=== PATIENT | female | born 1955 | race Caucasian/White ===

== ENCOUNTER 2022-11-16 14:26 | Outpatient (OUT) | payer MEDICARE, OTHER, SELFPAY ==
--- NOTE | 2022-11-16 16:12 | PM.CN ---
Consult Note: HPI Data of Consult Patient: known to practice within the last 3 years Consult date: 11/16/22 Requesting Physician: Parish Garcias MD Primary Care Provider: DOLORES LUND Consult Narrative Reason for consult: left hip pain Narrative: 67yof who presents for assessment. worsening pain in left hip and back. imaging reviewed, significant for moderate to severe stenosis at l4-5 and l5-s1. also epidural scarring seen around l5 nerve root postoperatively. engages in provider directed home exercise course >6 weeks, with limited benefit. uses ibuprofen, has tried gabapentin and lyrica, with little relief. denies adverse medication side effects. cc:: CC: Parish Garcias MD Review of Systems ROS Status of ROS 10 or more systems reviewed and unremarkable except as noted in history and below Meds Home Medications and Allergies Home Medications Medication Instructions Recorded Confirmed Type ibuprofen 200 mg tablet (Advil) 200 mg PO QDAY PRN pain 11/16/22 11/16/22 History Allergies Allergy/AdvReac Type Severity Reaction Status Date / Time No Known Drug Allergies Allergy Verified 11/16/22 14:59 Exam Narrative Exam Narrative: Psych-alert and oriented x 3. Attentive and appropriate, constitutionally normal, displays normal mood and affect per situation.? There are no obvious deficits in memory, reasoning, or intellect.? Skin-no obvious rashes, bruising, erythema noted to the patient's area of pain. Extremities- extremities are warm with minimal edema and palpable pulses. Tender to palpation over left greater trochanter. Lumbar-no significant tenderness to palpation noted in the lumbar spine and paraspinal musculature.? Pain is elicited with extension, and lateral rotation of the lumbar spine. Range of motion is slightly diminished with these motions due to pain. Facet loading maneuvers are positive bilaterally and do appear to be concordant with the patient's normal complaints of pain.? Coordination remains intact.? Gait remains non-antalgic. Assessment and Plan Assessment and Plan (1) Trochanteric bursitis of left hip: (2) Lumbar stenosis with neurogenic claudication: (3) Lumbar spondylosis: (4) Lumbar postlaminectomy syndrome: Plan 67yof who presents for assessment. failed conservative measures, as noted. in terms of her hip pain, suspect she has trochanteric bursitis of left hip, given tenderness. will proceed with left troch bursa injection today. she is in agreement. in terms of other symptoms, prudent to attempt diagnostic bilateral l4-5, l5-s1 medial branch blocks under fluoroscopic guidance with intention of proceeding to radiofrequency ablation. she will call to schedule. 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 expressed understanding. medications reviewed, no changes. follow up in 3 months or sooner.
== END 2022-11-16 14:27 | disposition home or self-care (01) ==
LOC: PM 14:27
PROVIDERS: PCP Family Medicine; Visit Provider Anesthesiology
DX: M47.816 Spondylosis without myelopathy or radiculopathy, lumbar region (principal); M70.62 Trochanteric bursitis, left hip; M48.062 Spinal stenosis, lumbar region with neurogenic claudication; M96.1 Postlaminectomy syndrome, not elsewhere classified
CPT/HCPCS: 20610

== ENCOUNTER 2022-12-07 06:34 | Day surgery (SDC) | payer MEDICARE, OTHER, SELFPAY ==
[2022-12-07 07:10] VITALS: BP 159/87; PULSE 73; RESP 16; TEMP 36.7; O2SAT 97
[2022-12-07 07:33] VITALS: BP 196/91; PULSE 87; RESP 16; O2SAT 97
[2022-12-07] MEDS: BUPIVACAINE HCL 0.5% PF 50 MG/10 ML VIAL 8 ML INJ (07:36)
[2022-12-07] MEDS: TRIAMCINOLONE ACETONIDE 40 MG/ML VIAL INJ (07:37)
[2022-12-07] MEDS: LIDOCAINE HCL 2% PF 100 MG/5 ML VIAL INJ (07:37)
[2022-12-07 07:40] VITALS: BP 190/93; PULSE 86; RESP 18; O2SAT 98
--- NOTE | 2022-12-07 07:43 | W.PM.PROCNOT ---
Date of procedure: 12/07/22 Pre-op diagnosis: Lumbosacral spondylosis Post-op diagnosis: same as pre-op Procedure: Procedure: Bilateral L4-5, L5-S1 medial branch block Medications: Bupivacaine 0.25% 4cc The patient was seen and examined in the preoperative holding area.? An informed consent was obtained and placed on the chart.? The patient was brought to the medical procedure unit and placed in the prone position.? A timeout was completed verifying correct patient, procedure site, positioning, plan, and special equipment.? Using aseptic technique, the needle was placed at left L4. Under direct fluoroscopic visualization a Quincke-tipped spinal needle was advanced to the junction of the superior articulating process with the transverse process at the designated medial branch segment.? Preceded by negative aspiration, the above-mentioned injectate was placed in 1 mL aliquots.? The procedure was repeated at left L5, S1.? The needle was removed and insertion site was covered. The same procedure, at the same levels, was completed on the right side. The patient was taken to the postprocedural recovery area and monitored for an appropriate length of time before found suitable for discharge in the company of a responsible adult. Anesthesia: Local Surgeon: Parish Garcias Pathology: none sent Condition: stable Disposition: no change
== END 2022-12-07 07:41 | disposition home or self-care (01) ==
PROVIDERS: PCP Family Medicine; Visit Provider Anesthesiology
DX: M47.817 Spondylosis without myelopathy or radiculopathy, lumbosacral region (principal)
CPT/HCPCS: 64493; 64494

== ENCOUNTER 2022-12-24 14:04 | Outpatient (OUT) | payer MEDICARE, OTHER, SELFPAY ==
--- NOTE | 2022-12-24 14:35 | P.CN_ITS ---
Consult Note: HPI Data of Consult Patient: known to practice within the last 3 years Requesting Physician: Martha Arvizu NP Primary Care Provider: DOLORES LUND Consult Narrative Reason for consult: f/u Narrative: Rica Roberson a pleasant 67 year old female presents for evaluation and management of chronic low back pain. Today rating pain 10/10. Patient repots 90- 95% pain relief and functional improvement immediately after and hours following MBB #1 at bilateral L4-5 L5-S1. Patient has severe anxiety and noticed increase in BP during the procedure after taking her own xanax. Patient would like to discuss MBB #2 working towards thermal ablation. cc:: CC: Martha Arvizu NP Review of Systems ROS Status of ROS 10 or more systems reviewed and unremarkable except as noted in h istory and below Musculoskeletal Reports: back pain Meds Home Medications and Allergies Home Medications Medication Instructions Recorded Confirmed Type ibuprofen 200 mg tablet (Advil) 200 mg PO QDAY PRN pain 11/16/22 12/07/22 History diazepam 2 mg tablet (Valium) 1 mg PO DAILY PRN anxiety 12/07/22 12/07/22 History Allergies Allergy/AdvReac Type Severity Reaction Status Date / Time No Known Drug Allergies Allergy Verified 11/16/22 14:59 Exam Narrative Exam Narrative: Psych-alert and oriented x 3. Attentive and appropriate, constitutionally normal, displays normal mood and affect per situation.? There are no obvious deficits in memory, reasoning, or intellect.? Skin-no obvious rashes, bruising, erythema noted to the patient's area of pain. Extremities- extremities are warm with minimal edema and palpable pulses. Tender to palpation over left greater trochanter. Lumbar-no significant tenderness to palpation noted in the lumbar spine and para spinal musculature.? Pain is elicited with extension, and lateral rotation of the lumbar spine. Range of motion is slightly diminished with these motions due to pain. Facet loading maneuvers are positive bilaterally and do appear to be concordant with the patient's normal complaints of pain.? Coordination remains intact.? Gait remains non-antalgic. Constitutional Documenting provider has reviewed patient's vital signs: yes Common normals: no apparent distress, oriented x3, healthy appearing, alert and well nourished General appearance: cooperative HENMT Common normals: normocephalic, hearing grossly normal bilaterally and moist oral mucous membranes Head and scalp: normocephalic Eye Common normals: PERRL Pupil: PERRL Neck & C-Spine Common normals: full ROM General: normal visual inspection Chest Common normals: inspection of chest normal Respiratory Common normals: normal respiratory effort, no retractions and no use of accessory muscles Neuro Common normals: oriented x3, CN's II-XII intact bilaterally, moves all extremities, no focal motor deficits, no sensory deficits noted and deep tendon reflexes 2+ bilaterally Sensorium/orientation: alert Motor exam: strength 5/5 throughout and no movement abnormalities noted Psych Common normals: mental status grossly normal, thought process normal, cooperative, affect normal, speech normal and activity/motor behavior normal Speech: normal speech Thought process: normal thought process Results Additional Findings Additional findings: I have checked an [facility] report on this patient today and there are no aberrancies noted in the prescribing history.?? A drug screen was completed and reviewed within the last year, and if there has not been a drug screen completed we ordered one today to monitor higher risk, state monitored pain medication use. As part of providing excellent, safe, comprehensive care, the following was com pleted at our patient's visit: 1. A medication reconciliation and review to ensure accurate knowledge of current/active medications, including asking our patients to inform us about any [id number] medications or herbal remedies/nutritional supplements/alternative remedies. 2. A review to specifically ensure our patients have had annual screening for: elevated body mass index (BMI), tobacco use, screening for depression, and screening for unhealthy alcohol use. When screening is concerning, patients are provided with education and the specific recommendation to discuss the concerning health issue and treatment options with their primary care provider. Assessment and Plan Assessment and Plan (1) Lumbar spondylosis: (2) Lumbar postlaminectomy syndrome: (3) Anxiety: Plan proceed with bialteral L4-5 L5-S1 MBB #2 with 10mg PO valium due to anxiety under fluoroscopy working towards thermal RFA continue OTC prn medications for mild to moderate pain f/u 1 week after procedure
== END 2022-12-24 14:05 | disposition home or self-care (01) ==
LOC: PM 14:05
PROVIDERS: PCP Family Medicine; Visit Provider Nurse Practitioner
DX: M47.816 Spondylosis without myelopathy or radiculopathy, lumbar region (principal); M96.1 Postlaminectomy syndrome, not elsewhere classified; F41.9 Anxiety disorder, unspecified
CPT/HCPCS: G0463

== ENCOUNTER 2023-01-18 06:50 | Day surgery (SDC) | payer MEDICARE, OTHER, SELFPAY ==
[2023-01-18 07:28] VITALS: BP 161/88; PULSE 85; RESP 16; TEMP 36.1; O2SAT 93
[2023-01-18 08:30] VITALS: BP 140/73; PULSE 86; RESP 18; O2SAT 98
[2023-01-18 08:32] VITALS: BP 164/77; PULSE 93; RESP 18; O2SAT 97
--- NOTE | 2023-01-18 08:33 | W.PM.PROCNOT ---
Date of procedure: 01/18/23 Pre-op diagnosis: Lumbar spondylosis Post-op diagnosis: same as pre-op Procedure: Procedure: Bilateral L4-5, L5-S1 medial branch block Medications: Bupivacaine 0.25% 6cc The patient was seen and examined in the preoperative holding area.? An informed consent was obtained and placed on the chart.? The patient was brought to the medical procedure unit and placed in the prone position.? A timeout was completed verifying correct patient, procedure site, positioning, plan, and special equipment.? Using aseptic technique, the needle was placed at left L4. Under direct fluoroscopic visualization a Quincke-tipped spinal needle was advanced to the junction of the superior articulating process with the transverse process at the designated medial branch segment.? Preceded by negative aspiration, the above-mentioned injectate was placed in 1 mL aliquots.? The procedure was repeated at left L5, S1.? The needle was removed and insertion site was covered. The same procedure, at the same levels, was completed on the right side. The patient was taken to the postprocedural recovery area and monitored for an appropriate length of time before found suitable for discharge in the company of a responsible adult. Anesthesia: Local Surgeon: Parish Garcias Pathology: none sent Condition: stable Disposition: no change
[2023-01-18] MEDS: LIDOCAINE HCL 2% PF 100 MG/5 ML VIAL 2 ML INJ (08:35)
[2023-01-18] MEDS: BUPIVACAINE HCL 0.25% PF 25 MG/10 ML VIAL 8 ML INJ (08:35)
== END 2023-01-18 08:42 | disposition home or self-care (01) ==
PROVIDERS: PCP Family Medicine; Visit Provider Anesthesiology
DX: M47.816 Spondylosis without myelopathy or radiculopathy, lumbar region (principal)
CPT/HCPCS: 64493; 64494

== ENCOUNTER 2023-01-28 14:46 | Outpatient (OUT) | payer MEDICARE, OTHER, SELFPAY ==
--- NOTE | 2023-01-28 15:42 | P.CN_ITS ---
Consult Note: HPI Data of Consult Patient: known to practice within the last 3 years Requesting Physician: Martha Arvizu NP Primary Care Provider: DOLORES LUND Consult Narrative Reason for consult: f/u Narrative: Rica Roberson a pleasant 67 year old female presents for evaluation and management of chronic pain of left foot. Pain today 8/10 in left foot. Patient reports no lumbar pain, had no significant relief from bilateral L4-5 L5-S1 MBB #2. cc:: CC: Martha Arvizu NP Review of Systems ROS Status of ROS 10 or more systems reviewed and unremark able except as noted in history and below Musculoskeletal Reports: extremity pain PFSH PFSH Medical History (Updated 01/28/23 @ 15:57 by Martha Arvizu NP) Former smoker ?Z87.891 - Personal history of nicotine dependence (ICD-10) High cholesterol ?E78.00 - Pure hypercholesterolemia, unspecified (ICD-10) Surgical History H/O lumbosacral spine surgery ?Z98.890 - Other specified postprocedural states (ICD-10) H/O lumbar discectomy ?Z98.890 - Other specified postprocedural states (ICD-10) H/O: hysterectomy ?Z90.710 - Acquired absence of both cervix and uterus (ICD-10) Meds Home Medications and Allergies Home Medications Medication Instructions Recorded Confirmed Type ibuprofen 200 mg tablet (Advil) 200 mg PO QDAY PRN pain 11/16/22 01/18/23 History diazepam 2 mg tablet (Valium) 1 mg PO DAILY PRN anxiety 12/07/22 01/18/23 History Allergies Allergy/AdvReac Type Severity Reaction Status Date / Time No Known Drug Allergies Allergy Verified 01/18/23 07:22 Exam Narrative Exam Narrative: Psych-alert and oriented x 3. Attentive and appropriate, constitutionally normal, displays normal mood and affect per situation.? There are no obvious deficits in memory, reasoning, or intellect.? Skin-no obvious rashes, bruising, erythema noted to the patient's area of pain. Extremities- extremities are warm with minimal edema and palpable pulses. Tender to palpation over left greater trochanter. Lumbar-no significant tenderness to palpation noted in the lumbar spine and paraspinal musculature.? Pain is elicited with extension, and lateral rotation of the lumbar spine. Range of motion is slightly diminished with these motions due to pain. Facet loading maneuvers are positive bilaterally and do appear to be concordant with the patient's normal complaints of pain.? Coordination remains intact.? Gait remains non-antalgic. Constitutional Documenting provider has reviewed patient's vital signs: yes Common normals: no apparent distress, oriented x3, healthy appearing, alert and well nourished General appearance: cooperative HENMT Common normals: normocephalic, hearing grossly normal bilaterally and moist oral mucous membranes Head and scalp: normocephalic Eye Common normals: PERRL Pupil: PERRL Neck & C-Spine Common normals: full ROM General: normal visual inspection Chest Common normals: inspection of chest normal Respiratory Common normals: normal respiratory effort, no retractions and no use of accessory muscles Neuro Common normals: oriented x3, CN's II-XII intact bilaterally, moves all extremities, no focal motor deficits, no sensory deficits noted and deep tendon reflexes 2+ bilaterally Sensorium/orientation: alert Motor exam: strength 5/5 throughout and no movement abnormalities noted Psych Common normals: mental status grossly normal, thought process normal, cooperative, affect normal, speech normal and activity/motor behavior normal Speech: normal speech Thought process: normal thought process Results Additional Findings Additional findings: I have checked an [facility] report on this patient today and there are no aberrancies noted in the prescribing history.?? A drug screen was completed and reviewed within the last year, and if there has not been a drug screen completed we ordered one today to monitor higher risk, state monitored pain medication use. As part of providing excellent, safe, comprehensive care, the following was completed at our patient's visit: 1. A medication reconciliation and review to ensure accurate knowledge of current/active medications, including asking our patients to inform us about any [id number] medications or herbal remedies/nutritional supplements/alternative remedies. 2. A review to specifically ensure our patients have had annual screening for: elevated body mass index (BMI), tobacco use, screening for depression, and screening for unhealthy alcohol use. When screening is concerning, patients are provided with education and the specific recommendation to discuss the concerning health issue and treatment options with their primary care provider. Assessment and Plan Assessment and Plan (1) Lumbar spondylosis: (2) Weakness: (3) Chronic pain in left foot: Plan PT per pt request for left foot pain, left leg weakness continue current medications will review case with Dr Garcias and f/u based on care plan
== END 2023-01-28 14:47 | disposition home or self-care (01) ==
LOC: PM 14:46
PROVIDERS: PCP Family Medicine; Visit Provider Nurse Practitioner
DX: M47.816 Spondylosis without myelopathy or radiculopathy, lumbar region (principal); R53.1 Weakness; M79.672 Pain in left foot
CPT/HCPCS: G0463

== ENCOUNTER 2023-06-30 12:33 | Outpatient (OUT) | payer OTHER, SELFPAY ==
--- OUTSIDE RECORDS SUMMARY | 2023-06-30 12:55 | XMS_ITS | CCD ---
Author Organization [facility] Care Team Providers Care Cafe Helper Name Role Phone Dolores Calixto Primary Care Provider DR ELOY DAVIDSON Admitting Unavailable GARCIA, ADELFO Consulting Unavailable [facility] Primary Care Unavailable MARGO, DR ELOY Lang Attending Unavailable CURTIS, DR RAMÓN Smith Consulting Unavailable MARGO, DR ELOY Lang Admitting Unavailable MARGO, DR ELOY Lang Attending Unavailable [facility] Primary Care Unavailable GARCIA, ADELFO Consulting Unavailable MARGO, DR ELOY Lang Admitting Unavailable MARGO, DR ELOY Lang Attending Unavailable GARCIA, ADELFO Consulting Unavailable [facility] Primary Care Unavailable MARGO, DR ELOY Lang Attending Unavailable MARGO, DR ELOY Lang Consulting Unavailable MARGO, DR ELOY Lang Admitting Unavailable [facility] Care Unavailable GARCIA, ADELFO Consulting Unavailable VERHOFF, RIAN Consulting Unavailable MARGO, DR ELOY Lang Attending Unavailable MARGO, DR ELOY Lang Consulting Unavailable MARGO, DR ELOY Lang Admitting Unavailable [facility] Primary Care Unavailable TERESA LISA Consulting Unavailable MARGO, DR ELOY Lang Admitting Unavailable GARCIA, ADELFO Consulting Unavailable [facility] Primary Care Unavailable MARGO, DR ELOY Lang Attending Unavailable MARGO, DR ELOY Lang Attending Unavailable MARGO, DR ELOY Lang Consulting Unavailable MARGO, DR ELOY Lang Admitting Unavailable [facility] Primary Care Unavailable GARCIA, ADELFO Consulting Unavailable MARGO, DR ELOY Lang Attending Unavailable MARGO, DR ELOY Lang Admitting Unavailable GARCIA, ADELFO Consulting Unavailable [facility] Primary Care Unavailable MARGO, DR ELOY Lang Admitting Unavailable [facility] Primary Care Unavailable MARGO, DR ELOY Lang Attending Unavailable Dolores Calixto MD Primary Care Provider Katerine DO, Parish Hanley Attending Unavailable Katerine DO, Parish Hanley Attending Unavailable Gitrellitis , Parish Hanley Attending Unavailable VERHOFF, DOLORES L Primary Care Unavailable REBECCA, ELOISA Referring Unavailable VERHOFF, DOLORES L Attending Unavailable REBECCA, ELOISA Referring Unavailable VERHOFF, DOLORES L Attending Unavailable VERHOFF, DOLORES L Primary Care Unavailable REBECCA, ELOISA Referring Unavailable VERHOFF, DOLORES L Primary Care Unavailable VERHOFF, DOLORES L Attending Unavailable ELBERT NAVA Attending Unavailable VERHOFF, DOLORES L Primary Care Unavailable VERHOFF, DOLORES L Primary Care Unavailable REBECCA, ELOISA Referring Unavailable VERHOFF, DOLORES L Attending Unavailable VERHOFF, DOLORES L Primary Care Unavailable REBECCA, ELOISA Referring Unavailable VERHOFF, DOLORES L Attending Unavailable Medications Current Medications Medication Drug Class(es) Dates Sig (Normalized) Sig (Original) acetaminophen 500 mg oral tablet (2 sources) take 1 tablet by mouth every six hours as needed for pain acetaminophen (TYLENOL) 500 MG tablet Take 500 mg by mouth every 6 hours as needed for Pain 0 Active gabapentin 300 mg oral capsule (11 sources) Anti-epileptic Agent Start: 02-09-2018 take 1 capsule by mouth three times daily gabapentin (NEURONTIN) 300 MG capsule Take one capsule by mouth TID. 0 02/09/2018 Active naproxen sodium 220 mg oral tablet (1 source) Nonsteroidal Anti-inflammatory Drug take 1 tablet by mouth twice daily at mealtime naproxen sodium (ALEVE) 220 MG tablet Take 220 mg by mouth 2 times daily (with meals) 0 Active pregabalin 50 mg oral capsule (1 source) Start: 07-23-2021 take 1 tablet by mouth twice daily pregabalin (LYRICA) 50 MG capsule TAKE 1 TABLET BY MOUTH TWICE DAILY 0 07/23/2021 Active Completed/Discontinued Medications Medication Drug Class(es) Dates Sig (Normalized) Sig (Original) gentamicin 3 mg/ml ophthalmic solution (1 source) Start: 06-21-2022 End: 06-21-2022 gentamicin (GARAMYCIN) 0.3 % ophthalmic solution 2 drop tetracaine hydrochloride 5 mg/ml ophthalmic solution (1 source) [facility] Start: 06-21-2022 End: 06-21-2022 tetracaine (TETRAVISC) 0.5 % ophthalmic solution 2 drop water 986 mg/ml ophthalmic irrigation solution (1 source) Start: 06-21-2022 End: 06-21-2022 eye stream ophthalmic solution 1 drop Start: 06-21-2022 End: 06-21-2022 eye stream ophthalmic soluti on 1 drop Problems Active Problems Problem Classification Problem Date Documented Date Episodic/Chronic Other connective tissue disease (1 source) Pain in left foot; Translations: [PAIN IN LEFT FOOT] Onset: 11-26-2021 Episodic Other screening for suspected conditions (not mental disorders or infectious disease) (3 sources) Patient encounter status; Translations: [Encounter for screening mammogram for malignant neoplasm of breast] Onset: 03-15-2023 Episodic Spondylosis; intervertebral disc disorders; other back problems (1 source) Other spondylosis with radiculopathy, lumbar region; Translations: [OT SPONDYLS RADICULOPATHY LUMB RGN] Onset: 06-30-2021 Chronic Spondylosis; intervertebral disc disorders; other back problems (10 sources) Intervertebral disc disorders with radiculopathy, lumbar region; Translations: [Radiculopathy, lumbar region] Onset: 06-30-2021 Episodic Unclassified (3 sources) LOW BACK PAIN, UNSPECIFIED; Translations: [LOW BACK PAIN, UNSPECIFIED] Onset: 06-30-2021 Past or Other Problems Problem Classification Problem Date Documented Date Episodic/Chronic Inflammation; infection of eye (except that caused by tuberculosis or sexually transmitteddisease) (2 sources) Acute infectious conjunctivitis; Translations: [Unspecified acute conjunctivitis, bilateral] Onset: 06-21-2022 Episodic Other connective tissue disease (4 sources) Other muscle spasm; Translations: [OTHER MUSCLE SPASM] Onset: 08-19-2021 Episodic Other non-traumatic joint disorders (4 sources) Pain in right hip; Translations: [PAIN IN RIGHT HIP] Onset: 06-18-2021 Episodic Residual codes; unclassified (1 source) Other specified postprocedural states; Translations: [[facility] SPECIFIED POSTPROCEDURAL STATES] Onset: 01-27-2021 Episodic Sprains and strains (1 source) Sprain of unspecified ligament of left ankle, initial encounter; Translations: [SPRAIN UNS LIGAMENT LT ANKLE INIT] Onset: 08-22-2021 Episodic Unclassified (1 source) LOW BACK PAIN, UNSPECIFIED; Translations: [LOW BACK PAIN, UNSPECIFIED] Onset: 06-26-2021 Results Test Name Value Interpretation Reference Range Facility [facility] DIGITAL SCREEN [facility] [place] 03-16-2023 [facility]ST[facility] DIGITAL SCREEN BILATERAL HISTORY: Screening. TECHNIQUE: Bilateral digital screening mammogram with CAD. Digital breast tomosynthesis imaging. FINDINGS: Two views of each breast show scattered areas of fibroglandular density. BREAST DENSITY CODE: S Scattered No change from prior studies, most recent of 09/09/2020. Suspicious calcifications: None. Suspicious mass: None. (If skin markers were applied, circles represent skin lesions and linear markers represent scars.) IMPRESSION: OVERALL ASSESSMENT: BIRADS: 1 Negative, no evidence of malignancy. A letter of notification will be mailed to the patient. Interpreted by: Idris Zhao Jr., MD Signed by: Idris Zhao Jr., MD 03/16/23 Final result Normal [facility] CBC with Diffon 03-15-2023 Abs. Basophil 0.02 k/uL Normal 0.00-0.20 [facility] Comment on above: Performed By: #### C P, CDP #### [facility] [address] [place], [place] [id number] [employer] Installer: Memo Kyle MD Abs.Imm.Granulocyte 0.01 k/uL Normal 0.00-0.30 [facility] Comment on above: Performed By: #### C P, CDP #### [facility] [address] [place] [address] [employer] Installer: Memo Kyle MD Abs.Neutrophil (Seg) 4.00 k/uL Normal 2.5-7.0 [facility] Comment on above: Performed By: #### C P, CDP #### [facility] [address] [place] [address] [employer] Installer: Memo Kyle MD Basophils/100 WBC (Bld) 0 % Normal 0-2 [facility] Comment on above: Performed By: #### C P, CDP #### [facility] [address] [place], [place] [id number] [employer] Installer: Memo Kyle MD Eosinophils (Bld) [#/Vol] 0.13 10*3/uL Normal 0.00-0.40 [facility] Comment on above: Performed By: #### C P, CDP #### [facility] [address] [place], [place] [id number] [employer] Installer: Memo Kyle MD Eosinophils/100 WBC (Bld) 2 % Normal 0-5 [facility] Comment on above: Performed By: #### C P, CDP #### [facility] [address] [place], [place] [id number] [employer] Installer: Memo Kyle MD Erythrocyte distribution width (RBC) [Ratio] 12.5 % Normal 12.1-15.2 [facility] Comment on above: Performed By: #### C P, CDP #### [facility] [address] [place], [place] [id number] [employer] Installer: Memo Kyle MD Hematocrit (Bld) [Volume fraction] 40.6 % Normal 36.0-46.0 [facility] Comment on above: Performed By: #### C P, CDP #### [facility] [address] [place], [place] [id number] [employer] Installer: Memo Kyle MD Hemoglobin (Bld) [Mass/Vol] 13.8 g/dL Normal 12.0-16.0 [facility] Comment on above: Performed By: #### C P, CDP #### [facility] [address] [place], [place] [id number] [employer] Installer: Memo Kyle MD Immature granulocytes/100 WBC (Bld) 0 % Normal 0-5 [facility] Comment on above: Performed By: #### C P, CDP #### [facility] [address] [place], [place] [id number] [employer] Installer: Memo Kyle MD Lymphocytes (Bld) [#/Vol] 1.40 10*3/uL Normal 1.00-4.80 [facility] Comment on above: Performed By: #### C P, CDP #### [facility] [address] [place] [id number] [employer] Installer: Memo Kyle MD Lymphocytes/100 WBC (Bld) 23 % Normal 15-40 [facility] Comment on above: Performed By: #### C P, CDP #### [facility] [address] [place] [address] [employer] Installer: Memo Kyle MD MCH (RBC) [Entitic mass] 31.3 pg Normal 26.0-34.0 [facility] Comment on above: Performed By: #### C P, CDP #### [facility] [address] [place] [address] [employer] Installer: Memo Kyle MD MCHC (RBC) [Mass/Vol] 34.0 g/dL Normal 31.0-37.0 [facility] Comment on above: Performed By: #### C P, CDP #### [facility] [address] [place] [address] [employer] Installer: Memo Kyle MD MCV (RBC) [Entitic vol] 92.1 fL Normal 80.0-100.0 [facility] Comment on above: Performed By: #### C P, CDP #### [facility] [address] [place] [address] [employer] Installer: Memo Kyle MD Monocytes (Bld) [#/Vol] 0.42 10*3/uL Normal 0.00-1.00 [facility] Comment on above: Performed By: #### C P, CDP #### [facility] [address] [place] [id number] [employer] Installer: Memo Kyle MD Monocytes/100 WBC (Bld) 7 % Normal 4-8 [facility] Comment on above: Performed By: #### C P, CDP #### [facility] [address] [place], [place] [phone] (181) [employer] Installer: Memo Kyle MD Neutrophil (Seg) 68 % Normal 47-75 [facility] Comment on above: Performed By: #### C P, CDP #### [facility] [address] [place] [address] (770) [employer] Installer: Memo Kyle MD Platelet mean volume (Bld) [Entitic vol] 10.0 fL Normal 6.0-12.0 [facility] Comment on above: Performed By: #### C P, CDP #### [facility] [address] [place] [address] (983) [employer] Installer: Memo Kyle MD Platelets (Bld) [#/Vol] 297 10*3/uL Normal 140-450 [facility] Comment on above: Performed By: #### C P, CDP #### [facility] [address] [place] [address] (772) [employer] Installer: Memo Kyle MD RBC (Bld) [#/Vol] 4.41 10*6/uL Normal 4.00-5.20 [facility] Comment on above: Performed By: #### C P, CDP #### [facility] [address] [place] [address] (494) [employer] Installer: Memo Kyle MD WBC (Bld) [#/Vol] 6.0 10*3/uL Normal 3.5-11.0 [facility] Comment on above: Performed By: #### C P, CDP #### [facility] [address] [place] [address] (307) [employer] Installer: Memo Kyle MD Comp Metabolic Profon 2023 Albumin [Mass/Vol] 4.4 g/dL Normal 3.5-5.2 [facility] Comment on above: Performed By: #### C P, CDP #### [facility] [address] [place] [address] [employer] Installer: Memo Kyle MD Alkaline Phos 88 U/L Normal 35-104 [facility] Comment on above: Performed By: #### C P, CDP #### [facility] [address] [place] [address] [employer] Installer: Memo Kyle MD ALT [Catalytic activity/Vol] 14 U/L Normal 5-33 [facility] Comment on above: Performed By: #### C P, CDP #### [facility] [address] [place], [place] [phone] [employer] Installer: Memo Kyle MD Anion gap [Moles/Vol] 13 mmol/L Normal 9-17 [facility] Comment on above: Performed By: #### C P, CDP #### [facility] [address] [place] [address] [employer] Installer: Memo Kyle MD AST [Catalytic activity/Vol] 16 U/L Normal <32 [facility] Comment on above: Performed By: #### C P, CDP #### [facility] [address] [place] [address] [employer] Installer: Memo Kyle MD Bilirubin [Mass/Vol] 0.4 mg/dL Normal 0.3-1.2 [facility] Comment on above: Performed By: #### C P, CDP #### [facility] [address] [place] [address] [employer] Installer: Memo Kyle MD BUN/CRE Ratio 20 Normal 9-20 [facility] Comment on above: Performed By: #### C P, CDP #### [facility] [address] [place] [address] [employer] Installer: Memo Kyle MD Calcium [Mass/Vol] 9.6 mg/dL Normal 8.6-10.4 [facility] Comment on above: Performed By: #### C P, CDP #### [facility] [address] [place], [place] [phone] [employer] Installer: Memo Kyle MD Chloride [Moles/Vol] 105 mmol/L Normal 98-107 [facility] Comment on above: Performed By: #### C P, CDP #### [facility] [address] [place], [place] [phone] [employer] Installer: Memo Kyle MD CO2 [Moles/Vol] 24 mmol/L Normal 20-31 [facility] Comment on above: Performed By: #### C P, CDP #### [facility] [address] [place], [place] [phone] [employer] Installer: Memo Kyle MD Creatinine [Mass/Vol] 0.6 mg/dL Normal 0.5-0.9 [facility] Comment on above: Performed By: #### C P, CDP #### [facility] [address] [place] [address] [employer] Installer: Memo Kyle MD GFR/1.73 sq M.predicted among non-blacks MDRD (S/P/Bld) [Vol rate/Area] mL/min/{1.73_m2} Normal >60 [facility] Comment on above: Result Comment: These results are not intended for use in patients <18 years of age. eGFR results are calculated without a race factor using the 2020 CKD-EPI equation. Careful clinical correlation is recommended, particularly when comparing to results calculated using previous equations. The CKD-EPI equation is less accurate in patients with extremes of muscle mass, extra-renal metabolism of creatine, excessive creatine ingestion, or following therapy that affects renal tubular secretion. Performed By: #### C P, CDP #### [facility] [address] [place] [address] [employer] Installer: Memo Kyle MD Glucose [Mass/Vol] 98 mg/dL Normal 70-99 [facility] Comment on above: Performed By: #### C P, CDP #### [facility] [address] [place] [address] [employer] Installer: Memo Kyle MD Potassium [Moles/Vol] 4.1 mmol/L Normal 3.7-5.3 [facility] Comment on above: Performed By: #### C P, CDP #### [facility] [address] [place] [address] [employer] Installer: Memo Kyle MD Protein [Mass/Vol] 7.6 g/dL Normal 6.4-8.3 [facility] Comment on above: Performed By: #### C P, CDP #### [facility] [address] [place] [address] [employer] Installer: Memo Kyle MD Sodium [Moles/Vol] 142 mmol/L Normal 135-144 [facility] Comment on above: Performed By: #### C P, CDP #### [facility] [address] [place] [address] [employer] Installer: Memo Kyle MD Urea nitrogen [Mass/Vol] 12 mg/dL Normal 8-23 [facility] Comment on above: Performed By: #### C P, CDP #### [facility] [address] [place] [address] [employer] Installer: Memo Kyle MD XR CHEST (2 VW)on 03-15-2023 XR CHEST (2 VW) EXAM: XR CHEST (2 VW ) HISTORY: Preop testing Z01.818 COMPARISON: None. TECHNIQUE: PA and lateral views FINDINGS: Heart size is satisfactory. No mediastinal widening is seen. Central vasculature appears symmetrical. Lung grande are expanded without acute infiltrate, consolidation, or edema. No effusion is seen. Osseous structures appear intact. IMPRESSION: No acute cardiopulmonary abnormality. Interpreted by: Antwan Pruett DO Signed by: Antwan Pruett DO 03/15/23 Final result Normal [facility] XR pre/post mri xrayon 04-23 XR pre/post mri xray [facility] [place] [address] [place] [address] MRI Report Signed Patient: Izzy Silverio MR#: [id number] : 1955 Acct:[id number] Age/Sex: 66 / F ADM Date: 04/22/21 Loc: MR Room: Type: [facility] Attending Dr: Eloy Davidson MD Ordering Provider: Eloy Davidson M.D. Date of Service: 04/22/21 MR/MR lumbar spine wo/w con: LUMBAR RADICULITIS ([id number]) XR/XR pre/post mri xray: SEE ORDER Copies to: Eloy Davidson M.D. MR lumbar spine wo/w con, XR pre/post mri xray 04/22/2021 4:38 PM SIGNS AND SYMPTOMS: Pain and burning sensation in left foot PROTOCOL: Multiplanar multisequence MR images of the lumbar spine were obtained with and without IV contrast CONTRAST: 14 mL of intravenous ProHance COMPARISON: None. FINDINGS: Radiographs of the lumbar spine: There is a slight dextro convex curvature of the thoracic lumbar junction. There is mild straightening of the normal lumbar lordosis. There is moderate severe disc height loss with vacuum disc phenomena at L4-L5 and L5-S1. Facet degenerative changes are present throughout. The vertebral body heights are preserved. Mild symmetric sacroiliac joint degenerative changes are noted. MRI lumbar spine: There is preservation of vertebral body heights. Disc height loss and alignment is as noted above. There is mixed Modic type I endplate edema and Modic type II fatty endplate degenerative change at L4-L5 and L5-S1. The conus terminates at the mid L1 vertebral body level. No epidural or paraspinous fluid collection is appreciated. At T12-L1: There is a normal disc, central canal, and neural foramen. At L1-L2: There is a normal disc, central canal, and neural foramen. At L2-L3: There is a broad-based disc bulge with facet and ligament flavum degenerative change contributing to mild to moderate spinal canal narrowing with mild bilateral neural foraminal narrowing. At L3-L4: There is a broad-based disc bulge with facet and ligament flavum degenerative change contributing to mild spinal canal narrowing and mild bilateral neural foraminal narrowing. At L4-L5: There is a circumferential disc bulge with evidence of previous right hemilaminotomy. Facet hypertrophy is present. There is a focal right subarticular disc protrusion causing mass effect on the traversing right L5 nerve roots. There is enhancement within the right anterior lateral epidural space surrounding the traversing right L5 nerve roots suggesting the presence of postoperative granulation tissue. At L5-S1: There is a circumferential disc bulge with endplate osteophyte formation and residual left central and subarticular disc extrusion showing mild cranial and caudal migration. There is evidence of previous left hemilaminotomy. There is enhancing granulation tissue surrounding the traversing left S1 nerve roots. There is moderate narrowing of the spinal canal, most significant at the left of midline. There is moderate to severe neural foraminal stenosis bilaterally. This causes mild mass effect on the exiting L5 nerve roots bilaterally. MR/MR lumbar spine wo/w con IMPRESSION: At L4-L5: There is a circumferential disc bulge with evidence of previous right hemilaminotomy. Facet hypertrophy is present. There is a focal right subarticular disc protrusion causing mass effect on the traversing right L5 nerve roots. There is enhancement within the right anterior lateral epidural space surrounding the traversing right L5 nerve roots suggesting the presence of postoperative granulation tissue. At L5-S1: There is a circumferential disc bulge with endplate osteophyte formation and residual left central and subarticular disc extrusion showing mild cranial and caudal migration. There is evidence of previous left hemilaminotomy. There is enhancing granulation tissue surrounding the traversing left S1 nerve roots. There is moderate narrowing of the spinal canal, most significant at the left of midline. There is moderate to severe neural foraminal stenosis bilaterally. This causes mild mass effect on the exiting L5 nerve roots bilaterally. There is straightening of the normal lumbar lordosis which may be positional or secondary to muscle spasm. Significantly lesser degrees of spinal canal or neural foraminal narrowing are noted above the L4-L5 level. See above. Impression dictated by: Altaf Alarcon M.D.04/23/2021 10:13 AM Dictation Location: [place] [address] Transcribed By: [facility] 04/23/21 1013 Dictated By: Altaf Alarcon II, MD 04/23/21 1002 Signed By: 04/23/21 1013 [facility] CREon 04-22-2021 Creatinine [Mass/Vol] 0.8 mg/dL Normal 0.6-1.3 [facility] Comment on above: Result Comment: ER/E SD physician is notified/shown all ISTAT results. Critical values may be confirmed by laboratory testing if deemed necessary by ER attending doctor. Performed By: #### I SCRE #### [facility] [address] Point of Care testing , ISTAT GFR ( > 60 Normal [facility] Comment on above: Result Comment: GFR estimated reference range: According to KDOQI guidelines, <60 ml/min/1.73m2 is sufficient to diagnose a patient with chronic kidney disease. PERFORMED BY: [place] [address] PATHOLOGIST [employer] SPECIALIST CHANDNI HOWARD M.D. Performed By: #### I SCRE #### [facility] [address] Point of Care testing , ISTAT GFR (Non- Am > 60 Normal [facility] Comment on above: Performed By: #### I SCRE #### [facility] [address] [place] [address] Point of Care testing , Lipid Panelon 02-11-2021 Cholesterol [Mass/Vol] 215 mg/dL High <200 [facility] Comment on above: Cholesterol Guidelines: <200 Desirable 200-240 Borderline >240 Undesirable Cholesterol in HDL [Mass/Vol] 48 mg/dL >40 [facility] Comment on above: HDL Guidelines: <40 Undesirable 40-59 Borderline >59 Desirable Cholesterol in LDL [Mass/Vol] 135 mg/dL High 0 - 130 mg/dL [facility] Comment on above: LDL Guidelines: <100 Desirable 100-129 Near to/above Desirable 130-159 Borderline >159 Undesirable Direct (measured) LDL and calculated LDL are not interchangeable tests. Cholesterol in VLDL [Mass/Vol] NOT REPORTED High 1 - 30 mg/dL [facility] Cholesterol.total/Cho lesterol in HDL [Mass ratio] 4.5 {ratio} <5 [facility] Interpretation and review of laboratory results Abnormal [facility] Triglyceride [Mass/Vol] 161 mg/dL High <150 [facility] Comment on above: Triglyceride Guidelines: <150 Desirable 150-199 Borderline 200-499 High >499 Very high Based on AHA Guidelines for fasting triglyceride, November 2011. [facility] Patient Fasting?on 1 Patient Fasting? yes Delilah rodriguez [employer] [facility]IAN[facility] DIGITAL SCREEN BILA TERALOrdered By: Eddei Novoa on 09-10-2020 BI-RADS 1 - Negative , no evidence of malignancy. Normal interval followup in 12 months. OVERALL ASSESSMENT- NEGATIVE A letter of notification will be sent to the patient regarding the results. [employer] Phone: HISTORY: Screening. Negative left breast biopsy. TECHNIQUE: Bilateral digital screening mammogram with CAD. 2-D and 3-D tomography. FINDINGS: Two views of each breast show scattered areas of fibroglandular density. No change from 03/16/2016. Suspicious calcifications: None. Suspicious mass: None. (If skin markers were applied, circles represent skin lesions and linear markers represent scars.) [employer] Phone: [employer] Phone: PROGRESSon 02-08-2020 PROGRESS HNO ID: [id number] Author: Isa (Rt) Kwan Jimenez Service: ? Author Type: Machine Adjuster Leader Type: Progress Notes Filed: 02/08/2020 2:43 PM Note Text: Radiology Service Progress Note PATIENT NAME: Izzy Silverio DATE OF SERVICE: February 08, 2020 TIME: 2:43 PM PATIENT IDENTITY VERIFICATION COMPLETED USING TWO (2) IDENTIFIERS: Name and Date of confirmed by patient verbally. FALL SCREENING: Has the patient had 2 falls in the last year or 1 fall with injury or currently using an Ambulatory Assistive Device (Walker, Cane, Wheelchair, Crutches, etc.)? No PATIENT GENDER DATA: Female. status: : No status: NO. PATIENT RELEVANT IMPLANT DATA REVIEWED: Not Applicable RADIOLOGY DEPARTMENT: General X-ray: Exam(s) Completed: Pelvis X-Ray: Pelvis with Hip Left PERIPHERAL IV DATA: Not applicable SIGNED BY: RT Lio February 08, 2020 2:43 PM [facility] XR HIP 3V PELV+ AP/LAT LTon 02-08-2020 XR HIP 3V PELV+ AP/LAT LT * * *Final Report* * * DATE OF EXAM: Feb 08 2020 2:44PM VHX 5351 - XR HIP 3V PELV+ AP/LAT LT / PROCEDURE REASON: Pain in left hip * * * * Physician Interpretation * * * * EXAMINATION / TECHNIQUE: XR HIP 3V PELV+ AP/LAT LT HISTORY: LEFT HIP PAIN, NO INJURY Pain in left hip COMPARISON: None. RESULT: No acute fracture or osseous malalignment is identified. There is mild right hip osteoarthritis. Left hip joint space is preserved. The sacroiliac joints and symphysis pubis are intact. There is L4-L5 and L5-S1 degenerative disc disease. IMPRESSION: No acute osseous abnormality or significant left hip osteoarthritis. Dyed Raw Stock Blower Feeder: PSCB Transcribe Date/Time: Feb 08 2020 5:11P Dictated by : LEROY OLIVA MD This examination was interpreted and the report reviewed and electronically signed by: LEROY OLIVA MD on Feb 08 2020 5:12PM EST [id number] Normal [facility] IntraOperative Documentson 1 03-17-2019 IntraOperative Documents [id number]#1.00C D:127 [facility] Coding Summary.on 01-11-2020 Coding Summary. CODING DATE: 020 FINAL [facility] STATUS: Home (Routine DC) PAYOR: Medicare APC DESCRIPTION 5491 Level 1 Intraocular Procedures ADMIT DX: REASON FOR VISIT DX: H25.12 Age-related nuclear cataract, left eye FINAL DX: PRINCIPAL: H25.12 Age-related nuclear cataract, left eye SECONDARY: H25.032 Anterior subcapsular polar age-related cataract, left eye Z96.1 Presence of intraocular lens PYMT PROC APC STAT DESCRIPTION DOCTOR NAME DATE 27007 5491 J1 Extracapsular cataract Graham DO, Windy Gil 01/08/2020 removal with insertion of intraocular lens prosthesis (1 stage procedure), manual or mechanical technique (eg, irrigation and aspiration or phacoemulsification); without endoscopic cyclophotocoagulation LT Left side (used to identify procedures performed on the left side of the body) NOTE: The code number assigned matches the documented diagnosis and / or procedure in the patient's chart. However, the narrative phrase printed from the coding software may appear abbreviated, or result in slightly different terminology. Coded By: Liliam Cesar Date Saved: 01/11/2020 04:27 pm [facility] Operative Reporton 0 Operative Report Date of Surgery: 01/08/2020 SURGEON: Windy Stevenson M.D. PREOPERATIVE DIAGNOSIS: Cataract, left eye POSTOPERATIVE DIAGNOSIS: Cataract, left eye OPERATION: Phacoemulsification cataract extraction with intraocular lens implantation with a 20.0 diopter lens, left eye ANESTHESIA: Topical 2% lidocaine gel PROCEDURE: The patient was brought to the Operating Room and a 2% topical lidocaine gel was placed into the superior and inferior fornices of the eye. A HeyCrowdan manometer was set on the eye at 20 mmHg for fifteen minutes. The eye was then prepped and draped in the usual sterile ophthalmic fashion. Meticulous care was taken to ensure that the Betadine Prep was flushed into the superior and inferior fornices of the eye as well as meticulously cleansed the lid margin and lash bases, then flushed with saline. A speculum was placed into the superior and inferior fornices. A Super Sharp blade was used to create a 1 mm corneal incision at the limbus near the 2 o'clock position. 1% non-preserved lidocaine was injected into the anterior chamber through this incision, approximately 0.75 mL. A 2.65 mm keratome was then used to create a shelved corneal incision. Viscoelastic material replaced the aqueous. A capsular forceps was then used to create a 360 degree continuous tear anterior capsulotomy. Hydrodissection was carried out with balanced salt solution. The phacoemulsification unit on sculpt mode was then placed into the eye and the lens was fractured into four separate fragments. The phacoemulsification unit was then advanced to the sector removal mode and the four nuclear fragments were removed at the iris plane under minimal phaco power in order to achieve complete nuclear removal. The irrigating/ aspirating unit was then placed into the posterior chamber and the remaining cortical material was stripped free from the posterior capsule. The capsular bag was inflated with viscoelastic material. A foldable intraocular lens was then placed with the haptics into the capsular bag. The lens was rotated in order to bring the haptics to the 3 o'clock and 9 o'clock position. The viscoelastic agent was removed with the irrigating/aspirating unit. Miochol was injected into the anterior chamber and symmetrical miosis was noted. The intraocular pressure was brought up to normal with balanced salt solution. The corneal incision was then hydrated using a 30 gauge cannula of balanced salt solution at the limbal incision at 11 o'clock and at the 2 o'clock position. The incision was checked and found to be watertight. A minimal amount of aqueous was then drained from the incision and an intraocular injection of antibiotic, moxifloxacin diluted in the pharmacy to the appropriate strength was irrigated into the posterior chamber, just anterior to the intraocular lens. Betadine solution was then used to bathe the surface of the globe, cornea, conjunctiva, and fornices, and rinsed with saline. Iopidine eye drops and TobraDex ointment were placed into the inferior fornix. A patch and shield were taped over the eye. The patient returned to the Recovery Room in good condition. Windy Stevenson M.D. s Dictated: 01/08/2020 #[id number] Typed: 01/09/2020 #[id number] cc: Windy Stevenson M.D. [facility] Comment on above: Result Comment: Elec tronically Signed By: Windy Stevenson MD\.br\Date and Time Signed: 01/11/20 12:09 EST Main OR Intraoperative Recor don 01-10-2020 Main OR Intraoperative Record IntraOp Document Type FT Summary Primary Physician: Windy Stevenson MD Finalized Date/Time: 01/10/20 13:01:48 Pt. Name: IZZY SILVERIO/Sex: 1955 Female Med Rec #: [id number] Physician: Windy Stevenson MD Financial #: [id number] Pt. Type: A Room/Bed: AS Admit/Disch: 01/08/20 13:13:15 - 01/08/20 16:20:00 Institution: Case Times FT Entry 1 Patient Times In Room 01/08/20 15:18:00 Out Room 01/08/20 15:43:00 Procedure Times Start 01/08/20 15:26:00 Stop 01/08/20 15:39:00 Anesthesia Times Last Modified By: Tanisha Jones RN 01/08/20 15:43:03 General Comments: 01/10/2020 - Chart logged and finalized for charges. Edgardo Welch, MSN, RN Case Attendance FT Entry 1 Entry 2 Entry 3 Case Attendee Graham DO, Windy Jones RN, Tanisha Carrizales CST, Radha Hoover Role Performed Surgeon - Primary Rap Artist - Primary Scrub - Primary Time In 01/08/20 15:18:00 01/08/20 15:18:00 01/08/20 15:18:00 Time Out 01/08/20 15:43:00 01/08/20 15:43:00 01/08/20 15:43:00 Procedure CATARACT EXTRACTION W/ CATARACT EXTRACTION W/ CATARACT EXTRACTION W/ INTRAOCULAR LENS(Left) INTRAOCULAR LENS(Left) INTRAOCULAR LENS(Left) Comments Last Modified By: Tanisha Jones RN, RN, Karen M Farris RN, Karen M 01/08/20 15:43:04 01/08/20 15:43:04 01/08/20 15:43:04 Perioperative Protocols FT Pre-Care Text: Implements protective measures prior to operative or invasive procedure, confirms identity before the operative or invasive procedure, verifies operative procedure, surgical site, and laterality Entry 1 Procedure(s) CATARACT EXTRACTION W/ Patient Identity Birthday, ID Band INTRAOCULAR LENS(Left) Verified (select at Check, Patient least 2): Participation Consents / H and P HandP, Surgery/Procedure Operative Site Present Verified Consent Marking Verified Surgical Site Yes Laterality Verified Yes Verified Procedure Verified Yes Correct Patient Yes Position Verified Availability Equipment, Implant, Prep Dry n/a Verified (If Medication Applicable) Time Out Windy Stevenson MD, Time Out Complete 01/08/20 15:20:00 Participants Robert BENITES, All Samuel CST, Radha Hoover Outcomes Met? Yes Last Modified By: Tanisha Jones RN 01/08/20 15:20:55 Post-Care Text: The patient is free from signs and symptoms of injury caused by extraneous objects Allergy Information FT Pre-Care Text: Verifies allergies Entry 1 Allergies Reviewed? Yes Allergies Reviewed Self/Patient With Outcomes Met? Yes Last Modified By: Tanisha Jones RN 01/08/20 15:28:46 Post-Care Text: The patient received appropriate medication(s) safely administered during the perioperative period Surgical Procedures FT Entry 1 Procedure Description Procedure CATARACT EXTRACTION W/ Modifiers Left INTRAOCULAR LENS IMPLANTATION Surgeon Description LEFT EYE CATARACT EXTRACTION W/ IOL Primary Procedure Yes Primary Surgeon Windy Stevenson MD Start 01/08/20 15:26:00 Stop 01/08/20 15:39:00 Anesthesia Type Local Surgical Service Ophthalmology Wound Class 1 - Clean Last Modified By: Tanisha Jones RN 01/08/20 15:43:08 General Case Data FT Pre-Care Text: Classifies surgical wound, implements aseptic technique, initiates traffic control Entry 1 Case Information OR OR 3 FT Case Level Level 2 Wound Class 1 - Clean Specialty Ophthalmology Preop Diagnosis LEFT EYE CATARACT Postop Same As Preop Yes Postop Diagnosis LEFT EYE CATARACT Outcomes Met? Yes Last Modified By: Tanisha Jones RN 01/08/20 15:30:33 Post-Care Text: The patient is free from signs and symptoms of infection Skin Assessment (Pre Procedure) FT Pre-Care Text: Implements protective measures to prevent skin/ tissue injury due to thermal or mechanical sources Evaluates for signs and symptoms of physical injury to skin and tissue Entry 1 Skin Integrity Unable to Visualize Skin Abnormality No Outcomes Met? Yes Last Modified By: Tanisha Jones RN 01/08/20 15:29:32 Post-Care Text: The patient is free from signs and symptoms of injury caused by extraneous objects General Comments: VISIBLE SKIN INTACT. KAMARI BAGLEY Patient Positioning FT Pre-Care Text: Identifies physical alterations that require additional precautions for procedure-specific positioning, verifies presence of prosthetics or corrective devices, positions the patient, evaluates the patient for signs and symptoms of injury as a result of positioning Entry 1 Procedure CATARACT EXTRACTION W/ Additional folded towel under head INTRAOCULAR LENS(Left) Information Body Position Supine Feet Uncrossed? Yes Left Arm Position Resting at Side Right Arm Position Resting at Side Left Leg Position Extended Right Leg Position Extended Positioning Device Safety Strap, Pillow Press Points Checked Yes Large Under Knees, Other/See Comments By Tanisha Jones RN, Outcomes Met? Yes Windy Stevenson MD Last Modified By: Tanisha Jones RN 01/08/20 15:29:59 Post-Care Text: The patient is free from signs and symptoms of injury related to positioning General Comments: B/L SIDERAILS AND BRAKES LOCKED ON CART DURING PROCEDURE. YUDI,KAMARI Patient Care Devices FT Pre-Care Text: Implements protective measures to prevent skin/ tissue injury due to thermal or mechanical sources Entry 1 Entry 2 Entry 3 Equipment Type MICROSCOPE EYE[F] MONITOR CHARGE SURGERY PHACO UNIT[F] [F] Equipment Number Equipment Setting Outcomes Met? Yes Yes Yes Last Modified By: Tanisha Jones RN, RN, Karen M Farris RN, Karen M 01/08/20 14:00:55 01/08/20 14:00:55 01/08/20 14:00:55 Post-Care Text: The patient is free from signs and symptoms of injury caused by extraneous objects Transport To OR FT Pre-Care Text: Transports according to individual needs. Evaluates for signs and symptoms of skin and tissue injury as a result of transfer or transport Entry 1 Via Cart By Tanisha Jones RN Safety Precautions Safety Strap, Side Outcomes Met? Yes Rails Up Last Modified By: Tanisha Jones RN 01/08/20 15:30:03 Post-Care Text: The patient is free from signs and symptoms of injury related to transfer/transport Counts Verification FT Pre-Care Text: Performs required counts Entry 1 Procedure(s) CATARACT EXTRACTION W/ Type Initial INTRAOCULAR LENS(Left) Items Instruments Status Correct By Radha Carrizales CST Outcomes Met? Yes Last Modified By: Tanisha Jones RN 01/08/20 15:30:14 Post-Care Text: The patient is free from signs and symptoms of injury caused by extraneous objects Skin Prep FT Pre-Care Text: Performs skin preparations Entry 1 Procedure CATARACT EXTRACTION W/ Prep Area operative site-LEFT EYE INTRAOCULAR LENS(Left) Prep Agents Betadine Solution, Saline Rinse Hair Removal Methods Not Indicated By Windy Stevenson MD Outcomes Met? Yes Last Modified By: Tanisha Jones RN 01/08/20 15:30:24 Post-Care Text: The patient is free from signs and symptoms of infection Departure From OR FT Pre-Care Text: Transports according to individual needs. Evaluates for signs and symptoms of skin and tissue injury as a result of transfer or transport. Entry 1 Via Cart Safety Precautions Safety Strap, Side Rails Up PostOp Destination Pre Surgery/[facility] Transported By Tanisha Jones RN Patient Status Stable Skin. Condition Other/See Comments Description SAME PRE OP Airway Maintenance Oxygen in Use? No Outcomes Met? Yes Last Modified By: Tanisha Jones RN 01/08/20 15:31:42 Post-Care Text: The patient is free from signs and symptoms of injury related to transfer/transport General Comments: REPORT CALLED TO [facility] . PATIENT LEFT THE OR ALERT AND ORIENTED. TRANSPORTED BACK TO [facility] BY POCT. KAMARI BAGLEY Dressing/Packing FT Pre-Care Text: Administers care to wound sites Entry 1 Type Dressing Site and Details LEFT EYE: EYE PATCH AND SHIELD Outcomes Met? Yes Last Modified By: Tanisha Jones RN 01/08/20 15:30:47 Post-Care Text: The patient is free from signs and symptoms of infection Medication Administration FT Pre-Care Text: Verifies allergies, administers prescribed medications and solutions, administers prescribed antibiotic therapy and immunizing agents as ordered, evaluates response to medications Administers prescribed medications and solutions Entry 1 Expiration Date Yes Outcomes Met? Yes Verified Last Modified By: Tanisha Jones RN 01/08/20 13:59:15 Post-Care Text: The patient received appropriate medication(s) safely administered during the perioperative period For Joseph-William please see scanned medication reconcilliation form for medications used at the field during the procedure. Implant Log FT Pre-Care Text: Records devices implanted during the operative or invasive procedure Entry 1 Procedure CATARACT EXTRACTION W/ Implant/Explant Implant INTRAOCULAR LENS(Left) Implant Identification FT Description DAVI IOL [id number] [employer] Lot Number [id number] SIZE 20.0 [[id number] 20.0][F] C Consultant FT-[employer]OM[employer] Catalog ?# [id number] 20.0[F] Expiration Date 11/22/23 Unique Device [id number] Identifier (TUNDE) Human Readable {[id number] Machine Readable [id number] Barcode Barcode Usage Data FT Implant Site Eye L Quantity 1 Implanted By Windy Stevenson MD Biological Implants MR Classification Unknown Outcomes Met? Yes Last Modified By: Tanisha Jones RN 01/08/20 15:31:06 Post-Care Text: The patient is free from signs and symptoms of injury caused by extraneous objects Case Comments Finalized By: Yuri BENITES, Talat KOEHLER Document Signatures Signed By: Tanisha Jones RN 01/08/20 15:43 Yuri BENITES, LEEOR, Talat 01/10/20 13:01 [facility] Discharge Instructionson Discharge Instructions [id number]#1.00 CD:127 [facility] IntraOperative Documentson 1 03-10-2019 IntraOperative Documents [id number] CD:127 [facility] IntraOperative Documents [id number]#1.00 CD:127 [facility] Preoperative Documentson Preoperative Documents [id number]#1.00 CD:127 [facility] Consent for Treatmenton 12-23 Consent for Treatment [id number] D:127 [facility] History and Physicalon 01-07 History and Physical HOSPITAL REGULATION S: ALL Positive Important Negative Findings Shall Be Recorded DATE ADMITTED: 01/08/2020 The patient is a 64 year old female with a long history of slowly decreasing visual acuity in both eyes. She underwent cataract surgery in her right eye about a year ago and has done well since that time, however, the poor vision in her left eye is now giving her difficulty driving and reading. Both the patient and I are under the hope and expectation that cataract surgery with lens implantation will make these tasks easier for her in the future. She was again advised of the risks, benefits, complications and alternatives to cataract surgery with lens implantation and she again gave informed consent for the procedure. PAST MEDICAL HISTORY: Noncontributory. CURRENT MEDICATIONS: Gabapentin. ALLERGIES: No known medical allergies. PHYSICAL EXAMINATION: Healthy, alert female, in no distress. Blood pressure of 136/86, pulse of 82, respirations 12. CHEST: Clear. CARDIOVASCULAR: Regular rhythm and rate. BELLY: Soft and non-tender. EXTREMITIES: Clear. EYES: Visual acuity of 20/30 in the right eye, 20/80 in the left eye. Slit lamp examination remarkable for a well centered posterior chamber intraocular lens in the right eye and a 3+ nuclear sclerotic and anterior subcapsular cataract in the left eye. Dilated funduscopic examination reveals a normal optic nerve, retina and vasculature. IMPRESSION: Visually significant cataract, left eye. PLAN: Cataract extraction with lens implantation, left eye. Windy Stevenson M.D. lkr Dictated: 01/08/2020 #[id number] Typed 01/08/2020 #[id number] cc: Windy Stevenson M.D. [facility] Comment on above: Result Comment: Elec tronically Signed By: Windy Stevenson MD\.br\Date and Time Signed: 01/08/20 12:31 EST Inpatient Patient Summaryon 01-08-2020 Inpatient Patient Summary [place] [id number] [facility] Clinical Discharge Instructions PERSON INFORMATION Name: IZZY SILVERIO [facility]#:[id number] PHYSICIANS Admitting Physician: Windy Stevenson MD Attending Physician: Windy Stevenson MD PCP: DOLORES CALIXTO MD Discharge Diagnosis: Cataract Comment: PATIENT EDUCATION INFORMATION Instructions: Medication Leaflets: Follow up: With: Address: When: Windy Stevenson [address] [place] [address] Business (1) Comments: Call physician if symptoms worsen Keep scheduled appointment With: Address: When: Windy Stevensno [address] [place] [address] [address], [place] [address] Business (1) In 1 day 01/09/2020 MEDICATION LIST Medications to Continue with No Changes Other Medications biotin (Hair, Skin & Nails) 5 Milligram By Mouth every day. cannabidiol 1 Oral gummy. cholecalciferol (Vitamin D3) 1,000 International unit By Mouth every day. Non-Formulary Medication (tumeric) 1 cap By Mouth every day., prophylaxis Comment: [facility] Main OR PACU II [facility] Main OR PACU II Record PACU Phase II Document Type FT Summary Primary Physician: Windy Stevenson MD Finalized Date/Time: 01/08/20 16:29:45 Pt. Name: IZZY SILVERIO/Sex: 1955 Female Med Rec #: [id number] Physician: Windy Stevenson MD Financial #: [id number] Pt. Type: A Room/Bed: [facility] Admit/Disch: 01/08/20 13:13:15 - Institution: Case Times PACU II FT Pre-Care Text: Identifies barriers to communication and implements measures to provide psychological support and determines knowledge level Develops individualized plan of care, and ensures continuity of care Maintains patient's dignity and privacy, and maintains patient confidentiality Identifies and reports philosophical, cultural, and spiritual beliefs and values Identifies individual values and wishes concerning care administers prescribed antibiotic therapy and immunizing agents as ordered, Evaluates postoperative tissue perfusion Implements thermoregulation measures, and monitors body temperature Evaluates postoperative respiratory status Evaluates postoperative cardiac status Evaluates postoperative neurological status Assesses pain control, collaborated in initiating patient-controlled analgesia and implements alternative methods of pain control Verifies allergies, administers prescribed medications and solutions, evaluates response to medications Entry 1 In PACU II 01/08/20 15:45:00 Discharge from PACU 01/08/20 14:20:00 II Outcomes Met? Yes Last Modified By: Julissa Pacheco RN 01/08/20 16:29:44 Post-Care Text: The patient demonstrates knowledge of the expected response to the operative or invasive procedure The patient's care is consistent with the individualized perioperative plan of care The patient's right to privacy is maintained The patient's value system, lifestyle, ethnicity, and culture are considered, respected, and incorporated into the perioperative plan of care The patient participates in decisions affecting his or her perioperative plan of care. The patient is free from signs and symptoms of infection The patient has wound/tissue perfusion consistent with or improved from baseline levels established preoperatively The patient is at or returning to normothermia at the conclusion of the immediate postoperative period The patient's respiratory function is consistent with or improved from baseline levels established preoperatively The patient's cardiovascular status is consistent with or improved from baseline levels established preoperatively The patient's neurological status is consistent with or improved from baseline levels established preoperatively The patient demonstrates and/or reports adequate pain control throughout the perioperative period The patient received appropriate medication(s), safely administered during the perioperative period Finalized By: Julissa Pacheco RN Document Signatures Signed By: Julissa Pacheco RN 01/08/20 16:29 [facility] Outpatient Surgery Discharge Instructionon 01-08-2020 Outpatient Surgery Discharge Instruction [address] [address] Patient Discharge Instructions PERSON INFORMATION Name: IZZY SILVERIO Date of : 1955 Current Date: 01/08/2020 14:15:52 PHYSICIANS Admitting Physician: Windy Stevenson MD Discharge Diagnosis: Cataract IZZY SILVERIO has been given the following list of follow-up instructions, prescriptions, and patient education materials: PATIENT FOLLOW-UP INFORMATION Diet: Regular Discharge Activity: Expect mild pain Discharge Restrictions: No driving for 24 hrs Call Your Doctor For: Severe pain at the operative site Wound Care Instructions: Do not remove dressing Additional Instructions: sgfh IF UNABLE TO CONTACT YOUR PHYSICIAN AND YOU FEEL IT IS AN EMERGENCY, GO TO THE NEAREST EMERGENCY ROOM OR CALL 911 I, IZZY SILVERIO, have received the attached patient education materials/instructions and have verbalized understanding: May we do a follow up call? Yes No I was present when discharge instructions were given Patient Signature Date Clinican/Nurse Signature _ Date Follow up: With: Address: When: Windy [place] [facility] [address], [place] [address] Business (1) Comments: Call physician if symptoms worsen Keep scheduled appointment With: Address: When: Windy [place] [facility] [address], [place] [address] Business (1) In 1 day 01/09/2020 Pharmacy Information: Thank you for choosing [facility] HERE ARE THE MEDICATION CHANGES THAT OCCURRED DURING YOUR HOSPITAL STAY Medications to Continue with No Changes Other Medications biotin (Hair, Skin & Nails) 5 Milligram By Mouth every day. cannabidiol 1 Oral gummy. cholecalciferol (Vitamin D3) 1,000 International unit By Mouth every day. Non-Formulary Medication (tumeric) 1 cap By Mouth every day., prophylaxis PATIENT EDUCATION INFORMATION Instructions: [facility] Patient Education - Texton 1 03-09-2019 Patient Education - Text [facility] Consent for Procedure/Surger yon 01-05-2020 Consent for Procedure/Surgery [id number] CD:127 [facility] HISTORY PHYSICALon 0 HISTORY PHYSICAL HNO ID: [id number] Author: Jossie Hemphill Service: ? Author Type: Physician Mixing Technician Type: HANDP Filed: 10/05/2019 1:40 PM Note Text: LOCAL PROCEDURE HISTORY AND PHYSICAL EXAM SERVICE DATE: 10/05/2019 SERVICE TIME: 1:40 PM Provisional Diagnosis/Treatment Plan: Lumbar stenosis/INJECTION(S) STEROID TRANSFORAMINAL EPIDURAL W/ IMAGING GUIDANCE LUMBAR - Left Subjective HPI: This is a 64 year old female who presents with pain in left foot MEDICATIONS: Prior to Admission medications as of 10/05/19 1331 Medication Sig Last Dose Taking pregabalin (LYRICA) 50 mg capsule Take 1 capsule by mouth twice daily for 90 days. Patient not taking: Reported on 03/09/2019 pregabalin (LYRICA) 50 mg capsule Take 1 capsule by mouth twice daily for 30 days. gabapentin (NEURONTIN) 300 mg capsule 600 mg TID, please increase dose by 300 mg every 5 days (star by increasing evening dose) Patient taking differently: 300 mg once daily. 600 mg TID, please increase dose by 300 mg every 5 days (star by increasing evening dose) Patient taking 2 capsules either in morning or at night ALLERGIES No Known Allergies Objective PHYSICAL EXAM: The remainder of the physical exam is noncontributory. LUNGS: Lungs clear to auscultation, Good diaphragmatic excursion CARDIAC: Normal S1 and S2; no rubs, murmurs, or gallops, regular rate and rhythm BP 143/88 Temp 36.7 ?C (98 ?F) (Temporal) Resp 18 Ht 157.5 cm (5' 2 ) Wt 61.2 kg (135 lb) SpO2 97% BMI 24.69 kg/m? PAIN ASSESSMENT: PAIN EVALUATION 10/05/2019 1332 Pain Level: 8 Pain Location: Foot-Left Description: Aching;Tingling Intervention: Relaxation;Distractions Assessment/Plan Active Problems: Lumbar stenosis POA: Unknown Assessment AND Plan: Lumbar stenosis Resolved Problems: * No resolved hospital problems. * SIGNATURE: Jossie Hemphill PA-C PATIENT NAME: Izzy Silverio DATE: October 05, 2019 TIME: 1:40 PM PAGER: [phone] [facility] OPERATIVE NOon 10-05-2019 OPERATIVE NO HNO ID: [id number] Author: Martir Merlos Service: ? Author Type: Physician Type: Operative Report Filed: 10/05/2019 2:13 PM Note Text: Pt was recommended per Dr. Zhang to proceed with a diagnostic / theraputic injection for possible surgical planning. Pt will f/u with Dr. Zhang post injection for additional guidance and plans. Continues to have lt leg pain. Wants to proceed with an injection today to address the presenting symptoms. Consent obtained. Lt side was marked in the pre-op area. Pt is aware of risks, benefits, alternatives, expected outcome, equipment and personnel. The patient was offered a procedure / surgery at a [facility] facility. It is not possible to know either the risk of delaying the surgery or procedure or chance of getting an infection with perfect accuracy, but a joint decision was made between the patient and the surgeon/proceduralist to proceed at this time with the scheduled surgery/procedure as indicated on the consent form. [facility] approved time out was performed identifying the site, side and level of procedure prior to start of procedure. [facility] SURGERY [place] - ELECTIVE PROCEDURE Lumbar Transforaminal Epidural Steroid Injection and/or Selective Nerve Root Block under Fluoroscopy Indication: Lumbar Spinal Stenosis with neurogenic claudication, Lt thoracolumbar radiculitis The risks and benefits of the procedure were discussed with the patient. The verbal and written informed consent of the patient was obtained. The patient was taken to the fluoroscopy suite. The patient was placed in the prone position on the fluoroscopic table, and the lumbar area was prepped and draped in a sterile fashion. DuraPrep was used per skin prep guidelines. We waited 3 minutes by timer for the DuraPrep to dry before proceed with the procedure. Using fluoroscopic guidance the L5 vertebral body was definitively identified using the most caudal normal disc space labeled as L5-S1. The iliac crest was also visualized as a secondary landmark identifying the L4-5 level. First image is with a needle marker on the lt side. The Lt L5-S1 neural foramen was identified using fluoroscopic guidance after which the overlying skin was anesthetized using sterile technique with 1% preservative free Xylocaine. A sterile 5 inch 22G spinal needle was introduced after which the needle tip was carefully directed toward the inferior (6 o'clock) position of the pedicle which formed the roof of the identified foramen. No blood or CSF was aspirated. Omnipaque 300mgI/mL, approximately 1 cc was injected to rule out intravascular placement of the needle. Medial flow was noted on AP/ oblique view along with contrast under the pedicle on the lateral view. X-rays were obtained for documentation purpose. After this,12mg betamethasone + 2 cc's of 2% Xylocaine preservative free was injected into the intervertebral foramen. The needle was then removed. Vital signs remained normal. There were no complications. Pulse oximeter was used throughout the procedure and the patient's pulse and oxygen saturation remained within normal limits. The patient tolerated the procedure well. The patient was instructed to apply ice over the injection site for twenty minutes every two hours for the next twenty-four to forty-eight hours. The patient was also instructed to contact me if there is any exacerbation of the symptoms. Post procedure instruction sheet was given. The patient was recommended to follow up with me in one to two weeks. Incision/Procedure Start Time: 2:04 PM Incision Close/Procedure End Time: 2:07 PM Date of Service: 10/05/2019 I was present for the entire duration of the procedure and I performed the entire procedure. Martir Merlos DO, MBA [facility] PT EDon 10-05-2019 PT ED HNO ID: [id number] Author: Olga PerdueRn) KAMARI Kirk Service: Pathology Author Type: Registered Nurse Type: Patient Education Filed: 10/05/2019 2:15 PM Note Text: POST OP LEARNING RESPONSE INSTRUCTION PROVIDED TO: Patient METHOD OF INSTRUCTION: Individual instruction Written instruction - handouts Verbal instruction PATIENT / FAMILY RESPONSE: Verbalizes understanding of: INFECTION MANAGEMENT-Signs and symptoms of an infection and importance of contacting the physician MEDICAL REGIMEN-Importance of following prescribed medical regimen MEDICATION DOSE MISSED-Correct action to take if medication dose is missed MEDICATION PRESCRIBED-Accurate knowledge of prescribed medication prior to discharge MEDICATION ROUTE-Correct route for administration of the prescribed medication MEDICATION SIDE EFFECTS-Side effects associated with the medication that warrant a call to the physician PAIN MANAGEMENT-Effective strategies to manage pain in addition to pain medication PHYSICAL RESTRICTIONS-Physical restrictions and recommendations after discharge from the hospital POST-PROCEDURE INSTRUCTIONS-Correct actions to take to reduce post procedure complications FOLLOW-UP PLAN: Follow up phone call. SUPPLEMENTAL MATERIAL: None REFERRAL (RECOMMENDATION): None [facility] PT ED HNO ID: [id number] Author: Daly PerdueRn) KAMARI Gardiner Service: ? Author Type: Registered Nurse Type: Patient Education Filed: 10/05/2019 1:36 PM Note Text: PRE OP LEARNING ASSESSMENT PROCEDURE/SURGERY: PAIN MANAGEMENT: READINESS TO LEARN COGNITIVE ABILITY: Alert and oriented MOTIVATION TO LEARN: Interested FAMILY SUPPORT: Unable to assess - Family not present PATIENT LEARNS BEST BY: Multiple Methods FACTORS AFFECTING LEARNING: None PHYSICAL LIMITATIONS AFFECTING LEARNING: None Electronically Signed By: Daly Gardiner RN In Department: PROCEDURES [facility] HOSPon 09-22-2019 HOSP Patient:Bhupinder Silverio MRN: Height:5' 2 (1.575 m) Weight:135 lb (61.236 kg) Outpatient Medications as of 10/05/19: pregabalin (LYRICA) 50 mg capsule pregabalin (LYRICA) 50 mg capsule gabapentin (NEURONTIN) 300 mg capsule Admission/Clinic Administered Medications as of 10/05/19: Patient has no admission medications. Problem List: Lumbar stenosis [M48.061] Allergies: No Known Allergies Date Verified:10/05/19 Lab Values No results within the last 30 days for the following basenames: K,HCT Progress Notes ([facility] REJ): Olga Salazar Balaji Pss 09/27/2019 12:57 PM Signed Called patient to schedule the covid-19 test 2-3 days before her 10-05-[address] Merlos and she states she will have it done locally. I gave her the information that is needs to be PCR level of testing (polymearse chain reaction), and CLIA standard (Clinical Laboratory Improvement Amendments) and to be faxed to us [facility]. If unable to have done in the time frame she needs she will call back to schedule with us. Progress Notes ([facility] REJ): Michelle Bhat PA-C 09/27/2019 11:59 AM Signed One year out from surgery I don't see a problem with her seeing her chiropractor. Per her last office visit injections were discussed in detail. They should be completed before considering any surgical intervention. I can also write an order for physical therapy if she would prefer that. Normal [facility] MRI Spine Lumbar w/o Contras ton 09-10-2019 MRI Spine Lumbar w/o Contrast Exam Date/Time: 09/07/2019 09:18 EDT Reason for Exam: M48.061 Spinal stenosis, lumbar region without neurogenic claudication Report IMPRESSION: RIGHT L4-L5 DISC PROTRUSION SLIGHTLY MORE STRIKING THAN ON THE PREVIOUS STUDY. STABLE LEFT L5-S1 SUBARTICULAR DISC PROTRUSION. EXAM: MRI Lumbar Spine MRI Spine Lumbar w/o Contrast COMPARISONS: 06/25/2009 CLINICAL HISTORY: Lower back pain M48.061 Spinal stenosis, lumbar region without neurogenic claudication TECHNIQUE: Multisequence multiplanar imaging of the lumbar spine was performed without gadolinium contrast. MR contrast: MultiHance Volume of contrast: None cc. FINDINGS: Vertebrae: Vertebral bodies show normal age-related bone marrow signal changes. No acute fracture. Conus: The conus medullaris ends at L1 level and is unremarkable. T12-1: Normal central canal and neural foramina. L1-L2: Normal central canal and neural foramina. L2-L3: Broad-based disc bulging with minimal ventral ridging on the thecal sac. Mild facet hypertrophy without central canal narrowing. No significant foraminal stenosis. L3-L4: Normal central canal and neural foramina. L4-L5: Disc space narrowing with broad-based disc bulging and focal right subarticular disc protrusion slightly more striking than on the previous study. There also is a high signal intensity zone involving the protruding disc fragment consistent with an annular tear. Encroachment near the traversing right L5 nerve root. No significant foraminal narrowing. L5-S1: Left subarticular soft tissue density consistent with extruding disc with compression on the traversing left S1 nerve root. No significant foraminal narrowing. No central canal stenosis. This appearance has not significantly changed. Report Retroperitoneum: No abnormality of the visualized aorta or retroperitoneum. FINAL REPORT Dictated: 09/09/2019 6:01 pm Silver Anders MD Signed (Electronic Signature): 09/10/2019 4:14 pm Signed by: Silver Anders MD Transcribed by: kendy Technologist: LEYDI Technical Comments None [facility] Coding Summary.on 09-09-2019 Coding Summary. CODING DATE: 020 FINAL [facility] STATUS: Home (Routine DC) PAYOR: Medicare APC DESCRIPTION 5523 Level 3 Imaging without Contrast ADMIT DX: REASON FOR VISIT DX: M48.061 Spinal stenosis, lumbar region without neurogenic claudication FINAL DX: PRINCIPAL: M48.061 Spinal stenosis, lumbar region without neurogenic claudication SECONDARY: PYMT PROC APC STAT DESCRIPTION DOCTOR NAME DATE NOTE: The code number assigned matches the documented diagnosis and / or procedure in the patient's chart. However, the narrative phrase printed from the coding software may appear abbreviated, or result in slightly different terminology. Coded By: Estephania Liriano CphT Date Saved: 09/09/2019 01:29 pm [facility] Consent for Treatmenton 08-22 Consent for Treatment [id number]#1.00C D:127 [facility] RAD - MRI Screening Formon 0 09-07-2019 RAD - MRI Screening Form [id number]#1.00 CD:127 [facility] Physician Orderon 08-31-2019 Physician Order [id number]#1.00C D:127 [facility] CNPNon 08-29-2019 CNPN Telephone (NEADFV) IZZY SILVERIO ([id number]) 1955 F Date Time Provider Department 08/29/19 HELENA ZHANG NEADFV During your visit today, we recorded the following information about you: Kathleen Rojas 08/29/2019 2:34 PM Signed Patient called today stating she has been communicating to the nurse via [employer], but the wrong order is being faxed to [facility]. She was told in an 05/29/19 [employer] message by Jerzy, that an EMG would be ordered to look for nerve damage in her foot. There is no EMG order in her chart, please order the EMG and fax that order to [facility] at [phone]. Also, there is a Lumbar MRI order in her chart, he wants to know if Dr. Zhang still wants her to have that MRI. Please call patient at [phone]. May Bateman, RN, RN 08/30/2019 8:34 AM Signed Spoke to Izzy and instructed her that MRI was ordered No EMG at this time Allergies As of Date: 08/29/2019 (No Known Allergies) Date Reviewed: 03/09/2019 Reviewed by: Julianne Kelly Ma - Fully Assessed Reason for Visit: Patient Question [7907] Problem List As Of Date: 08/29/2019 (None) Encounter Status:Closed by MAY BATEMAN on 08/30/19 [facility] PROGRESSon 03-09-2019 PROGRESS HNO ID: [id number] Author: Kwan Sharp (Tech) Service: Radiology Author Type: Machine Adjuster Leader Type: Progress Notes Filed: 03/09/2019 2:06 PM Note Text: Radiology Service Progress Note PATIENT NAME: Izzy Silverio DATE OF SERVICE: March 09, 2019 TIME: 2:05 PM PATIENT IDENTITY VERIFICATION COMPLETED USING TWO (2) IDENTIFIERS: Name and Date of confirmed by patient verbally and Name and Date of confirmed by identification band. PATIENT GENDER DATA: Female. status: : No status: NO. PATIENT RELEVANT IMPLANT DATA REVIEWED: Not Applicable RADIOLOGY DEPARTMENT: General X-ray: Exam(s) Completed: Spine X-Ray(s): Lumbar AP / LAT / L5-S1 / FLEX-EXT Lower Extremity X-Ray(s): Foot, Left and Wt. Bearing: PERIPHERAL IV DATA: Not applicable SIGNED BY: PAYTON ALBRECHT RT RJan2019 2:05 PM [facility] XR FOOT 3V AP/LAT/OBL LTon 0 03-09-2019 XR FOOT 3V AP/LAT/OBL LT * * *Final Report* * * DATE OF EXAM: Mar 09 2019 2:12PM VHX [id number] - XR FOOT 3V AP/LAT/OBL LT / PROCEDURE REASON: multiple diagnoses * * * * Physician Interpretation * * * * EXAMINATION: XR FOOT 3V AP/LAT/OBL LT HISTORY: PAIN IN LEFT FOOT AND NUMBNESS AFTER HAVING BACK SURGERY Pain in left foot S/P lumbar laminectomy . TECHNIQUE: XR FOOT 3V AP/LAT/OBL LT Laterality: LEFT Number of different views (projections): 3 M: XB_1 COMPARISON: None RESULT: No fracture or dislocation. Joint spaces appear maintained. Soft tissues are without swelling. No other significant abnormality. IMPRESSION: No acute findings in the left foot. Dyed Raw Stock Blower Feeder: PSCB Transcribe Date/Time: Mar 09 2019 3:04P Dictated by : MULU MTZ MD This examination was interpreted and the report reviewed and electronically signed by: MULU MTZ MD on Mar 09 2019 3:05PM EST [id number] [facility] XR LUMBAR 4V AP/LAT/ FLEX/EX Ton 03-09-2019 XR LUMBAR 4V AP/LAT/ FLEX/EXT * * *Final Report* * * DATE OF EXAM: Mar 09 2019 2:12PM [id number] - XR LUMBAR 4V AP/LAT/ FLEX/EXT / PROCEDURE REASON: multiple diagnoses * * * * Physician Interpretation * * * * EXAMINATION: XR LUMBAR 4V AP/LAT/ FLEX/EXT HISTORY: STATUS POST LUMBAR LAMINECTOMY, SURGERY IN AUGUST OF 2018 Pain in left foot S/P lumbar laminectomy . TECHNIQUE: XR LUMBAR 4V AP/LAT/ FLEX/EXT Laterality: NOT APPLICABLE Number of different views (projections): 4 M: XB_1 COMPARISON: 08/23/2018 RESULT: Counting reference: Lumbosacral junction. For the purposes of this report, L5-S1 is considered the last lumbar type disc space and L4-L5 is considered the level of the iliac crest. Alignment: Straightening of the lumbar lordosis, unchanged. No significant change in alignment on flexion or extension view Vertebral body heights: Maintained with endplate osteophytes. Disc heights: Severe disc space narrowing at L4-L5 and L5-S1, similar to prior. Facet joints: Lower lumbar spine facet hypertrophy. Pedicles: Pedicles are intact. Other: Mild degenerative changes of the SI joints. No other significant abnormality. IMPRESSION: Lumbar spondylosis as described, not significant changed in the interval. Dyed Raw Stock Blower Feeder: PSCB Transcribe Date/Time: Mar 09 2019 3:05P Dictated by : MULU MTZ MD This examination was interpreted and the report reviewed and electronically signed by: MULU MTZ MD on Mar 09 2019 3:07PM EST [id number] [facility] Leticia 01-25-2019 CNPN Telephone (NEADFV) IZZY SILVERIO ([id number]) 1955 F Date Time Provider Department 01/25/19 JERZY BURNHAM) NEALVAREZFV During your visit today, we recorded the following information about you: Michelle Saldaña 01/25/2019 10:39 AM Signed Sign [facility] Flagged for signature and given to nurse. Grant Quinonez Ma 01/27/2019 8:57 AM Signed This was signed, faxed back. Received fax confirmation. Allergies As of Date: 01/25/2019 (No Known Allergies) Date Reviewed: 12/16/2018 Reviewed by: Julianne Kelly Ma - Fully Assessed Reason for Visit: Recertification [Other] Prescriptions as of 01/25/2019 Sig: PREGABALIN 50 MG CAPSULE Take 1 capsule by mouth twice* PREGABALIN 50 MG CAPSULE Take 1 capsule by mouth twice* GABAPENTIN 300 MG CAPSULE 600 mg TID, please increase d* Patient taking differently: 300 mg once daily. 600 mg TID* Problem List As Of Date: 01/25/2019 (None) Encounter Status:Closed by MICHELLE MATUTE on 01/25/19 [facility] 12-16-[address] [facility] Telephone (NEADFV) IZZY SILVERIO ([id number]) 1955 F Date Time Provider Department 12/16/18 JERZY BURNHAM) NEADFV During your visit today, we recorded the following information about you: Grant Quinonez Ma 12/16/2018 3:50 PM Signed Received plan of care from [facility]. This was flagged and placed on Provider's nurse's desk. Grant Quinonez Ma 12/20/2018 9:51 AM Signed This was signed, faxed back. Received fax confirmation. Allergies As of Date: 12/16/2018 (No Known Allergies) Date Reviewed: 12/16/2018 Reviewed by: Julianne Kelly Ma - Fully Assessed Reason for Visit: Plan of Care [Other] Prescriptions as of 12/16/2018 Sig: PREGABALIN 50 MG CAPSULE Take 1 capsule by mouth twice* PREGABALIN 50 MG CAPSULE Take 1 capsule by mouth twice* GABAPENTIN 300 MG CAPSULE 600 mg TID, please increase d* Patient taking differently: 300 mg once daily. 600 mg TID* Problem List As Of Date: 12/16/2018 (None) Encounter Status:Closed by GRANT QUINONEZ MA on 12/16/18 [facility] Vital Signs Date Time Vital Sign Value Performing Clinician Faci lity 06-21-2022 08:24-0400 Diastolic blood pressure 95 mm[Hg] Elbert Nava MD Work Phone: [facility] 06-21-2022 08:24-0400 Systolic blood pressure 149 mm[Hg] Elbert Nava MD Work Phone: [facility] 06-21-2022 06:48-0400 Body height 157.5 cm Elbert Nava MD Work Phone: [facility] 06-21-2022 06:48-0400 Body mass index (BMI) [Ratio] 24.87 kg/m2 Elbert Nava MD Work Phone: [facility] 06-21-2022 06:48-0400 Body temperature 98.2 [degF] Elbert Nava MD Work Phone: [facility] 06-21-2022 06:48-0400 Body weight 61.69 kg Elbert Nava MD Work Phone: [facility] 06-21-2022 06:48-0400 Heart rate 70 /min Elbert Nava MD Work Phone: [facility] 06-21-2022 06:48-0400 Respiratory rate 20 /min Elbert Nava MD Work Phone: [facility] 06-21-2022 06:48-0400 SaO2% (BldA) [Mass fraction] 97 % Elbert Nava MD Work Phone: [facility] Encounters Encounter Date Encounter Type Care Provider Facility Start: 03-15-2023 End: 03-15-2023 Encounter for other preprocedural examination DOLORES CALIXTO [facility] Start: 03-15-2023 End: 03-18-2023 ambulatory [facility] Start: 03-15-2023 End: 03-18-2023 ambulatory [facility] Start: 01-18-2023 End: 01-19-2023 [facility] Start: 12-07-2022 End: 12-08-2022 ambulatory Parish Garcias MD Facility:[facility] Start: 11-16-2022 End: 11-17-2022 ambulatory Parish Garcias MD Facility:[facility] Start: 06-21-2022 End: 06-21-2022 Emergency department patient visit ELBERT NAVA [facility] Start: 06-21-2022 End: 06-21-2022 Emergency department patient visit Elbert Nava MD Work Phone: [facility] ED Comment on above: Acute bacterial conj unctivitis of both eyes (Primary Dx) Start: 12-25-[address] ELOY Pace ty:[facility] Start: 11-20-2021 End: 11-21-[address] ELOY DAVIDSON Facility:[facility] Start: 10-02-[address] ELOY Pace ty:[facility] Start: 09-16-2021 End: 09-16-[address] ELOY DAVIDSON Facility:[facility] Start: 09-01-2021 End: 09-01-2021 Subsequent hospital visit by physician Dolores Calixto MD Work Phone: [facility] Start: 08-19-2021 End: 08-20-[address] ELOY DAVIDSON Facility:[facility] Start: 06-26-2021 End: 06-27-[address] ELOY DAVIDSON Facility:[facility] Start: 06-18-2021 End: 06-19-[address] RAMÓN ACEVEDO Facility:[facility] Start: 02-11-2021 End: 02-11-2021 Subsequent hospital visit by physician Dolores Calixto MD Work Phone: [facility] Comment on above: Screening cholestero l level Start: 01-21-2021 End: 01-22-[address] ELOY DAVIDSON Facility:[facility] Start: 01-08-[address] ELOY DAVIDSON Facili ty:[facility] Start: 09-09-2020 End: 09-11-2020 Subsequent hospital visit by physician [facility] Mammography Room [facility] Mammography Comment on above: Breast cancer screen ing by mammogram Start: 02-16-2019 End: 02-16-2019 Subsequent hospital visit by physician Hayley Orta PT [facility] Comment on above: Canceled (Error) Start: 02-09-2019 End: 02-09-2019 Subsequent hospital visit by physician Hayley Orta PT [facility] Start: 02-07-2019 End: 02-07-2019 Subsequent hospital visit by physician Hayley Orta PT [facility] Start: 01-26-2019 End: 01-26-2019 Subsequent hospital visit by physician Hayley Orta [facility] Comment on above: Arrived Start: 01-24-2019 End: 01-24-2019 Subsequent hospital visit by physician Margot Mercado [facility] Comment on above: Arrived Start: 12-23-2018 End: 12-23-2018 Subsequent hospital visit by physician Le Stark [facility] Start: 12-21-2018 End: 12-21-2018 Subsequent hospital visit by physician Le Stark [facility] Comment on above: Arrived Start: 12-19-2018 End: 12-19-2018 Subsequent hospital visit by physician Le Stark [facility] Comment on above: Arrived Start: 12-16-2018 End: 12-16-2018 Subsequent hospital visit by physician Margot Mercado [facility] Comment on above: Arrived Start: 12-08-2018 End: 12-08-2018 Subsequent hospital visit by physician Julia Quijano Work Phone: [facility] Start: 12-02-2018 End: 12-02-2018 Subsequent hospital visit by physician Hayley Orta [facility] Procedures Date Procedure Procedure Detail Performing Clinician Start: 09-01-2021 Ecg routine ecg w/le ast 12 lds w/i&r Eloy Davidson MD Work Phone: Start: 02-11-2021 Lipid panel Dolores cervantes MD Work Phone: Start: 02-11-2021 PATIENT FASTING? Dolores Calixto MD Work Phone: Start: 09-09-2020 Screening mammograph y bi 2-view breast inc cad Eddie Jorgegustavo [employer] ENGINE REPAIRER - [employer] SAL[employer] Work Phone: Plan of Treatment Date Care Activity Detail Author Start: 02-11-2026 Lipid panel [employer] Start: 04-03-2023 Screening for malign ant neoplasm of colon [facility] [employer] Start: 04-01-2023 Lipid panel Lipid screen [employer] Work Phone: Start: 04-01-2023 Lipid screen Lipid screen [employer] th- [place], [place] Start: 03-25-2023 Annual Wellness Visi t (AWV) Annual [facility] (AWV) [email or web address] Start: 03-24-2023 Depression Screen [facility] Start: 09-09-2022 Screening for malign ant neoplasm of breast Breast cancer screen [employer] Start: 07-29-2022 Depression Screen Depression Screen [facility] [employer] Start: 02-11-2022 Screening for malign ant neoplasm of colon [facility] Start: 01-29-2022 Annual Wellness Visi t (AWV) Annual Wellness Visit (AWV) [employer] Start: 10-23-2021 Influenza vaccination Flu vaccine (# 1) [facility] [employer] Start: 03-25-2021 COVID-19 Vaccine (4 - Booster) COVID-19 Vaccine (4 - Booster) [facility] [employer] Start: 02-25-2021 End: 02-25-2021 Patient encounter procedure 02/25/2021 [facility]ointment [facility] [employer] [facility] Dex[facility] Scan Start: 11-28-2020 Pneumococcal 65+ yea rs Vaccine (2 - PPSV23 if available, else PCV20) Pneumococcal 65+ years Vaccine (2 - PPSV23 if available, else PCV20) [facility] [employer] Start: 11-28-2020 Pneumococcal 65+ yea rs Vaccine (2 - PPSV23 or PCV20) Pneumococcal 65+ years Vaccine (2 - PPSV23 or PCV20) [facility] [employer] Start: 11-28-2020 Pneumococcal 65+ yea rs Vaccine (2 of 2 - PPSV23) Pneumococcal 65+ years Vaccine (2 of 2 - PPSV23) [facility] [employer] Start: 10-23-2020 Influenza vaccination Flu vaccine (# 1) [facility] [employer] Start: 09-03-2020 Screening for malign ant neoplasm of colon Colon [facility] Screen [facility] Phone: Start: 04-29-2020 COVID-19 Vaccine (2 - Moderna 3-dose series) COVID-19 Vaccine (2 - Moderna 3-dose series) [facility] [employer] Start: 08-31-2019 Annual Wellness Visi t (AWV) Annual Wellness Visit (AWV) [facility]: Start: 02-16-2019 End: 02-16-2019 Patient encounter procedure 02/16/2019 Appointment Physical Therapy Hayley Orta PT [facility] Start: 02-02-2019 End: 02-02-2019 Appointment 02/02/2019 Appointment Physical Therapy Hayley Orta PT [facility] Start: 01-31-2019 End: 01-31-2019 Appointment 01/31/2019 Appointment Physical Therapy Le Stark [facility] Start: 01-26-2019 End: 01-26-2019 Appointment 01/26/2019 Appointment Physical Therapy Hayley Orta PT [facility] Start: 12-26-2018 End: 12-26-2018 Appointment 12/26/2018 Appointment Physical Le Stephenson [facility] Start: 12-23-2018 End: 12-23-2018 Appointment 12/23/2018 Appointment Physical Le Stephenson [facility] Start: 12-21-2018 End: 12-21-2018 Appointment 12/21/2018 Appointment Physical Therapy Le Stark [facility] Start: 12-19-2018 End: 12-19-2018 Appointment 12/19/2018 Appointment Physical Therapy Le Stark [facility] Start: 12-16-2018 End: 12-16-2018 Appointment 12/16/2018 Appointment Physical Therapy Margot Mercado, PT [facility] Start: 12-08-2018 End: 12-08-2018 Appointment 12/08/2018 Appointment Physical Therapy Julia Quijano, PT [address] [place] [address] [phone] [facility] Start: 10-23-2018 Influenza vaccination Flu vaccine (# 1) [place], [place] Start: 08-23-2018 Annual Wellness Visi t (AWV) Annual Wellness Visit (AWV) [place] Start: 2018 DEXA (modify frequen cy per FRAX score) DEXA (modify frequency per FRAX score) [place] Start: 2018 Pneumococcal 65+ yea rs Vaccine (1 of 1 - PPSV23) Pneumococcal 65+ years Vaccine (1 of 1 - PPSV23) [place] Start: 2018 Pneumococcal 65+ yea rs Vaccine (1 of 2 - PCV13) Pneumococcal 65+ years Vaccine (1 of 2 - PCV13) [place] Start: 03-16-2018 Breast cancer screen Breast cancer s creen [place] Start: 03-16-2017 Colon Cancer Screen FIT/FOBT Colon Cancer Screen FIT/FOBT [place] Start: 2008 Screening for osteoporosis DEXA (modify frequency per FRAX score) [facility] Start: 2003 Screening for malign ant neoplasm of lung Low dose CT lung screening [facility] Start: 2003 Shingles Vaccine (1 of 2) Shingles Vaccine (1 of 2) [facility] Start: 1998 Screening for malign ant neoplasm of colon [facility] Start: 1993 Diabetes screen Diabetes screen [facility] [employer] Work Phone: Start: 1988 Diabetes screen Diabetes screen [facility] Start: 1974 Cervical cancer screen Cervical canc er screen [place], [place] Start: 1972 DTaP/Tdap/Td vaccine (1 - Tdap) DTaP/Tdap/Td vaccine (1 - Tdap) [facility] Start: 1971 Hepatitis C screening Hepatitis C [facility] Start: 1968 HIV screen HIV screen [place], [place] Start: 1964 DTaP/Tdap/Td vaccine (1 - Tdap) DTaP/Tdap/Td vaccine (1 - Tdap) [place] Start: 1953 Hepatitis C screen Hepatitis C scree n [place] Start: 1953 Hepatitis C screening Hepatitis C [facility] EKG 12 Lead EKG 12 Lead ECG Routine 09/01/2021 8:08 AM EDT [facility] Work Phone: Immunizations Immunization Date Immunization Notes Care Provider [facility] 12-15-2021 Influenza, FLUAD, (a ge 65 y+), Adjuvanted, 0.5mL Elbert Nava MD Work Phone: [facility] Work Phone: 02-10-2021 Influenza, FLUAD, (a ge 65 y+), Adjuvanted, 0.5mL Elbert Nava MD Work Phone: [facility] Work Phone: 01-28-2021 COVID-19, MODERNA Booster BLUE border, (age 18y+), IM, 50mcg/0.25mL Dolores Calixto MD Work Phone: [facility] Work Phone: 04-24-2020 COVID-19, MODERNA BL UE border, Primary or Immunocompromised, (age 12y+), IM, 100 mcg/0.5mL Dolores Calixto MD Work Phone: [facility] 04-01-2020 COVID-19, Moderna, P F, 100mcg/0.5mL [facility] 11-29-2019 Influenza, FLUAD, (a ge 65 y+), Adjuvanted, 0.5mL Elbert Nava MD Work Phone: [facility] Work Phone: 11-29-2019 influenza, high dose seasonal, preservative-free [facility] Work Phone: 11-29-2019 pneumococcal conjuga te vaccine, 13 valent [facility] Work Phone: 12-13-2018 Seasonal trivalent influenza vaccine, adjuvanted, preservative free [place], [place] 12-10-2017 influenza virus vaccine, unspecified formulation Elbert Nava MD Work Phone: [facility] Work Phone: 12-10-2017 influenza, injectabl e, quadrivalent, preservative free [facility] Payers Date Payer Category Payer Unknown [id number] 2022 Medicare 2022 Private Health Insurance 2014 Medicare MEDICARE MEDICAR E PART A AND B xxxxxxxxxxx 2014-Present [phone] [address] [address] [place] [address] xxxxxxxxxxx [id number] 2014 Private Health Insurance [employer] Chuck NEGRON SENIOR MEDICARE SUPP xxxxxxxxxx 2014-Present [phone] [address] [place] [address] xxxxxxxxxx [id number] 1959 Medicare [id number] 1959 Private Health Insurance [facility] [id number] 1953 Unknown [id number] [id number] .593 1953 Unknown [id number] [id number] .593 1953 Unknown [id number] 2.16.840.1.287061.3.579.2 .593 1953 Unknown [id number] 2.16.840.1.567300.3.579.2 .593 1953 Unknown [id number] 2.16.840.1.576102.3.579.2 .593 1953 Unknown [id number] 2.16.840.1.946023.3.579.2 .593 1953 Unknown [id number] 2.16.840.1.438312.3.579.2 .593 1953 Unknown [id number] 2.16.840.1.016364.3.579.2 .593 1953 Unknown [id number] 2.16.840.1.332675.3.579.2 .593 1953 Unknown [id number] 2.16.840.1.550392.3.579.2 .196 1953 Unknown [id number] 2.16.840.1.968631.3.579.2 .196 1953 Unknown [id number] 2.16.840.1.892290.3.579.2 .196 1953 Unknown [id number] 2.16.840.1.352808.3.579.2 .174 1953 Unknown [id number] 2.16.840.1.769664.3.579.2 .174 1953 Unknown [id number] 2.16.840.1.224442.3.579.2 .174 1953 Unknown [id number] 2.16.840.1.155431.3.579.2 .174 1953 Unknown [id number] 2.16.840.1.513028.3.579.2 .174 1953 Unknown [id number] .174 Social History Date Type Detail Facility Start: 03-28-2018 End: 02-27-2022 Tobacco smoking status NHIS Former smoker [place] End: 02-22-2006 History of tobacco use Current [place] End: 02-22-2006 History of tobacco use Cigarette [place] Start: 03-28-2018 End: 02-27-2022 Cigarettes smoked current (pack per day) - Reported [place] Start: 03-28-2018 End: 07-29-2021 Alcohol intake Current drinker of alcohol (finding) [place] Start: 10-14-2015 Alcohol Comment moderate [place], [place] Start: 1955 Sex Assigned At Not on file [place] Start: 03-28-2018 Alcohol intake Yes [place], [place] Start: 04-17-2020 End: 02-27-2022 Tobacco use and exposure Never used [facility] Start: 08-31-2019 End: 02-27-2022 History SDOH [facility] Phone: Start: 08-31-2019 End: 02-27-2022 History SDOH Food Worry 1 [employer] Phone: Start: 08-31-2019 End: 03-24-2022 History SDOH Transport Med 2 [employer] Phone: Start: 06-21-2022 Alcohol intake Ex-drinker (finding) [facility]: Start: 06-21-2022 History SDOH Alcohol Std Drinks 0 [employer] Phone: Start: 03-24-2022 History SDOH Physica l Activity DPW 4 [employer] Phone: Medical Equipment Procedure Code Equipment Code Equipment Origin al Text Equipment Identifier Dates fluorescein ophthalmic strip 1 mg [id number] Start: 06-21-2022 End: 06-21-2022 Clinical Notes 02-07-2019 to 06-21-2022 Discharge InstructionsAttachDoloresKay Wang Laly - 02/16/2019 2:00 PM [facility] - 02/09/2019 1:00 PM [place] [facility] - 02/07/2019 9:45 AM EST Note Date & Type Note Facility 06-21-2022 Hospital Discharg e instructions Elbert Nava MD - 06/21/2022 7:46 AM EDT Use eye drops- 2 drops to both eyes 4 times a day for 4 days. Follow up with your desktop specialist if symptoms persist or worsen. Follow up with Dr. Calixto to have your blood pressure rechecked. The following attachments cannot be sent through Care Everywhere.Conjunctivitis (American)Hypertension (American)documented in this encounter [employer] Phone: 11-20-2021 Note CONSULTATION CONSULTATION DATE: 11/22/2021 HISTORY OF PRESENT ILLNESS: This is a pleasant, 66-year-old female who presents to the clinic status post left transforaminal epidural steroid injection of L4-L5 that was completed on 09/16/2021. The patient has known nerve root pathology at that level. She states she received zero relief. Prior to that, she received a right quadriceps nerve block, which gave her 100% relief for one month. Her main pathology is left foot pain, as a result of radiculitis and right hip and right lower extremity pain. She states her left foot pain is 10/10 and the right radicular pain is 7-8/10. The patient was prescribed Lyrica in the past, 50 mg b.i.d. At her last appointment, she was given education on the proper use and mechanism of action of that medication. The patient states she occasionally will take one Lyrica a day. She has increased pain today and, with activity such as prolonged standing, walking, lying, crossing legs, stairs and squatting, her pain is greatly increased. She will occasionally use heat which decreases her pain symptomatology. It was suggested to the patient in the past that she try an inversion table, and the patient's friend has an inversion table and she was not satisfied with its use. The patient did go completely upside down, as he described it to me, and she stated it greatly aggravated her pain and increased her vertigo for three hours following. The patient has had two prior lower back surgeries. Most recent was June of 2020 which she describes as trimming and cleaning up of scar tissue. A fusion was performed in 2019 at the [facility]. The patient presents very discouraged today and is seeking relief. Patient's REVIEW OF SYSTEMS / PAST MEDICAL HISTORY / ALLERGIES and IMAGES have been reviewed and they are noted on the chart. PHYSICAL EXAM: VITAL SIGNS: Blood pressure 146/79, heart rate is 72. Temperature is 97.3. She is 5'2 and weighs 64.4 kg. GENERAL IMPRESSION: She is cooperative, flat affect, no acute distress but uncomfortable sitting in the chair. FOCUSED EXAM - BACK: Range of motion is functional in lateral rotation, decreased range of motion in extension and flexion. Paravertebral muscles are non-spasmodic with no trigger points identified. Reproduction of spinal axial pain is noted upon compression of the lumbar facets of L5-S1. Upon compression, hypoesthesia is present along the right L5 nerve dermatome. MUSCULOSKELETAL: Valente weakness is noted right anterior tibialis and extensor digitorum longus. Left extensors are intact. Motor is 3-4 bilaterally. Patient walks with a steady gait, does not use an assistive device. NEUROLOGICALLY: Blunted bilateral patellar and Achilles reflexes. Hypoesthesia as described. DIAGNOSIS: Lumbar degenerative disc disease, lumbar radiculopathy and left foot pain. PLAN: Education was given to the patient again regarding the use of her Lyrica and the purpose of it. She was encouraged to continue with her current prescription of 50 mg b.i.d. and, at the next refill, it will be increased to 75 mg b.i.d. I encouraged her to participate in yoga and to do daily stretches. Patient has modalities to educate herself and to do self exercise. She will return to the clinic in four weeks to re-evaluate the efficacy of consistently taking Lyrica and to re-assess her lower extremity motor strength. Patient agrees with this plan of care and all questions answered today. [facility] 08-19-2021 Note CONSULTATION PROCEDURE DATE: 08/19/2021 PREOPERATIVE DIAGNOSIS: Spasming trigger point along the quadratus right thigh quadriceps. POSTOPERATIVE DIAGNOSIS: Spasming trigger point along the quadratus right thigh quadriceps. PROCEDURE: Right quadriceps trigger point injection. Subsequent to obtaining informed consent, the patient was placed in the supine position. Alcohol prep was used to sterilize the site. A 25 gauge needle was advanced until it comes to rest along the quadriceps where the trigger points were palpable. Negative aspiration. Marcaine 0.125% along with Kenalog 20 mg are placed to the site. Negative heme. The patient tolerates the procedure well, without any overt complications, will be followed up in the office. [facility] Signed and Approved by: DR ELOY DAVIDSON . 09/02/2021 07:55:00 [facility] 08-19-2021 Note CONSULTATION CONSULTATION DATE: 08/19/2021 CHIEF COMPLAINT: 1. Left leg motor weakness, left foot pain. 2. Right hip pain. HISTORY OF PRESENT ILLNESS: This is a 66-year-old female who has a complicated history. The patient had two lumbar surgeries subsequent to which the patient had significant pain in her left foot, residual pain. The patient had a decompressive surgery at [facility] and then a second diskectomy at the level of L5-S1 in [place]. The patient states, subsequent to that, she has not been able to stand on her toes on the left leg. In addition to this, the patient recently had a fall and landed on her left foot. The patient complains of right hip pain also, subsequent to the fall. The patient takes Tylenol Arthritis on a periodic basis, Lyrica 50 mg b.i.d. Standing, climbing stairs, activities aggravate the patient's pain. Sitting mitigates the pain. The patient's PAST MEDICAL HISTORY / SURGICAL HISTORY / REVIEW OF SYSTEMS are noted on the chart, along with the MEDICATION LIST / ALLERGIES and the MRI, which was reviewed in office today with the patient. PHYSICAL EXAMINATION: GENERAL: Upon physical examination, this is a pleasant, cooperative female, who does not appear to be in any acute distress. VITAL SIGNS: Stable at 140/80 with a heart rate of 73. At a height of 5'2 , the patient weighs 140 pounds. FOCUSED EVALUATION: The patient has effusion along her left ankle. No overt tissue infiltration is noted. No myofascial tautness is present. Flocculence is maintained along the ankle. With regards to her right hip, along the quads, insertional point, the patient has significant jump response. Palpatory evaluation shows this. With regards to her foot, the patient is unable to stand on her foot currently. The MRI still shows tortuous journey of the L5 nerve root and also a discophyte at the level of L5-S1. Hypoesthesia is present along the L5 and S1 in a patchy manner along S2. IMPRESSION: Current working diagnosis on the patient is sprain of the left ankle, left L5-S1 radiculitis, neuritis, right quadriceps spasm trigger point. PLAN: We will perform a right quadriceps trigger point injection in office today. This is along the insertional aspect. We will also schedule the patient for a left transforaminal epidural steroid injection along the L5-S1 nerve root with [place]. The patient is to send a copy of the MRI disc to the surgeon in [place] where she has the confidence of the surgeon. The patient understands and would like to proceed. CC: Dr. Calixto [facility] Signed and Approved by: DR ELOY DAVIDSON . 09/02/2021 07:55:00 [facility] 06-26-2021 Note CONSULTATION CONSULTATION DATE: 06/26/2021 This is a pleasant and active 66-year-old female who returns to the clinic for x-ray review of her hip and pelvis. She was last seen approximately 1 week ago and at that time she had high level of pain in her lower back and right hip with radicular pain to the right lower extremity. X-ray does reveal some disk narrowing at L4 and L5. She does have some foraminal stenosis as well to those areas. She has increased her Lyrica to 50 mg b.i.d. which has been beneficial. She reports her pain 2 out of 10 today. Her right lower radicular pain is still present but decreased. She is consistently taking wgep-iqo-tzconny anti-inflammatories once to twice a day as needed. 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 Sitting and heat decreases her pain. 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 REVIEW OF SYSTEMS, PAST MEDICAL HISTORY, ALLERGIES AND IMAGES: Have been reviewed and noted in the chart. PHYSICAL EXAM: VITAL SIGNS: Blood pressure 145/91, heart rate is 72, temperature is 97.3. Height is 5'2, weighs 64 kg FOCUSED EXAM: . GENERAL APPEARANCE: No acute distress, pleasant and appropriate. BACK: Range of motion is within functional rotation to lateral rotation and flexion/extension. Paravertebral muscles are non-spasmodic. Reproduction of spinoaxial pain noted to direct compression along the right side of L3, L4 and L4, L5 with fullness palpated. This is concordant with ill facet arthropathy and lumbar spondylosis. Rome's point is tender bilaterally with Tiera's and compression test positive. 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 MUSCULOSKELETAL: Motor is intact, 5 out of 5 bilaterally; no vasomotor weakness. The patient walks with a slow and steady gait. She does not use assistive device. NEUROLOGICAL: Patchy hypesthesia noted along the L4-L5 dermatome, increased with activity. Plus 1 right patellar reflex; plus 2 to the left. DIAGNOSIS: Lumbar degenerative disk, lumbar spondylosis, spinoaxial lower back pain and lumbar radiculitis. PLAN: At this time the patient does not wish for any procedural interventions. She is to continue with her Lyrica 50 mg b.i.d. in addition to her vitamin regimen. We did encourage her to use either Aleve or Advil to address inflammation. I did recommend the use of an inversion table 2-3 times a week as the patient currently does not have one at home. I encouraged stretching. The patient is willing to look up her own beneficial stretches. The patient will be seen in two months' time unless otherwise indicated. The patient agreed to plan of care. All questions were answered. [facility] Signed and Approved by: ADELFO GARCIA . 07/02/2021 14:04:00 [facility] 04-27-2022 Note PROCEDURE: XR HIP RT 2 3V W PELVIS HISTORY: Pain in right hip joint COMPARISON: None. FINDINGS: BONES:No fracture, acute abnormality, or significant arthropathy. SOFT TISSUES:No visible soft tissue swelling. EFFUSION:None visible. OTHER: L4-5, L5-S1 disc space narrowing. IMPRESSION: 1. No acute bone abnormality. 2. Minimal degenerative changes of the hip joints. 3. Moderate-marked degenerative disc disease of the lower lumbar spine which may contribute to patient's symptoms. Electronically authenticated by: RAMÓN ACEVEDO Date: 2021-06-18 08:53 [facility] 06-18-2021 Note CONSULTATION CONSULTATION DATE: 06/18/2021 HISTORY OF PRESENT ILLNESS: This is a 66-year-old female who returns to the clinic for a six month follow up for her lumbar radiculitis and right hip pain. She was last seen on 01/21/2021 which, at that time, we got an updated MRI which confirms lower lumbar disc bulging and lumbar spondylosis. The patient has had transforaminal epidurals and interlaminar epidurals in the past with minimal relief. She recently returned from visiting grandchildren and increased activity has increased per pain. She is reporting 9/10 pain today and having numbness and tingling to her left foot. She is complaining of right hip pain today and it is worse with weight bearing activities. For pain, she takes Tylenol Arthritis and Lyrica 50 mg daily. She was prescribed for it to be b.i.d., but was taking it once only. Activities that aggravate her pain are pushing, pulling, standing, walking, lifting, stairs and ADLs. Sitting and heat application decrease her pain. Patient's REVIEW OF SYSTEMS / PAST MEDICAL HISTORY / ALLERGIES and IMAGES have been reviewed and they are noted on the chart. PHYSICAL EXAM: VITALS: Blood pressure 127/80, heart rate is 70. Temperature is 97.3. She is 5'2 , weighs 64 kg. GENERAL APPEARANCE: Pleasant, appropriate, in no acute distress but obviously uncomfortable, sitting in the chair. FOCUSED EXAM - BACK: Paravertebral muscles are taut bilaterally. No reproduction of spinal axial pain to direct compression along the posterior elements of the facets. Rome's point is non-tender bilaterally versus non-tender as well. Thigh thrust test is positive to the right. MUSCULOSKELETAL: Motor is intact, 4/5 bilaterally. Patient able to adduct and abduct right hip with minimal to no pain. patient ambulates with a steady gait. NEUROLOGICAL: Radicular sensory is intact to left lower extremity. Right dermatome of L5-S1 with patchy hypoesthesia. IMPRESSION: Right hip pain, lumbar degenerative disc, lumbar radiculitis. PLAN: Patient was re-educated to take her Lyrica 50 mg b.i.d. as was prescribed. We will obtain a right hip x-ray and a pelvis x-ray. She will return next week to the clinic for review and to discuss a new plan of care. Patient agrees with that and would like to proceed. [facility] Signed and Approved by: ADELFO GARCIA . 06/19/2021 09:41:00 [facility] 01-21-2021 Note PAIN MANAGEMENT DATE: 01-21-21 CHIEF COMPLAINT: Left foot discomfort/pain. HISTORY OF PRESENT ILLNESS: This is a 65-year-old female who has had transforaminal epidural steroid injection at the level of L5 and S1 on the left- hand side. The patient states she doesn't have any pain relief; however, when focused questions are asked, the patient has substantial pain relief in her foot. The patient states at the end of the day when she has been standing on her feet, her feet get 8 over 10 pain. This appears to be more generalized and arthritic as opposed to radicular. In 2018 the patient used to have severe dysfunction on her left lower extremity to the point where she was on a wheelchair and at times would have to crawl to be able to get about her house. This was in [place]. The patient had undergone three epidurals, failed those, went and had her first surgery in 2018. Subsequent to that, secondary to increased pain, the patient had re-surgical intervention in 2019. The patient states standing, walking, housework, activities, ADLs aggravate the pain. The pain is worse in the p.m. compared to the day. The patient is able to function; however, fatigue is noted. The patient takes Tylenol arthritis. It helps her hips and foot. The patient was also started on Lyrica 50 mg b.i.d. Helped it for about a week or so and then back to baseline. PAST MEDICAL HISTORY/SURGICAL HISTORY/REVIEW OF SYSTEMS NOTED ON THE CHART ALONG WITH THE MEDICATION LIST, ALLERGIES. NO RECENT MRI IS NOTED ON THE PATIENT'S CHART. PHYSICAL EXAMINATION: This is a pleasant, cooperative female who does not appear to be in any acute distress. VITAL SIGNS: Stable at 150/88 with a heart rate of 73, height of 5'2 , the patient weighs 64 kg. FOCUSED EVALUATION: The patient is able to stand up out of the chair without any overt difficulty. Range of motion is fluid. EXTREMITIES: No overt atrophy is noted. Hypoesthesia is present along the L5-S1 distribution on the left-hand side. L4 is intact. Loss of plantar fat pad is noted. The patient has osteoarthritis of the hands and similar along the large toe on the left-hand side. PSYCHIATRIC: Affect is appropriate. The patient is extremely frustrated. IMPRESSION: Status post lumbar surgery dating . L5-S1 radiculitis. No overt motor radiculopathy. The patient has hypoesthesia along those distributions. PLAN: We will get and MRI with and without contrast to define the anatomy. We had performed the transforaminal epidural steroid injection where dye obstruction was noted proximal at the level of S1 and distally along L5. The patient understands. Questions were answered. The patient will be following up post MRI. CC: Aruna Calixto PA-C. [facility] Signed and Approved by: DR ELOY DAVIDSON . 01/28/2021 08:59:00 [facility] 02-16-2019 History of Presen t illness Narrative [facility] Date: 02/16/2019 Patient Name: Izzy Silverio : 1955 Pt Cancelled Appt due to had out of town company, and cannot make it to this appointment. Kay Fitzgerald Date: 02/16/2019 documented in this encounter [employer] Phone: 02-09-2019 History of Presen t illness Narrative [facility] Date: 02/09/2019 Patient Name: Izzy Silverio : 1955 Pt Cancelled Appt due to in [place] with a flat tire. Le Leon Date: 02/09/2019 documented in this encounter [employer] Phone: 02-07-2019 History of Presen t illness Narrative [facility] Date: 02/07/2019 Patient Name: Izzy Silverio : 1955 Pt Cancelled Appt due to does not want to do dry needling. Le Leon Date: 02/07/2019 documented in this encounter [employer] Phone: Evaluation note Diagnosis Breast cancer screening by mammogram documented in this encounter [employer] Phone: evaluation note* Diagnosis Screening cholesterol level Screening for lipoid disorders documented in this encounter [employer] Phone: evaluation note* Diagnosis Acute bacterial conjunctivitis of both eyes- Primary documented in this encounter LISA MCCOLLUM [employer] Phone: History of Present Illness * Margot Mercado, PT - 01/24/2019 8:45 AM EST [facility] Daily Note Date: 01/24/2019 Patient Name: Izzy Silverio : 1955 (63 y.o.) Referring Practitioner: TERA Negro Referral Date : 11/22/18 Diagnosis: S/P lumbar disectomy Treatment Diagnosis: Back pain, left leg pain Onset Date: 11/22/18(Referral) PT Insurance Information: [facility] Total # of Visits Approved: 14 Per Physician Order Total # of Visits to Date: 4 Canceled Appointment: 2 Plan of Care/Certification Expiration Date: 12/30/18 Pre-Treatment Pain: 8/10 Assessment Assessment: Patient returned from being in [place] x one month visiting family. She c/o still having pain in left foot 4-8/10, interfers with walking. and normal activities. Strength right LE WFL;Left ankle eversion 3+/5, DF 4/5, left hip abd 4-/5. Oswestry score 10/50. Plan add manual therapy with dry needling and continue exercise to strengthen core and left LE. Chart Reviewed: Yes Plan Plan: Alter current plan Comment: Add dry needling Exercises/Modalities/Manual: See DocFlow Sheet Education: Goals (Total # of Visits to Date: 4) Short Term Goals - Time Frame for Short term goals: 6 Short term goal 1: Patient to be independnt with HEP for core strengthening and left leg strengthening-met Short term goal 2: Patient to demonstrate understanding of proper posture and body mechanics with lifting following back education-met Custodial Goals - Time Frame for USP goals : 14 USP goal 1: Gait WFL with even stride length terminal superintendent goal 2: Improve functional mobility with score < 8/50 on Oswestry Disability USP goal 3: Decrease left foot pain 4/10 at worst x 3 days terminal superintendent goal 4: Increase strength left ankle eversion 4/5 for improved stability Post Treatment Pain: 8/10 Time In: 8:45 Time Out : 9:30 Timed Code Treatment Minutes: 45 Minutes Total Treatment Time: 45 Minutes Margot Mercado, PT Date: 01/24/2019 documented in this encounter* Kay Fitzgerald - 12/08/2018 9:07 AM EDT [facility] Date: 12/08/2018 Patient Name: Izzy Silverio : 1955 Pt Cancelled Appt due to left no reason for cancellation, rescheduled for next Wednesday12/16/18. Kay Fitzgerald Date: 12/08/2018 documented in this encounter* Le Stark - 12/21/2018 9:38 AM EDT [facility] Daily Note Date: 12/21/2018 Patient Name: Izzy Silverio : 1955 (63 y.o.) Referring Practitioner: TERA Negro Referral Date : 11/22/18 Diagnosis: S/P lumbar disectomy Treatment Diagnosis: Back pain, left leg pain Onset Date: 11/22/18(Referral) PT Insurance Information: [facility] Total # of Visits Approved: 6 Per Physician Order Total # of Visits to Date: 3 No Show: 0 Canceled Appointment: 2 Plan of Care/Certification Expiration Date: 12/30/18 Pre-Treatment Pain: 04/03 Assessment Assessment: Pt reports very good compliance with HEP which she already performed this morning. Progressed ex today with forward and lateral step ups, shuttle and increased speed on treadmill. Progressed plank to full plank with good julio. Good demonstration of body mechanics with crate. Chart Reviewed: Yes Plan Plan: Continue with current plan Exercises/Modalities/Manual: See DocFlow Sheet Goals (Total # of Visits to Date: 3) Short Term Goals - Time Frame for Short term goals: 6 Short term goal 1: Patient to be independnt with HEP for core strengthening and left leg strengthening-met Short term goal 2: Patient to demonstrate understanding of proper posture and body mechanics with lifting following back education-met Short term goal 3: Gait WFL with even stride length Short term goal 4: Improve functional mobility with score < 10/50 on Oswestry Disability Custodial Goals - Time Frame for terminal superintendent goals : NA- patient request only 2 wks of PT due to leaving for prolonged stay in [place] Post Treatment Pain: 04/03 Time In: 0900 Time Out : 0935 Timed Code Treatment Minutes: 35 Minutes Total Treatment Time: 35 Minutes Le Stark FOUNTAIN MANAGER Date: 12/21/2018 documented in this encounter* Hayley Orta PT - 01/26/2019 10:15 AM EST [facility] Daily Note Date: 01/26/2019 Patient Name: Izzy Silverio : 1955 (63 y.o.) Referring Practitioner: TERA Negro Referral Date : 11/22/18 Diagnosis: S/P lumbar disectomy Treatment Diagnosis: Back pain, left leg pain Onset Date: 11/22/18(Referral) PT Insurance Information: [facility] Total # of Visits Approved: 14 Per Physician Order Total # of Visits to Date: 5 No Show: 0 Canceled Appointment: 2 Plan of Care/Certification Expiration Date: 12/30/18 Pre-Treatment Pain: 0/10 Assessment Assessment: Pt reports her numbness in her Left foot is constant. Pt reports no real back pain to speak of today. Pt QST=0/16. Pt with good julio to needling this date and reports noted improvement following session. Pt educated to apply heat when getting home for 15-20min. Consent reviewed and signed prior to session. Chart Reviewed: Yes Plan Plan: Alter current plan Comment: Add dry needling Exercises/Modalities/Manual: See DocFlow Sheet Education: See assessment Goals (Total # of Visits to Date: 5) Short Term Goals - Time Frame for Short term goals: 6 Short term goal 1: Patient to be independnt with HEP for core strengthening and left leg strengthening-met Short term goal 2: Patient to demonstrate understanding of proper posture and body mechanics with lifting following back education-met Custodial Goals - Time Frame for terminal superintendent goals : 14 terminal superintendent goal 1: Gait WFL with even stride length terminal superintendent goal 2: Improve functional mobility with score < 8/50 on Oswestry Disability USP goal 3: Decrease left foot pain 4/10 at worst x 3 days terminal superintendent goal 4: Increase strength left ankle eversion 4/5 for improved stability Post Treatment Pain: 0/10 Time In:1020 Time Out : 1100 Timed Code Treatment Minutes: 40 Minutes Total Treatment Time: 40 Minutes Hayley Orta, PT Date: 01/26/2019 documented in this encounter* Margot Mercado, PT - 12/16/2018 9:36 AM EDT [facility] Evaluation Date: 12/16/2018 Patient: Izzy Silverio : 1955 Referring Practitioner: TERA Negro Referral Date : 11/22/18 Diagnosis: S/P lumbar disectomy Treatment Diagnosis: Back pain, left leg pain Onset Date: 11/22/18(Referral) PT Insurance Information: [facility] Total # of Visits Approved: 6 Per Physician Order Total # of Visits to Date: 1 Canceled Appointment: 2 Subjective Additional Pertinent Hx: Chronic pain in left leg from lumbar radiculopathy for about 16 months. Had back surgery in August 2018, lumbar disectomy L5. Currently main c/o numbness and pain in left foot and weakness left leg limiting walking. Hx- back surgery when 17 years old, 3 epidurals, hysterectomy. Meds-none now. Laying down decreases pain, sleeping okay. Has limp when walking. Wants to walk normal. Pain Screening Patient Currently in Pain: Yes Pain Assessment Pain Assessment: 0-10 Pain Level: 4 Pain Location: Leg, Foot Pain Orientation: Left Social/Functional History Occupation: Retired Objective Spine Lumbar: limited 25% all planes Special Tests: SLR negative Strength RLE Strength RLE: WFL Strength LLE Strength LLE: Exception L Hip Flexion: 4-/5 L Hip Extension: 3+/5 L Hip ABduction: 4-/5 L Hip ADduction: 5/5 L Knee Flexion: 5/5 L Knee Extension: 5/5 L Ankle Dorsiflexion: 4/5 L Ankle Plantar Flexion: 4/5 L Ankle Inversion: 4+/5 L Ankle Eversion: 3+/5 PROM LLE (degrees) LLE PROM: WFL PROM RLE (degrees) RLE PROM: WFL Ambulation 1 Quality of Gait: antalgic, intermittent limp, decreased stride length and speed Assessment Body structures, Functions, Activity limitations: Decreased functional mobility , Decreased ROM, Decreased strength, Increased pain Assessment: S/P lumbar disectomy with left foot pain/numbness and weakness left leg causing limp when walking. Educated on and issued HEP handout and O t-band. Patient request only 2 wks of PT due toleaving for prolonged stay in [place]; focus on back education and HEP. Prognosis: Good Decision Making: Medium Complexity History: as above Exam: Oswestry disability 13/50 Clinical Presentation: Evolving The Following Comorbities will impact the patient s progression and Plan of Care: Previous Orthopedic Injury/Surgery Education: On POC and HEP Goals Short term goals Time Frame for Short term goals: 6 Short term goal 1: Patient to be independnt with HEP for core strengthening and left leg strengthening Short term goal 2: Patient to demonstrate understanding of proper posture and body mechanics with lifting following back education Short term goal 3: Gait WFL with even stride length Short term goal 4: Improve functional mobility with score < 10/50 on Oswestry Disability terminal superintendent goals Time Frame for USP goals : NA- patient request only 2 wks of PT due to leaving for prolonged stay in [place] Patient's Goal: Walk normal, without limp Timed Code Treatment Minutes: 20 Minutes Total Treatment Time: 50 Time In: 7:35 Time Out: 8:25 Margot Mercado, PT Date: 12/16/2018 documented in this encounter* Le Leon - 12/02/2018 8:21 AM EDT [facility] Date: 12/02/2018 Patient Name: Izzy Silverio : 1955 Pt Cancelled Appt due to Illness Le Leon Date: 12/02/2018 documented in this encounter* Le Stark - 12/19/2018 9:44 AM EDT [facility] Daily Note Date: 12/19/2018 Patient Name: Izzy Silverio : 1955 (63 y.o.) Referring Practitioner: TERA Negro Referral Date : 11/22/18 Diagnosis: S/P lumbar disectomy Treatment Diagnosis: Back pain, left leg pain Onset Date: 11/22/18(Referral) PT Insurance Information: [facility] Total # of Visits Approved: 6 Per Physician Order Total # of Visits to Date: 2 No Show: 0 Canceled Appointment: 2 Plan of Care/Certification Expiration Date: 12/30/18 Pre-Treatment Pain: 0/10 Assessment Assessment: Initiated ex as outlined with good julio. She notes less pain since ex last visit. She started Lyrica Wednesday. Will progress as julio. Ed on body mechanics with crate with good performance. Chart Reviewed: Yes Plan Plan: Plan of care initiated Exercises/Modalities/Manual: See DocFlow Sheet Education: body mechanics Goals (Total # of Visits to Date: 2) Short Term Goals - Time Frame for Short term goals: 6 Short term goal 1: Patient to be independnt with HEP for core strengthening and left leg strengthening Short term goal 2: Patient to demonstrate understanding of proper posture and body mechanics with lifting following back education Short term goal 3: Gait WFL with even stride length Short term goal 4: Improve functional mobility with score < 10/50 on Oswestry Disability Heel Seat Fitter Goals - Time Frame for terminal superintendent goals : NA- patient request only 2 wks of PT due to leaving for prolonged stay in [place] Post Treatment Pain: 0/10 Time In: 0900 Time Out : 0940 Timed and total 40 min Le Stark FOUNTAIN MANAGER Date: 12/19/2018 documented in this encounter Advance Directives No Advanced Directives Records FoundDocuments on File Type Date Recorded Patient Director Decision Support Expl anation Advance Directives and Living Will Power of [employer] Cashier Documents on File Type Date Recorded Patient Director Decision Support Expl anation ACP-Advance Directive ACP-Power of [employer] Cashier Documents on File Type Date Recorded Patient Director Decision Support Expl anation ACP-Advance Directive ACP-Power of [employer] Healthcare Agents on File Name Relationship Healthcare Agent Relationshi p Communication Sriram Silverio Spouse Primary Decision Maker Healthcare Agents on File Name Relationship Healthcare Agent Relationshi p Communication Sriram Silverio Spouse Primary Decision Maker Summary Purpose Family History No Family History Records FoundNo Family History Records FoundNo Family History Records FoundNo Family History Records FoundNo Family History Records FoundNo Family History Records FoundNo Family History Records Found Additional Source Comments Reason for Visit (unrecogniz ed section and content) Status Reason Specialty Diagnoses / Procedures Referred By Contact Referred To Contact Pending Review Physical Therapy Diagnoses Other specified postprocedural states [place] [id number] [address] [facility] [place] [address] Hayley Orta, PT Status Reason Specialty Diagnoses / Procedures Re ferred By Contact Referred To Contact Open Physical Therapy Diagnoses Other specified postprocedural states Procedures [place] [id number] [address] [facility] [place] [address] Hayley Orta, PT Status Reason Specialty Diagnoses / Procedures Referred By Contact Referred To Contact Pending Review Specialty Services Required Physical Therapy Diagnoses Acute left-sided low back pain with left-sided sciatica Radiculopathy of lumbar region Paresthesia of left foot Procedures physical therapy Dolores Calixto MD [address] [place] [address] [facility] [address] [place] [address] Status Reason Specialty Diagnoses / Procedures Referre d By Contact Referred To Contact Closed Radiology Diagnoses Breast cancer screening by mammogram Procedures RAMIRO CHRISTIANO DIGITAL SCREEN BILATERAL RAMIRO DIGITAL SCREEN W CAD BILATERAL Eddie Novoa, GAS ENGINE REPAIRER - [employer] SALESPERSON [address] [place] [address] Reason Comments Facial Swelling Left eye started Wed day to feel like something was in eye. Woke up this morning swollen and still feels like something in eye. INFORMATION SOURCE (unrecogn ized section and content) DATE CREATED AUTHOR 09/15/2019 [facility] DATE CREATED AUTHOR AUTHOR'S ORGANIZ ATION 01/16/2020 [facility] DATE CREATED AUTHOR AUTHOR'S ORGANIZ ATION 02/09/2020 [facility] DATE CREATED AUTHOR AUTHOR'S ORGANIZ ATION 05/12/2021 [facility] DATE CREATED AUTHOR AUTHOR'S ORGANIZ ATION 01/02/2022 [facility] DATE CREATED AUTHOR AUTHOR'S ORGANIZ ATION 01/22/2023 [facility] DATE CREATED AUTHOR AUTHOR'S ORGANIZ ATION 03/19/2023 [facility] Teams (unrecognized sec tion and content) Cafe Helper Relationship Specialty Start Date End Date Dolores Calixto MD [address] [place] [address] PCP - General Family Medicine 03/02/16 Cafe Helper Relationship Specialty Start Date End Date Dolores Calixto MD [address] [place] [address] PCP - General Family Medicine 03/02/16 Cafe Helper Relationship Specialty Start Date End Date Dolores Calixto MD [address] [place] [address] PCP - General Family Medicine 03/02/16 Scheduled Active and Recently Administ ered Medications (unrecognized section and content) Medication Order 06/19/2022 06/20/2022 06/21/2022 eye stream ophthalmic solution 1 drop (COMPLETED) 1 drop, Left Eye, ONCE, On 06/21/22 at 0730, For 1 dose 0720 (Given - Provid er: Sari Aguilar RN) fluorescein ophthalmic strip 1 mg (COMPLETED) 1 mg (1 strip), Left Eye, ONCE, 1 dose, On 06/21/22 at 0730, 1 mg = 1 strip 0721 (Given - Provid er: Sari Aguilar RN) gentamicin (GARAMYCIN) 0.3 % ophthalmic solution 2 drop (COMPLETED) 2 drop, Both Eyes, ONCE, 1 dose, On 06/21/22 at 0800 0811 (Given - Provid er: Regina Pearl RN) tetracaine (TETRAVISC) 0.5 % ophthalmic solution 2 drop (COMPLETED) 2 drop, Left Eye, ONCE, 1 dose, On 06/21/22 at 0730 0720 (Given - Provid er: Sari Aguilar RN) FOR RECORDS PERTAINING TO PATIENTS WHO ARE OR HAVE BEEN ENROLLED IN A CHEMICAL DEPENDENCY/SUBSTANCEABUSE PROGRAM, SOME INFORMATION MAY BE OMITTED. This clinical summary was aggregated from multiple sources. Caution should be exercised in using it in the provision of clinical care. This summary normalizes information from multiple sources, and as a consequence, information in this document may materially change the coding, format and clinical context of patient data. In addition, data may be omitted in some cases. CLINICAL DECISIONS SHOULD BE BASED ON THE PRIMARY CLINICAL RECORDS. [facility] Auth0 [facility]. provides no warranty or guarantee of the accuracy or completeness of information in this document.
--- NOTE | 2023-06-30 13:21 | P.CN_ITS ---
Consult Note: HPI Data of Consult Patient: known to practice within the last 3 years Requesting Physician: Martha Arvizu NP Primary Care Provider: DOLORES LUND Consult Narrative Reason for consult: f/u Narrative: Rica Roberson a pleasant 67 year old female presents for evaluation and management of chronic pain of left foot post lumbar surgery. Failed to benefit from greater than 6 weeks PT and HEP, failed conservative medications. Failed to benefit from lumbar ESIs and lumbar facet blocks. Pain 8/10 increasing to 10/10 with standing and activity. Patient would like to discuss retrialing gabapentin and interventional options. cc:: CC: Martha Arvizu NP Review of Systems ROS Status of ROS 10 or more systems reviewed and unremark able except as noted in history and below Musculoskeletal Reports: extremity pain, extremity swelling and joint pain PFSH PFS Medical History (Updated 01/28/23 @ 15:57 by Martha Arvizu NP) Former smoker ?Z87.891 - Personal history of nicotine dependence (ICD-10) High cholesterol ?E78.00 - Pure hypercholesterolemia, unspecified (ICD-10) Surgical History H/O lumbosacral spine surgery ?Z98.890 - Other specified postprocedural states (ICD-10) H/O lumbar discectomy ?Z98.890 - Other specified postprocedural states (ICD-10) H/O: hysterectomy ?Z90.710 - Acquired absence of both cervix and uterus (ICD-10) Meds Home Medications and Allergies Home Medications ?Medication ?Instructions ?Recorded ?Confirmed ?Type ibuprofen 200 mg tablet (Advil) 200 mg PO QDAY PRN pain 11/16/22 01/18/23 History diazepam 2 mg tablet (Valium) 1 mg PO DAILY PRN anxiety 12/07/22 01/18/23 History Allergies Allergy/AdvReac Type Severity Reaction Status Date / Time No Known Drug Allergies Allergy Verified 01/18/23 07:22 Exam Constitutional Documenting provider has reviewed patient's vital signs: yes Common normals: no apparent distress, oriented x3, healthy appearing, alert and well nourished General appearance: cooperative HENMT Common normals: normocephalic, hearing grossly normal bilaterally and moist oral mucous membranes Head and scalp: normocephalic Eye Common normals: PERRL Pupil: PERRL Neck & C-Spine Common normals: full ROM General: normal visual inspection Chest Common normals: inspection of chest normal Respiratory Common normals: normal respiratory effort, no retractions and no use of accessory muscles Back & Pelvis Lumbar spine/lower back: normal to inspection, lumbar ROM normal and straight leg raise positive left Other: swelling discoloration altered sensation of left foot/LLE decreased sensation strength 4/5 Neuro Common normals: oriented x3, CN's II-XII intact bilaterally, moves all extremities, no focal motor deficits, no sensory deficits noted and deep tendon reflexes 2+ bilaterally Sensorium/orientation: alert Motor exam: no movement abnormalities noted and strength abnormal Psych Common normals: mental status grossly normal, thought process normal, cooperative, affect normal, speech normal and activity/motor behavior normal Speech: normal speech Thought process: normal thought process Results Additional Findings Additional findings: If on a controlled substance or opioids, I have checked an [place]AR[place] report on this patient and there are no aberrancies noted in the prescribing history.??If on a controlled substance or opioid a drug screen was completed and reviewed within the last year, and if there has not been a drug screen completed we ordered one today to monitor higher risk, state monitored pain medication use. As part of providing excellent, safe, comprehensive care, the following was completed at our patient's visit: 1. A medication reconciliation and review to ensure accurate knowledge of current/active medications, including asking our patients to inform us about any [id number] medications or herbal remedies/nutritional supplements /alternative remedies. 2. A review to specifically ensure our patients have had annual screening for screening for depression, screening for tobacco use, and screening for unhealthy alcohol use. For concerning screenings had a discussion with the patient, provided patient education, and recommended follow-up with primary care provider when appropriate. If patient noted with a risk of falling, they received education on strength, gait, and balance training to prevent future risk of falling. Assessment and Plan Assessment and Plan (1) Lumbar postlaminectomy syndrome: (2) Lumbar stenosis with neurogenic claudication: (3) Lumbar spondylosis: (4) Weakness: (5) Chronic pain in left foot: Plan left lumbar sympathetic block consider SCS trial, patient not interested at this time restart gabapentin 100mg capsules 200-300mg daily as tolerated, call for refill and to titrate f/u 1 week after injection
== END 2023-06-30 12:34 | disposition home or self-care (01) ==
LOC: PM 12:34
PROVIDERS: PCP Family Medicine; Visit Provider Nurse Practitioner
DX: M25.561 Pain in right knee (principal); M11.261 Other chondrocalcinosis, right knee; M96.1 Postlaminectomy syndrome, not elsewhere classified; M48.062 Spinal stenosis, lumbar region with neurogenic claudication; M47.816 Spondylosis without myelopathy or radiculopathy, lumbar region; R53.1 Weakness; M79.672 Pain in left foot
CPT/HCPCS: 73564; G0463

== ENCOUNTER 2023-06-30 13:35 | Outpatient (OUT) | payer OTHER, SELFPAY ==
--- NOTE | 2023-06-30 13:47 | XR_ITS ---
The [address] [address] Patient Name: IZZY SILVERIO MRN: [id number] date: 1955 Sex: F Assigned Patient Location: RAD Current Patient Location: [facility] Accession/Order Number: [id number] Exam Date: 06/30/2023 13:40 Report Date: 06/30/2023 14:24 At the request of: SHEILA OLIVER Procedure: XR knee RT 4V PROCEDURE: XR knee RT 4V COMPARISON: None. HISTORY: Right Knee Pain FINDINGS: BONES:No acute fracture or dislocation. Medial compartment chondrocalcinosis SOFT TISSUES:Negative. No visible soft tissue swelling. EFFUSION:None visible. OTHER: Negative. XR/XR knee RT 4V IMPRESSION: Medial compartment chondrocalcinosis Electronically authenticated by: HINA PORTILLO Date: 06/30/2023 14:24
== END 2023-06-30 13:36 | disposition home or self-care (01) ==
LOC: RAD 13:36
PROVIDERS: PCP Family Medicine; Visit Provider Nurse Practitioner
DX: M25.561 Pain in right knee (principal); M11.261 Other chondrocalcinosis, right knee
CPT/HCPCS: 73564

== ENCOUNTER 2023-07-26 14:30 | Outpatient (OUT) | payer OTHER, SELFPAY ==
--- NOTE | 2023-07-26 15:22 | P.CN_ITS ---
Consult Note: HPI Data of Consult Patient: known to practice within the last 3 years Consult date: 07/26/23 Requesting Physician: Parish Garcias MD Primary Care Provider: DOLORES LUND Consult Narrative Reason for consult: Right knee pain, bilateral foot pain Narrative: 68yof who presents for assessment. persistence of right knee pain, pain in bilateral lower extremities. lumbar imaging reviewed, which is significant for disc bulging and stenosis at l4-5 and l5-s1. has history of lumbar surgery. continues in provider directed home exercise program. gabapentin helps lower extremity pain to some degree. denies adverse med side effects. cc:: CC: Parish Garcias MD Review of Systems ROS Status of ROS 10 or more systems reviewed and unremark able except as noted in history and below [facility] Medical History (Updated 07/26/23 @ 15:24 by Parish Garcias MD) Former smoker ?Z87.891 - Personal history of nicotine dependence (ICD-10) High cholesterol ?E78.00 - Pure hypercholesterolemia, unspecified (ICD-10) Surgical History H/O lumbosacral spine surgery ?Z98.890 - Other specified postprocedural states (ICD-10) H/O lumbar discectomy ?Z98.890 - Other specified postprocedural states (ICD-10) H/O: hysterectomy ?Z90.710 - Acquired absence of both cervix and uterus (ICD-10) Meds Home Medications and Allergies Home Medications ?Medication ?Instructions ?Recorded ?Confirmed ?Type ibuprofen 200 mg tablet (Advil) 200 mg PO QDAY PRN pain 11/16/22 01/18/23 Histo ry diazepam 2 mg tablet (Valium) 1 mg PO DAILY PRN anxiety 12/07/22 01/18/23 History Allergies Allergy/AdvReac Type Severity Reaction Status Date / Time No Known Drug Allergies Allergy Verified 01/18/23 07:22 Exam Narrative Exam Narrative: Psych-alert and oriented x 3.? Attentive and appropriate, constitutionally normal, displays normal mood and affect per situation.? There are no obvious deficits in memory, reasoning, or intellect. Extremities-lower extremities are warm with minimal edema and palpable pulses. Knee-examination of the right knee reveals tenderness to palpation over the superior, inferior, lateral, and medial aspect of the knee.? Some swelling is noted without erythema. Pain is elicited with flexion and extension of the knee both actively and passively.? Some grinding is noted with these motions.? There is no notable ligamental laxity or instability.? Coordination remains intact.? Gait remains antalgic. Assessment and Plan Assessment and Plan (1) Lumbar postlaminectomy syndrome: (2) Lumbar stenosis with neurogenic claudication: (3) Osteoarthritis of right knee: Qualifiers: Osteoarthritis type: primary Qualified Code(s): M17.11 - Unilateral primary osteoarthritis, right knee Plan 68yof who presents for assessment. in terms of right knee pain, will proceed with right knee injection. in terms of bilateral lower extremity pain, discussed that may need to update lumbar mri in the near future, as hers is over two years old, and symptoms are not improving. suspect lumbar pathology, given her previous imaging. meds reviewed, will continue gabapentin. follow up in 4-6 weeks. Procedure: Right knee injection Medications: Bupivacaine 0.25% 4cc, kenalog 40mg I explained the details of the procedure to the patient including the risks, benefits and alternatives. We had an informed discussion and the patient verb alized understanding and signed the consent form. All questions were answered appropriately.? A time out was performed.? After obtaining a comfortable seated position, the right knee was prepped with alcohol x3. A syringe containing the above medication was attached to a 25 guage, 1.5 inch needle under strict aseptic technique. The lateral tibial plateau was palpated.? The needle was then advanc ed through the subcutaneous tissue in a medial and superior direction towards the joint space.? The contents of the syringe were gently injected without any resistance. The needle was removed and pressure was applied to the injection site to decrease the incidence of ecchymosis and hematoma formation.? A sterile bandage was applied.
== END 2023-07-26 14:31 | disposition home or self-care (01) ==
LOC: PM 14:30
PROVIDERS: PCP Family Medicine; Visit Provider Anesthesiology
DX: M96.1 Postlaminectomy syndrome, not elsewhere classified (principal); M48.062 Spinal stenosis, lumbar region with neurogenic claudication; M17.11 Unilateral primary osteoarthritis, right knee
CPT/HCPCS: 20610

== ENCOUNTER 2023-09-02 13:41 | Outpatient (OUT) | payer OTHER, SELFPAY ==
--- NOTE | 2023-09-02 13:54 | P.CN_ITS ---
Consult Note: HPI Data of Consult Patient: known to practice within the last 3 years Consult date: 07/26/23 Requesting Physician: Martha Arvizu NP Primary Care Provider: DOLORES LUND Consult Narrative Reason for consult: Right knee pain, bilateral foot pain Narrative: 68yof who presents for assessment. persistence of right knee pain, pain in bilateral lower extremities. lumbar imaging reviewed, which is significant for disc bulging and stenosis at l4-5 and l5-s1. has history of lumbar surgery. continues in provider directed home exercise program. gabapentin helps lower extremity pain to some degree. denies adverse med side effects. recent right knee injection providing 100% improvement in pain. cc:: CC: Martha Arvizu NP Review of Systems ROS Status of ROS 10 or more systems reviewed and unremark able except as noted in history and below Musculoskeletal Reports: back pain PFSH PFSH Medical History (Updated 07/26/23 @ 15:24 by Parish Garcias MD) Former smoker ?Z87.891 - Personal history of nicotine dependence (ICD-10) High cholesterol ?E78.00 - Pure hypercholesterolemia, unspecified (ICD-10) Surgical History H/O lumbosacral spine surgery ?Z98.890 - Other specified postprocedural states (ICD-10) H/O lumbar discectomy ?Z98.890 - Other specified postprocedural states (ICD-10) H/O: hysterectomy ?Z90.710 - Acquired absence of both cervix and uterus (ICD-10) Meds Home Medications and Allergies Home Medications ?Medication ?Instructions ?Recorded ?Confirmed ?Type ibuprofen 200 mg tablet (Advil) 200 mg PO QDAY PRN pain 11/16/22 01/18/23 History diazepam 2 mg tablet (Valium) 1 mg PO DAILY PRN anxiety 12/07/22 01/18/23 History Allergies Allergy/AdvReac Type Severity Reaction Status Date / Time No Known Drug Allergies Allergy Verified 01/18/23 07:22 Exam Constitutional Documenting provider has reviewed patient's vital signs: yes Common normals: no apparent distress, oriented x3, healthy appearing, alert and well nourished General appearance: cooperative HENMT Common normals: normocephalic, hearing grossly normal bilaterally and moist oral mucous membranes Head and scalp: normocephalic Eye Common normals: PERRL Pupil: PERRL Neck & C-Spine Common normals: full ROM General: normal visual inspection Chest Common normals: inspection of chest normal Respiratory Common normals: normal respiratory effort, no retractions and no use of accessory muscles Back & Pelvis Lumbar spine/lower back: normal to inspection, lumbar ROM normal and straight leg raise positive left Other: swelling discoloration altered sensation of left foot/LLE decreased sensation strength 4/5 Extremity Right lower extremity: knee joint Other: right knee no edema, mild crepitus, no pain with medial and lateral stress testing Neuro Common normals: oriented x3, CN's II-XII intact bilaterally, moves all extremities, no focal motor deficits, no sensory deficits noted, deep tendon reflexes 2+ bilaterally and gait normal Sensorium/orientation: alert Motor exam: strength 5/5 throughout and no movement abnormalities noted Psych Common normals: mental status grossly normal, thought process normal, cooperative, affect normal, speech normal and activity/motor behavior normal Speech: normal speech Thought process: normal thought process Results Additional Findings Additional findings: If on a controlled substance or opioids, I have checked an [place]AR[place] report on this patient and there are no aberrancies noted in the prescribing history.??If on a controlled substance or opioid a drug screen was completed and reviewed within the last year, and if there has not been a drug screen completed we ordered one today to monitor higher risk, state monitored pain medication use. As part of providing excellent, safe, comprehensive care, the following was completed at our patient's visit: 1. A medication reconciliation and review to ensure accurate knowledge of current/active medications, including asking our patients to inform us about any [id number] medications or herbal remedies/nutritional supplements/alternative remedies. 2. A review to specifically ensure our patients have had annual screening for screening for depression, screening for tobacco use, and screening for unhealthy alcohol use. For concerning screenings had a discussion with the patient, provided patient education, and recommended follow-up with primary care provider when appropriate. If patient noted with a risk of falling, they received education on strength, gait, and balance training to prevent future risk of fal ling. Assessment and Plan Assessment and Plan (1) Lumbar postlaminectomy syndrome: (2) Lumbar stenosis with neurogenic claudication: (3) Osteoarthritis of right knee: Qualifiers: Osteoarthritis type: primary Qualified Code(s): M17.11 - Unilateral primary osteoarthritis, right knee Plan continue current medications continue HEP as tolerated f/u 6 months, sooner if needed
== END 2023-09-02 13:42 | disposition home or self-care (01) ==
LOC: PM 13:42
PROVIDERS: PCP Family Medicine; Visit Provider Nurse Practitioner
DX: M17.11 Unilateral primary osteoarthritis, right knee (principal); M48.062 Spinal stenosis, lumbar region with neurogenic claudication; M96.1 Postlaminectomy syndrome, not elsewhere classified
CPT/HCPCS: G0463

== ENCOUNTER 2023-10-04 13:09 | Outpatient (OUT) | payer OTHER, SELFPAY ==
--- OUTSIDE RECORDS SUMMARY | 2023-10-04 13:21 | XMS_ITS | CCD ---
Author Organization [facility] Care Team Providers Care Edge Blacker Name Role Phone Dolores Calixto Primary Care Provider DR ELOY DAVIDSON Admitting Unavailable GARCIA, ADELFO Consulting Unavailable VER, [facility] Primary Care Unavailable MARGO, DR ELOY Lang Attending Unavailable CURTIS, DR RAMÓN Smith Consulting Unavailable MARGO, DR ELOY Lang Admitting Unavailable MARGO, DR ELOY Lang Attending Unavailable VER, RIAN Primary Care Unavailable GARCIA, ADELFO Consulting Unavailable MARGO, DR ELOY Lang Admitting Unavailable MARGO, DR ELOY Lang Attending Unavailable GARCIA, ADELFO Consulting Unavailable VERHOFF, RIAN Primary Care Unavailable MARGO, DR ELOY Lang Attending Unavailable MARGO, DR ELOY Lang Consulting Unavailable MARGO, DR ELOY Lang Admitting Unavailable VERHOFF, RIAN Primary Care Unavailable GARCIA, ADELFO Consulting Unavailable VERHOFF, RIAN Consulting Unavailable MARGO, DR ELOY Lang Attending Unavailable MARGO, DR ELOY Lagn Consulting Unavailable MARGO, DR ELOY Lang Admitting Unavailable VERHOFF, RIAN Primary Care Unavailable TERESALISA CHÁVEZ Consulting Unavailable MARGO, DR ELOY Lang Admitting Unavailable GARCIA, ADELFO Consulting Unavailable VERHOFF, RIAN Primary Care Unavailable MARGO, DR ELOY Lang Attending Unavailable MARGO, DR ELOY Lang Attending Unavailable MARGO, DR ELOY Lang Consulting Unavailable MARGO, DR ELOY Lang Admitting Unavailable VERHOFF, RIAN Primary Care Unavailable GARCIA, ADELFO Consulting Unavailable MARGO, DR ELOY Lang Attending Unavailable MARGO, DR ELOY Lang Admitting Unavailable GARCIA, ADELFO Consulting Unavailable VER, RIAN Primary Care Unavailable MARGO, DR ELOY Lang Admitting Unavailable VERHO, RIAN Primary Care Unavailable MARGO, DR ELOY Lang Attending Unavailable Dolores Calixto MD Primary Care Provider DOLORES CALIXTO Primary Care Unavailable ELOISA FERNANDEZ Referring Unavailable DOLORES CALIXTO Attending Unavailable REBECCA, ELOISA Referring Unavailable VERHOFF, DOLORES L Attending Unavailable VERHOFRANCISCO, DOLORES L Primary Care Unavailable REBECCA, ELOISA Referring Unavailable VERHOFRANCISCO, DOLORES L Primary Care Unavailable VERHOFF, DOLORES L Attending Unavailable ELBERT NAVA Attending Unavailable VERHOFF, DOLORES L Primary Care Unavailable VERHOFF, DOLORES L Primary Care Unavailable REBECCA, ELOISA Referring Unavailable VERHOFRANCISCO, DOLORES L Attending Unavailable VERHOFRANCISCO, DOLORES L Primary Care Unavailable REBECCA, ELOISA Referring Unavailable VERHOFRANCISCO, DOLORES L Attending Unavailable Giedraitis , Parish Hanley Attending Unavailable Giedraitis , Andvicenta Hanley Attending Unavailable Giedraitis , Parish Hanley Attending Unavailable Giedraitis , Andvicenta Hanley Attending Unavailable Medications Current Medications Medication Drug [...] (1 source) Other specified postprocedural states; Translations: [[facility] SPECIFIED POSTPROCEDURAL STATES] Onset: 01-27-2021 Episodic Sprains and strains (1 source) Sprain of unspecified ligament of left ankle, initial encounter; Translations: [SPRAIN UNS LIGAMENT LT ANKLE INIT] Onset: 08-22-2021 Episodic Unclassified (1 source) LOW BACK PAIN, UNSPECIFIED; Translations: [LOW BACK PAIN, UNSPECIFIED] Onset: 06-26-2021 Results Test Name Value Interpretation Reference Range Facility [facility] DIGITAL SCREEN [place] [place] 03-16-2023 [facility] DIGITAL SCREEN BILATERAL HISTORY: Screening. [...] Zhao Jr., MD 03/16/23 Final result Normal [place] CBC with Diffon 03-15-2023 Abs. Basophil 0.02 k/uL Normal 0.00-0.20 [facility] Comment on above: Performed By: #### C P, CDP #### [facility] [address] [place] [address] Gasket Supervisor: Memo Kyle MD Abs.Imm.Granulocyte 0.01 k/uL Normal 0.00-0.30 [place] Comment on above: Performed By: #### C P, CDP #### [facility] [address] [place] [id number] Gasket Supervisor: Memo Kyle MD Abs.Neutrophil (Seg) 4.00 k/uL Normal 2.5-7.0 [facility] Comment on above: Performed By: #### C P, CDP #### [facility] [address] [place] [address] Gasket Supervisor: Memo Kyle MD Basophils/100 WBC (Bld) 0 % Normal 0-2 [place] Comment on above: Performed By: #### C P, CDP #### [facility] [address] [place], [place] [id number] Gasket Supervisor: Memo Kyle MD Eosinophils (Bld) [#/Vol] 0.13 10*3/uL Normal 0.00-0.40 [place] Comment on above: Performed By: #### C P, CDP #### [facility] [address] [place], [place] [id number] Gasket Supervisor: Memo Kyle MD Eosinophils/100 WBC (Bld) 2 % Normal 0-5 [place] Comment on above: Performed By: #### C P, CDP #### [facility] [address] [place], [place] [id number] Gasket Supervisor: Memo Kyle MD Erythrocyte distribution width (RBC) [Ratio] 12.5 % Normal 12.1-15.2 [place] Comment on above: Performed By: #### C P, CDP #### [facility] [address] [place], [place] 0360490 Gasket Supervisor: Memo Kyle MD Hematocrit (Bld) [Volume fraction] 40.6 % Normal 36.0-46.0 [place] Comment on above: Performed By: #### C P, CDP #### [facility] [address] [place], [place] [id number] Gasket Supervisor: Memo Kyle MD Hemoglobin (Bld) [Mass/Vol] 13.8 g/dL Normal 12.0-16.0 [place] Comment on above: Performed By: #### C P, CDP #### [facility] [address] [place], [place] [id number] Gasket Supervisor: Memo Kyle MD Immature granulocytes/100 WBC (Bld) 0 % Normal 0-5 [place] Comment on above: Performed By: #### C P, CDP #### [facility] [address] [place], [place] [id number] Gasket Supervisor: Memo Kyle MD Lymphocytes (Bld) [#/Vol] 1.40 10*3/uL Normal 1.00-4.80 [place] Comment on above: Performed By: #### C P, CDP #### [facility] [address] [place], [place] [id number] Gasket Supervisor: Memo Kyle MD Lymphocytes/100 WBC (Bld) 23 % Normal 15-40 [place] Comment on above: Performed By: #### C P, CDP #### [facility] [address] [place], [place] [id number] Gasket Supervisor: Memo Kyle MD MCH (RBC) [Entitic mass] 31.3 pg Normal 26.0-34.0 [place] Comment on above: Performed By: #### C P, CDP #### [facility] [address] [place] [id number] Gasket Supervisor: Memo Kyle MD MCHC (RBC) [Mass/Vol] 34.0 g/dL Normal 31.0-37.0 [facility] Comment on above: Performed By: #### C P, CDP #### [facility] [address] [place] [address] Gasket Supervisor: Memo Kyle MD MCV (RBC) [Entitic vol] 92.1 fL Normal 80.0-100.0 [place] Comment on above: Performed By: #### C P, CDP #### [facility] [address] [place] [address] Gasket Supervisor: Memo Kyle MD Monocytes (Bld) [#/Vol] 0.42 10*3/uL Normal 0.00-1.00 [place] Comment on above: Performed By: #### C P, CDP #### [facility] [address] [place] [address] Gasket Supervisor: Memo Kyle MD Monocytes/100 WBC (Bld) 7 % Normal 4-8 [place] Comment on above: Performed By: #### C P, CDP #### [facility] [address] [place] [address] Gasket Supervisor: Memo Kyle MD Neutrophil (Seg) 68 % Normal 47-75 [facility] Comment on above: Performed By: #### C P, CDP #### [facility] [address] [place], [place] [phone] (330) Gasket Supervisor: Memo Kyle MD Platelet mean volume (Bld) [Entitic vol] 10.0 fL Normal 6.0-12.0 [facility] Comment on above: Performed By: #### C P, CDP #### [facility] [address] [place], [place] [id number] (120) Gasket Supervisor: Memo Kyle MD Platelets (Bld) [#/Vol] 297 10*3/uL Normal 140-450 [place] Comment on above: Performed By: #### C P, CDP #### [facility] [address] [place] [address] (231) Gasket Supervisor: Memo Kyle MD RBC (Bld) [#/Vol] 4.41 10*6/uL Normal 4.00-5.20 [place] Comment on above: Performed By: #### C P, CDP #### [facility] [address] [place] [address] (420) Gasket Supervisor: Memo Kyle MD WBC (Bld) [#/Vol] 6.0 10*3/uL Normal 3.5-11.0 [place] Comment on above: Performed By: #### C P, CDP #### [facility] [address] [place] [address] Gasket Supervisor: Memo Kyle MD Comp Metabolic Profon 2023 Albumin [Mass/Vol] 4.4 g/dL Normal 3.5-5.2 [place] Comment on above: Performed By: #### C P, CDP #### [facility] [address] [place], [place] [id number] Gasket Supervisor: Memo Kyle MD Alkaline Phos 88 U/L Normal 35-104 [facility] Comment on above: Performed By: #### C P, CDP #### [facility] [address] [place], [place] 812[address] Gasket Supervisor: Memo Kyle MD ALT [Catalytic activity/Vol] 14 U/L Normal 5-33 [place] Comment on above: Performed By: #### C P, CDP #### [facility] [address] [place], [place] [id number] Gasket Supervisor: Memo Kyle MD Anion gap [Moles/Vol] 13 mmol/L Normal 9-17 [facility] Comment on above: Performed By: #### C P, CDP #### [facility] [address] [place], [place] [id number] Gasket Supervisor: Memo Kyle MD AST [Catalytic activity/Vol] 16 U/L Normal <32 [place] Comment on above: Performed By: #### C P, CDP #### [facility] [address] [place], [place] [id number] Gasket Supervisor: Memo Kyle MD Bilirubin [Mass/Vol] 0.4 mg/dL Normal 0.3-1.2 [facility] Comment on above: Performed By: #### C P, CDP #### [facility] [address] [place], [place] [id number] Gasket Supervisor: Memo Kyle MD BUN/CRE Ratio 20 Normal 9-20 [facility] Comment on above: Performed By: #### C P, CDP #### [facility] [address] [place], [place] [id number] Gasket Supervisor: Memo Kyle MD Calcium [Mass/Vol] 9.6 mg/dL Normal 8.6-10.4 [place] Comment on above: Performed By: #### C P, CDP #### [facility] [address] [place] [address] Gasket Supervisor: Memo Kyel MD Chloride [Moles/Vol] 105 mmol/L Normal 98-107 [facility] Comment on above: Performed By: #### C P, CDP #### [facility] [address] [place] [address] Gasket Supervisor: Memo Kyle MD CO2 [Moles/Vol] 24 mmol/L Normal 20-31 [facility] Comment on above: Performed By: #### C P, CDP #### [facility] [address] [place] [address] Gasket Supervisor: Memo Kyle MD Creatinine [Mass/Vol] 0.6 mg/dL Normal 0.5-0.9 [facility] Comment on above: Performed By: #### C P, CDP #### [facility] [address] [place] [address] Gasket Supervisor: Memo Kyle MD GFR/1.73 sq M.predicted among non-blacks MDRD (S/P/Bld) [Vol rate/Area] mL/min/{1.73_m2} Normal >60 [place] Comment on above: Result Comment: These results [...] Performed By: #### C P, CDP #### [facility] [address] [place] [address] Gasket Supervisor: Memo Kyle MD Glucose [Mass/Vol] 98 mg/dL Normal 70-99 [place] Comment on above: Performed By: #### C P, CDP #### [facility] [address] [place], [place] [id number] Gasket Supervisor: Memo Kyle MD Potassium [Moles/Vol] 4.1 mmol/L Normal 3.7-5.3 [facility] Comment on above: Performed By: #### C P, CDP #### [facility] [address] [place], [place] 027[address] Gasket Supervisor: Memo Kyle MD Protein [Mass/Vol] 7.6 g/dL Normal 6.4-8.3 [place] Comment on above: Performed By: #### C P, CDP #### [facility] [address] [place], [place] [phone] Gasket Supervisor: Memo Kyle MD Sodium [Moles/Vol] 142 mmol/L Normal 135-144 [place] Comment on above: Performed By: #### C P, CDP #### [facility] [address] [place], [place] 8[address] Gasket Supervisor: Memo Kyle MD Urea nitrogen [Mass/Vol] 12 mg/dL Normal 8-23 [place] Comment on above: Performed By: #### C P, CDP #### [facility] [address] [place], [place] [address] Gasket Supervisor: Memo Kyle MD XR CHEST (2 VW)on [...] Antwan Pruett DO 03/15/23 Final result Normal [place] XR pre/post mri xrayon 04-23 XR pre/post mri xray [facility] Main [place] [address] [place] [address] MRI Report Signed Patient: Izzy Silverio MR#: [id number] : 1955 Acct:[id number] Age/Sex: 66 / F ADM Date: 04/22/21 Loc: MR Room: Type: [facility] Attending Dr: Eloy Davidson MD Ordering Provider: Eloy Davidson M.D. Date of Service: 04/22/21 MR/MR lumbar spine wo/w con: LUMBAR RADICULITIS ([id number]) XR/XR pre/post mri xray: SEE ORDER Copies [...] Altaf Alarcon M.D.04/23/2021 10:13 AM Dictation Location: [place] [address] Transcribed By: EMELY 04/23/21 1013 Dictated By: Altaf Alarcon II, MD 04/23/21 1002 Signed By: 04/23/21 1013 Normal [facility] ISTAT XRay CREon 04-22-2021 Creatinine [Mass/Vol] 0.8 mg/dL Normal 0.6-1.3 [facility] Comment on above: Result Comment: ER/E SD physician is notified/shown all ISTAT results. Critical values may be confirmed by laboratory testing if deemed necessary by ER attending doctor. Performed By: #### I SCRE #### [facility] [address] [place] [address] Point of Care testing , ISTAT GFR ( > 60 Normal [facility] Comment on above: Result Comment: GFR estimated reference range: According to KDOQI guidelines, <60 ml/min/1.73m2 is sufficient to diagnose a patient with chronic kidney disease. PERFORMED BY: [place] [address] PATHOLOGIST INVESTMENT ACCOUNTING CLERK CHANDNI HOWARD M.D. Performed By: #### I SCRE #### [facility] [address] [place] [address] Point of Care testing , ISTAT GFR (Non- Am > 60 [facility] Comment on above: Performed By: #### I SCRE #### [facility] [address] [place] [address] Point of Care testing , Lipid Panelon 02-11-2021 Cholesterol [Mass/Vol] 215 mg/dL High <200 [employer] Comment on above: Cholesterol Guidelines: <200 Desirable 200-240 Borderline >240 Undesirable Cholesterol in HDL [Mass/Vol] 48 mg/dL >40 [employer] Comment on above: HDL Guidelines: <40 Undesirable 40-59 Borderline >59 Desirable Cholesterol in LDL [Mass/Vol] 135 mg/dL High 0 - 130 mg/dL [employer] Comment on above: LDL Guidelines: <100 Desirable 100-129 Near to/above Desirable 130-159 Borderline >159 Undesirable Direct (measured) LDL and calculated LDL are not interchangeable tests. Cholesterol in VLDL [Mass/Vol] NOT REPORTED High 1 - 30 mg/dL [employer] Cholesterol.total/Cho lesterol in HDL [Mass ratio] 4.5 {ratio} <5 [employer] Interpretation and review of laboratory results Abnormal [employer] Triglyceride [Mass/Vol] 161 mg/dL High <150 [employer] Comment on above: Triglyceride Guidelines: <150 Desirable 150-199 Borderline 200-499 High >499 Very high Based on AHA Guidelines for fasting triglyceride, November 2011. [employer] Patient Fasting?on 1 Patient Fasting? yes Delilah rodriguez [employer] RAMIRO CHRISTIANO DIGITAL SCREEN BILA TERALOrdered By: Eddie Novoa on 09-10-2020 BI-RADS 1 - Negative , no evidence of malignancy. Normal interval followup in 12 months. OVERALL ASSESSMENT- NEGATIVE A letter of notification will be sent to the patient regarding the results. prollie Phone: HISTORY: Screening. Negative left breast biopsy. TECHNIQUE: Bilateral digital screening mammogram with CAD. 2-D and 3-D tomography. FINDINGS: Two views of each breast show scattered areas of fibroglandular density. No change from 03/16/2016. Suspicious calcifications: None. Suspicious mass: None. (If skin markers were applied, circles represent skin lesions and linear markers represent scars.) [employer] Work Phone: prollie Phone: PROGRESSon 02-08-2020 PROGRESS HNO ID: [id number] Author: Kwan Vaca (Rt) Service: ? Author Type: Prosthetic Technician Type: Progress Notes Filed: 02/08/2020 2:43 PM [...] RT Lio February 08, 2020 2:43 PM [facility] XR HIP 3V PELV+ AP/LAT LTon [...] osseous abnormality or significant left hip osteoarthritis. Jet Inspector: DENISA Transcribe Date/Time: Feb 08 2020 5:11P Dictated by : LEROY OLIVA MD This examination was interpreted and the report reviewed and electronically signed by: LEROY OLIVA MD on Feb 08 2020 5:12PM EST [id number] [facility] IntraOperative Documentson 1 03-17-2019 IntraOperative Documents [id number]#1.00C D:127 [facility] Coding Summary.on 01-11-2020 Coding Summary. CODING DATE: 020 FINAL [facility] DSC STATUS: Home (Routine DC) PAYOR: Medicare APC DESCRIPTION 5491 Level 1 Intraocular Procedures ADMIT DX: REASON FOR VISIT DX: H25.12 Age-related nuclear cataract, left eye FINAL DX: PRINCIPAL: H25.12 Age-related nuclear cataract, left eye SECONDARY: H25.032 Anterior subcapsular polar age-related cataract, left eye Z96.1 Presence of intraocular lens PYMT PROC APC STAT DESCRIPTION DOCTOR NAME DATE 10442 5491 J1 Extracapsular cataract Graham DO, Windy [...] Cesar Date Saved: 01/11/2020 04:27 pm Normal [facility] Operative Reporton 0 Operative Report Date of [...] and inferior fornices of the eye. A [employer] SLan manometer was set on the eye at [...] Room in good condition. Windy Stevenson M.D. [facility] Dictated: 01/08/2020 #[id number] Typed: 01/09/2020 #[id number] cc: Windy Stevenson M.D. [facility] Comment on above: Result Comment: Elec tronically Signed By: Windy Stevenson MD\.br\Date and Time Signed: 01/11/20 12:09 EST Main OR Intraoperative Recor don 01-10-2020 Main OR Intraoperative Record IntraOp Document Type FT Summary Primary Physician: Windy Stevenson MD Finalized Date/Time: 01/10/20 13:01:48 Pt. Name: IZZY SILVERIO/Sex: 1955 Female Med Rec #: [id number] Physician: Windy Stevenson MD Financial #: [id number] Pt. Type: A Room/Bed: Admit/Disch: 01/08/20 13:13:15 - 01/08/20 16:20:00 Institution: [...] Radha Hoover Role Performed Surgeon - Primary After School Driver - Primary Scrub - Primary Time In 01/08/20 15:18:00 01/08/20 15:18:00 01/08/20 15:18:00 Time Out 01/08/20 15:43:00 01/08/20 15:43:00 01/08/20 15:43:00 Procedure CATARACT EXTRACTION W/ CATARACT EXTRACTION W/ CATARACT EXTRACTION W/ INTRAOCULAR LENS(Left) INTRAOCULAR LENS(Left) INTRAOCULAR LENS(Left) Comments Last Modified By: Tanisha Jones RN, RN, Tanisha Torrez RN 01/08/20 15:43:04 01/08/20 15:43:04 01/08/20 15:43:04 Perioperative [...] AND BRAKES LOCKED ON CART DURING PROCEDURE. YUDI,RN Patient Care Devices FT Pre-Care Text: Implements [...] LENS(Left) Items Instruments Status Correct By Radha Carrizalse CST Outcomes Met? Yes Last Modified By: [...] LENS(Left) Implant Identification FT Description DAVI IOL [id number] SOFPORT Lot Number [id number] SIZE 20.0 [[id number] 20.0][F] Sales Engagement Manager FT-[employer]CH [employer]OM[employer] Catalog ?# [id number] 20.0[F] Expiration Date 11/22/23 Unique Device [id number] Identifier (TUNDE) Human Readable {01}[id number] Machine Readable [id number] Barcode Barcode Usage Data FT Implant Site Eye L Quantity 1 Implanted By Windy Stevenson MD Biological Implants MR Classification Unknown Outcomes Met? Yes Last Modified By: Tanisha Jones RN 01/08/20 15:31:06 Post-Care Text: The patient is free from signs and symptoms of injury caused by extraneous objects Case Comments Finalized By: RODO Welch RN, Andrea Document Signatures Signed By: Tanisha Jones RN 01/08/20 15:43 RODO Welch RN, Andrea 01/10/20 13:01 Normal [facility] Discharge Instructionson Discharge Instructions [id number] CD:127 Normal [facility] IntraOperative Documentson 1 03-10-2019 IntraOperative Documents [id number]#1.00 CD:127 Normal [facility] IntraOperative Documents [id number]#1.00 CD:127 [facility] Preoperative Documentson Preoperative Documents [id number]#1.00 CD:127 [facility] Consent for Treatmenton 12-23 Consent for Treatment [id number] D:127 Normal [facility] History and Physicalon 01-07 History and Physical [...] eye. Windy Stevenson M.D. lkr Dictated: 01/08/2020 #[id number] Typed 01/08/2020 #[id number] cc: Windy Stevenson M.D. [facility] Comment on above: Result Comment: Elec tronically Signed By: Windy Stevenson MD\.br\Date and Time Signed: 01/08/20 12:31 EST Inpatient Patient Summaryon 01-08-2020 Inpatient Patient Summary [place] [id number] [facility] Clinical Discharge Instructions PERSON INFORMATION Name: IZZY SILVERIO [facility]#:[id number] PHYSICIANS Admitting Physician: Windy Stevenson MD Attending Physician: Windy Stevenson MD PCP: DOLORES CALIXTO MD Discharge Diagnosis: Cataract Comment: PATIENT EDUCATION INFORMATION Instructions: Medication Leaflets: Follow up: With: Address: When: Windy Stevenson [address] [place] [address] [address], [place] [address] Business (1) Comments: Call physician if symptoms worsen Keep scheduled appointment With: Address: When: Windy Stevenson [address] [place] [address] [address], [place] [address] Business (1) In 1 day 01/09/2020 MEDICATION LIST Medications to Continue with No Changes Other Medications biotin (Hair, Skin & Nails) 5 Milligram By Mouth every day. cannabidiol 1 Oral gummy. cholecalciferol (Vitamin D3) 1,000 International unit By Mouth every day. Non-Formulary Medication (tumeric) 1 cap By Mouth every day., prophylaxis Comment: [facility] Main OR PACU II [facility] Main OR PACU II Record PACU Phase II Document Type FT Summary Primary Physician: Windy Stevenson MD Finalized Date/Time: 01/08/20 16:29:45 Pt. Name: IZZY SILVERIO./Sex: 1955 Female Med Rec #: [id number] Physician: Windy Stevenson MD Financial #: [id number] Pt. Type: A Room/Bed: [place] [address] Admit/Disch: 01/08/20 13:13:15 - Institution: Case Times [...] By: Julissa Pacheco RN 01/08/20 16:29 Normal [facility] Outpatient Surgery Discharge Instructionon 01-08-2020 Outpatient Surgery Discharge Instruction [address] [address] Patient Discharge Instructions PERSON INFORMATION [...] THE NEAREST EMERGENCY ROOM OR CALL 911 IJEAN CLAUDE BARBARA, have received the attached patient education materials/instructions and have verbalized understanding: May we do a follow up call? Yes No I was present when discharge instructions were given Patient Signature Date Clinican/Nurse Signature _ Date Follow up: With: Address: When: Windy Stevenson [address] [place] [address] [address], [place] [address] [facility] (1) Comments: Call physician if symptoms worsen Keep scheduled appointment With: Address: When: Windy [address], [place] [id number] Business (1) In 1 01/09/2020 Pharmacy Information: Thank you for choosing [facility] HERE ARE THE MEDICATION CHANGES THAT OCCURRED DURING YOUR HOSPITAL STAY Medications to Continue with No Changes Other Medications biotin (Hair, Skin & Nails) 5 Milligram By Mouth every day. cannabidiol 1 Oral gummy. cholecalciferol (Vitamin D3) 1,000 International unit By Mouth every day. Non-Formulary Medication (tumeric) 1 cap By Mouth every day., prophylaxis PATIENT EDUCATION INFORMATION Instructions: [facility] Patient Education - Texton 1 03-09-2019 Patient Education - Text [facility] Consent for Procedure/Surger yon 01-05-2020 Consent for Procedure/Surgery [id number]#[id number] CD:127 [facility] HISTORY PHYSICALon 0 HISTORY PHYSICAL HNO ID: [id number] Author: Jossie Hemphill Service: ? Author Type: Physician Detention Worker Type: HANDP Filed: 10/05/2019 1:40 PM Note [...] October 05, 2019 TIME: 1:40 PM PAGER: [phone] [facility] OPERATIVE NOon 10-05-2019 OPERATIVE NO HNO ID: [id number] Author: Martir Merlos Service: ? Author Type: [...] [facility] a [facility] [facility]. It is not possible to know either the risk of delaying the surgery or procedure or chance of getting an infection with perfect accuracy, but a joint decision was made between the patient and the surgeon/proceduralist to proceed at this time with the scheduled surgery/procedure as indicated on the consent form. [facility] approved time out was performed identifying the site, side and level of procedure prior to start of procedure. [facility] - ELECTIVE PROCEDURE Lumbar Transforaminal Epidural Steroid [...] performed the entire procedure. Martir Merlos DO, KATERINA [facility] EDon 10-05-2019 PT ED HNO ID: [id number] Author: Olga PerdueRn) KAMARI Kirk Service: Pathology [...] call. SUPPLEMENTAL MATERIAL: None REFERRAL (RECOMMENDATION): None [facility] HNO ID: [id number] Author: Daly PerdueRn) KAMARI Gardiner Service: ? [...] By: Daly Gardiner RN In Department: PROCEDURES [facility] HOSPon 09-22-2019 HOSP Patient:Bhupinder Silverio MRN: [...] following basenames: K,HCT Progress Notes (SPINE MED [facility] REJ): Olga Carpio Pss 09/27/2019 12:57 PM Signed Called patient [...] schedule with us. Progress Notes (SPINE SURG [facility] REJ): Michelle Bhat PA-C 09/27/2019 11:59 AM Signed One year out from surgery I don't see a problem with her seeing her chiropractor. Per her last office visit injections were discussed in detail. They should be completed before considering any surgical intervention. I can also write an order for physical therapy if she would prefer that. Normal [facility] MRI Spine Lumbar w/o Contras ton [...] kendy Technologist: LEYDI Technical Comments None Normal [facility] Coding Summary.on 09-09-2019 Coding Summary. CODING DATE: 020 FINAL [facility] STATUS: Home (Routine DC) PAYOR: Medicare [...] CphT Date Saved: 09/09/2019 01:29 pm Normal [facility] Consent for Treatmenton 08-22 Consent for Treatment [id number] D:127 Normal [facility] RAD - MRI Screening Formon 0 09-07-2019 RAD - MRI Screening Form [id number]#[id number] CD:127 Normal [facility] Physician Orderon 08-31-2019 Physician Order [id number] D:127 Normal [facility] CNPNon 08-29-2019 CNPN Telephone (NEADFV) IZZY SILVERIO ([id number]) 1955 F Date Time Provider Department 08/29/19 HELENA ZHANG NEALVAREZFV During your visit today, we recorded the following information about you: Kathleen Fair Pss 08/29/2019 2:34 PM Signed Patient called today stating she has been communicating to the nurse via [employer], but the wrong order is being faxed to [facility]. She was told in an 05/29/19 [employer] message by Jerzy, that an EMG would be ordered to look for nerve damage in her foot. There is no EMG order in her chart, please order the EMG and fax that order to [facility] at [phone]. Also, there is a Lumbar MRI order in her chart, he wants to know if Dr. Zhang still wants her to have that MRI. Please call patient at [phone]. May Bateman, RN, RN 08/30/2019 8:34 AM Signed Spoke to Izzy and instructed her that MRI was ordered No EMG at this time Allergies As of Date: 08/29/2019 (No Known Allergies) Date Reviewed: 03/09/2019 Reviewed by: Julianne Kelly Ma - Fully Assessed Reason for Visit: Patient Question [5027] Problem List As Of Date: 08/29/2019 (None) Encounter Status:Closed by MAY BATEMAN on 08/30/19 [facility] PROGRESSon 03-09-2019 PROGRESS HNO ID: [id number] Author: Nichol (Kwan) Kwan Roberto Service: Radiology Author Type: Prosthetic Technician Type: Progress Notes Filed: 03/09/2019 2:06 PM [...] BY: PAYTON ALBRECHT RT RJan2019 2:05 PM [facility] XR FOOT 3V AP/LAT/OBL LTon 0 [...] No acute findings in the left foot. Jet Inspector: DENISA Transcribe Date/Time: Mar 09 2019 3:04P Dictated by : MULU MTZ MD This examination was interpreted and the report reviewed and electronically signed by: MULU MTZ MD on Mar 09 2019 3:05PM EST [id number] [facility] XR LUMBAR 4V AP/LAT/ FLEX/EX Ton [...] described, not significant changed in the interval. Jet Inspector: DENISA Transcribe Date/Time: Mar 09 2019 3:05P Dictated by : MULU MTZ MD This examination was interpreted and the report reviewed and electronically signed by: MULU MTZ MD on Mar 09 2019 3:07PM EST [id number] [facility] CNPCara 01-25-2019 CNPN Telephone (NEADFV) IZZY SILVERIO ([id number]) 1955 F Date Time Provider Department 01/25/19 JERZY BURNHAM (LULU) NEADFV During your visit today, we recorded the following information about you: Michelle Saldaña 01/25/2019 10:39 AM Signed Sign Re certification AND [facility] Flagged for signature and given to [...] Encounter Status:Closed by MICHELLE MATUTE on 01/25/19 [facility] 12-16-2018 CNPN Telephone (NEADFV) IZZY SILVERIO ([id number]) 1955 F Date Time Provider Department 12/16/18 JERZY BURNHAM) NEADFV During your visit today, we recorded the following information about you: Grant Quinonez Ma 12/16/2018 3:50 PM Signed Received plan of care from [facility]. This was flagged and placed [...] Status:Closed by GRANT QUINONEZ MA on 12/16/18 [facility] Vital Signs Date Time Vital Sign Value Performing Clinician Faci lit 06-21-2022 08:24-0400 Diastolic blood pressure 95 mm[Hg] Elbert Nava MD Work Phone: [facility] 06-21-2022 08:24-0400 Systolic blood pressure 149 mm[Hg] Elbert Nava MD Work Phone: [facility] 06-21-2022 06:48-0400 Body height 157.5 cm Elbert Nava MD Work Phone: [facility] 06-21-2022 06:48-0400 Body mass index (BMI) [Ratio] 24.87 kg/m2 Elbert Nava MD Work Phone: [facility] 06-21-2022 06:48-0400 Body temperature 98.2 [degF] Elbert Nava MD Work Phone: [facility] 06-21-2022 06:48-0400 Body weight 61.69 kg Elbert Nava MD Work Phone: [facility] 06-21-2022 06:48-0400 Heart rate 70 /min Elbert Nava MD Work Phone: [employer] 06-21-2022 06:48-0400 Respiratory rate 20 /min Elbert Nava MD Work Phone: [facility] 06-21-2022 06:48-0400 SaO2% (BldA) [Mass fraction] 97 % Elbert Nava MD Work Phone: [facility] Encounters Encounter Date Encounter Type Care Provider Facility Start: 07-26-2023 End: 07-26-2023 ambulatory [facility] Start: 03-15-2023 End: 03-15-2023 Encounter for other preprocedural examination DOLORES CALIXTO [place] Start: 03-15-2023 End: 03-18-2023 ambulatory [facility] Start: 03-15-2023 End: 03-18-2023 ambulatory [facility] Start: 01-18-2023 End: 01-18-2023 ambulatory Parish Garcias MD Facility:[facility] Start: 12-07-2022 End: 12-07-2022 ambulatory Parish Garcias MD Facility:[facility] Start: 11-16-2022 End: 11-16-2022 ambulatory Parish Garcias MD Facility:[facility] Start: 06-21-2022 End: 06-21-2022 [facility] Start: 06-21-2022 End: 06-21-2022 Emergency department patient visit Elbert Nava MD Work Phone: [place] [facility] Comment on above: Acute bacterial conj [...] by physician Dolores Calixto MD Work Phone: [facility] Comment on above: Screening cholestero l level Start: 01-21-2021 End: 01-22-[address] ELOY DAVIDSON Facility:[facility] Start: 01-08-[address] ELOY DAVIDSON Facili ty:[facility] Start: 09-09-2020 End: 09-11-2020 Subsequent hospital visit by physician 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: Plan of Treatment Date Care Activity Detail Author Start: 02-11-2026 Lipid panel N[facility] Start: 04-03-2023 Screening for malign ant neoplasm of colon [facility] Start: 04-01-2023 Lipid panel Lipid screen [facility] Work Phone: Start: 04-01-2023 Lipid screen Lipid screen [facility] - [place], [place] Start: 03-25-2023 Annual Wellness Visi t (AWV) Annual Wellness Visit (AWV) [facility] Happy [employer] Start: 03-24-2023 Depression Screen Depression Screen [facility] Start: 09-09-2022 Screening for malign ant neoplasm of breast Breast cancer screen [employer] Start: 07-29-2022 Depression Screen Depression Screen [facility] Start: 02-11-2022 Screening for malign ant neoplasm of colon [employer] Start: 01-29-2022 Annual Wellness Visi t (AWV) Annual Wellness Visit (AWV) [employer] Start: 10-23-2021 Influenza vaccination Flu vaccine (# 1) [facility] Start: 03-25-2021 COVID-19 Vaccine (4 - Booster) COVID-19 Vaccine (4 - Booster) [facility] Start: 02-25-2021 End: 02-25-2021 Patient encounter procedure 02/25/2021 Appointment Radiology [facility] [place] Dexa Scan Start: 11-28-2020 Pneumococcal 65+ yea rs Vaccine (2 - PPSV23 if available, else PCV20) Pneumococcal 65+ years Vaccine (2 - PPSV23 if available, else PCV20) [facility] Start: 11-28-2020 Pneumococcal 65+ yea rs Vaccine (2 - PPSV23 or PCV20) Pneumococcal 65+ years Vaccine (2 - PPSV23 or PCV20) [facility] Start: 11-28-2020 Pneumococcal 65+ yea rs Vaccine (2 of 2 - PPSV23) Pneumococcal 65+ years Vaccine (2 of 2 - PPSV23) [facility] Start: 10-23-2020 Influenza vaccination Flu vaccine (# 1) [facility] Start: 09-03-2020 Screening for malign ant neoplasm of colon Colon Cancer Screen FIT/FOBT [facility] [employer] Phone: Start: 04-29-2020 COVID-19 Vaccine (2 - Moderna 3-dose series) COVID-19 Vaccine (2 - Moderna 3-dose series) [facility] Start: 08-31-2019 Annual Wellness Visi t (AWV) Annual Wellness Visit (AWV) [facility] [employer] Phone: Start: 02-16-2019 End: 02-16-2019 Patient encounter [...] 12-26-2018 End: 12-26-2018 Appointment 12/26/2018 Appointment Physical Therapy [place] [facility] Start: 12-23-2018 End: 12-23-2018 Appointment 12/23/2018 Appointment Physical Therapy [place] Stark [facility] Start: 12-21-2018 End: 12-21-2018 Appointment 12/21/2018 Appointment Physical Therapy [place] Stark [facility] Start: 12-19-2018 End: 12-19-2018 Appointment 12/19/2018 Appointment Physical Therapy [place] Stark [facility] Start: 12-16-2018 End: 12-16-2018 Appointment 12/16/2018 Appointment Physical Therapy Margot Mercado, PT [facility] Start: 12-08-2018 End: 12-08-2018 Appointment 12/08/2018 Appointment Physical Therapy Julia Quijano, PT [address] [place] [address] [phone] [facility] Start: 10-23-2018 Influenza vaccination Flu vaccine (# 1) [place], [place] Start: 08-23-2018 Annual Wellness Visi t (AWV) Annual Wellness Visit (AWV) [place] Start: 2018 DEXA (modify frequen cy per FRAX score) DEXA (modify frequency per FRAX score) [place] Start: 2018 Pneumococcal 65+ yea rs Vaccine (1 of 1 - PPSV23) Pneumococcal 65+ years Vaccine (1 of 1 - PPSV23) [place] Start: 2018 Pneumococcal 65+ yea rs Vaccine (1 of 2 - PCV13) Pneumococcal 65+ years Vaccine (1 of 2 - PCV13) [place] Start: 03-16-2018 Breast cancer screen Breast cancer s creen [place] Start: 03-16-2017 Colon Cancer Screen FIT/FOBT Colon Cancer Screen FIT/FOBT [place] Start: 2008 Screening for osteoporosis DEXA (modify frequency per FRAX score) [facility] Start: 2003 Screening for malign ant neoplasm of lung Low dose CT lung screening [facility] Start: 2003 Shingles Vaccine (1 of 2) Shingles Vaccine (1 of 2) [facility] Start: 1998 Screening for malign ant neoplasm of colon [facility] Start: 1993 Diabetes screen Diabetes screen [facility] Work Phone: Start: 1988 Diabetes screen Diabetes screen [facility] Start: 1974 Cervical cancer screen Cervical canc er screen [place], [place] Start: 1972 DTaP/Tdap/Td vaccine (1 - Tdap) DTaP/Tdap/Td vaccine (1 - Tdap) [facility] Start: 1971 Hepatitis C screening Hepatitis C [facility] Start: 1968 HIV screen HIV screen [place], [place] Start: 1964 DTaP/Tdap/Td vaccine (1 - Tdap) DTaP/Tdap/Td vaccine (1 - Tdap) [place], [place] Start: 1953 Hepatitis C screen Hepatitis C scree n [place], [place] Start: 1953 Hepatitis C screening Hepatitis C [facility] EKG 12 Lead EKG 12 Lead ECG Routine 09/01/2021 8:08 AM EDT [facility] Work Phone: Immunizations Immunization Date Immunization Notes Care Provider Jolynn johnson 12-15-2021 Influenza, FLUAD, (a ge 65 y+), Adjuvanted, 0.5mL Elbert Nava MD Work Phone: [facility] Work Phone: 02-10-2021 Influenza, FLUAD, (a ge 65 y+), Adjuvanted, 0.5mL Elbert Nava MD Work Phone: [facility] Work Phone: 01-28-2021 COVID-19, MODERNA Booster BLUE border, (age 18y+), IM, 50mcg/0.25mL Dolores Calixto MD Work Phone: [facility] Work Phone: 04-24-2020 COVID-19, MODERNA BL UE border, Primary or Immunocompromised, (age 12y+), IM, 100 mcg/0.5mL Dolores Calixto MD Work Phone: [facility] 04-01-2020 COVID-19, Moderna, P F, 100mcg/0.5mL [facility] 11-29-2019 Influenza, FLUAD, (a ge 65 y+), Adjuvanted, 0.5mL Elbert Nava MD Work Phone: [facility] Work Phone: 11-29-2019 influenza, high dose seasonal, preservative-free [facility] Work Phone: 11-29-2019 pneumococcal conjuga te vaccine, 13 valent [facility] Work Phone: 12-13-2018 Seasonal trivalent influenza vaccine, adjuvanted, preservative free [facility] [place] 12-10-2017 influenza virus vaccine, unspecified formulation Elbert Nava MD Work Phone: [facility] Work Phone: 12-10-2017 influenza, injectabl e, quadrivalent, preservative free [facility] Payers Date Payer Category Payer Unknown [id number] 2022 Medicare 2022 Private Health Insurance 2014 Medicare MEDICARE MEDICAR E PART A AND B xxxxxxxxxxx 2014-Present [phone] [place] [address] xxxxxxxxxxx [id number] 2014 Private Health Insurance [employer]IC[employer] SUPP xxxxxxxxxx 2014-Present [phone] [address] [place] [address] xxxxxxxxxx [id number] 1959 Medicare [id number] [facility] [id number] 1953 Unknown [id number] 2.16.840.1.925516.3.579.2 .593 1953 Unknown [id number] 2.16.840.1.024132.3.579.2 .593 1953 Unknown [id number] 2.16.840.1.083867.3.579.2 .593 1953 Unknown [id number] 2.16.840.1.374923.3.579.2 .593 1953 Unknown [id number] 2.16.840.1.079602.3.579.2 .593 1953 Unknown [id number] 2.16.840.1.465545.3.579.2 .593 1953 Unknown [id number] 2.16.840.1.131346.3.579.2 .593 1953 Unknown [id number] 2.16.840.1.691991.3.579.2 .593 1953 Unknown [id number] 2.16.840.1.610719.3.579.2 .593 1953 Unknown [id number] 2.16.840.1.743651.3.579.2 .174 1955 Unknown [id number] 2.16.840.1.782162.3.579.2 .174 1953 Unknown [id number] 2.16.840.1.483450.3.579.2 .174 1955 Unknown [id number] 2.16.840.1.390101.3.579.2 .174 1955 Unknown [id number] 2.16.840.1.082252.3.579.2 .174 1953 Unknown [id number] 2.16.840.1.119560.3.579.2 .174 1955 Unknown [id number] 2.16.840.1.877683.3.579.2 .196 1955 Unknown [id number] 2.16.840.1.458438.3.579.2 .196 1955 Unknown [id number] 2.16.840.1.132882.3.579.2 .196 1955 Unknown [id number] 2.16.840.1.818709.3.579.2 .196 Social History Date Type Detail Facility Start: 03-28-2018 End: 02-27-2022 Tobacco smoking status NHIS Former smoker [place], [place] End: 02-22-2006 History of tobacco use Current [place] End: 02-22-2006 History of tobacco use Cigarette Sm[place] Start: 03-28-2018 End: 02-27-2022 Cigarettes smoked current (pack per day) - Reported [place] Start: 03-28-2018 End: 07-29-2021 Alcohol intake Current drinker of alcohol (finding) [place] Start: 10-14-2015 Alcohol Comment moderate [place], [place] Start: 1955 Sex Assigned At Not on file [place] Start: 03-28-2018 [facility] [place] [place] Start: 04-17-2020 End: 02-27-2022 Tobacco use and exposure Never used [facility] Start: 08-31-2019 End: 02-27-2022 History SDOH Financial 5 [facility]: Start: 08-31-2019 End: 02-27-2022 History SDOH Food Worry 1 [facility] Phone: Start: 08-31-2019 End: 03-24-2022 History SDOH Transport Med 2 [employer] Phone: Start: 06-21-2022 Alcohol intake Ex-drinker (finding) [employer] Phone: Start: 06-21-2022 History SDOH Alcohol Std Drinks 0 [employer] Phone: Start: 03-24-2022 History SDOH Physica l Activity DPW 4 [employer] Phone: Medical Equipment Procedure Code Equipment Code Equipment Origin al Text Equipment Identifier Dates fluorescein ophthalmic strip 1 mg [id number] Start: 06-21-2022 End: 06-21-2022 Clinical Notes 02-07-2019 to 06-21-2022 Discharge InstructionsAttachKay Blake - 02/16/2019 2:00 PM [facility] - 02/09/2019 1:00 PM [place] - 02/07/2019 9:45 AM EST Note Date & Type Note Facility 06-21-2022 Hospital Discharg e instructions Elbert Nava MD - 06/21/2022 7:46 AM EDT Use eye drops- 2 drops to both eyes 4 times a day for 4 days. Follow up with your eyeglass frames inspector if symptoms persist or worsen. Follow up with Dr. Calixto to have your blood pressure rechecked. The following attachments cannot be sent through Care Everywhere.Conjunctivitis (American)Hypertension (American)documented in this encounter [employer] Phone: 11-20-2021 Note CONSULTATION CONSULTATION DATE: 11/22/2021 [...] fusion was performed in 2019 at the [facility]. The patient presents very discouraged today and [...] care and all questions answered today. [facility] 08-19-2021 Note CONSULTATION PROCEDURE DATE: [...] will be followed up in the office. [facility] Signed and Approved by: DR ELOY DAVIDSON . 09/02/2021 07:55:00 [facility] 08-19-2021 Note CONSULTATION CONSULTATION DATE: 08/19/2021 CHIEF COMPLAINT: 1. Left leg motor weakness, left foot pain. 2. Right hip pain. HISTORY OF PRESENT ILLNESS: This is a 66-year-old female who has a complicated history. The patient had two lumbar surgeries subsequent to which the patient had significant pain in her left foot, residual pain. The patient had a decompressive surgery at [facility] and then a second diskectomy at the level of L5-S1 in [place]. The patient states, subsequent to that, she [...] the MRI disc to the surgeon in [place] where she has the confidence of the surgeon. The patient understands and would like to proceed. CC: Dr. Calixto [facility] Signed and Approved by: DR ELOY DAVIDSON . 09/02/2021 07:55:00 [facility] 06-26-2021 Note CONSULTATION CONSULTATION DATE: [...] present but decreased. She is consistently taking tszp-fbz-gmulcbw anti-inflammatories once to twice a day as needed. 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 Sitting and heat decreases [...] plan of care. All questions were answered. [facility] Signed and Approved by: ADELFO GARCIA . 07/02/2021 14:04:00 [facility] 06-18-2021 Note PROCEDURE: XR HIP RT 2 3V [...] authenticated by: RAMÓN ACEVEDO Date: 2021-06-18 08:53 [facility] 06-18-2021 Note CONSULTATION CONSULTATION DATE: [...] with that and would like to proceed. [facility] Signed and Approved by: ADELFO GARCIA . 06/19/2021 09:41:00 [facility] 01-21-2021 Note PAIN MANAGEMENT DATE: [...] get about her house. This was in [place]. The patient had undergone three epidurals, failed [...] frustrated. IMPRESSION: Status post lumbar surgery dating [id number]. L5-S1 radiculitis. No overt motor radiculopathy. The [...] up post MRI. CC: Aruna Calixto PA-C. [facility] Signed and Approved by: DR ELOY DAVIDSON . 01/28/2021 08:59:00 [facility] 02-16-2019 History of Presen t illness Narrative [facility] Date: 02/16/2019 Patient Name: Izzy Silverio : 1955 Pt Cancelled Appt due to had out of [employer], and cannot make it to this appointment. Kay Fitzgerald Date: 02/16/2019 documented in this encounter [facility] Phone: 02-09-2019 History of Presen t illness Narrative [facility] Date: 02/09/2019 Patient Name: Izzy Silverio : 1955 Pt Cancelled Appt due to in [place] with a flat tire. [place] Date: 02/09/2019 documented in this encounter [facility]llie Phone: 02-07-2019 History of Presen t illness Narrative [facility] Date: 02/07/2019 Patient Name: Izzy Silverio : 1955 Pt Cancelled Appt due to does not want to do dry needling. [place] Date: 02/07/2019 documented in this encounter prollie Phone: Evaluation note Diagnosis Breast cancer screening by mammogram documented in this encounter [facility]ie Phone: evaluation note* Diagnosis Screening cholesterol level Screening for lipoid disorders documented in this encounter [facility]ie Phone: evaluation note* Diagnosis Acute bacterial conjunctivitis of both eyes- Primary documented in this encounter LISA MCCOLLUM [employer] Phone: History of Present Illness * Margot Mercado, PT - 01/24/2019 8:45 AM EST [facility] Daily Note Date: 01/24/2019 Patient Name: Izzy Silverio : 1955 (63 y.o.) Referring Practitioner: TERA Negro Referral Date : 11/22/18 Diagnosis: S/P lumbar disectomy Treatment Diagnosis: Back pain, left leg pain Onset Date: 11/22/18(Referral) PT Insurance Information: [facility] Total # of Visits Approved: 14 Per Physician Order Total # of Visits to Date: 4 Canceled Appointment: 2 Plan of Care/Certification Expiration Date: 12/30/18 Pre-Treatment Pain: 8/10 Assessment Assessment: Patient returned from being in [place] x one month visiting family. She c/o [...] body mechanics with lifting following back education-met Correction Goals - Time Frame for intermediate frame tender goals : 14 [facility] goal 1: Gait WFL with even stride length intermediate frame tender goal 2: Improve functional mobility with score < 8/50 on Oswestry Disability intermediate frame tender goal 3: Decrease left foot pain 4/10 at worst x 3 days intermediate frame tender goal 4: Increase strength left ankle eversion 4/5 for improved stability Post Treatment Pain: 8/10 Time In: 8:45 Time Out : 9:30 Timed Code Treatment Minutes: 45 Minutes Total Treatment Time: 45 Minutes Margot Mercado, PT Date: 01/24/2019 documented in this encounter* Kay Fitzgerald - 12/08/2018 9:07 AM EDT [facility] Date: 12/08/2018 Patient Name: Izzy Silverio : 1955 Pt Cancelled Appt due to left no reason for cancellation, rescheduled for next Wednesday12/16/18. Kay Fitzgerald Date: 12/08/2018 documented in this encounter* Le Stark - 12/21/2018 9:38 AM EDT [facility] Daily Note Date: 12/21/2018 Patient Name: Izzy Silverio : 1955 (63 y.o.) Referring Practitioner: TERA Negro Referral Date : 11/22/18 Diagnosis: S/P lumbar disectomy Treatment Diagnosis: Back pain, left leg pain Onset Date: 11/22/18(Referral) PT Insurance Information: [facility] Total # of Visits Approved: 6 Per [...] with score < 10/50 on Oswestry Disability Correction Goals - Time Frame for intermediate frame tender goals : NA- patient request only 2 wks of PT due to leaving for prolonged stay in [place] Post Treatment Pain: 04/03 Time In: 0900 Time Out : 09 Timed Code Treatment Minutes: 35 Minutes Total Treatment Time: 35 Minutes Le Stark [employer]SPORTATION TABELER Date: 12/21/2018 documented in this encounter* Hayley Orta, PT - 01/26/2019 10:15 AM EST [facility] Daily Note Date: 01/26/2019 Patient Name: Izzy Silverio : 1955 (63 y.o.) Referring Practitioner: TERA Negro Referral Date : 11/22/18 Diagnosis: S/P lumbar disectomy Treatment Diagnosis: Back pain, left leg pain Onset Date: 11/22/18(Referral) PT Insurance Information: [facility] Total # of Visits Approved: 14 Per [...] body mechanics with lifting following back education-met Correction Goals - Time Frame for [facility] goals : 14 [facility] goal 1: Gait WFL with even stride length intermediate frame tender goal 2: Improve functional mobility with score < 8/50 on Oswestry Disability [facility] goal 3: Decrease left foot pain 4/10 at worst x 3 days intermediate frame tender goal 4: Increase strength left ankle eversion 4/5 for improved stability Post Treatment Pain: 0/10 Time In:1020 Time Out : 1100 Timed Code Treatment Minutes: 40 Minutes Total Treatment Time: 40 Minutes Hayley Orta PT Date: 01/26/2019 documented in this encounter* Margot Mercado Marie, PT - 12/16/2018 9:36 AM EDT [facility] Evaluation Date: 12/16/2018 Patient: Izzy Silverio : 1955 Referring Practitioner: TERA Negro Referral Date : 11/22/18 Diagnosis: S/P lumbar disectomy Treatment Diagnosis: Back pain, left leg pain Onset Date: 11/22/18(Referral) PT Insurance Information: [facility] Total # of Visits Approved: 6 Per [...] PT due toleaving for prolonged stay in [place]; focus on back education and HEP. Prognosis: [...] with score < 10/50 on Oswestry Disability intermediate frame tender goals Time Frame for intermediate frame tender goals : NA- patient request only 2 wks of PT due to leaving for prolonged stay in [place] Patient's Goal: Walk normal, without limp Timed Code Treatment Minutes: 20 Minutes Total Treatment Time: 50 Time In: 7:35 Time Out: 8:25 Margot Mercado, PT Date: 12/16/2018 documented in this encounter* Le Leon - 12/02/2018 8:21 AM EDT [facility] Date: 12/02/2018 Patient Name: Izzy Silverio : 1955 Pt Cancelled Appt due to Illness Le Leon Date: 12/02/2018 documented in this encounter* Le Stark - 12/19/2018 9:44 AM EDT [facility] Daily Note Date: 12/19/2018 Patient Name: Izzy Silverio : 1955 (63 y.o.) Referring Practitioner: TERA Negro Referral Date : 11/22/18 Diagnosis: S/P lumbar disectomy Treatment Diagnosis: Back pain, left leg pain Onset Date: 11/22/18(Referral) PT Insurance Information: [facility] Total # of Visits Approved: 6 Per [...] with score < 10/50 on Oswestry Disability [employer]unch [employer] Operator Goals - Time Frame for intermediate frame tender goals : NA- patient request only 2 wks of PT due to leaving for prolonged stay in [place] Post Treatment Pain: 0/10 Time In: 0900 Time Out : 0940 Timed and total 40 min Le Stark RAIL TRANSPORTATION TABELER Date: 12/19/2018 documented in this encounter Advance Directives No Advanced Directives Records FoundDocuments on File Type Date Recorded Patient Chair Installer Expl anation Advance Directives and Living Will Power of National Sales Documents on File Type Date Recorded Patient Chair Installer Expl anation ACP-Advance Directive ACP-Power of National Sales Documents on File Type Date Recorded Patient Chair Installer Expl anation ACP-Advance Directive ACP-Power of National Sales Healthcare Agents on File Name Relationship Healthcare [...] states Procedures [place] [address] [place] [address] Hayley Orta, PT Status Reason Specialty Diagnoses / Procedures Re ferred By Contact Referred To Contact Open Physical Therapy Diagnoses Other specified postprocedural states Procedures [place] [address] [place] [address] Hayley Orta, PT Status Reason Specialty Diagnoses / Procedures Referred By Contact Referred To Contact Pending Review Specialty Services Required Physical Therapy Diagnoses Acute left-sided low back pain with left-sided sciatica Radiculopathy of lumbar region Paresthesia of left foot Procedures physical therapy Dolores Calixto MD [address] [place] [address] [facility] [address] [place] [address] Status Reason Specialty Diagnoses / Procedures Referre d By Contact Referred To Contact Closed Radiology Diagnoses Breast cancer screening by mammogram Procedures RAMIRO CHRISTIANO DIGITAL SCREEN BILATERAL RAMIRO DIGITAL SCREEN W CAD BILATERAL Eddie Novoa, [employer] 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 Woke up this morning swollen and still feels like something in eye. INFORMATION SOURCE (unrecogn ized section and content) DATE CREATED AUTHOR 09/15/2019 [facility] DATE CREATED AUTHOR AUTHOR'S ORGANIZ ATION 01/16/2020 [facility] DATE CREATED AUTHOR AUTHOR'S ORGANIZ ATION 02/09/2020 [facility] DATE CREATED AUTHOR AUTHOR'S ORGANIZ ATION 05/12/2021 [facility] DATE CREATED AUTHOR AUTHOR'S ORGANIZ ATION 01/02/2022 [facility] DATE CREATED AUTHOR AUTHOR'S ORGANIZ ATION 03/19/2023 Delilah corona DATE CREATED AUTHOR AUTHOR'S ORGANIZ ATION 08/07/2023 [facility] Care Teams (unrecognized sec tion and content) Edge Blacker Relationship Specialty Start Date End Date Dolores Calixto MD [address] [place], [place] [id number] PCP - General Family Medicine 03/02/16 Edge Blacker Relationship Specialty Start Date End Date Dolores Calixto MD [address] [place] [address] PCP - General Family Medicine 03/02/16 Edge Blacker Relationship Specialty Start Date End Date Dolores Calixto MD [address] [place] [address] PCP - General Family Medicine 03/02/16 Scheduled [...] BE BASED ON THE PRIMARY CLINICAL RECORDS. [employer] [facility] provides no warranty or guarantee of the accuracy or completeness of information in this document.
--- NOTE | 2023-10-04 13:42 | PM.CN ---
Consult Note: HPI Data of Consult Patient: known to practice within the last 3 years Consult date: 10/04/23 Requesting Physician: Parish Garcias MD Primary Care Provider: DOLORES LUND Consult Narrative Reason for consult: neck, right hand numbness Narrative: 68yof who presents for assessment. states she fell several months ago and has had persistent numbness and tingling into right upper extremity ever since. difficult to bring up arm to apply makeup, brush teeth, etc. received MDP for shoulder pain, which helped with the numbness and tingling. uses gabapentin 100-100-200, which provides some benefit. no cervical imaging available for review. goes for chiropractic treatments. denies adverse med side effects. cc:: CC: Parish Garcias MD Review of Systems ROS Status of ROS 10 or more systems reviewed and unremarkable except as noted in history and below [facility] Medical History (Updated 10/04/23 @ 13:44 by Parish Garcias MD) Former smoker ?Z87.891 - Personal history of nicotine dependence (ICD-10) High cholesterol ?E78.00 - Pure hypercholesterolemia, unspecified (ICD-10) Surgical History H/O lumbosacral spine surgery ?Z98.890 - Other specified postprocedural states (ICD-10) H/O lumbar discectomy ?Z98.890 - Other specified postprocedural states (ICD-10) H/O: hysterectomy ?Z90.710 - Acquired absence of both cervix and uterus (ICD-10) Meds Home Medications and Allergies Home Medications ?Medication ?Instructions ?Recorded ?Confirmed ?Type ibuprofen 200 mg tablet (Advil) 200 mg PO QDAY PRN pain 11/16/22 01/18/23 History diazepam 2 mg tablet (Valium) 1 mg PO DAILY PRN anxiety 12/07/22 01/18/23 History gabapentin 100 mg capsule 100 mg PO TID 10/04/23 10/04/23 History Allergies Allergy/AdvReac Type Severity Reaction Status Date / Time No Known Drug Allergies Allergy Verified 01/18/23 07:22 Exam Narrative Exam Narrative: Psych-alert and oriented x 3.? Attentive and appropriate, constitutionally normal, displays normal mood and affect per situation.? There are no obvious deficits in memory, reasoning, or intellect.? Skin-no obvious rashes, bruising, or erythema noted to the patient's area of pain. Extremities-upper extremities are warm with minimal edema and palpable pulses. Cervical- tenderness to palpation noted in the cervical spine and paraspinal musculature.? Pain is elicited with extension, and lateral rotation of the cervical spine.? Range of motion is slightly diminished due to pain. Facet loading maneuvers are positive bilaterally.? Coordination remains intact.? Gait remains non-antalgic.? Assessment and Plan Assessment and Plan (1) Cervicalgia: Plan 68yof who presents for assessment. failed conservative measures, as noted. given symptoms and exam, will have her undergo cervical xr. she is in agreement. meds reviewed. will increase gabapentin to 200mg tid. also prescribed mdp for her trip to [place]. she will follow up after imaging.
== END 2023-10-04 13:10 | disposition home or self-care (01) ==
LOC: PM 13:09
PROVIDERS: PCP Family Medicine; Visit Provider Anesthesiology
DX: M54.2 Cervicalgia (principal)
CPT/HCPCS: G0463

== ENCOUNTER 2024-03-02 12:49 | Outpatient (OUT) | payer OTHER, SELFPAY ==
--- OUTSIDE RECORDS SUMMARY | 2024-03-02 13:11 | XMS_ITS | CCD ---
Author Organization [facility] Care Team Providers Care Chef Concierge Name Role Phone Dolores Calixto Primary Care Provider [phone] DR ELOY DAVIDSON Admitting Unavailable GARCIA, ADELFO Consulting Unavailable [facility], [facility] Primary Care Unavailable MARGO, DR ELOY Lang Attending Unavailable CURTIS, DR RAMÓN Smith Consulting Unavailable MARGO, DR ELOY Lang Admitting Unavailable MARGO, DR ELOY Lang Attending Unavailable VER[facility], [facility] Primary Care Unavailable GARCIA, ADELFO Consulting Unavailable MARGO, DR ELOY Lang Admitting Unavailable MARGO, DR ELOY Lang Attending Unavailable GARCIA, ADELFO Consulting Unavailable VERHOFF, [facility] Primary Care Unavailable MARGO, DR ELOY Lang Attending Unavailable MARGO, DR ELOY Lang Consulting Unavailable MARGO, DR ELOY Lang Admitting Unavailable VER[facility], [facility] Primary Care Unavailable GARCIA, ADELFO Consulting Unavailable VERHOFF, RIAN Consulting Unavailable MARGO, DR ELOY Lang Attending Unavailable MARGO, DR ELOY Lang Consulting Unavailable MARGO, DR ELOY Lang Admitting Unavailable VERHOFF, RIAN Primary Care Unavailable LISA TERESA Consulting Unavailable MARGO, DR ELOY Lang Admitting Unavailable GARCIA, ADELFO Consulting Unavailable VERHOFF, RIAN Primary Care Unavailable MARGO, DR ELOY Lang Attending Unavailable MARGO, DR ELOY Lang Attending Unavailable MARGO, DR ELOY Lang Consulting Unavailable MARGO, DR ELOY Lang Admitting Unavailable VER[facility], [facility] Primary Care Unavailable GARCIA, ADELFO Consulting Unavailable MARGO, DR ELOY Lang Attending Unavailable MARGO, DR ELOY Lang Admitting Unavailable GARCIA, ADELFO Consulting Unavailable [facility], [facility] Primary Care Unavailable MARGO, DR ELOY Lang Admitting Unavailable VERHOFF, [facility] Primary Care Unavailable MARGO, DR ELOY Lang Attending Unavailable Dolores Calixto MD Primary Care Provider Katerine DO, Parish Hanley Attending Unavailable Katerine DO, Parish Hanley Attending Unavailable Katerine DO, Parish Hanley Attending Unavailable Katerine DO, Parish Hanley Attending Unavailable Katerine DO, Parish Hanley Attending Unavailable Durga DO, Dolores Salazar Primary Care Provider Durga DO, Dolores Salazar Primary Care Provider ANSLEY, HINA Woods Referring Unavailable POCOS, HINA Woods Attending Unavailable SUKH, VALDO Kinney Referring Unavailable GAB YANES Attending Unavailable POCOS, HINA Woods Referring Unavailable POCOS, HINA Woods Attending Unavailable POCOS, HINA Woods Referring Unavailable POCOS, HINA Woods Attending Unavailable POCOS, HINA Woods Referring Unavailable WINDY MARTINEZ Attending Unavailable VERHOFF, DOLORES Salazar Primary Care Unavailable REBECCA, ELOISA Referring Unavailable VERHOFF, DOLORES Salazar Attending Unavailable REBECCA, ELOISA Referring Unavailable VERHOFF, DOLORES Salazar Attending Unavailable VERHOFF, DOLORES Salazar Primary Care Unavailable POCOS, HINA PEREZ Referring Unavailable VERHOFF, DOLORES Salazar Primary Care Unavailable REBECCA, ELOISA Referring Unavailable VERHOFF, DOLORES Salazar Primary Care Unavailable VERHOFF, DOLORES aSlazar Attending Unavailable VERHOFF, DOLORES Salazar Primary Care Unavailable REBECCA, ELOISA Referring Unavailable VERHOFF, DOLORES Salazar Attending Unavailable VERHOFF, DOLORES Salazar Primary Care Unavailable REBECCA, ELOISA Referring Unavailable VERHOFF, DOLORES Salazar Attending Unavailable Medications Current Medications Medication Drug Class(es) Dates Sig (Normalized) Sig (Original) acetaminophen 500 mg oral tablet (2 sources) take 1 tablet by mouth every six hours as needed for pain acetaminophen (TYLENOL) 500 MG tablet Take 500 mg by mouth every 6 hours as needed for Pain 0 Active gabapentin 100 mg oral capsule (20 sources) Anti-epileptic Agent Start: 08-05-2023 gabapentin (NEURONTIN) 100 MG capsule TAKE 1 CAPSULE IN THE MORNING, TAKE 1 CAPSULE in the afternoon then TAKE 2 CAPSULES BY MOUTH AT BEDTIME 08/05/2023 Active Start: 02-09-2018 take 1 capsule by mo [facility] three times daily gabapentin (NEURONTIN) 300 MG capsule Take one capsule by mouth TID. 0 02/09/2018 Active naproxen sodium 220 mg oral tablet (1 source) Nonsteroidal Anti-inflammatory Drug take 1 tablet by mouth twice daily at mealtime naproxen sodium (ALEVE) 220 MG tablet Take 220 mg by mouth 2 times daily (with meals) 0 Active pregabalin 50 mg oral capsule (1 source) Start: 07-24-19 take 1 tablet by mouth twice daily [...] (TETRAVISC) 0.5 % ophthalmic solution 2 drop traMADol hydrochloride 50 mg oral tablet (3 sources) Opioid Agonist Start: 01-05-2024 End: 01-17-2024 take 1 tablet by mouth every six hours for pain, then take 2 tablets by mouth every six hours for pain traMADol (Ultram) 50 MG tablet Indications: Carpal tunnel syndrome on right May take 1 tablet (50 mg) by mouth every 6 (six) hours if needed for severe pain. May also take 2 tablets (100 mg) every 6 (six) hours if needed for severe pain. Do all this for 7 days. 30 tablet 01/05/2024 01/17/2024 Discontinued (Therapy completed) water 986 mg/ml ophthalmic irrigation solution (1 source) Start: 06-21-2022 End: 06-21-2022 eye stream ophthalmic solution 1 drop Start: 06-21-2022 End: 06-21-2022 eye stream ophthalmic soluti on 1 drop Problems Active Problems Problem Classification Problem Date Documented Date Episodic/Chronic Cataract (2 sources) After-cataract of bilateral eyes; Translations: [Other secondary cataract, bilateral] 02-09-2024 Chronic Inflammation; infection of eye (except that caused by tuberculosis or sexually transmitteddisease) (1 source) Acute infectious conjunctivitis; Translations: [Unspecified acute conjunctivitis, bilateral] Episodic Osteoarthritis (6 sources) Osteoarthrosis of the carpometacarpal joint of the thumb; Translations: [Unilateral primary osteoarthritis of first carpometacarpal joint, right hand] 12-10-2023 Chronic Other connective tissue disease (1 source) Pain in left foot; Translations: [PAIN IN LEFT FOOT] Onset: 11-26-2021 Episodic Other connective tissue disease (2 sources) Pain in right hand; Translations: [Pain in right hand] 12-10-2023 Episodic Other nervous system disorders (8 sources) Carpal tunnel syndrome of right wrist; Translations: [Carpal tunnel syndrome, right upper limb] 12-10-2023 Chronic Residual codes; unclassified (3 sources) Other specified postprocedural states; Translations: [[facility] SPECIFIED POSTPROCEDURAL STATES] Onset: 01-27-2021 Episodic Spondylosis; intervertebral disc disorders; other back problems (1 source) Other spondylosis with radiculopathy, lumbar region; Translations: [OTH SPONDYLS RADICULOPATHY LUMB RGN] Onset: 06-30-2021 Chronic Spondylosis; intervertebral disc disorders; other back problems (10 sources) Intervertebral disc disorders with radiculopathy, lumbar region; Translations: [Radiculopathy, lumbar region] Onset: 06-30-2021 Episodic Unclassified (3 sources) LOW BACK PAIN, UNSPECIFIED; Translations: [LOW BACK PAIN, UNSPECIFIED] Onset: 06-30-2021 Past or Other Problems Problem Classification Problem Date Documented Da te Episodic/Chronic Other connective tissue disease (4 sources) Other muscle spasm; Translations: [OTHER MUSCLE SPASM] Onset: 08-19-2021 Episodic Other non-traumatic joint disorders (4 sources) Pain in right hip; Translations: [PAIN IN RIGHT HIP] Onset: 06-18-2021 Episodic Other screening for suspected conditions (not mental disorders or infectious disease) (3 sources) Patient encounter status; Translations: [Encounter for screening mammogram for malignant neoplasm of breast] Onset: 03-15-2023 Episodic Sprains and strains (1 source) Sprain of unspecified ligament of left ankle, initial encounter; Translations: [SPRAIN UNS LIGAMENT LT ANKLE INIT] Onset: 08-22-2021 Episodic Unclassified (1 source) LOW BACK PAIN, UNSPECIFIED; Translations: [LOW BACK PAIN, UNSPECIFIED] Onset: 06-26-2021 Unclassified (8 sources) Onset: 12-07-2021 Resolved: 09-01-2023 09-01-2023 Results Test Name Value Interpretation Reference Range Facility EMG 1 Extremeityon Carpal tunnel syndro me, right, moderate [facility] NVC 5-6 Nerveson 12-16-2023 Carpal tunnel syndro me, right, moderate [facility] CHRISTIANO DIGITAL SCREEN HUGH Weirn 03-16-2023 RAMIRO CHRISTIANO DIGITAL SCREEN BILATERAL HISTORY: Screening. TECHNIQUE: [...] Zhao Jr., MD 03/16/23 Final result Normal [facility] CBC with Diffon 03-15-2023 Abs. Basophil 0.02 k/uL Normal 0.00-0.20 [facility] Comment on above: Performed By: #### C P, CDP #### [facility] [address] [place] [address] Dietician: Hina Kyle MD Abs.Imm.Granulocyte 0.01 k/uL Normal 0.00-0.30 [facility] Comment on above: Performed By: #### C P, CDP #### [facility] [address] [place], [place] [id number] Dietician: Hina Kyle MD Abs.Neutrophil (Seg) 4.00 k/uL Normal 2.5-7.0 [facility] Comment on above: Performed By: #### C P, CDP #### [facility] [address] [facility] [place], [place] [id number] Dietician: Hina Kyle MD Basophils/100 WBC (Bld) 0 % Normal 0-2 [facility] Comment on above: Performed By: #### C P, CDP #### [facility] [address] [place], [place] [id number] Dietician: Hina Kyle MD Eosinophils (Bld) [#/Vol] 0.13 10*3/uL Normal 0.00-0.40 [facility] Comment on above: Performed By: #### C P, CDP #### [facility] [address] [place], [place] [phone] Dietician: Hina Kyle MD Eosinophils/100 WBC (Bld) 2 % Normal 0-5 [facility] Comment on above: Performed By: #### C P, CDP #### [facility] [address] [place] [address] Dietician: Hina Kyle MD Erythrocyte distribution width (RBC) [Ratio] 12.5 % Normal 12.1-15.2 [facility] Comment on above: Performed By: #### C P, CDP #### [facility] [address] [place] [address] Dietician: Hina Kyle MD Hematocrit (Bld) [Volume fraction] 40.6 % Normal 36.0-46.0 [facility] Comment on above: Performed By: #### C P, CDP #### [facility] [address] [place], [place] [phone] Dietician: Hina Kyle MD Hemoglobin (Bld) [Mass/Vol] 13.8 g/dL Normal 12.0-16.0 [facility] Comment on above: Performed By: #### C P, CDP #### [facility] [address] [place], [place] [phone] Dietician: Hina Kyle MD Immature granulocytes/100 WBC (Bld) 0 % Normal 0-5 [facility] Comment on above: Performed By: #### C P, CDP #### [facility] [address] [place] [address] Dietician: Hina Kyle MD Lymphocytes (Bld) [#/Vol] 1.40 10*3/uL Normal 1.00-4.80 [facility] Comment on above: Performed By: #### C P, CDP #### [facility] [address] [place] [phone] Dietician: Hina Kyle MD Lymphocytes/100 WBC (Bld) 23 % Normal 15-40 [facility] Comment on above: Performed By: #### C P, CDP #### [facility] [address] [place] [phone] Dietician: Hina Kyle MD MCH (RBC) [Entitic mass] 31.3 pg Normal 26.0-34.0 [facility] Comment on above: Performed By: #### C P, CDP #### [facility] [address] [place] [address] Dietician: Hina Kyle MD MCHC (RBC) [Mass/Vol] 34.0 g/dL Normal 31.0-37.0 [facility] Comment on above: Performed By: #### C P, CDP #### [facility] [address] [place] [phone] Dietician: Hina Kyle MD MCV (RBC) [Entitic vol] 92.1 fL Normal 80.0-100.0 [facility] Comment on above: Performed By: #### C P, CDP #### [facility] [address] [place] [address] Dietician: Hina Kyle MD Monocytes (Bld) [#/Vol] 0.42 10*3/uL Normal 0.00-1.00 [facility] Comment on above: Performed By: #### C P, CDP #### [facility] [address] [place] [address] Dietician: Hina Kyle MD Monocytes/100 WBC (Bld) 7 % Normal 4-8 [facility] Comment on above: Performed By: #### C P, CDP #### [facility] [address] [place] [address] Dietician: Hina Kyle MD Neutrophil (Seg) 68 % Normal 47-75 [facility] Comment on above: Performed By: #### C P, CDP #### [facility] [address] [place] [address] Dietician: Hina Kyle MD Platelet mean volume (Bld) [Entitic vol] 10.0 fL Normal 6.0-12.0 [facility] Comment on above: Performed By: #### C P, CDP #### [facility] [address] [place] [address] Dietician: Hina Kyle MD Platelets (Bld) [#/Vol] 297 10*3/uL Normal 140-450 [facility] Comment on above: Performed By: #### C P, CDP #### [facility] [address] [place] [address] Dietician: Hina Kyle MD RBC (Bld) [#/Vol] 4.41 10*6/uL Normal 4.00-5.20 [facility] Comment on above: Performed By: #### C P, CDP #### [facility] [address] [place] [address] Dietician: Hina Kyle MD WBC (Bld) [#/Vol] 6.0 10*3/uL Normal 3.5-11.0 [facility] Comment on above: Performed By: #### C P, CDP #### [facility] [address] [place] [address] Dietician: Hina Kyle MD Comp Metabolic Profon 2023 Albumin [Mass/Vol] 4.4 g/dL Normal 3.5-5.2 [facility] Comment on above: Performed By: #### C P, CDP #### [facility] [address] [place], [place] [phone] Dietician: Hina Kyle MD Alkaline Phos 88 U/L Normal 35-104 [facility] Comment on above: Performed By: #### C P, CDP #### [facility] [address] [place] [address] Dietician: Hina Kyle MD ALT [Catalytic activity/Vol] 14 U/L Normal 5-33 [facility] Comment on above: Performed By: #### C P, CDP #### [facility] [address] [place] [address] Dietician: Hina Kyle MD Anion gap [Moles/Vol] 13 mmol/L Normal 9-17 [facility] Comment on above: Performed By: #### C P, CDP #### [facility] [address] [place], [place] [phone] Dietician: Hina Kyle MD AST [Catalytic activity/Vol] 16 U/L Normal <32 [facility] Comment on above: Performed By: #### C P, CDP #### [facility] [address] [place] [address] Dietician: Hina Kyle MD Bilirubin [Mass/Vol] 0.4 mg/dL Normal 0.3-1.2 [facility] Comment on above: Performed By: #### C P, CDP #### [facility] [address] [place], [place] [phone] Dietician: Hina Kyle MD BUN/CRE Ratio 20 Normal 9-20 [facility] Comment on above: Performed By: #### C P, CDP #### [facility] [address] [place], [place] [phone] Dietician: Hina Kyle MD Calcium [Mass/Vol] 9.6 mg/dL Normal 8.6-10.4 [facility] Comment on above: Performed By: #### C P, CDP #### [facility] [address] [place], [place] [phone] Dietician: Hina Kyle MD Chloride [Moles/Vol] 105 mmol/L Normal 98-107 [facility] Comment on above: Performed By: #### C P, CDP #### [facility] [address] [place] [address] Dietician: Hina Kyle MD CO2 [Moles/Vol] 24 mmol/L Normal 20-31 [facility] Comment on above: Performed By: #### C P, CDP #### [facility] [address] [place], [place] [phone] Dietician: Hina Kyle MD Creatinine [Mass/Vol] 0.6 mg/dL Normal 0.5-0.9 [facility] Comment on above: Performed By: #### C P, CDP #### [facility] [address] [place], [place] [phone] Dietician: Hina Kyle MD GFR/1.73 sq M.predicted among non-blacks MDRD (S/P/Bld) [Vol rate/Area] mL/min/{1.73_m2} Normal >60 [facility] Comment on above: Result Comment: These [...] Performed By: #### C P, CDP #### [facility] [address] [place] [address] Dietician: Hina Kyle MD Glucose [Mass/Vol] 98 mg/dL Normal 70-99 [facility] Comment on above: Performed By: #### C P, CDP #### [facility] [address] [place] [address] Dietician: Hina Kyle MD Potassium [Moles/Vol] 4.1 mmol/L Normal 3.7-5.3 [facility] Comment on above: Performed By: #### C P, CDP #### [facility] [address] [place] [address] Dietician: Hina Kyle MD Protein [Mass/Vol] 7.6 g/dL Normal 6.4-8.3 [facility] Comment on above: Performed By: #### C P, CDP #### [facility] [address] [place] [address] Dietician: Hina Kyle MD Sodium [Moles/Vol] 142 mmol/L Normal 135-144 [facility] Comment on above: Performed By: #### C P, CDP #### [facility] [address] [place] [address] Dietician: Hina Kyle MD Urea nitrogen [Mass/Vol] 12 mg/dL Normal 8-23 [facility] Comment on above: Performed By: #### C P, CDP #### [facility] [address] [place] [address] Dietician: Hina Kyle MD XR CHEST (2 VW)on 03-15-2023 [...] Antwan Pruett DO 03/15/23 Final result Normal [facility] XR pre/post mri xrayon 04-23 XR pre/post mri xray [facility] Main [place] [address] [place], [place] [address] MRI Report Signed Patient: Izzy Silverio MR#: [id number] : 1955 Acct:[id number] Age/Sex: 66 / F ADM Date: 04/22/21 Loc: MR Room: Type: [facility] Attending Dr: Eloy Davidson MD Ordering Provider: Eloy Davidson M.D. Date of Service: 04/22/21 MR/MR lumbar spine wo/w con: LUMBAR RADICULITIS ([id number]) XR/XR pre/post mri xray: SEE ORDER Copies [...] Altaf Alarcon M.D.04/23/2021 10:13 AM Dictation Location: [place] [address] Transcribed By: [facility] 04/23/21 1013 Dictated By: Altaf Alarcon II, MD 04/23/21 1002 Signed By: 04/23/21 1013 Normal [facility] ISTAT XRay CREon 04-22-2021 Creatinine [Mass/Vol] 0.8 mg/dL Normal 0.6-1.3 [facility] Comment on above: Result Comment: ER/E SD physician is notified/shown all ISTAT results. Critical values may be confirmed by laboratory testing if deemed necessary by ER attending doctor. Performed By: #### I SCRE #### [address] Point of Care testing , ISTAT GFR ( > [address] [facility] Comment on above: Result Comment: GFR estimated reference range: According to KDOQI guidelines, <60 ml/min/1.73m2 is sufficient to diagnose a patient with chronic kidney disease. PERFORMED BY: [place] [address] PATHOLOGIST MANAGER ART CHANDNI HOWARD M.D. Performed By: #### I SCRE #### [facility] [address] [place] [address] Point of Care testing , ISTAT GFR (Non- Am > [address] [facility] Comment on above: Performed By: #### I SCRE #### [facility] [address] [place] [address] Point of Care testing , Lipid Panelon 02-11-2021 Cholesterol [Mass/Vol] 215 mg/dL High <200 [facility] Comment on above: Cholesterol Guidelines: <200 Desirable 200-240 Borderline >240 Undesirable Cholesterol in HDL [Mass/Vol] 48 mg/dL >40 [facility] Comment on above: HDL Guidelines: <40 Undesirable 40-59 Borderline >59 Desirable Cholesterol in LDL [Mass/Vol] 135 mg/dL High 0 - 130 mg/dL [facility] Comment on above: LDL Guidelines: <100 Desirable 100-129 Near to/above Desirable 130-159 Borderline >159 Undesirable Direct (measured) LDL and calculated LDL are not interchangeable tests. Cholesterol in VLDL [Mass/Vol] NOT REPORTED High 1 - 30 mg/dL [facility] Cholesterol.total/Ch olesterol in HDL [Mass ratio] 4.5 {ratio} <5 [facility] Interpretation and review of laboratory results Abnormal [facility] Triglyceride [Mass/Vol] 161 mg/dL High <150 [facility] Comment on above: Triglyceride Guidelines: <150 Desirable 150-199 Borderline 200-499 High >499 Very high Based on AHA Guidelines for fasting triglyceride, November 2011. [facility] Patient Fasting?on 1 Patient Fasting? yes Delilah Wells alth [facility] RAMIRO CHRISTIANO DIGITAL SCREEN BILA TERALOrdered By: Eddie Novoa on 09-10-2020 BI-RADS 1 - Negative , no evidence of malignancy. Normal interval followup in 12 months. OVERALL ASSESSMENT- NEGATIVE A letter of notification will be sent to the patient regarding the results. [facility] Work Phone: HISTORY: Screening. Negative left breast biopsy. TECHNIQUE: Bilateral digital screening mammogram with CAD. 2-D and 3-D tomography. FINDINGS: Two views of each breast show scattered areas of fibroglandular density. No change from 03/16/2016. Suspicious calcifications: None. Suspicious mass: None. (If skin markers were applied, circles represent skin lesions and linear markers represent scars.) [facility] Work Phone: [facility] Work Phone: PROGRESSon 02-08-2020 PROGRESS HNO ID: [id number] Author: Kwan Vaca (Rt) Service: ? Author Type: Medical Dir Type: Progress Notes Filed: 02/08/2020 2:43 PM [...] RT Lio February 08, 2020 2:43 PM [facility] XR HIP 3V PELV+ AP/LAT LTon [...] osseous abnormality or significant left hip osteoarthritis. 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 CODING DATE: 020 FINAL [facility] DSC STATUS: Home (Routine DC) PAYOR: Medicare APC DESCRIPTION 5491 Level 1 Intraocular Procedures ADMIT DX: REASON FOR VISIT DX: H25.12 Age-related nuclear cataract, left eye FINAL DX: PRINCIPAL: H25.12 Age-related nuclear cataract, left eye SECONDARY: H25.032 Anterior subcapsular polar age-related cataract, left eye Z96.1 Presence of intraocular lens PYMT PROC APC STAT DESCRIPTION DOCTOR NAME DATE 84681 5491 J1 Extracapsular cataract Graham DO, Windy [...] Cesar Date Saved: 01/11/2020 04:27 pm [facility] Operative Reporton 0 Operative Report Date of Surgery: 01/08/2020 SURGEON: Windy Martinez M.D. PREOPERATIVE DIAGNOSIS: Cataract, left eye POSTOPERATIVE DIAGNOSIS: Cataract, left eye OPERATION: Phacoemulsification cataract extraction with intraocular lens implantation with a 20.0 diopter lens, left eye ANESTHESIA: Topical 2% lidocaine gel PROCEDURE: The patient was brought to the Operating Room and a 2% topical lidocaine gel was placed into the superior and inferior fornices of the eye. A [employer] manometer was set on the eye at [...] the Recovery Room in good condition. Windy Martinez M.D. s Dictated: 01/08/2020 #[id number] Typed: 01/09/2020 #[id number] cc: Windy Martinez M.D. [facility] Comment on above: Result Comment: Elec tronically Signed By: Windy Martinez MD\.br\Date and Time Signed: 01/11/20 12:09 EST Main OR Intraoperative Recor don 01-10-2020 Main OR Intraoperative Record IntraOp Document Type FT Summary Primary Physician: Windy Martinez MD Finalized Date/Time: 01/10/20 13:01:48 Pt. Name: IZZY SILVERIO/Sex: 1955 Female Med Rec #: [id number] Physician: Windy Martinez MD Financial #: [id number] Pt. Type: A Room/Bed: 0 Admit/Disch: 01/08/20 13:13:15 - 01/08/20 16:20:00 Institution: [...] Radha Hoover Role Performed Surgeon - Primary Accounting Associate - Primary Scrub - Primary Time In [...] Verified (If Medication Applicable) Time Out Windy Martinez MD, Time Out Complete 01/08/20 15:20:00 Participants [...] IOL Primary Procedure Yes Primary Surgeon Windy Martinez MD Start 01/08/20 15:26:00 Stop 01/08/20 15:39:00 [...] Yes Large Under Knees, Other/See Comments By Jones RN, Tanisha M, Outcomes Met? Yes Windy Martinez MD Last Modified By: Tanisha Jones RN [...] Hair Removal Methods Not Indicated By Windy Martinez MD Outcomes Met? Yes Last Modified By: [...] LENS(Left) Implant Identification FT Description DAVI IOL [id number] [employer] Lot Number [id number] SIZE 20.0 [[id number] 20.0][F] Fill Technician FT-BAUSCH AND LOMB Catalog ?# [id number] 20.0[F] Expiration Date 11/22/23 Unique Device [id number] Identifier (TUNDE) Human Readable {[id number] Machine Readable [id number] Barcode Barcode Usage Data FT Implant Site Eye L Quantity 1 Implanted By Windy Martinez MD Biological Implants MR Classification Unknown Outcomes Met? Yes Last Modified By: Tanisha Jones RN 01/08/20 15:31:06 Post-Care Text: The patient is free from signs and symptoms of injury caused by extraneous objects Case Comments Finalized By: RODO eWlch RN, Andrea Document Signatures Signed By: Tanisha Jones RN 01/08/20 15:43 RODO Welch RN, Andrea 01/10/20 13:01 [facility] Discharge Instructionson Discharge Instructions [id number]#1.00 CD:127 [facility] IntraOperative Documentson 1 03-10-2019 IntraOperative Documents [id number]#1.00 CD:127 [facility] IntraOperative Documents [id number]#1.00 CD:127 [facility] Preoperative Documentson Preoperative Documents [id number]#1.00 CD:127 [facility] Consent for Treatmenton 12-23 Consent for Treatment [id number] D:127 [facility] History and Physicalon 01-07 History and Physical [...] extraction with lens implantation, left eye. Windy Martinez M.D. lkr Dictated: 01/08/2020 #[id number] Typed 01/08/2020 #[id number] cc: Windy Martinez M.D. [facility] Comment on above: Result Comment: Elec tronically Signed By: Windy Martinez MD\.br\Date and Time Signed: 01/08/20 12:31 EST Inpatient Patient Summaryon 01-08-2020 Inpatient Patient Summary [place] [id number] [facility] Clinical Discharge Instructions PERSON INFORMATION Name: IZZY SILVERIO [facility]#:[id number] PHYSICIANS Admitting Physician: Windy Martinez MD Attending Physician: Windy Martinez MD PCP: DOLORES CALIXTO MD Discharge Diagnosis: Cataract Comment: PATIENT EDUCATION INFORMATION Instructions: Medication Leaflets: Follow up: With: Address: When: Windy Martinez [place] [address] Business (1) Comments: Call physician if symptoms worsen Keep scheduled appointment With: Address: When: Windy Martinez [address] [place] [address] [address] [address] [facility] (1) In 1 day 01/09/2020 MEDICATION LIST Medications to Continue with No Changes Other Medications biotin (Hair, Skin & Nails) 5 Milligram By Mouth every day. cannabidiol 1 Oral gummy. cholecalciferol (Vitamin D3) 1,000 International unit By Mouth every day. Non-Formulary Medication (tumeric) 1 cap By Mouth every day., prophylaxis Comment: [facility] Main OR PACU II Recordon Main OR PACU II Record PACU Phase II Document Type FT Summary Primary Physician: Windy Martinez MD Finalized Date/Time: 01/08/20 16:29:45 Pt. Name: IZZY SILVERIO./Sex: 1955 Female Med Rec #: [id number] Physician: Windy Martinez MD Financial #: [id number] Pt. Type: A Room/Bed: Admit/Disch: 01/08/20 13:13:15 - Institution: Case Times [...] By: Julissa Pacheco RN 01/08/20 16:29 [facility] Outpatient Surgery Discharge Instructionon 01-08-2020 Outpatient Surgery Discharge Instruction [place] [id number] Patient Discharge Instructions PERSON INFORMATION Name: IZZY SILVERIO Date of : 1955 Current Date: 01/08/2020 14:15:52 PHYSICIANS Admitting Physician: Windy Martinez MD Discharge Diagnosis: Cataract JEAN CLAUDECYNTHIAIZZY has been given the following list of [...] Date Follow up: With: Address: When: Windy Graham [address] [place] [address] [address], [place] [address] Business (1) Comments: Call physician if symptoms worsen Keep scheduled appointment With: Address: When: Windy [address] [place] [address] Business (1) In 1 day 01/09/2020 Pharmacy Information: Thank you for choosing [facility] HERE ARE THE MEDICATION CHANGES THAT OCCURRED DURING YOUR HOSPITAL STAY Medications to Continue with No Changes Other Medications biotin (Hair, Skin & Nails) 5 Milligram By Mouth every day. cannabidiol 1 Oral gummy. cholecalciferol (Vitamin D3) 1,000 International unit By Mouth every day. Non-Formulary Medication (tumeric) 1 cap By Mouth every day., prophylaxis PATIENT EDUCATION INFORMATION Instructions: [facility] Patient Education - Texton 1 03-09-2019 Patient Education - Text [facility] Consent for Procedure/Surger yon 01-05-2020 Consent for Procedure/Surgery [id number] CD:127 [facility] HISTORY PHYSICALon 0 HISTORY PHYSICAL HNO ID: [id number] Author: Jossie Hemphill Service: ? Author Type: Physician Anesthesiology Resident Type: HANDP Filed: 10/05/2019 1:40 PM Note [...] October 05, 2019 TIME: 1:40 PM PAGER: [phone] [facility] OPERATIVE NOon 10-05-2019 OPERATIVE NO HNO ID: [id number] Author: Martir Merlos Service: ? Author Type: [...] offered a procedure / surgery at a [facility] facility. It is not possible to know either the risk of delaying the surgery or procedure or chance of getting an infection with perfect accuracy, but a joint decision was made between the patient and the surgeon/proceduralist to proceed at this time with the scheduled surgery/procedure as indicated on the consent form. [facility] approved time out was performed identifying the site, side and level of procedure prior to start of procedure. [facility] - ELECTIVE PROCEDURE Lumbar Transforaminal Epidural Steroid [...] the entire procedure. Martir Merlos DO, KATERINA [facility] PT EDon 10-05-2019 PT ED HNO ID: [id number] Author: Olga PerdueRn) KAMARI Kirk Service: Pathology [...] call. SUPPLEMENTAL MATERIAL: None REFERRAL (RECOMMENDATION): None [facility] ED HNO ID: [id number] Author: Daly PerdueRn) KAMARI Gardiner Service: ? [...] By: Daly Gardiner RN In Department: PROCEDURES [facility] HOSPon 09-22-2019 HOSP Patient:Bhupinder Silverio MRN: [...] following basenames: K,HCT Progress Notes (SPINE MED [facility] REJ): Olga Carpio Pss 09/27/2019 12:57 [...] schedule with us. Progress Notes (SPINE SURG [facility] REJ): Michelle Bhat PA-C 09/27/2019 11:59 AM Signed One year out from surgery I don't see a problem with her seeing her chiropractor. Per her last office visit injections were discussed in detail. They should be completed before considering any surgical intervention. I can also write an order for physical therapy if she would prefer that. [facility] MRI Spine Lumbar w/o Contras ton [...] kendy Technologist: LEYDI Technical Comments None [facility] Coding Summary.on 09-09-2019 Coding Summary. CODING DATE: 020 FINAL [facility] STATUS: Home (Routine DC) PAYOR: Medicare [...] Liriano CphT Date Saved: 09/09/2019 01:29 pm [facility] Consent for Treatmenton 08-22 Consent for Treatment [id number] D:127 [facility] RAD - MRI Screening Formon 0 09-07-2019 RAD - MRI Screening Form [id number]#1.00 CD:127 [facility] Physician Orderon 08-31-2019 Physician Order [id number]#1.00C D:127 [facility] CNPNon 08-29-2019 CNPN Telephone (NEADFV) IZZY SILVERIO ([id number]) 1955 F Date Time Provider Department 08/29/19 HELENA ZHANG During your visit today, we recorded the following information about you: Kathleen Rojas 08/29/2019 2:34 PM Signed Patient called today stating she has been communicating to the nurse via [employer], but the wrong order is being faxed to [facility]. She was told in an 05/29/19 [employer]ay[employer] message by Jerzy, that an EMG would be ordered to look for nerve damage in her foot. There is no EMG order in her chart, please order the EMG and fax that order to [facility] at [phone]. Also, there is a Lumbar MRI order in her chart, he wants to know if Dr. Zhang still wants her to have that MRI. Please call patient at [phone]. May Bateman, RN, RN 08/30/2019 8:34 AM Signed Spoke to Izzy and instructed her that MRI was ordered No EMG at this time Allergies As of Date: 08/29/2019 (No Known Allergies) Date Reviewed: 03/09/2019 Reviewed by: Julianne Kelly Ma - Fully Assessed Reason for Visit: Patient Question [4077] Problem List As Of Date: 08/29/2019 (None) Encounter Status:Closed by MAY BATEMAN on 08/30/19 [facility] PROGRESSon 03-09-2019 PROGRESS HNO ID: [id number] Author: Nichol (Kwan) Kwan Roberto Service: Radiology Author Type: Medical Dir Type: Progress Notes Filed: 03/09/2019 2:06 PM [...] IV DATA: Not applicable SIGNED BY: PAYTON LLAMAS [email or web address] 2:05 PM [facility] XR FOOT 3V AP/LAT/OBL LTon 0 [...] No acute findings in the left foot. High School Tutor: DENISA Transcribe Date/Time: Mar 09 2019 3:04P Dictated by : MULU MTZ MD This examination was interpreted and the report reviewed and electronically signed by: MULU MTZ MD on Mar 09 2019 3:05PM EST [id number] [facility] XR LUMBAR 4V AP/LAT/ FLEX/EX Ton [...] described, not significant changed in the interval. High School Tutor: PSCB Transcribe Date/Time: Mar 09 2019 3:05P Dictated by : MULU MTZ MD This examination was interpreted and the report reviewed and electronically signed by: MULU MTZ MD on Mar 09 2019 3:07PM EST [id number] [facility] Leticia 01-25-2019 CNPN Telephone (NEADFV) IZZY SILVERIO ([id number]) 1955 F Date Time Provider Department 01/25/19 JERZY BURNHAM) FERMÍN During your visit today, we recorded the following information about you: Michelle Saldaña 01/25/2019 10:39 AM Signed Sign Re certification AND return to [facility]. Flagged for signature and given to nurse. [...] Encounter Status:Closed by MICHELLE MATUTE on 01/25/19 [facility] IZZY SILVERIO ([id number]) 1955 F Date Time Provider Department 12/16/18 JERZY BURNHAM) FERMÍN During your visit today, we recorded the following information about you: [place] Quinonez Ma 12/16/2018 3:50 PM Signed Received plan of care from [facility]. This was flagged and placed on [...] Status:Closed by [place] QUINONEZ MA on 12/16/18 [facility] Vital Signs Date Time Vital Sign Value Performing Clinician Facility 01-17-2024 13:29-0500 Body height 156.2 cm Hina Pocos DO Work Phone: [facility] 01-17-2024 13:29-0500 Body mass index (BMI) [Ratio] 25.47 kg/m2 Hina Pocos DO Work Phone: [facility] 01-17-2024 13:29-0500 Body temperature 97.11 [degF] Hina Pocos DO Work Phone: [facility] 01-17-2024 13:29-0500 Body weight 62.14 kg Hina Pocos DO Work Phone: [facility] 12-22-2023 10:23-0400 Body height 156.2 cm Hina Pocos DO Work Phone: [facility] 12-22-2023 10:23-0400 Body mass index (BMI) [Ratio] 25.47 kg/m2 Hina Pocos DO Work Phone: [facility] 12-22-2023 10:23-0400 Body weight 62.14 kg Hina Pocos DO Work Phone: [facility] 12-10-2023 10:19-0400 Body height 156.2 cm Hina Pocos DO Work Phone: [facility] 12-10-2023 10:19-0400 Body mass index (BMI) [Ratio] 25.47 kg/m2 Hina Pocos DO Work Phone: [facility] 12-10-2023 10:19-0400 Body weight 62.14 kg Hina Panchal DO Work Phone: [facility] 06-21-2022 08:24-0400 Diastolic blood pressure 95 mm[Hg] Elbert Ramos MD [facility]: [facility] [employer] 06-21-2022 08:24-0400 Systolic blood pressure 149 mm[Hg] Elbert Ramos MD Work Phone: [facility] [employer] 06-21-2022 06:48-0400 Body height 157.5 cm Elbert Ramos MD Work Phone: [facility] [employer] 06-21-2022 06:48-0400 Body mass index (BMI) [Ratio] 24.87 kg/m2 Elbert Ramos MD Work Phone: [facility] [employer] 06-21-2022 06:48-0400 Body temperature 98.2 [degF] Elbert Ramos MD Work Phone: [facility] [employer] 06-21-2022 06:48-0400 Body weight 61.69 kg Elbert Ramos MD Work Phone: [facility] [employer] 06-21-2022 06:48-0400 Heart rate 70 /min Elbert Ramos MD Work Phone: [facility] [employer] 06-21-2022 06:48-0400 Respiratory rate 20 /min Elbert Ramos MD Work Phone: [facility] [employer] 06-21-2022 06:48-0400 SaO2% (BldA) [Mass fraction] 97 % Elbert Ramos MD Work Phone: [facility] [employer] Encounters Encounter Date Encounter Type Care Provider Facility Start: 02-11-2024 End: 02-11-2024 Subsequent hospital visit by physician [place] OT [facility] Occupational Therapy Start: 02-09-2024 End: 02-09-2024 Subsequent hospital visit by physician [place] Hoover OT [facility] Start: 02-09-2024 End: 02-09-2024 Bamboo flowsheet Windy Martinez MD Work Phone: [facility] Start: 02-09-2024 End: 02-09-2024 Bamboo flowsheet Windy Martinez MD Work Phone: [facility] Start: 02-09-2024 End: 02-09-2024 ambulatory WINDY MARTINEZ Not Available Start: 02-02-2024 End: 02-02-2024 Subsequent hospital visit by physician [place] OT [facility] Start: 01-31-2024 End: 01-31-2024 ambulatory HINA PANCHAL [facility] Start: 01-31-2024 End: 01-31-2024 Subsequent hospital visit by physician [place] OT [facility] Comment on above: Arrived Start: 01-17-2024 End: 01-17-2024 Bamboo flowsheet Denilson Pocos DO Work Phone: [facility] Start: 01-17-2024 End: 01-17-2024 Bamboo flowsheet Denilson Pocos DO Work Phone: [facility] Start: 01-17-2024 End: 01-17-2024 Patient encounter procedure Denilson Pocos DO Work Phone: [facility] Comment on above: Carpal tunnel syndro me on right (Primary Dx); S/P carpal tunnel release Start: 01-17-2024 End: 01-17-2024 ambulatory HINA Woods POCOS Not Available Start: 01-05-2024 End: 01-05-2024 Orders Only Denilson Pocos DO Work Phone: [facility] Comment on above: Carpal tunnel syndro me on right (Primary Dx) Start: 12-22-2023 End: 12-22-2023 Bamboo flowsheet Denilson Pocos DO Work Phone: [facility] Start: 12-22-2023 End: 12-22-2023 Bamboo flowsheet Hina Woods Pocos DO Work Phone: [facility] Start: 12-22-2023 End: 12-22-2023 Patient encounter procedure Hina Panchal DO Work Phone: [facility] Comment on above: Carpal tunnel syndro me on right (Primary Dx) Start: 12-22-2023 End: 12-22-2023 ambulatory HINA Woods POCOS Not Available Start: 12-16-2023 End: 12-16-2023 Bamboo flowsheet Christophyvette Tsangett DO Work Phone: [facility] Start: 12-16-2023 End: 12-16-2023 Bamboo flowsheet Christopher Joaquín DO Work Phone: [facility] Start: 12-16-2023 End: 12-16-2023 Patient encounter procedure Christophyvette Tsangett DO Work Phone: [facility] Comment on above: Carpal tunnel syndro me on right (Primary Dx) Start: 12-16-2023 End: 12-16-2023 ambulatory GAB YANES Not Available Start: 12-10-2023 End: 12-10-2023 ambulatory HINA Woods POCOS Not Available Start: 12-10-2023 End: 12-10-2023 Patient encounter procedure Hina Panchal DO Work Phone: [facility] Comment on above: Right hand pain (Nina jeannine Dx); Carpal tunnel syndrome on right; Primary osteoarthritis of first carpometacarpal joint of right hand; Primary osteoarthritis of right hand; Primary osteoarthritis of right wrist Start: 12-10-2023 End: 12-10-2023 ambulatory DENILSON POCOS Not Available Start: 10-04-2023 End: 10-04-2023 ambulatory Parish Garcias MD Facility: [place] Start: 07-26-2023 End: 07-26-2023 ambulatory Parish Garcias MD Facility: [facility] Start: 03-15-2023 End: 03-15-2023 Encounter for other preprocedural examination [facility] Start: 03-15-2023 End: 03-17-2023 ambulatory [facility] Start: 03-15-2023 End: 03-17-2023 ambulatory [facility] Start: 01-18-2023 End: 01-18-2023 ambulatory Parish Garcias MD Facility:[facility] Start: 12-07-2022 End: 12-07-2022 ambulatory Parish Garcias MD Facility:[facility] Start: 11-16-2022 End: 11-16-2022 ambulatory Parish Garcias MD Facility:[facility] Start: 06-21-2022 End: 06-21-2022 Emergency department patient visit Elbert Ramos MD Work Phone: [facility] ED Comment on above: Acute bacterial conj unctivitis of both eyes (Primary Dx) Start: 12-25-[address] ELOY Pace ty:[facility] Start: 11-20-2021 End: 11-21-[address] ELOY DAVIDSON Facility:[facility] Start: 10-02-[address] ELOY Pace ty:[facility] Start: 09-16-2021 End: 09-16-[address] ELOY DAVIDSON Facility:[facility] Start: 09-01-2021 End: 09-01-2021 Subsequent hospital visit by physician Dolores Calixto MD Work Phone: [facility] Start: 08-19-2021 End: 08-20-[address] ELOY DAVIDSON Facility:[facility] Start: 06-26-2021 End: 06-27-[address] ELOY DAVIDSON Facility:[facility] Start: 06-18-2021 End: 06-19-[address] RAMÓN ACEVEDO Facility:[facility] Start: 02-11-2021 End: 02-11-2021 Subsequent hospital visit by physician Dolores Calixto MD Work Phone: [facility] Comment on above: Screening cholestero l level Start: 01-21-2021 End: 01-22-[address] ELOY DAVIDSON Facility:[facility] Start: 01-08-[address] ELOY DAVIDSON Facili ty:[facility] Start: 09-09-2020 End: 09-11-2020 Subsequent hospital visit by physician [facility] Mammography Room [facility] Mammography Comment on above: Breast cancer [...] Date Procedure Procedure Detail Performing Clinician Start: 02-09-2024 End: 02-09-2024 Ophth medical xm&eval comprhnsv estab pt 1/> PCO (posterior capsular opacification), bilateral Windy Martinez MD Work Phone: Comment on above: PCO (posterior capsu lar opacification), bilateral (Primary Dx); Pseudophakia Start: 12-16-2023 End: 12-16-2023 Needle emg ea extremty w/paraspinl area complete Gab Yanes DO Work Phone: Start: 12-10-2023 Radex hand minimum 3 views Hina Panchal DO Work Phone: Start: 03-15-2023 Mammography Hina Nuñez s DO Work Phone: Start: 09-01-2021 Ecg routine ecg w/le ast 12 lds w/i&r Eloy Davidson MD Work Phone: Start: 02-11-2021 Lipid panel Dolores cervantes MD Work Phone: Start: 02-11-2021 PATIENT FASTING? Dolores Calixto MD Work Phone: Start: 09-09-2020 Screening mammograph y bi 2-view breast inc cad Eddie 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 SAMPLE COORDINATOR - BODY COVERER Work Phone: History of decompres lyle of median nerve S/P carpal tunnel release Hina Panchal DO Work Phone: Plan of Treatment Date Care Activity Detail Author Start: 02-11-2026 Lipid panel [facility] Start: 03-15-2025 Screening for malign ant neoplasm of breast Breast cancer screen [facility] Start: 09-15-2024 Screening for malign ant neoplasm of colon [facility] Start: 09-04-2024 End: 09-04-2024 Patient encounter procedure 09/04/2024 9:00 AM EDT Office Visit [facility] [address] [place] [address] Dolores Calixto MD [address] [place] [address] AWV [facility] Comment on above: AWV Start: 08-31-2024 Depression Screen Depression Screen [facility] Start: 03-15-2024 Screening for malign ant neoplasm of breast Mammogram [facility] Start: 02-21-2024 End: 02-21-2024 Patient encounter procedure [facility] Occup[facility] Therapy Comment on above: Carpal Tunnel Releas e Start: 02-14-2024 End: 02-14-2024 Patient encounter procedure [facility] Comment on above: Carpal Tunnel Releas e Start: 02-11-2024 End: 02-11-2024 Patient encounter procedure [facility] Comment on above: Carpal Tunnel Releas e Start: 02-09-2024 End: 02-09-2024 Patient encounter procedure [facility] Comment on above: Carpal Tunnel Releas e Start: 02-09-2024 End: 02-09-2024 Patient encounter procedure [facility] Comment on above: Arrived Start: 02-02-2024 End: 02-02-2024 Patient encounter procedure 02/02/2024 2:45 PM EST Appointment [facility] Occupational Therapy [address] [place] [address] [place] Hoover OT [facility] Start: 01-18-2024 End: 01-18-2024 Patient encounter procedure 01/18/2024 10:45 AM EST Office Visit [facility] [address] [place] [phone] Windy Martinez MD [address] [place] [address] [facility] Start: 01-17-2024 End: 01-17-2024 Patient encounter procedure [facility] Comment on above: Arrived Start: 12-22-2023 End: 12-22-2023 Patient encounter procedure 12/22/2023 10:15 AM EDT Office Visit [facility] [address] [phone] Hina Panchal DO [address] [place], [place] [id number] Arrived [facility] Comment on above: Arrived Start: 12-16-2023 End: 12-16-2023 Patient encounter procedure 12/16/2023 12:00 PM EDT Procedure [facility] [address] [place] [phone] Gab Yanes DO [address] [place] [address] Arrived [facility] Comment on above: Arrived Start: 10-24-2023 COVID-19 Vaccine ( season) COVID-19 Vaccine ( season) [facility] Start: 10-24-2023 Influenza vaccination Influenza Vacc ine (#1) [facility] Start: 09-23-2023 Influenza vaccination [facility] (# [facility] Start: 04-03-2023 Screening for malign ant neoplasm of colon [facility] [employer] [facility] Start: 04-01-2023 Lipid panel [facility] Work Phone: Start: 04-01-2023 Lipid screen [facility] th- [place], [place] Start: 03-25-2023 Annual Wellness Visi t (AWV) Annual Wellness Visit (AWV) [facility] Start: 03-24-2023 Depression Screen Depression Screen [facility] Start: 09-09-2022 Screening for malign ant neoplasm of breast Breast cancer screen [facility] Start: 07-29-2022 Depression Screen Depression Screen [facility] Start: 02-11-2022 Screening for malign ant neoplasm of colon [facility] Start: 01-29-2022 Annual Wellness Visi t (AWV) Annual Wellness Visit (AWV) [facility] Start: 10-23-2021 Influenza vaccination Flu vaccine (# 1) [facility] Start: 03-25-2021 COVID-19 Vaccine (4 - Booster) COVID-19 Vaccine (4 - Booster) [facility] [employer] Start: 02-25-2021 End: 02-25-2021 Patient encounter procedure 02/25/2021 Appointment Radiology [facility] Jeanine Dexa Scan Start: 11-28-2020 Pneumococcal 65+ yea rs Vaccine (2 - PPSV23 if available, else PCV20) Pneumococcal 65+ years Vaccine (2 - PPSV23 if available, else PCV20) [facility] Start: 11-28-2020 Pneumococcal 65+ yea rs Vaccine (2 - PPSV23 or PCV20) Pneumococcal 65+ years Vaccine (2 - PPSV23 or PCV20) [facility] Start: 11-28-2020 Pneumococcal 65+ yea rs Vaccine (2 of 2 - PPSV23 or PCV20) Pneumococcal 65+ years Vaccine (2 of 2 - PPSV23 or PCV20) [facility] Start: 11-28-2020 Pneumococcal 65+ yea rs Vaccine (2 of 2 - PPSV23) Pneumococcal 65+ years Vaccine (2 of 2 - PPSV23) [facility] Start: 11-28-2020 Pneumococcal Vaccine : 65+ Years (2 of 2 - PPSV23 or PCV20) Pneumococcal Vaccine: 65+ Years (2 of 2 - PPSV23 or PCV20) [facility] Start: 10-23-2020 Influenza vaccination Flu vaccine (# 1) [facility] Start: 09-03-2020 Screening for malign ant neoplasm of colon Colon Cancer Screen FIT/FOBT [facility] Work Phone: Start: 04-29-2020 COVID-19 Vaccine (2 - Moderna 3-dose series) COVID-19 Vaccine (2 - Moderna 3-dose series) [facility] [facility] Start: 08-31-2019 Annual Wellness Visi t (AWV) Annual Wellness Visit (AWV) [facility] Work Phone: Start: 02-16-2019 End: 02-16-2019 Patient encounter procedure 02/16/2019 Appointment Physical Therapy Hayley Orta PT [facility] Start: 02-02-2019 End: 02-02-2019 Appointment 02/02/2019 Appointment Physical Therapy Hayley Orta PT [facility] Start: 01-31-2019 End: 01-31-2019 Appointment 01/31/2019 Appointment Physical Therapy Le Stark [facility] Start: 01-26-2019 End: 01-26-2019 Appointment 01/26/2019 Appointment Physical Therapy Hayley Orta, PT [facility] Start: 12-26-2018 End: 12-26-2018 Appointment 12/26/2018 Appointment Physical Therapy Le Stark [facility] Start: 12-23-2018 End: 12-23-2018 Appointment 12/23/2018 Appointment Physical Therapy Le Stark [facility] Start: 12-21-2018 End: 12-21-2018 Appointment 12/21/2018 Appointment Physical Therapy Le Stark [facility] Start: 12-19-2018 End: 12-19-2018 Appointment 12/19/2018 Appointment Physical Therapy Le Stark [facility] Start: 12-16-2018 End: 12-16-2018 Appointment 12/16/2018 Appointment Physical Therapy Margot Mercado, PT [facility] Start: 12-08-2018 End: 12-08-2018 Appointment 12/08/2018 Appointment Physical Therapy Julia Quijano, PT [address] [place] [address] [phone] [facility] Start: 10-23-2018 Influenza vaccination Flu vaccine (# 1) [place], [place] Start: 08-23-2018 Annual Wellness Visi t (AWV) Annual Wellness Visit (AWV) [place] Start: 2018 DEXA (modify frequen cy per FRAX score) DEXA (modify frequency per FRAX score) [place] Start: 2018 Pneumococcal 65+ yea rs Vaccine (1 of 1 - PPSV23) Pneumococcal 65+ years Vaccine (1 of 1 - PPSV23) [place] Start: 2018 Pneumococcal 65+ yea rs Vaccine (1 of 2 - PCV13) Pneumococcal 65+ years Vaccine (1 of 2 - PCV13) [place] Start: 03-16-2018 Breast cancer screen Breast cancer s crebetty [place] Start: 03-16-2017 Colon Cancer Screen FIT/FOBT Colon Cancer Screen FIT/FOBT [place] Start: 2008 Screening for osteoporosis DEXA (modify frequency per FRAX score) [facility] Start: 2003 Screening for malign ant neoplasm of lung Low dose CT lung screening [facility] Start: 2003 Shingles Vaccine (1 of 2) Shingles Vaccine (1 of 2) [facility] Start: 1998 Screening for malign ant neoplasm of colon [facility] Start: 1993 Diabetes screen Diabetes screen [facility] Work Phone: Start: 1988 Diabetes screen Diabetes screen [facility] Start: 1974 Cervical cancer screen Cervical canc er screen [place], [place] Start: 1972 DTaP/Tdap/Td vaccine (1 - Tdap) DTaP/Tdap/Td vaccine (1 - Tdap) [facility] Start: 1971 Hepatitis C screening [facility] Start: 1968 HIV screen HIV screen [place], [place] Start: 1964 DTaP/Tdap/Td vaccine (1 - Tdap) DTaP/Tdap/Td vaccine (1 - Tdap) [place], [place] Start: 1953 Hepatitis C screen Hepatitis C scree n [place] Start: 1953 Hepatitis C screening Hepatitis C [facility] Start: 1953 Screening for malign ant neoplasm of colon [facility] EKG 12 Lead EKG 12 Lead ECG Routine 09/01/2021 8:08 AM EDT [facility] Work Phone: XR Hand - right 3 Views XR hand 3+ views right Imaging Routine Right hand pain 12/10/2023 8:34 AM EDT [facility] Work Phone: Immunizations Immunization Date Immunization Notes Care Provider Jolynn aiken 02-10-2023 Influenza, FLUAD, (a ge 65 y+), IM, Quadv, 0.5mL Grant Hoover OT [facility] 02-10-2023 influenza virus vaccine, unspecified formulation Hina Panchal DO Work Phone: [facility] 12-15-2021 Influenza, FLUAD, (a ge 65 y+), Adjuvanted, 0.5mL Elbert Ramos MD Work Phone: [facility] Work Phone: 02-10-2021 Influenza, FLUAD, (a ge 65 y+), Adjuvanted, 0.5mL Elbert Ramos MD Work Phone: [facility] Work Phone: 01-28-2021 COVID-19, MODERNA Booster BLUE border, (age 18y+), IM, 50mcg/0.25mL Dolores Calixto MD Work Phone: [facility] Work Phone: 04-24-2020 COVID-19, MODERNA BL UE border, Primary or Immunocompromised, (age 12y+), IM, 100 mcg/0.5mL Dolores Calixto MD Work Phone: [facility] 04-01-2020 COVID-19, Moderna, P F, 100mcg/0.5mL [facility] 11-29-2019 Influenza, FLUAD, (a ge 65 y+), Adjuvanted, 0.5mL Elbert Ramos MD Work Phone: [facility] Work Phone: 11-29-2019 influenza, high dose seasonal, preservative-free [facility] Work Phone: 11-29-2019 pneumococcal conjuga te vaccine, 13 valent [facility] Work Phone: 12-13-2018 Seasonal trivalent influenza vaccine, adjuvanted, preservative free [facility] [place] 12-10-2017 influenza virus vaccine, unspecified formulation Elbert Ramos MD Work Phone: [facility] Work Phone: 12-10-2017 influenza, injectabl e, quadrivalent, preservative free [facility] Payers Date Payer Category Payer Medicare (Managed Care) [employer] [id number] 2023 Unknown [id number] 2022 Medicare 2022 Private Health Insurance 2014 Medicare MEDICARE MEDICAR E PART A AND B xxxxxxxxxxx 2014-Present [phone] [address] [address] [place] [address] xxxxxxxxxxx [id number] 2014 Private Health Insurance AEARLINE Chuck MIGDALIA SENIOR MEDICARE SUPP xxxxxxxxxx 2014-Present [phone] [address] [place] [address] xxxxxxxxxx [id number] 1959 Medicare [id number] 1959 Private Health Insurance [facility] [id number] 1953 Unknown [id number] 2.16.840.1.355672.3.579.2 .593 1953 Unknown [id number] 2.16.840.1.978063.3.579.2 .593 1953 Unknown [id number] 2.16.840.1.930712.3.579.2 .593 1953 Unknown [id number] 2.16.840.1.840197.3.579.2 .593 1953 Unknown [id number] 2.16.840.1.039688.3.579.2 .593 1953 Unknown [id number] 2.16.840.1.776644.3.579.2 .593 1953 Unknown [id number] 2.16.840.1.783833.3.579.2 .593 1953 Unknown [id number] 2.16.840.1.767157.3.579.2 .593 1953 Unknown [id number] 2.16.840.1.829155.3.579.2 .593 1953 Unknown [id number] 2.16.840.1.705224.3.579.2 .196 1953 Unknown [id number] 2.16.840.1.935772.3.579.2 .196 1953 Unknown [id number] 2.16.840.1.780794.3.579.2 .196 1953 Unknown [id number] 2.16.840.1.899746.3.579.2 .196 1953 Unknown [id number] 2.16.840.1.680695.3.579.2 .196 1953 Unknown [id number] 2.16.840.1.598753.3.579.2 .1259 1953 Unknown [id number] 2.16.840.1.768224.3.579.2 .1259 1953 Unknown [id number] 2.16.840.1.314231.3.579.2 .1259 1953 Unknown [id number] 2.16.840.1.918585.3.579.2 .1259 1953 Unknown [id number] 2.16.840.1.724329.3.579.2 .1259 1953 Unknown [id number] 2.16.840.1.963904.3.579.2 .1259 1953 Unknown [id number] 2.16.840.1.408067.3.579.2 .174 1953 Unknown [id number] 2.16.840.1.294947.3.579.2 .174 1953 Unknown [id number] 2.16.840.1.646349.3.579.2 .174 1953 Unknown [id number] 2.16.840.1.101488.3.579.2 .174 1953 Unknown [id number] 2.16.840.1.362231.3.579.2 .174 1953 Unknown [id number] 2.16.840.1.893096.3.579.2 .174 Social History Date Type Detail Facility Start: 03-28-2018 End: 03-15-2023 Tobacco smoking status NHIS Former smoker [place], [place] Start: 02-23-1984 End: 02-22-2006 History of tobacco use Current sm[place] Start: 02-23-1984 End: 02-22-2006 History of tobacco use Cigarette Smoker [place] Start: 03-28-2018 End: 09-23-2022 Cigarettes smoked current (pack per day) - Reported [facility] Start: 03-28-2018 End: 02-09-2024 Alcohol intake Current drinker of alcohol (finding) [place] Start: 10-14-2015 Alcohol Comment moderate [place], [place] Start: 1955 Sex Assigned At Not on file [place] Start: 03-28-2018 End: 08-02-2023 Alcohol intake Yes [employer] Start: 04-17-2020 End: 03-15-2023 Tobacco use and exposure Never used [employer] Start: 08-31-2019 End: 02-27-2022 History SDOH Financial 5 [employer] Work Phone: Start: 08-31-2019 End: 02-27-2022 History SDOH Food Worry 1 [employer] Work Phone: Start: 08-31-2019 End: 03-24-2022 History SDOH Transport Med 2 [employer] Work Phone: Start: 06-21-2022 End: 09-01-2023 Alcohol intake Ex-drinker (finding) [employer] Work Phone: Start: 06-21-2022 History SDOH Alcohol Std Drinks 0 [employer] Work Phone: Start: 03-24-2022 History SDOH Physica l Activity DPW 4 [employer] Work Phone: Start: 12-22-2023 Alcohol Comment One or two on weekends [facility] How often to you hav e a drink containing alcohol? Monthly or less [employer] How many standard dr inks containing alcohol do you have on a typical day? 1 or 2 [employer] How often do you hav e 6 or more drinks on 1 occasion? Never [employer] How hard is it for y ou to pay for the very basics like food, housing, medical care, and heating Not very hard [employer] Patient Health Questionnaire 9 item (PHQ-9) total score [Reported] 0 [employer] (I/We) worried wheth er (my/our) food would run out before (I/we) got money to buy more. Never true [employer] Medical Equipment Procedure Code Equipment Code Equipment Origin al Text Equipment Identifier Dates fluorescein ophthalmic strip 1 mg [id number] Start: 06-21-2022 End: 06-21-2022 Clinical Notes 02-07-2019 to 02-11-2024 Kathrine Carrington - 02/11/2024 2:00 PM Ankur Martinez MD - 02/09/2024 1:45 PM Kathrine Whitmore - 02/02/2024 2:45 PM Fernando Panchal DO - 01/17/2024 1:30 PM ESTDischarge Instructions Note Date & Type Note Facility 02-11-2024 History of Present illness Narrative Occupational Therapy [facility] Date: 02/11/2024 Patient Name: Izzy Silverio : 1955 Patient no call/no show Kathrine Carrington Date: 02/11/2024 documented in this encounter [facility] 02-09-2024 History of Present illness Narrative Assessment/Plan PCO OU: (Posterior Capsule Opacification) Can be observed without intervention if PCO is not visually significant. Nd:YAG laser capsulotomy may be considered if impairment of vision rises to a level that dose not meet the patient's functional needs or interferes with activities of daily living. Risks, benefits and alternatives to the procedure will be reviewed. If the patient has undergone Nd:YAG laser capsulotomy, they are to notify their button breaker promptly if they have a significant change in symptoms, such as flashes of light (photopsia), an increase in floaters, loss of visual field or decrease in visual acuity. documented in this encounter [facility] 02-02-2024 History of Present illness Narrative Occupational Therapy [facility] Date: 02/02/2024 Patient Name: Izzy Silverio : 1955 Patient called to cancel today's appt. Due to having to take her nephew to get his hair cut. Kathrine Carrington Date: 02/02/2024 documented in this encounter [facility] 01-17-2024 History of Present illness Narrative Chief complaint: S/P carpal tunnel-first postoperative visit History: S/P carpal tunnel release, doing well. No complaints with anesthesia or zeke-operative ancillary care. Pain is controlled. No chest or SOB. Dysthesias are improving. Physical Exam: Inspections shows mild swelling and ecchymosis as expected. Incision is clean, dry and intact. Sutures are removed. No signs of infection or blood clot. Pain and dysthesias improved. Xrays: None today. Assessment: S/P carpal tunnel release-first post operative visit Treatment Plan: The nature of the findings were discussed at length. Continue cloud security architect and start Vitamin E oil massage, exercises twice daily for the next few weeks. Etiology of pillar pain reviewed and will lessen over the next couple months. Bookkeeping Teacher strength and return expectations reviewed, with improvement up to 3-6 months.. OT was offered and discussed. F/U will be in 1 months, prn if doing well. All questions answered. documented in this encounter [facility] 12-22-2023 History of Present illness Narrative Images from the original note were not included. GENERAL HISTORY AND PHYSICAL: NAME: Izzy Silverio : 1955 CHIEF COMPLAINT: Follow up right carpal tunnel syndrome. HISTORY OF PRESENT ILLNESS: This is a 68 y.o. female who presents for a pre-op H&P. Cynthia returns here today for repeat evaluation of her carpal tunnel. She continues to struggle with numbness and tingling. She is to the point where she simply wants this fixed . She denies any new or interval symptoms. No increasing symptoms of numbness and tingling. Her left hand is fine. PAST MEDICAL HISTORY: Past Medical History: Diagnosis Date Arthritis PAST SURGICAL HISTORY: Past Surgical History: Procedure Laterality Date BACK SURGERY BREAST CYST EXCISION HYSTERECTOMY SOCIAL HISTORY: Social History Occupational History Not on file Tobacco Use Smoking status: Former Current packs/day: 0.50 Average packs/day: 0.5 packs/day for 15.0 years (7.5 ttl pk-yrs) Types: Cigarettes Smokeless tobacco: Never Vaping Use Vaping status: Never Used Substance and Sexual Activity Alcohol use: Yes Comment: One or two on weekends Drug use: Never Sexual activity: Yes Partners: Male ALLERGIES: No Known Allergies MEDICATIONS: Current Outpatient Medications Medication Instructions gabapentin (Neurontin) 100 MG capsule REVIEW OF SYSTEMS: The review of systems, history and current medications list are all reviewed today. Vitals: Visit Vitals Ht 5' 1.5 Wt 137 lb BMI 25.47 kg/m OB Status Unknown Smoking Status Former BSA 1.64 m PHYSICAL EXAM: Her orthopedic exam reveals a dynamic thumb spica type brace. She has no gross deformity. Gentle arc of motion is without difficulty. Her neurocirculatory status is overall grossly intact. She does not have any atrophy, but she does have the positive Tinel's, positive Phalen's. She does have the hypertrophic change lead the basilar thumb carpometacarpal joint bilaterally. Examination of the left side shows negative Tinel's, negative Phalen's with hypertrophic change as described. X-rays EMG NCV testing is reviewed and shows moderate median neuropathy of the right wrist, carpal tunnel syndrome. This is Dr. Yanes 12-16-2023. Surgical History and Physical: GENERAL AND PSYCHOLOGICAL: The patient is alert and oriented for age. HEAD AND E.E.N.T.: The skull is normocephalic. There is no mass or sign of trauma. NECK: The neck is supple. There is good range of motion. There is no mass or adenopathy appreciated. The thyroid is not enlarged. CARDIAC: The heart is regular. There is no murmur or ectopy appreciated. LUNGS: Inspiratory and expiratory excursions are symmetrical. The lung grande are clear in all quadrants. ABDOMEN: The texture is soft. Bowel sounds are heard well in all quadrants. There is no tenderness to palpation. There is no organomegaly appreciated. OSTEOPATHIC AND STRUCTURAL: There is no gross evidence of kyphosis, lordosis, scoliosis, or apparent leg length discrepancy, with no acute tissue texture changes in sitting or standing positions. ASSESSMENT: Right wrist median neuropathy, carpal tunnel syndrome. PLAN: The findings are discussed. We did recommend supportive care for her. We did discuss definitively surgical intervention in the form of carpal tunnel release. After a lengthy discussion, she wishes to go ahead with this. We will go ahead and identify a date for her and move toward that date. We did discuss the risks, complications, and reasonable expectations. These include but are not limited to infection which may necessitate further surgery, nerve or blood vessel injury, wound healing difficulty and dehiscence. We did discuss the goal of surgery is not relief of symptoms, but rather for prevention of further and possible irreversible damage to the median nerve. All questions are answered at length. She is discharged in stable condition. Follow up letter sent to her primary care physician. Hina Panchal D.O. Cosigned by Hina Panchal DO at 12/27/2023 7:44 AM EST documented in this encounter [facility] 12-16-2023 History of Present illness Narrative Images from the original note were not included. Reason for Appointment: EMG Patient: Izzy Silverio : 1955 EMG Computer: [employer] Referring Physician: Dr. Hina Panchal EMG: [employer] enterprise records analyst: Ralph Ayala RT(R) Office Location: [place] Reason for EMG: c/o numbness/tingling in right hand/fingers. No hx of DM. Not on blood thinners. Comments: Procedure was explained to the patient who expressed understanding. Patient appeared to have tolerated the test well despite some discomfort due to the nature of the test. documented in this encounter [facility] 12-10-2023 History of Present illness Narrative Images from the original note were not included. Izzy Silverio is a 68 y.o. female presents with chief complaint of right hand and wrist numbness. HPI: Cynthia is a 68-year-old right hand dominant white female referred by Dr. Rhodes for evaluation of her right hand. She has had numbness and tingling for a six month time period. She did apparently see pain management. They recommended an MRI. She saw Dr. Rhodes. He told her it was likely carpal tunnel and referred her here. She has not had any treatment or care. Again, this has been about six months. She does have known arthritis of her hands. It sounds as if she does have a failed low back surgery. SUBJECTIVE: MEDICATIONS: Current Outpatient Medications Medication Instructions gabapentin (Neurontin) 100 MG capsule ALLERGIES: No Known Allergies SURGICAL HISTORY: Past Surgical History: Procedure Laterality Date BACK SURGERY BREAST CYST EXCISION HYSTERECTOMY FAMILY HISTORY: Family History Problem Relation Name Age of Onset Stroke Mother Hypertension Mother SOCIAL HISTORY: Social History Tobacco Use Smoking status: Former Types: Cigarettes Vaping Use Vaping status: Never Used Substance Use Topics Alcohol use: Yes Drug use: Never Depression: Not at risk (09/01/2023) Received from [facility] PHQ-2 PHQ-9 Total Score: 0 REVIEW OF SYMPTOMS: The review of systems, history and current medications list are all reviewed today. OBJECTIVE: Visit Vitals Ht 5' 1.5 Wt 137 lb BMI 25.47 kg/m OB Status Unknown Smoking Status Former BSA 1.64 m Physical Exam Her orthopedic exam here today reveals a pleasant [age] year white female in no acute distress. She has significant hypertrophic change basilar thumb carpometacarpal joint bilaterally. She does have positive Tinel's, positive Phalen's at around 20 seconds on the right side, negative on the left. She has no thenar atrophy. Radial and ulnar pulses are brisk. She does have some deformity of the digits bilaterally. X-rays of the right wrist AP, lateral and oblique does show severe basilar thumb carpometacarpal joint osteoarthritis with significant thumb metacarpophalangeal osteoarthritis. She does have significant change at the distal interphalangeal joint of the index finger. Her wrist is arthritic. There is no evidence of other finding of significance. ASSESSMENT AND PLAN: Assessment/Plan Right wrist median neuropathy, carpal tunnel syndrome with hand and wrist osteoarthritis, basilar thumb carpometacarpal joint osteoarthritis. The findings are discussed. Her symptoms do appear to be that of median neuropathy at the level of the wrist. We did discuss the two concerns as timing and severity. We will go ahead with neurodiagnostic testing. This will be set up accordingly. We did discuss this at length with her. We did outline likely surgical intervention in the form of carpal tunnel release. We will see her back after the testing for review and further recommendations. We did discuss the concerns over compressive neuropathy in general. She is given information on vitamin B6. She is well aware of this based upon her prior nerve damage related to a lumbar problem. Follow up letter sent to Dr. Rhodes and Dr. Calixto. Cosigned by Hina Panchal DO at 12/13/2023 11:42 AM EDT documented in this encounter [facility] 06-21-2022 Hospital Discharge instructions Elbert Ramos MD - 06/21/2022 7:46 AM EDT Use eye drops- 2 drops to both eyes 4 times a day for 4 days. Follow up with your environmental communications specialist if symptoms persist or worsen. Follow up with Dr. Calixto to have your blood pressure rechecked. The following attachments cannot be sent through Care Everywhere.Conjunctivitis (Bulgarian)Hypertension (Bulgarian)documented in this encounter [employer] Phone: 11-20-2021 Note CONSULTATION CONSULTATION DATE: 11/22/2021 [...] fusion was performed in 2019 at the [facility]. The patient presents very discouraged today and [...] care and all questions answered today. [facility] 08-19-2021 Note CONSULTATION PROCEDURE DATE: 08/19/2021 PREOPERATIVE [...] will be followed up in the office. [facility] Signed and Approved by: DR ELOY DAVIDSON . 09/02/2021 07:55:00 [facility] 08-19-2021 Note CONSULTATION CONSULTATION DATE: 08/19/2021 CHIEF COMPLAINT: 1. Left leg motor weakness, left foot pain. 2. Right hip pain. HISTORY OF PRESENT ILLNESS: This is a 66-year-old female who has a complicated history. The patient had two lumbar surgeries subsequent to which the patient had significant pain in her left foot, residual pain. The patient had a decompressive surgery at [facility] and then a second diskectomy at the level of L5-S1 in [place]. The patient states, subsequent to that, she [...] the MRI disc to the surgeon in [place] where she has the confidence of the surgeon. The patient understands and would like to proceed. CC: Dr. Calixto [facility] Signed and Approved by: DR ELOY DAVIDSON . 09/02/2021 07:55:00 [facility] 06-26-2021 Note CONSULTATION CONSULTATION DATE: 06/26/2021 This [...] present but decreased. She is consistently taking [id number] anti-inflammatories once to twice a day as needed. 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 Sitting and heat decreases [...] plan of care. All questions were answered. [facility] Signed and Approved by: ADELFO GARCIA . 07/02/2021 14:04:00 [facility] 06-18-2021 Note PROCEDURE: XR HIP RT 2 [...] by: RAMÓN ACEVEDO Date: 2021-06-18 08:53 [facility] 06-18-2021 Note CONSULTATION CONSULTATION DATE: 06/18/2021 HISTORY [...] with that and would like to proceed. [facility] Signed and Approved by: ADELFO GARCIA . 06/19/2021 09:41:00 [facility] 01-21-2021 Note PAIN MANAGEMENT DATE: 01-21-21 CHIEF [...] get about her house. This was in [place]. The patient had undergone three epidurals, failed [...] up post MRI. CC: Aruna Calixto PA-C. IF Signed and Approved by: DR ELOY DAVIDSON . 01/28/2021 08:59:00 [facility] 02-16-2019 History of Present illness Narrative [facility] Date: 02/16/2019 Patient Name: Izzy Silverio : 1955 Pt Cancelled Appt due to had out of town company, and cannot make it to this appointment. Kay Fitzgerald Date: 02/16/2019 documented in this encounter [employer] Phone: 02-09-2019 History of Present illness [facility] Date: 02/09/2019 Patient Name: Izzy Silverio : 1955 Pt Cancelled Appt due to in [place] with a flat tire. [place] Date: 02/09/2019 documented in this encounter [employer] Phone: 02-07-2019 History of Present illness [facility] Date: 02/07/2019 Patient Name: Izzy Silverio : 1955 Pt Cancelled Appt due to does not want to do dry needling. Le Hoover Carolyn Date: 02/07/2019 documented in this encounter [employer] Phone: Evaluation note Diagnosis Breast cancer screening by mammogram documented in this encounter [employer] Phone: evaluation note* Diagnosis Screening cholesterol level Screening for lipoid disorders documented in this encounter [employer] Phone: evaluation note* Diagnosis Acute bacterial conjunctivitis of both eyes- Primary documented in this encounter LISA MCCOLLUM [employer] Phone: evaluation note* Diagnosis Right hand pain- Primary Pain in soft tissues of limb Carpal tunnel syndrome on right Carpal tunnel syndrome Primary osteoarthritis of first carpometacarpal joint of right hand Primary osteoarthritis of right hand Primary osteoarthritis of right wrist [facility] Diagnosis Carpal tunnel syndrome on right- Primary Carpal tunnel syndrome [facility] Diagnosis Carpal tunnel syndrome on right- Primary Carpal tunnel syndrome [facility] Diagnosis Carpal tunnel syndrome on right- Primary Carpal tunnel syndrome [facility] Diagnosis Carpal tunnel syndrome on right- Primary Carpal tunnel syndrome S/P carpal tunnel release Other postprocedural status [facility]* Diagnosis PCO (posterior capsular opacification), bilateral- Primary Unspecified after-cataract Pseudophakia Lens replaced by other means [facility]* Other Medical (Routine) - Closed Specialty Diagnoses / Procedures Referred By Enoc t Referred To Contact Neurology Diagnoses Carpal tunnel syndrome, right upper limb Procedures HI NEEDLE EMG EA EXTREMTY W/PARASPINL AREA COMPLETE HI NERVE CONDUCTION STUDIES 9-10 STUDIES Hina Panchal DO [address] [place] [address] Phone: tel: fax: Joaquín JonaleonelDO [address] [place] [address] Phone: tel: fax: Referral ID Status Reason Start Date Expiration Date V isits Requested Visits Authorized [id number] Closed Perform Procedure 12/14/2023 06/11/2024 1 1 [facility] History of Present Illness * Margot Mercado, PT - 01/24/2019 8:45 AM EST [facility] Daily Note Date: 01/24/2019 Patient Name: Izzy Silverio : 1955 (63 y.o.) Referring Practitioner: TERA Negro Referral Date : 11/22/18 Diagnosis: S/P lumbar disectomy Treatment Diagnosis: Back pain, left leg pain Onset Date: 11/22/18(Referral) PT Insurance Information: [facility] Total # of Visits Approved: 14 Per Physician Order Total # of Visits to Date: 4 Canceled Appointment: 2 Plan of Care/Certification Expiration Date: 12/30/18 Pre-Treatment Pain: 8/10 Assessment Assessment: Patient returned from being in [place] x one month visiting family. She c/o [...] body mechanics with lifting following back education-met Prison Goals - Time Frame for senior living goals : 14 senior living goal 1: Gait WFL with even stride length exterminator helper termite goal 2: Improve functional mobility with score < 8/50 on Oswestry Disability senior living goal 3: Decrease left foot pain 4/10 at worst x 3 days senior living goal 4: Increase strength left ankle eversion 4/5 for improved stability Post Treatment Pain: 8/10 Time In: 8:45 Time Out : 9:30 Timed Code Treatment Minutes: 45 Minutes Total Treatment Time: 45 Minutes Margot Mercado PT Date: 01/24/2019 documented in this encounter* Kay Fitzgerald - 12/08/2018 9:07 AM EDT [facility] Date: 12/08/2018 Patient Name: Izzy Silverio : 1955 Pt Cancelled Appt due to left no reason for cancellation, rescheduled for next Wednesday12/16/18. Kay Fitzgerald Date: 12/08/2018 documented in this encounter* Le Stark - 12/21/2018 9:38 AM EDT [facility] Daily Note Date: 12/21/2018 Patient Name: Izzy Silverio : 1955 (63 y.o.) Referring Practitioner: TERA Negro Referral Date : 11/22/18 Diagnosis: S/P lumbar disectomy Treatment Diagnosis: Back pain, left leg pain Onset Date: 11/22/18(Referral) PT Insurance Information: [facility] Total # of Visits Approved: 6 Per Physician Order Total # of Visits to Date: 3 No Show: 0 Canceled Appointment: 2 Plan of Care/Certification Expiration Date: 12/30/18 Pre-Treatment Pain: 2/10 Assessment Assessment: Pt reports very good compliance [...] with score < 10/50 on Oswestry Disability Stone Fabricator Goals - Time Frame for exterminator helper termite goals : NA- patient request only 2 wks of PT due to leaving for prolonged stay in [place] Post Treatment Pain: 04/03 Time In: 0900 Time Out : 09 Timed Code Treatment Minutes: 35 Minutes Total Treatment Time: 35 Minutes Le Stark AIRLINE MECHANIC Date: 12/21/2018 documented in this encounter* Hayley Orta PT - 01/26/2019 10:15 AM EST [facility] Daily Note Date: 01/26/2019 Patient Name: Izzy Silverio : 1955 (63 y.o.) Referring Practitioner: TERA Negro Referral Date : 11/22/18 Diagnosis: S/P lumbar disectomy Treatment Diagnosis: Back pain, left leg pain Onset Date: 11/22/18(Referral) PT Insurance Information: [facility] Total # of Visits Approved: 14 [...] body mechanics with lifting following back education-met Stone Fabricator Goals - Time Frame for exterminator helper termite goals : 14 exterminator helper termite goal 1: Gait WFL with even stride length exterminator helper termite goal 2: Improve functional mobility with score < 8/50 on Oswestry Disability exterminator helper termite goal 3: Decrease left foot pain 4/10 at worst x 3 days exterminator helper termite goal 4: Increase strength left ankle eversion 4/5 for improved stability Post Treatment Pain: 0/10 Time In:1020 Time Out : 1100 Timed Code Treatment Minutes: 40 Minutes Total Treatment Time: 40 Minutes Hayley Orta, PT Date: 01/26/2019 documented in this encounter* Margot Mercado, PT - 12/16/2018 9:36 AM EDT [facility] Evaluation Date: 12/16/2018 Patient: Izzy Silverio : 1955 Referring Practitioner: TERA Negro Referral Date : 11/22/18 Diagnosis: S/P lumbar disectomy Treatment Diagnosis: Back pain, left leg pain Onset Date: 11/22/18(Referral) PT Insurance Information: [facility] Total # of Visits Approved: 6 [...] PT due toleaving for prolonged stay in [place]; focus on back education and HEP. Prognosis: [...] with score < 10/50 on Oswestry Disability exterminator helper termite goals Time Frame for exterminator helper termite goals : NA- patient request only 2 wks of PT due to leaving for prolonged stay in [place] Patient's Goal: Walk normal, without limp Timed Code Treatment Minutes: 20 Minutes Total Treatment Time: 50 Time In: 7:35 Time Out: 8:25 Margot Mercado, PT Date: 12/16/2018 documented in this encounter* CarolynDavonchuck Hoover - 12/02/2018 8:21 AM EDT [facility] Date: 12/02/2018 Patient Name: Izzy Silverio : 1955 Pt Cancelled Appt due to Illness Le Hoover Carolyn Date: 12/02/2018 documented in this encounter* Le Stark Nirmal - 12/19/2018 9:44 AM EDT [facility] Daily Note Date: 12/19/2018 Patient Name: Izzy Silverio : 1955 (63 y.o.) Referring Practitioner: TERA Negro Referral Date : 11/22/18 Diagnosis: S/P lumbar disectomy Treatment Diagnosis: Back pain, left leg pain Onset Date: 11/22/18(Referral) PT Insurance Information: [facility] Total # of Visits Approved: 6 [...] with score < 10/50 on Oswestry Disability Prison Goals - Time Frame for senior living goals : NA- patient request only 2 wks of PT due to leaving for prolonged stay in [place] Post Treatment Pain: 0/10 Time In: 0900 Time Out : 0940 Timed and total 40 min Le Nirmal Stark AIRLINE MECHANIC Date: 12/19/2018 documented in this encounter Advance Directives No Advanced Directives Records FoundDocuments on File Type Date Recorded Patient 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 Expl anation Advance Directives and Living Will Power of Woodwork Salvage Inspector Documents on File Type Date Recorded Patient 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 Expl anation ACP-Advance Directive ACP-Power of Woodwork Salvage Inspector Documents on File Type Date Recorded Patient 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 Expl 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 ACP-Advance Directive ACP-Power of Woodwork Salvage Inspector Healthcare Agents on File Name Relationship Healthcare Agent Relationshi p Communication Valdo Silverio Spouse Primary Decision Maker Healthcare Agents on File Name Relationship Healthcare Agent Relationshi p Communication Valdo Silverio Spouse Primary Decision Maker Healthcare Agents on File Name Relationship Healthcare Agent Relationshi p Communication Valdo Silverio Spouse Primary Decision Maker Healthcare Agents on File Name Relationship Healthcare Agent Relationshi p Communication Valdo Silverio Spouse Primary Decision Maker Healthcare Agents on File Name Relationship Healthcare Agent Relationshi p Communication Valdo Silverio Spouse Primary Decision Maker Healthcare Agents on File Name Relationship Healthcare Agent Relationshi p Communication Valdo Silverio Spouse Primary Decision Maker Summary Purpose [...] states Procedures [place] [address] [facility] [place] [address] Hayley Orta, PT Status Reason Specialty Diagnoses / Procedures Re ferred By Contact Referred To Contact Open Physical Therapy Diagnoses Other specified postprocedural states [place] [address] [facility] [place] [address] Hayley Orta, PT Status Reason Specialty Diagnoses / Procedures Referred By Contact Referred To Contact Pending Review Specialty Services Required Physical Therapy Diagnoses Acute left-sided low back pain with left-sided sciatica Radiculopathy of lumbar region Paresthesia of left foot Procedures physical therapy Dolores Calixto MD [address] [place] [address] [facility] [address] [place] [address] Status Reason Specialty Diagnoses / Procedures Referre d By Contact Referred To Contact Closed Radiology Diagnoses Breast cancer screening by mammogram Procedures RAMIRO CHRISTIANO DIGITAL SCREEN BILATERAL RAMIRO DIGITAL SCREEN W CAD BILATERAL Eddie Novoa, SAMPLE COORDINATOR - BODY COVERER [address] [place] [address] Reason Comments Facial Swelling Left eye started Wed day to feel like something was in eye. Woke up this morning swollen and still feels like something in eye. Reason Comments Pain Reason Comments Eye Exam Blurred Vision INFORMATION SOURCE (unrecogn ized section and content) DATE CREATED AUTHOR 09/15/2019 [facility] DATE CREATED AUTHOR AUTHOR'S ORGANIZ ATION 01/16/2020 [facility] DATE CREATED AUTHOR AUTHOR'S ORGANIZ ATION 02/09/2020 [facility] DATE CREATED AUTHOR AUTHOR'S ORGANIZ ATION 05/12/2021 [facility] DATE CREATED AUTHOR AUTHOR'S ORGANIZ ATION 01/02/2022 [facility] DATE CREATED AUTHOR AUTHOR'S ORGANIZ ATION 10/20/2023 [facility] DATE CREATED AUTHOR AUTHOR'S ORGANIZ ATION 02/12/2024 [facility] DATE CREATED AUTHOR AUTHOR'S ORGANIZ ATION 02/15/[address] [facility] Care Teams (unrecognized sec tion and content) Chef Concierge Relationship Specialty Start Date End Date Dolores Calixto MD [address] [place], [place] [id number] PCP - General Family Medicine 03/02/16 Chef Concierge Relationship Specialty Start Date End Date Dolores Calixto MD [address] [place] [address] PCP - General Family Medicine 03/02/16 Chef Concierge Relationship Specialty Start Date End Date Dolores Calixto MD [address] [place], [place] [id number] PCP - General Family Medicine 03/02/16 Chef Concierge Relationship Specialty Start Date End Date Dolores Calixto MD [address] [place] [address] PCP - General Family Medicine 12/01/23 Chef Concierge Relationship Specialty Start Date End Date Dolores Calixto MD [address] [place], [place] [phone] PCP - General Family Medicine 12/01/23 Chef Concierge Relationship Specialty Start Date End Date Dolores Calixto MD [address] [place] [address] PCP - General Family Medicine 12/01/23 Chef Concierge Relationship Specialty Start Date End Date Dolores Calixto MD [address] [place], [place] [phone] PCP - General Family Medicine 12/01/23 Chef Concierge Relationship Specialty Start Date End Date Dolores Calixto MD [address] [place] [address] PCP - General Family Medicine 12/01/23 Chef Concierge Relationship Specialty Start Date End Date Dolores Calixto MD [address] [place] [address] PCP - General Family Medicine 12/01/23 Chef Concierge Relationship Specialty Start Date End Date Dolores Calixto MD [address] [place] [address] PCP - General Family Medicine 12/01/23 Chef Concierge Relationship Specialty Start Date End Date Dolores Calixto MD [address] [place] [address] PCP - General Family Medicine 03/02/16 Chef Concierge Relationship Specialty Start Date End Date Dolores Calixto MD [address] [place] [address] PCP - General Family Medicine 03/02/16 Chef Concierge Relationship Specialty Start Date End Date Dolores Calixto MD [address] [place] [address] PCP - General Family Medicine 12/01/23 Chef Concierge Relationship Specialty Start Date End Date Dolores Calixto MD [address] [place] [address] PCP - General Family Medicine 03/02/16 Chef Concierge Relationship Specialty Start Date End Date Dolores aClixto MD [address] [place] [address] PCP - General Family Medicine 03/02/16 Scheduled [...] BE BASED ON THE PRIMARY CLINICAL RECORDS. [facility]. provides no warranty or guarantee of the accuracy or completeness of information in this document.
--- NOTE | 2024-03-02 13:24 | P.CN_ITS ---
Consult Note: HPI Data of Consult Patient: known to practice within the last 3 years Consult date: 10/04/23 Requesting Physician: Martha Arvizu NP Primary Care Provider: DOLORES LUND Consult Narrative Reason for consult: neck, right hand numbness and left foot pain Narrative: 68yof who presents for assessment. uses gabapentin 100-100-200 TID, which provides some benefit. since last visit she underwent carpal tunnel release with 100% improvement in hand numbness tingling. continues to have persistent left foot pain. cc:: CC: Martha Arvizu NP Review of Systems ROS Status of ROS 10 or more systems reviewed and unremark able except as noted in history and below Musculoskeletal Reports: extremity pain [facility] Medical History (Updated 10/04/23 @ 13:44 by Parish Garcias MD) Former smoker ?Z87.891 - Personal history of nicotine dependence (ICD-10) High cholesterol ?E78.00 - Pure hypercholesterolemia, unspecified (ICD-10) Surgical History H/O lumbosacral spine surgery ?Z98.890 - Other specified postprocedural states (ICD-10) H/O lumbar discectomy ?Z98.890 - Other specified postprocedural states (ICD-10) H/O: hysterectomy ?Z90.710 - Acquired absence of both cervix and uterus (ICD-10) Meds Home Medications and Allergies Home Medications ?Medication ?Instructions ?Recorded ?Confirmed ?Type ibuprofen 200 mg tablet (Advil) 200 mg PO QDAY PRN pain 11/16/22 01/18/23 History diazepam 2 mg tablet (Valium) 1 mg PO DAILY PRN anxiety 12/07/22 01/18/23 History gabapentin 100 mg capsule 200 mg PO TID 10/04/23 10/04/23 History Allergies Allergy/AdvReac Type Severity Reaction Status Date / Time No Known Drug Allergies Allergy Verified 01/18/23 07:22 Exam Constitutional Documenting provider has reviewed patient's vital signs: yes Common normals: no apparent distress, oriented x3, healthy appearing, alert and well nourished General appearance: cooperative HENMT Common normals: normocephalic, hearing grossly normal bilaterally and moist oral mucous membranes Head and scalp: normocephalic Eye Common normals: PERRL Pupil: PERRL Neck & C-Spine Common normals: full ROM General: normal visual inspection Chest Common normals: inspection of chest normal Respiratory Common normals: normal respiratory effort, no retractions and no use of accessory muscles Back & Pelvis Lumbar spine/lower back: normal to inspection, lumbar ROM normal and straight leg raise positive left Other: swelling discoloration altered sensation of left foot/LLE decreased sensation strength 4/5 Extremity Right lower extremity: knee joint Other: right knee no edema, mild crepitus, no pain with medial and lateral stress testing Neuro Common normals: oriented x3, CN's II-XII intact bilaterally, moves all extremities, no focal motor deficits, no sensory deficits noted, deep tendon reflexes 2+ bilaterally and gait normal Sensorium/orientation: alert Motor exam: strength 5/5 throughout and no movement abnormalities noted Psych Common normals: mental status grossly normal, thought process normal, cooperative, affect normal, speech normal and activity/motor behavior normal Speech: normal speech Thought process: normal thought process Assessment and Plan Assessment and Plan (1) Cervicalgia: Assessment and Plan: resolved (2) Lumbar postlaminectomy syndrome: (3) Lumbar stenosis with neurogenic claudication: (4) Osteoarthritis of right knee: Qualifiers: Osteoarthritis type: primary Qualified Code(s): M17.11 - Unilateral primary osteoarthritis, right knee Plan gabapentin 200mg TID, 90 day supply continue PRN aleve declining TFESI or SCS trial f/u 6 months, sooner if needed
== END 2024-03-02 12:50 | disposition home or self-care (01) ==
PROVIDERS: PCP Family Medicine; Visit Provider Nurse Practitioner
DX: M54.2 Cervicalgia (principal); M96.1 Postlaminectomy syndrome, not elsewhere classified; M48.062 Spinal stenosis, lumbar region with neurogenic claudication; M17.11 Unilateral primary osteoarthritis, right knee
CPT/HCPCS: G0463

== ENCOUNTER 2024-03-13 10:40 | Outpatient (OUT) | payer OTHER, SELFPAY ==
--- NOTE | 2024-03-13 11:02 | P.CN_ITS ---
Consult Note: HPI Data of Consult Patient: known to practice within the last 3 years Consult date: 03/13/24 Requesting Physician: Parish Garcias MD Primary Care Provider: DOLORES LUND Consult Narrative Reason for consult: right knee pain Narrative: 68yof who presents for assessment. Notes increasing right knee pain. Previously underwent right knee injection about 7 months ago, which provided significant relief >50% until recent. Continues in a series of provider directed home exercises. Uses gabapentin. Denies adverse med side effects. cc:: CC: Parish Garcias MD Review of Systems ROS Status of ROS 10 or more systems reviewed and unremark able except as noted in history and below [facility] Medical History Former smoker ?Z87.891 - Personal history of nicotine dependence (ICD-10) High cholesterol ?E78.00 - Pure hypercholesterolemia, unspecified (ICD-10) Surgical History H/O lumbosacral spine surgery ?Z98.890 - Other specified postprocedural states (ICD-10) H/O lumbar discectomy ?Z98.890 - Other specified postprocedural states (ICD-10) H/O: hysterectomy ?Z90.710 - Acquired absence of both cervix and uterus (ICD-10) Meds Home Medications and Allergies Home Medications ?Medication ?Instructions ?Recorded ?Confirmed ?Type ibuprofen 200 mg tablet (Advil) 200 mg PO QDAY PRN pain 11/16/22 01/18/23 History diazepam 2 mg tablet (Valium) 1 mg PO DAILY PRN anxiety 12/07/22 01/18/23 History gabapentin 100 mg capsule 200 mg PO TID 10/04/23 10/04/23 History gabapentin 100 mg capsule 200 mg (2 x 100 mg) PO TID #540 03/02/24 Rx caps Allergies Allergy/AdvReac Type Severity Reaction Status Date / Time No Known Drug Allergies Allergy Verified 01/18/23 07:22 Exam Narrative Exam Narrative: Psych-alert and oriented x 3.? Attentive and appropriate, constitutionally normal, displays normal mood and affect per situation.? There are no obvious deficits in memory, reasoning, or intellect. Extremities-lower extremities are warm with minimal edema and palpable pulses. Knee-examination of the right knee reveals tenderness to palpation over the superior, inferior, lateral, and medial aspect of the knee.? Some swelling is noted without erythema. Pain is elicited with flexion and extension of the knee both actively and passively.? Some grinding is noted with these motions.? There is no notable ligamental laxity or instability.? Coordination remains intact.? Gait remains antalgic. Assessment and Plan Assessment and Plan (1) Osteoarthritis of right knee: Qualifiers: Osteoarthritis type: primary Qualified Code(s): M17.11 - Unilateral primary osteoarthritis, right knee (2) Cervicalgia: (3) Cervical radiculopathy: Plan 68yof who presents for assessment. failed conservative measures, as noted. given previous relief and current symptoms, prudent to repeat right knee injection. she is in agreement. meds reviewed, no changes. in terms of radiating right arm pain, patient has had relief after recent carpal tunnel surgery. will hold off on interventional modalities at this time for this. follow up in 3 months. procedure: right knee injection medications: bupivacaine 0.25% 4cc, depomedrol 40mg I explained the details of the procedure to the patient including the risks, benefits and alternatives. We had an informed discussion and the patient verbalized understanding and signed the consent form. All questions were answered appropriately.? A time out was performed.? After obtaining a comfortable seated position, the right knee was prepped with alcohol x3. A syringe containing the above medication was attached to a 25 gauge, 1.5 inch needle under strict aseptic technique. The lateral tibial plateau was palpated.? The needle was then advanced through the subcutaneous tissue in a medial and superior direction towards the joint space.? The contents of the syringe were gently injected without any resistance. The needle was removed and pressure was applied to the injection site to decrease the incidence of ecchymosis and hematoma formation.? A sterile bandage was applied.
--- OUTSIDE RECORDS SUMMARY | 2024-03-13 11:02 | XMS_ITS | CCD ---
Author Organization [facility] Care Team Providers Care Bookkeeper Assistant Name Role Phone Dolores Calixto Primary Care Provider DR ELOY DAVIDSON Admitting Unavailable GARCIA, ADELFO Consulting Unavailable VERCHI [facility] Primary Care Unavailable MARGO, DR ELOY Lang Attending Unavailable CURTIS, DR RAMÓN Smith Consulting Unavailable MARGO, DR ELOY Lang Admitting Unavailable MARGO, DR ELOY Lang Attending Unavailable VER[facility], [facility] Primary Care Unavailable GARCIA, ADELFO Consulting Unavailable MARGO, DR ELOY Lang Admitting Unavailable MARGO, DR ELOY Lang Attending Unavailable GARCIA, ADELFO Consulting Unavailable VERHOFF, [facility] Primary Care Unavailable MARGO, DR ELOY Lang Attending Unavailable MARGO, DR ELOY Lang Consulting Unavailable MARGO, DR ELOY Lang Admitting Unavailable VERHOFF, [facility] Primary Care Unavailable GARCIA, ADELFO Consulting Unavailable [...] MARGO, DR ELOY Lang Admitting Unavailable VERHOFF, [facility] Primary Care Unavailable GARCIA, ADELFO Consulting Unavailable MARGO, DR ELOY Lang Attending Unavailable MARGO, DR ELOY Lang Admitting Unavailable GARCIA, ADELFO Consulting Unavailable VERHO, [facility] Primary Care Unavailable MARGO, DR ELOY Lang Admitting Unavailable VERHOFF, [facility] Primary Care Unavailable MARGO, DR ELOY [...] DOLORES Salazar Primary Care Unavailable VERHOFF, DOLORES Salazar Attending Unavailable VERHOFF, DOLORES Salazar Primary Care Unavailable REBECCA, ELOISA Referring Unavailable VERHOFF, DOLORES Salazar Attending Unavailable VERHOFF, DOLORES Salazar Primary Care Unavailable REBECCA, ELOISA Referring Unavailable VERHOFF, DOLORSE Salazar Attending Unavailable Medications Current Medications Medication [...] Start: 02-09-2018 take 1 capsule by mo [facility] three times daily gabapentin (NEURONTIN) 300 MG [...] (3 sources) Other specified postprocedural states; Translations: [[facility] SPECIFIED POSTPROCEDURAL STATES] Onset: 01-27-2021 Episodic Spondylosis; [...] Extremeityon Carpal tunnel syndro me, right, moderate [facility] NVC 5-6 Nerveson 12-16-2023 Carpal tunnel syndro me, right, moderate [facility] CHRISTIANO DIGITAL SCREEN HUGH Weirn 03-16-2023 RAMIRO [...] Zhao Jr., MD 03/16/23 Final result Normal [facility] CBC with Diffon 03-15-2023 Abs. Basophil 0.02 k/uL Normal 0.00-0.20 [facility] Comment on above: Performed By: #### C P, CDP #### [facility] [address] [place] [address] Cupola Tapper Helper: Hina Kyle MD Abs.Imm.Granulocyte 0.01 k/uL Normal 0.00-0.30 [facility] Comment on above: Performed By: #### C P, CDP #### [facility] [address] [place], [place] [id number] Cupola Tapper Helper: Hina Kyle MD Abs.Neutrophil (Seg) 4.00 k/uL Normal 2.5-7.0 [facility] Comment on above: Performed By: #### C P, CDP #### [facility] [address] [facility] [place], [place] [phone] Cupola Tapper Helper: Hina Kyle MD Basophils/100 WBC (Bld) 0 % Normal 0-2 [facility] Comment on above: Performed By: #### C P, CDP #### [facility] [address] [place], [place] [id number] Cupola Tapper Helper: Hina Kyle MD Eosinophils (Bld) [#/Vol] 0.13 10*3/uL Normal 0.00-0.40 [facility] Comment on above: Performed By: #### C P, CDP #### [facility] [address] [place], [place] [id number] Cupola Tapper Helper: Hina Kyle MD Eosinophils/100 WBC (Bld) 2 % Normal 0-5 [facility] Comment on above: Performed By: #### C P, CDP #### [facility] [address] [place] [address] Cupola Tapper Helper: Hina Kyle MD Erythrocyte distribution width (RBC) [Ratio] 12.5 % Normal 12.1-15.2 [facility] Comment on above: Performed By: #### C P, CDP #### [facility] [address] [place] [address] Cupola Tapper Helper: Hina Kyle MD Hematocrit (Bld) [Volume fraction] 40.6 % Normal 36.0-46.0 [facility] Comment on above: Performed By: #### C P, CDP #### [facility] [address] [place], [place] [id number] Cupola Tapper Helper: Hina Kyle MD Hemoglobin (Bld) [Mass/Vol] 13.8 g/dL Normal 12.0-16.0 [facility] Comment on above: Performed By: #### C P, CDP #### [facility] [address] [place], [place] [id number] Cupola Tapper Helper: Hina Kyle MD Immature granulocytes/100 WBC (Bld) 0 % Normal 0-5 [facility] Comment on above: Performed By: #### C P, CDP #### [facility] [address] [place] [address] Cupola Tapper Helper: Hina Kyle MD Lymphocytes (Bld) [#/Vol] 1.40 10*3/uL Normal 1.00-4.80 [facility] Comment on above: Performed By: #### C P, CDP #### [facility] [address] [place] [id number] Cupola Tapper Helper: Hina Kyle MD Lymphocytes/100 WBC (Bld) 23 % Normal 15-40 [facility] Comment on above: Performed By: #### C P, CDP #### [facility] [address] [place] [phone] Cupola Tapper Helper: Hina Kyle MD MCH (RBC) [Entitic mass] 31.3 pg Normal 26.0-34.0 [facility] Comment on above: Performed By: #### C P, CDP #### [facility] [address] [place] [address] Cupola Tapper Helper: Hina Kyle MD MCHC (RBC) [Mass/Vol] 34.0 g/dL Normal 31.0-37.0 [facility] Comment on above: Performed By: #### C P, CDP #### [facility] [address] [place] [id number] Cupola Tapper Helper: Hina Kyle MD MCV (RBC) [Entitic vol] 92.1 fL Normal 80.0-100.0 [facility] Comment on above: Performed By: #### C P, CDP #### [facility] [address] [place] [address] Cupola Tapper Helper: Hina Kyle MD Monocytes (Bld) [#/Vol] 0.42 10*3/uL Normal 0.00-1.00 [facility] Comment on above: Performed By: #### C P, CDP #### [facility] [address] [place] [address] Cupola Tapper Helper: Hina Kyle MD Monocytes/100 WBC (Bld) 7 % Normal 4-8 [facility] Comment on above: Performed By: #### C P, CDP #### [facility] [address] [place] [address] Cupola Tapper Helper: Hina Kyle MD Neutrophil (Seg) 68 % Normal 47-75 [facility] Comment on above: Performed By: #### C P, CDP #### [facility] [address] [place] [address] Cupola Tapper Helper: Hina Kyle MD Platelet mean volume (Bld) [Entitic vol] 10.0 fL Normal 6.0-12.0 [facility] Comment on above: Performed By: #### C P, CDP #### [facility] [address] [place] [address] Cupola Tapper Helper: Hina Kyle MD Platelets (Bld) [#/Vol] 297 10*3/uL Normal 140-450 [facility] Comment on above: Performed By: #### C P, CDP #### [facility] [address] [place] [address] Cupola Tapper Helper: Hina Kyle MD RBC (Bld) [#/Vol] 4.41 10*6/uL Normal 4.00-5.20 [facility] Comment on above: Performed By: #### C P, CDP #### [facility] [address] [place] [address] Cupola Tapper Helper: Hina Kyle MD WBC (Bld) [#/Vol] 6.0 10*3/uL Normal 3.5-11.0 [facility] Comment on above: Performed By: #### C P, CDP #### [facility] [address] [place] [address] Cupola Tapper Helper: Hina Kyle MD Comp Metabolic Profon 2023 Albumin [Mass/Vol] 4.4 g/dL Normal 3.5-5.2 [facility] Comment on above: Performed By: #### C P, CDP #### [facility] [address] [place], [place] [phone] Cupola Tapper Helper: Hina Kyle MD Alkaline Phos 88 U/L Normal 35-104 [facility] Comment on above: Performed By: #### C P, CDP #### [facility] [address] [place] [address] Cupola Tapper Helper: Hina Kyle MD ALT [Catalytic activity/Vol] 14 U/L Normal 5-33 [facility] Comment on above: Performed By: #### C P, CDP #### [facility] [address] [place] [address] Cupola Tapper Helper: Hina Kyle MD Anion gap [Moles/Vol] 13 mmol/L Normal 9-17 [facility] Comment on above: Performed By: #### C P, CDP #### [facility] [address] [place], [place] [id number] Cupola Tapper Helper: Hina Kyle MD AST [Catalytic activity/Vol] 16 U/L Normal <32 [facility] Comment on above: Performed By: #### C P, CDP #### [facility] [address] [place] [address] Cupola Tapper Helper: Hina Kyle MD Bilirubin [Mass/Vol] 0.4 mg/dL Normal 0.3-1.2 [facility] Comment on above: Performed By: #### C P, CDP #### [facility] [address] [place], [place] [id number] Cupola Tapper Helper: Hina Kyle MD BUN/CRE Ratio 20 Normal 9-20 [facility] Comment on above: Performed By: #### C P, CDP #### [facility] [address] [place], [place] [phone] Cupola Tapper Helper: Hina Kyle MD Calcium [Mass/Vol] 9.6 mg/dL Normal 8.6-10.4 [facility] Comment on above: Performed By: #### C P, CDP #### [facility] [address] [place], [place] [phone] Cupola Tapper Helper: Hina Kyle MD Chloride [Moles/Vol] 105 mmol/L Normal 98-107 [facility] Comment on above: Performed By: #### C P, CDP #### [facility] [address] [place] [address] Cupola Tapper Helper: Hina Kyle MD CO2 [Moles/Vol] 24 mmol/L Normal 20-31 [facility] Comment on above: Performed By: #### C P, CDP #### [facility] [address] [place], [place] [phone] Cupola Tapper Helper: Hina Kyle MD Creatinine [Mass/Vol] 0.6 mg/dL Normal 0.5-0.9 [facility] Comment on above: Performed By: #### C P, CDP #### [facility] [address] [place], [place] [phone] Cupola Tapper Helper: Hina Kyle MD GFR/1.73 sq M.predicted among non-blacks MDRD (S/P/Bld) [Vol rate/Area] mL/min/{1.73_m2} Normal >60 [facility] Comment on above: Result Comment: These results [...] Performed By: #### C P, CDP #### [facility] [address] [place] [address] Cupola Tapper Helper: Hina Kyle MD Glucose [Mass/Vol] 98 mg/dL Normal 70-99 [facility] Comment on above: Performed By: #### C P, CDP #### [facility] [address] [place] [address] Cupola Tapper Helper: Hina Kyle MD Potassium [Moles/Vol] 4.1 mmol/L Normal 3.7-5.3 [facility] Comment on above: Performed By: #### C P, CDP #### [facility] [address] [place] [address] Cupola Tapper Helper: Hina Kyle MD Protein [Mass/Vol] 7.6 g/dL Normal 6.4-8.3 [facility] Comment on above: Performed By: #### C P, CDP #### [facility] [address] [place] [address] Cupola Tapper Helper: Hina Kyle MD Sodium [Moles/Vol] 142 mmol/L Normal 135-144 [facility] Comment on above: Performed By: #### C P, CDP #### [facility] [address] [place] [address] Cupola Tapper Helper: Hina Kyle MD Urea nitrogen [Mass/Vol] 12 mg/dL Normal 8-23 [facility] Comment on above: Performed By: #### C P, CDP #### [facility] [address] [place] [address] Cupola Tapper Helper: Hina Kyle MD XR CHEST (2 VW)on [...] Antwan Pruett DO 03/15/23 Final result Normal [facility] XR pre/post mri xrayon 04-23 XR pre/post mri xray [facility] Main [place] [address] [place], [place] [id number] MRI Report Signed Patient: Izzy Silverio MR#: [id number] : 1955 Acct:[id number] Age/Sex: 66 / F ADM Date: 04/22/21 Loc: MR Room: Type: [facility] Attending Dr: Eloy Davidson MD Ordering Provider: Eloy Davidson M.D. Date of Service: 04/22/21 MR/MR lumbar spine wo/w con: LUMBAR RADICULITIS ([id number]) XR/XR pre/post mri xray: SEE ORDER Copies [...] Altaf Alarcon M.D.04/23/2021 10:13 AM Dictation Location: [place] [address] Transcribed By: [facility] 04/23/21 1013 Dictated By: Altaf Alarcon II, MD 04/23/21 1002 Signed By: 04/23/21 1013 Normal [facility] ISTAT XRay CREon 04-22-2021 Creatinine [Mass/Vol] 0.8 mg/dL Normal 0.6-1.3 [facility] Comment on above: Result Comment: ER/E SD physician is notified/shown all ISTAT results. Critical values may be confirmed by laboratory testing if deemed necessary by ER attending doctor. Performed By: #### I SCRE #### [address] Point of Care testing , ISTAT GFR ( > 60 [facility] Comment on above: Result Comment: GFR estimated reference range: According to KDOQI guidelines, <60 ml/min/1.73m2 is sufficient to diagnose a patient with chronic kidney disease. PERFORMED BY: [place] [address] PATHOLOGIST PNEUMATIC JACKETER CHANDNI HOWARD M.D. Performed By: #### I SCRE #### [facility] [address] [place] [address] Point of Care testing , ISTAT GFR (Non- Am > 60 [facility] Comment on above: Performed By: #### I SCRE #### [facility] [address] [place] [address] Point of Care testing , Lipid Panelon 02-11-2021 Cholesterol [Mass/Vol] 215 mg/dL High <200 [facility] Comment on above: Cholesterol Guidelines: <200 Desirable 200-240 Borderline >240 Undesirable Cholesterol in HDL [Mass/Vol] 48 mg/dL >40 [facility] Comment on above: HDL Guidelines: <40 Undesirable 40-59 Borderline >59 Desirable Cholesterol in LDL [Mass/Vol] 135 mg/dL High 0 - 130 mg/dL [facility] Comment on above: LDL Guidelines: <100 Desirable 100-129 Near to/above Desirable 130-159 Borderline >159 Undesirable Direct (measured) LDL and calculated LDL are not interchangeable tests. Cholesterol in VLDL [Mass/Vol] NOT REPORTED High 1 - 30 mg/dL [facility] Cholesterol.total/Ch olesterol in HDL [Mass ratio] 4.5 {ratio} <5 [facility] Interpretation and review of laboratory results Abnormal [facility] Triglyceride [Mass/Vol] 161 mg/dL High <150 [facility] Comment on above: Triglyceride Guidelines: <150 Desirable 150-199 Borderline 200-499 High >499 Very high Based on AHA Guidelines for fasting triglyceride, November 2011. [facility] Patient Fasting?on 1 Patient Fasting? yes Delilah Wells alth [facility] RAMIRO CHRISTIANO DIGITAL SCREEN BILA TERALOrdered By: Eddie Novoa on 09-10-2020 BI-RADS 1 - Negative , no evidence of malignancy. Normal interval followup in 12 months. OVERALL ASSESSMENT- NEGATIVE A letter of notification will be sent to the patient regarding the results. [facility] Work Phone: HISTORY: Screening. Negative left breast biopsy. TECHNIQUE: Bilateral digital screening mammogram with CAD. 2-D and 3-D tomography. FINDINGS: Two views of each breast show scattered areas of fibroglandular density. No change from 03/16/2016. Suspicious calcifications: None. Suspicious mass: None. (If skin markers were applied, circles represent skin lesions and linear markers represent scars.) [facility] Work Phone: [facility] [employer] Work Phone: PROGRESSon 02-08-2020 PROGRESS HNO ID: [id number] Author: Kwan Vaca (Rt) Service: ? Author Type: Education Administrator Type: Progress Notes Filed: 02/08/2020 2:43 PM [...] RT Lio February 08, 2020 2:43 PM [facility] XR HIP 3V PELV+ AP/LAT LTon [...] osseous abnormality or significant left hip osteoarthritis. Carton Marker Machine: [facility] Transcribe Date/Time: Feb 08 2020 5:11P Dictated by : LEROY OLIVA MD This examination was interpreted and the report reviewed and electronically signed by: LEROY OLIVA MD on Feb 08 2020 5:12PM EST [id number] [facility] IntraOperative Documentson 1 03-17-2019 IntraOperative Documents [id number]#1.00C D:127 Normal [facility] Coding Summary.on 01-11-2020 Coding Summary. CODING DATE: 020 FINAL [facility] STATUS: Home (Routine DC) PAYOR: Medicare APC DESCRIPTION 5491 Level 1 Intraocular Procedures ADMIT DX: REASON FOR VISIT DX: H25.12 Age-related nuclear cataract, left eye FINAL DX: PRINCIPAL: H25.12 Age-related nuclear cataract, left eye SECONDARY: H25.032 Anterior subcapsular polar age-related cataract, left eye Z96.1 Presence of intraocular lens PYMT PROC APC STAT DESCRIPTION DOCTOR NAME DATE 23175 5491 J1 Extracapsular cataract Graham DO, Windy [...] Cesar Date Saved: 01/11/2020 04:27 pm Normal [facility] Operative Reporton 0 Operative Report [...] and inferior fornices of the eye. A [employer] manometer was set on the eye at [...] condition. Windy Martinez M.D. s Dictated: 01/08/2020 #[id number] Typed: 01/09/2020 #[id number] cc: Windy Martinez M.D. [facility] Comment on above: Result Comment: Elec tronically Signed By: Windy Martinez MD\.br\Date and Time Signed: 01/11/20 12:09 EST Main OR Intraoperative Recor don 01-10-2020 Main OR Intraoperative Record IntraOp Document Type FT Summary Primary Physician: Windy Martinez MD Finalized Date/Time: 01/10/20 13:01:48 Pt. Name: IZZY SILVERIO/Sex: 1955 Female Med Rec #: [id number] Physician: Windy Martinez MD Financial #: [id number] Pt. Type: A Room/Bed: 0 Admit/Disch: 01/08/20 [...] Radha Hoover Role Performed Surgeon - Primary Scaling Machine Operator - Primary Scrub - Primary Time In [...] PostOp Destination Pre Surgery/ASU Transported By Tanisha oJnes RN Patient Status Stable Skin. Condition Other/See [...] safely administered during the perioperative period For [place] please see scanned medication reconcilliation form for medications used at the field during the procedure. Implant Log FT Pre-Care Text: Records devices implanted during the operative or invasive procedure Entry 1 Procedure CATARACT EXTRACTION W/ Implant/Explant Implant INTRAOCULAR LENS(Left) Implant Identification FT Description DAVI IOL [id number] SOFPORT Lot Number [id number] SIZE 20.0 [[id number] 20.0][F] Drill Press Set Up Operator Radial FT-BAUSCH AND LOMB Catalog ?# [id number] 20.0[F] Expiration Date 11/22/23 Unique Device [id number] Identifier (TUNDE) Human Readable {[id number] Machine Readable [id number] Barcode Barcode Usage Data FT Implant Site Eye L Quantity 1 Implanted By Windy Martinez MD Biological Implants MR Classification Unknown Outcomes Met? Yes Last Modified By: Tanisha Jones RN 01/08/20 15:31:06 Post-Care Text: The patient is free from signs and symptoms of injury caused by extraneous objects Case Comments Finalized By: RODO Welch RN, Andrea Document Signatures Signed By: Tanisha oJnes RN 01/08/20 15:43 RODO Welch RN, Andrea 01/10/20 13:01 Normal [facility] Discharge Instructionson Discharge Instructions [id number]#1.00 CD:127 Normal [facility] IntraOperative Documentson 1 03-10-2019 IntraOperative Documents [id number]#1.00 CD:127 [facility] IntraOperative Documents [id number]#1.00 CD:127 [facility] Preoperative Documentson Preoperative Documents [id number]#1.00 CD:127 [facility] Consent for Treatmenton 12-23 Consent for Treatment [id number]#1.00C D:127 [facility] History and Physicalon 01-07 History [...] eye. Windy Martinez M.D. lkr Dictated: 01/08/2020 #[id number] Typed 01/08/2020 #[id number] cc: Windy Martinez M.D. [facility] Comment on above: Result Comment: Elec tronically Signed By: Windy Martinez MD\.br\Date and Time Signed: 01/08/20 12:31 EST Inpatient Patient Summaryon 01-08-2020 Inpatient Patient Summary [place] [id number] [facility] Clinical Discharge Instructions PERSON INFORMATION Name: IZZY SILVERIO [facility]#:[id number] PHYSICIANS Admitting Physician: Windy Martinez MD Attending Physician: Windy Martinez MD PCP: DOLORES CALIXTO MD Discharge Diagnosis: Cataract Comment: PATIENT EDUCATION INFORMATION Instructions: Medication Leaflets: Follow up: With: Address: When: [place] [address] Business (1) Comments: Call physician if symptoms worsen Keep scheduled appointment With: Address: When: Windy Martinez [address] [place] [address] [address], [place] [address] [facility] (1) In 1 day 01/09/2020 MEDICATION LIST Medications to Continue with No Changes Other Medications biotin (Hair, Skin & Nails) 5 Milligram By Mouth every day. cannabidiol 1 Oral gummy. cholecalciferol (Vitamin D3) 1,000 International unit By Mouth every day. Non-Formulary Medication (tumeric) 1 cap By Mouth every day., prophylaxis Comment: [facility] Main OR PACU II [facility] Main OR PACU II Record PACU Phase II Document Type FT Summary Primary Physician: Windy Martinez MD Finalized Date/Time: 01/08/20 16:29:45 Pt. Name: IZZY SILVERIO./Sex: 1955 Female Med Rec #: [id number] Physician: Windy Martinez MD Financial #: [id number] Pt. Type: A Room/Bed: Admit/Disch: 01/08/20 13:13:15 [...] By: Julissa Pacheco RN 01/08/20 16:29 Normal [facility] Outpatient Surgery Discharge Instructionon 01-08-2020 Outpatient Surgery Discharge Instruction [place] [id number] Patient Discharge Instructions PERSON INFORMATION Name: IZZY [...] Follow up: With: Address: When: Windy Graham [address] [place] [address] [address], [place] [address] Business (1) Comments: Call physician if symptoms worsen Keep scheduled appointment With: Address: When: Windy [address] [place] [address] Business (1) In 1 day 01/09/2020 Pharmacy Information: Thank you for choosing [facility] HERE ARE THE MEDICATION CHANGES THAT OCCURRED DURING YOUR HOSPITAL STAY Medications to Continue with No Changes Other Medications biotin (Hair, Skin & Nails) 5 Milligram By Mouth every day. cannabidiol 1 Oral gummy. cholecalciferol (Vitamin D3) 1,000 International unit By Mouth every day. Non-Formulary Medication (tumeric) 1 cap By Mouth every day., prophylaxis PATIENT EDUCATION INFORMATION Instructions: [facility] Patient Education - Texton 1 03-09-2019 Patient Education - Text [facility] Consent for Procedure/Surger yon 01-05-2020 Consent for Procedure/Surgery [id number]#1.00 CD:127 [facility] HISTORY PHYSICALon 0 HISTORY PHYSICAL HNO ID: [id number] Author: Jossie Hemphill Service: ? Author Type: Physician Supervisor Research [place] Type: HANDP Filed: 10/05/2019 1:40 PM Note [...] October 05, 2019 TIME: 1:40 PM PAGER: [phone] [facility] OPERATIVE NOon 10-05-2019 OPERATIVE NO HNO ID: [id number] Author: Martir Merlos Service: ? Author Type: [...] offered a procedure / surgery at a [facility] facility. It is not possible to know either the risk of delaying the surgery or procedure or chance of getting an infection with perfect accuracy, but a joint decision was made between the patient and the surgeon/proceduralist to proceed at this time with the scheduled surgery/procedure as indicated on the consent form. [facility] approved time out was performed identifying the site, side and level of procedure prior to start of procedure. [facility] - ELECTIVE PROCEDURE Lumbar Transforaminal Epidural Steroid [...] the entire procedure. Martir Merlos DO, KATERINA [facility] PT EDon 10-05-2019 PT ED HNO ID: [id number] Author: Olga PerdueRn) KAMARI Kirk Service: Pathology [...] call. SUPPLEMENTAL MATERIAL: None REFERRAL (RECOMMENDATION): None [facility] ED HNO ID: [id number] Author: Daly PerdueRn) KAMARI Gardiner Service: ? [...] By: Daly Gardiner RN In Department: PROCEDURES [facility] HOSPon 09-22-2019 HOSP Patient:Bhupinder Silverio MRN: [...] following basenames: K,HCT Progress Notes ([facility] REJ): Olga Carpio Pss 09/27/2019 12:57 [...] schedule with us. Progress Notes ([facility] REJ): Michelle Bhat PA-C 09/27/2019 11:59 AM Signed One year out from surgery I don't see a problem with her seeing her chiropractor. Per her last office visit injections were discussed in detail. They should be completed before considering any surgical intervention. I can also write an order for physical therapy if she would prefer that. Normal [facility] MRI Spine Lumbar w/o Contras ton 09-10-2019 [...] kendy Technologist: LEYDI Technical Comments None Normal [facility] Coding Summary.on 09-09-2019 Coding Summary. CODING DATE: 020 FINAL [facility] STATUS: Home (Routine DC) PAYOR: Medicare [...] Date Saved: 09/09/2019 01:29 pm [facility] Consent for Treatmenton 08-22 Consent for Treatment [id number] D:127 Normal [facility] RAD - MRI Screening Formon 0 09-07-2019 RAD - MRI Screening Form [id number] CD:127 [facility] Physician Orderon 08-31-2019 Physician Order [id number] D:127 [facility] CNPNon 08-29-2019 CNPN Telephone (NEADFV) IZZY SILVERIO ([id number]) 1955 F Date Time Provider Department 08/29/19 HELENA ZHANG During your visit today, we recorded the following information about you: Kathleen Rojas 08/29/2019 2:34 PM Signed Patient called today stating she has been communicating to the nurse via [employer], but the wrong order is being faxed to [facility]. She was told in an 05/29/19 [employer] message by Jerzy, that an EMG would be ordered to look for nerve damage in her foot. There is no EMG order in her chart, please order the EMG and fax that order to [employer] at [phone]. Also, there is a Lumbar MRI order in her chart, he wants to know if Dr. Zhang still wants her to have that MRI. Please call patient at [phone]. May Bateman, RN, RN 08/30/2019 8:34 AM Signed Spoke to Izzy and instructed her that MRI was ordered No EMG at this time Allergies As of Date: 08/29/2019 (No Known Allergies) Date Reviewed: 03/09/2019 Reviewed by: Julianne Kelly Ma - Fully Assessed Reason for Visit: Patient Question [6787] Problem List As Of Date: 08/29/2019 (None) Encounter Status:Closed by MAY BATEMAN on 08/30/19 [facility] PROGRESSon 03-09-2019 PROGRESS HNO ID: [id number] Author: Nichol (Kwan) Kwan Roberto Service: Radiology Author Type: Education Administrator Type: Progress Notes Filed: 03/09/2019 2:06 PM [...] SIGNED BY: PAYTON LLAMAS [email or web address] 2:05 PM [facility] XR FOOT 3V AP/LAT/OBL LTon 0 [...] No acute findings in the left foot. Carton Marker Machine: DENISA Transcribe Date/Time: Mar 09 2019 3:04P Dictated by : MULU MTZ MD This examination was interpreted and the report reviewed and electronically signed by: MULU MTZ MD on Mar 09 2019 3:05PM EST [id number] [facility] XR LUMBAR 4V AP/LAT/ FLEX/EX Ton [...] described, not significant changed in the interval. Carton Marker Machine: PSCB Transcribe Date/Time: Mar 09 2019 3:05P Dictated by : MULU MTZ MD This examination was interpreted and the report reviewed and electronically signed by: MULU MTZ MD on Mar 09 2019 3:07PM EST [id number] [facility] Leticia 01-25-2019 CNPN Telephone (NEADFV) IZZY SILVERIO ([id number]) 1955 F Date Time Provider Department 01/25/19 JERZY BURNHAM) FERMNÍ During your visit today, we recorded the following information about you: Michelle Saldaña 01/25/2019 10:39 AM Signed Sign Re certification AND return to [facility]. Flagged for signature and given to [...] Encounter Status:Closed by MICHELLE MATUTE on 01/25/19 [facility]ZZ[facility]ILVERIO ([id number]) 1955 F Date Time Provider Department 12/16/18 JERZY BURNHAM) FERMÍN During your visit today, we recorded the following information about you: Grant Quinonez Ma 12/16/2018 3:50 PM Signed Received plan of care from [facility]. This was flagged and placed on Provider's [...] by GRANT QUINONEZ MA on 12/16/18 Normal [facility] Vital Signs Date Time Vital Sign Value Performing Clinician Facility 01-17-2024 13:29-0500 Body height 156.2 cm Hina Pocos DO Work Phone: [facility] 01-17-2024 13:29-0500 Body mass index (BMI) [Ratio] 25.47 kg/m2 Hina Pocos DO Work Phone: [facility] 01-17-2024 13:29-0500 Body temperature 97.11 [degF] Hina Pocos DO Work Phone: [facility] 01-17-2024 13:29-0500 Body weight 62.14 kg Hina Pocos DO Work Phone: [facility] 12-22-2023 10:23-0400 Body height 156.2 cm Hina Pocos DO Work Phone: [facility] 12-22-2023 10:23-0400 Body mass index (BMI) [Ratio] 25.47 kg/m2 Hina Pocos DO Work Phone: [facility] 12-22-2023 10:23-0400 Body weight 62.14 kg Hina Pocos DO Work Phone: [facility] 12-10-2023 10:19-0400 Body height 156.2 cm Hina Pocos DO Work Phone: [facility] 12-10-2023 10:19-0400 Body mass index (BMI) [Ratio] 25.47 kg/m2 Hina Pocos DO Work Phone: [facility] 12-10-2023 10:19-0400 Body weight 62.14 kg Hina Panchal DO Work Phone: [facility] 06-21-2022 08:24-0400 Diastolic blood pressure 95 mm[Hg] Elbert Ramos MD [email or web address] [employer] 06-21-2022 08:24-0400 Systolic blood pressure 149 mm[Hg] Elbert Ramos MD [facility] 06-21-2022 06:48-0400 Body height 157.5 cm Elbert Ramos MD Work Phone: [facility] [employer] 06-21-2022 06:48-0400 Body mass index (BMI) [Ratio] 24.87 kg/m2 Elbert Ramos MD [facility] 06-21-2022 06:48-0400 Body temperature 98.2 [degF] Elbert Ramos MD [facility] 06-21-2022 06:48-0400 Body weight 61.69 kg Elbert Ramos MD [facility] 06-21-2022 06:48-0400 Heart rate 70 /min Elbert Ramos MD [facility] 06-21-2022 06:48-0400 Respiratory rate 20 /min Elbert Ramos MD [facility] 06-21-2022 06:48-0400 SaO2% (BldA) [Mass fraction] 97 % Elbert Ramos MD Work Phone: [facility] [employer] Encounters Encounter Date Encounter Type Care Provider Facility Start: 02-11-2024 End: 02-11-2024 Subsequent hospital visit by physician [place] Hoover OT [facility] Occupational Therapy Start: 02-09-2024 End: 02-09-2024 Subsequent [...] Start: 01-31-2024 End: 01-31-2024 ambulatory HINA PANCHAL [facility] Start: 01-31-2024 End: 01-31-2024 Subsequent hospital visit [...] End: 07-26-2023 ambulatory Parish Garcias MD Facility: [facility] Start: 03-15-2023 End: 03-15-2023 Encounter for other preprocedural examination [facility] Start: 03-15-2023 End: 03-17-2023 ambulatory [facility] Start: 03-15-2023 End: 03-17-2023 ambulatory [facility] Start: 01-18-2023 End: 01-18-2023 ambulatory Parish Garcias MD Facility:[facility] Start: 12-07-2022 End: 12-07-2022 ambulatory Parish Garcias MD Facility:[facility] Start: 11-16-2022 End: 11-16-2022 ambulatory Parish Garcias MD Facility:[facility] Start: 06-21-2022 End: 06-21-2022 Emergency department patient visit Elbert Ramos MD Work Phone: [facility] ED Comment on above: Acute bacterial conj unctivitis of both eyes (Primary Dx) Start: 12-25-[address] ELOY Pace ty:[facility] Start: 11-20-2021 End: 11-21-[address] ELOY DAVIDSON Facility:[facility] Start: 10-02-[address] ELOY Pace ty:[facility] Start: 09-16-2021 End: 09-16-[address] ELOY DAVIDSON Facility:[facility] Start: 09-01-2021 End: 09-01-2021 Subsequent hospital visit by physician Dolores Calixto MD Work Phone: [facility] Start: 08-19-2021 End: 08-20-[address] ELOY DAVIDSON Facility:[facility] Start: 06-26-2021 End: 06-27-[address] ELOY DAVIDSON Facility:[facility] Start: 06-18-2021 End: 06-19-[address] ARMÓN ACEVEDO Facility:[facility] Start: 02-11-2021 End: 02-11-2021 Subsequent hospital visit by physician Dolores Calixto MD Work Phone: [facility] Comment on above: Screening cholestero l level Start: 01-21-2021 End: 01-22-[address] ELOY DAVIDSON Facility:[facility] Start: 01-08-[address] ELOY DAVIDSON Facili ty:[facility]1 Start: 09-09-2020 End: 09-11-2020 Subsequent hospital visit by physician [facility] Mammography Room [facility] Mammography Comment on above: Breast cancer screen [...] bi 2-view breast inc cad Eddie 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[employer]ER Work Phone: History of decompres lyle of median nerve S/P carpal tunnel release Hina Panchal DO Work Phone: Plan of Treatment Date Care Activity Detail Author Start: 02-11-2026 Lipid panel [facility] Start: 03-15-2025 Screening for malign ant neoplasm of breast Breast cancer screen [facility] Start: 09-15-2024 Screening for malign ant neoplasm of colon [facility] Start: 09-04-2024 End: 09-04-2024 Patient encounter procedure 09/04/2024 9:00 AM EDT Office Visit [facility] [address] [place] [address] Dolores Calixto MD [address] [place] [address] AWV [facility] Comment on above: AWV Start: 08-31-2024 Depression Screen Depression Screen [facility] Start: 03-15-2024 Screening for malign ant neoplasm of breast Mammogram [facility] Start: 02-21-2024 End: 02-21-2024 Patient encounter procedure [facility] Occupational Therapy Comment on above: Carpal Tunnel [...] encounter procedure 02/02/2024 2:45 PM EST Appointment [facility] Occupational Therapy [address] [place] [address] [place] Hoover OT [facility] Occupational Therapy Start: 01-18-2024 End: 01-18-2024 Patient encounter procedure 01/18/2024 10:45 AM EST Office Visit [facility] [address] [place] [phone] Windy Martinez MD [address] [place] [address] [facility] Start: 01-17-2024 End: 01-17-2024 Patient encounter procedure [facility] Comment on above: Arrived Start: 12-22-2023 End: 12-22-2023 Patient encounter procedure 12/22/2023 10:15 AM EDT Office Visit [facility] [address] [place] [phone] Hina Panchal DO [address] [place], [place] [id number] Arrived [facility] Comment on above: Arrived Start: 12-16-2023 End: 12-16-2023 Patient encounter procedure 12/16/2023 12:00 PM EDT Procedure Visit [facility] [address] [place] [phone] Gab Yanes DO [address] [place] [address] Arrived [facility] Comment on above: Arrived Start: 10-24-2023 COVID-19 Vaccine ( season) COVID-19 Vaccine ( season) [facility] [employer] [facility] Start: 10-24-2023 Influenza vaccination Influenza Vacc ine (#1) [facility] Start: 09-23-2023 Influenza vaccination Flu vaccine (# 1) [facility] Start: 04-03-2023 Screening for malign ant neoplasm of colon [facility] [employer] [facility] Start: 04-01-2023 Lipid panel [facility]: Start: 04-01-2023 Lipid screen [facility]id screen [facility] [place] [place] Start: 03-25-2023 Annual Wellness Visi t (AWV) Annual Wellness Visit (AWV) [facility] Start: 03-24-2023 Depression Screen Depression Screen [facility] Start: 09-09-2022 Screening for malign ant neoplasm of breast Breast cancer screen [facility] Start: 07-29-2022 Depression Screen Depression Screen [facility] Start: 02-11-2022 Screening for malign ant neoplasm of colon [facility] Start: 01-29-2022 Annual Wellness Visi t (AWV) Annual Wellness Visit (AWV) [facility] Start: 10-23-2021 Influenza vaccination Flu vaccine (# 1) [facility] Start: 03-25-2021 COVID-19 Vaccine (4 - Booster) COVID-19 Vaccine (4 - Booster) [facility] Start: 02-25-2021 End: 02-25-2021 Patient encounter procedure 02/25/2021 Appointment Radiology [facility] Jeanine Dexa Scan Start: 11-28-2020 Pneumococcal 65+ yea rs Vaccine (2 - PPSV23 if available, else PCV20) Pneumococcal 65+ years Vaccine (2 - PPSV23 if available, else PCV20) [facility] Start: 11-28-2020 Pneumococcal 65+ yea rs Vaccine (2 - PPSV23 or PCV20) Pneumococcal 65+ years Vaccine (2 - PPSV23 or PCV20) [facility] Start: 11-28-2020 Pneumococcal 65+ yea rs Vaccine (2 of 2 - PPSV23 or PCV20) Pneumococcal 65+ years Vaccine (2 of 2 - PPSV23 or PCV20) [facility] Start: 11-28-2020 Pneumococcal 65+ yea rs Vaccine (2 of 2 - PPSV23) Pneumococcal 65+ years Vaccine (2 of 2 - PPSV23) [facility] Start: 11-28-2020 Pneumococcal Vaccine : 65+ Years (2 of 2 - PPSV23 or PCV20) Pneumococcal Vaccine: 65+ Years (2 of 2 - PPSV23 or PCV20) [facility] Start: 10-23-2020 Influenza vaccination Flu vaccine (# 1) [facility] Start: 09-03-2020 Screening for malign ant neoplasm of colon Colon Cancer Screen FIT/FOBT [facility] Work Phone: Start: 04-29-2020 COVID-19 Vaccine (2 - Moderna 3-dose series) COVID-19 Vaccine (2 - Moderna 3-dose series) [facility] Start: 08-31-2019 Annual Wellness Visi t (AWV) Annual Wellness Visit (AWV) [facility] Work Phone: Start: 02-16-2019 End: 02-16-2019 Patient encounter procedure 02/16/2019 Appointment Physical Therapy Hayley Orta PT [facility] Start: 02-02-2019 End: 02-02-2019 Appointment 02/02/2019 Appointment Physical Therapy Hayley Orta PT [facility] Start: 01-31-2019 End: 01-31-2019 Appointment 01/31/2019 Appointment Physical Therapy Le Stark [facility] Start: 01-26-2019 End: 01-26-2019 Appointment 01/26/2019 Appointment Physical Therapy Hayley Orta, PT [facility] Physical Therapy Start: 12-26-2018 End: 12-26-2018 Appointment 12/26/2018 Appointment Physical Therapy Le Stark [facility] Physical Therapy Start: 12-23-2018 End: 12-23-2018 Appointment 12/23/2018 Appointment Physical Therapy Le Stark [facility] Physical Therapy Start: 12-21-2018 End: 12-21-2018 Appointment 12/21/2018 Appointment Physical Therapy Le Stark [facility] Physical Therapy Start: 12-19-2018 End: 12-19-2018 Appointment 12/19/2018 Appointment Physical Therapy Le Stark [facility] Physical Therapy Start: 12-16-2018 End: 12-16-2018 Appointment 12/16/2018 Appointment Physical Therapy Margot Mercado, PT [facility] Physical Therapy Start: 12-08-2018 End: 12-08-2018 Appointment 12/08/2018 Appointment Physical Therapy Julia Quiajno, PT [address] [place] [address] [phone] [facility] Physical Therapy Start: 10-23-2018 Influenza vaccination Flu vaccine (# 1) [place] Start: 08-23-2018 Annual Wellness Visi t (AWV) Annual Wellness Visit (AWV) [place] Start: 2018 DEXA (modify frequen cy per FRAX score) DEXA (modify frequency per FRAX score) [place] Start: 2018 Pneumococcal 65+ yea rs Vaccine (1 of 1 - PPSV23) Pneumococcal 65+ years Vaccine (1 of 1 - PPSV23) [place] Start: 2018 Pneumococcal 65+ yea rs Vaccine (1 of 2 - PCV13) Pneumococcal 65+ years Vaccine (1 of 2 - PCV13) [place] Start: 03-16-2018 Breast cancer screen Breast cancer s crebetty [place] Start: 03-16-2017 Colon Cancer Screen FIT/FOBT Colon Cancer Screen FIT/FOBT [place] Start: 2008 Screening for osteoporosis DEXA (modify frequency per FRAX score) [facility] Start: 2003 Screening for malign ant neoplasm of lung Low dose CT lung screening [facility] Start: 2003 Shingles Vaccine (1 of 2) Shingles Vaccine (1 of 2) [facility] Start: 1998 Screening for malign ant neoplasm of colon [facility] Start: 1993 Diabetes screen Diabetes screen [facility] Work Phone: Start: 1988 Diabetes screen Diabetes screen [facility] Start: 1974 Cervical cancer screen Cervical canc er screen [place] Start: 1972 DTaP/Tdap/Td vaccine (1 - Tdap) DTaP/Tdap/Td vaccine (1 - Tdap) [facility] Start: 1971 Hepatitis C screening [facility] C [facility] Start: 1968 HIV screen HIV screen [place], [place] Start: 1964 DTaP/Tdap/Td vaccine (1 - Tdap) DTaP/Tdap/Td vaccine (1 - Tdap) [place] Start: 1953 Hepatitis C screen Hepatitis C scree n [place] Start: 1953 Hepatitis C screening Hepatitis C [facility] Start: 1953 Screening for malign ant neoplasm of colon [facility] EKG 12 Lead EKG 12 Lead ECG Routine 09/01/2021 8:08 AM EDT [facility] Work Phone: XR Hand - right 3 Views XR hand 3+ views right Imaging Routine Right hand pain 12/10/2023 8:34 AM EDT [facility] Work Phone: Immunizations Immunization Date Immunization Notes Care Provider Jolynn aiken 02-10-2023 Influenza, FLUAD, (a ge 65 y+), IM, Quadv, 0.5mL [place] Hoover OT [facility] 02-10-2023 influenza virus vaccine, unspecified formulation Hina Panchal DO Work Phone: [facility] 12-15-2021 Influenza, FLUAD, (a ge 65 y+), Adjuvanted, 0.5mL Elbert Ramos MD Work Phone: [facility] Work Phone: 02-10-2021 Influenza, FLUAD, (a ge 65 y+), Adjuvanted, 0.5mL Elbert Ramos MD Work Phone: [facility] Work Phone: 01-28-2021 COVID-19, MODERNA Booster BLUE border, (age 18y+), IM, 50mcg/0.25mL Dolores Calixto MD Work Phone: [facility] Work Phone: 04-24-2020 COVID-19, MODERNA BL UE border, Primary or Immunocompromised, (age 12y+), IM, 100 mcg/0.5mL Dolores Calixto MD Work Phone: [facility] 04-01-2020 COVID-19, Moderna, P F, 100mcg/0.5mL [facility] 11-29-2019 Influenza, FLUAD, (a ge 65 y+), Adjuvanted, 0.5mL Elbert Ramos MD Work Phone: [facility] Work Phone: 11-29-2019 influenza, high dose seasonal, preservative-free [facility] Work Phone: 11-29-2019 pneumococcal conjuga te vaccine, [address] [facility] Work Phone: 12-13-2018 Seasonal trivalent influenza vaccine, adjuvanted, preservative free [facility] [place] [place] 12-10-2017 influenza virus vaccine, unspecified formulation Elbert Ramos MD Work Phone: [facility] Work Phone: 12-10-2017 influenza, injectabl e, quadrivalent, preservative free [facility] Payers Date Payer Category Payer Medicare (Managed Care) [employer] [id number] 2023 Unknown [id number] 2022 Medicare 2022 Private Health Insurance 2014 Medicare MEDICARE MEDICAR E PART A AND B xxxxxxxxxxx 2014-Present [phone] [address] [address] [place] [address] xxxxxxxxxxx [id number] 2014 Private Health Insurance AEARLINE Chuck MIGDALIA SENIOR MEDICARE SUPP xxxxxxxxxx 2014-Present [phone] [address] [place] [address] xxxxxxxxxx [id number] 1959 Medicare [id number] 1959 Private Health Insurance [facility] [id number] .[id number] 1953 Unknown [id number] 2.16.840.1.405812.3.579.2 .593 1953 Unknown [id number] 2.16.840.1.709814.3.579.2 .593 1953 Unknown [id number] 2.16.840.1.960635.3.579.2 .593 1953 Unknown [id number] 2.16.840.1.927848.3.579.2 .593 1953 Unknown [id number] 2.16.840.1.659443.3.579.2 .593 1953 Unknown [id number] 2.16.840.1.954954.3.579.2 .593 1953 Unknown [id number] 2.16.840.1.937351.3.579.2 .593 1953 Unknown [id number] 2.16.840.1.066283.3.579.2 .593 1953 Unknown [id number] 2.16.840.1.112341.3.579.2 .593 1953 Unknown [id number] 2.16.840.1.869750.3.579.2 .196 1953 Unknown [id number] 2.16.840.1.640795.3.579.2 .196 1953 Unknown [id number] 2.16.840.1.301833.3.579.2 .196 1953 Unknown [id number] 2.16.840.1.523860.3.579.2 .196 1953 Unknown [id number] 2.16.840.1.397767.3.579.2 .196 1953 Unknown [id number] 2.16.840.1.641839.3.579.2 .1259 1953 Unknown [id number] 2.16.840.1.819109.3.579.2 .1259 1953 Unknown [id number] 2.16.840.1.857659.3.579.2 .1259 1953 Unknown [id number] 2.16.840.1.530819.3.579.2 .1259 1953 Unknown [id number] 2.16.840.1.887042.3.579.2 .1259 1953 Unknown [id number] 2.16.840.1.149117.3.579.2 .1259 1953 Unknown [id number] 2.16.840.1.159033.3.579.2 .174 1953 Unknown [id number] 2.16.840.1.306857.3.579.2 .174 1953 Unknown [id number] 2.16.840.1.246582.3.579.2 .174 1953 Unknown [id number] 2.16.840.1.368462.3.579.2 .174 1953 Unknown [id number] 2.16.840.1.962807.3.579.2 .174 1953 Unknown [id number] 2.16.840.1.373877.3.579.2 .174 Social History Date Type Detail Facility Start: 03-28-2018 End: 03-15-2023 Tobacco smoking status NHIS Former smoker [place] Start: 02-23-1984 End: 02-22-2006 History of tobacco use Current [place] Start: 02-23-1984 End: 02-22-2006 History of tobacco use Cigarette [place] Start: 03-28-2018 End: 09-23-2022 Cigarettes smoked current (pack per day) - Reported [facility] Start: 03-28-2018 End: 02-09-2024 Alcohol intake Current drinker of alcohol (finding) [place] Start: 10-14-2015 Alcohol Comment moderate [place], [place] Start: 1955 Sex Assigned At Not on file [place] Start: 03-28-2018 End: 08-02-2023 Alcohol intake Yes [employer] Start: 04-17-2020 End: 03-15-2023 Tobacco use and exposure Never used [employer] Start: 08-31-2019 End: 02-27-2022 History SDOH Financial 5 [employer] Work Phone: Start: 08-31-2019 End: 02-27-2022 History SDOH Food Worry 1 [employer] Work Phone: Start: 08-31-2019 End: 03-24-2022 History SDOH Transport Med 2 [employer] Work Phone: Start: 06-21-2022 End: 09-01-2023 Alcohol intake Ex-drinker (finding) [employer] Work Phone: Start: 06-21-2022 History SDOH Alcohol Std Drinks 0 [employer] Work Phone: Start: 03-24-2022 History SDOH Physica l Activity DPW 4 [employer] Work Phone: Start: 12-22-2023 Alcohol Comment One or two on weekends [facility] How often to you hav e a drink containing alcohol? Monthly or less [employer] How many standard dr inks containing alcohol do you have on a typical day? 1 or 2 [employer] How often do you hav e 6 or more drinks on 1 occasion? Never [employer] How hard is it for y ou to pay for the very basics like food, housing, medical care, and heating Not very hard [employer] Patient Health Questionnaire 9 item (PHQ-9) total score [Reported] 0 [employer] (I/We) worried wheth er (my/our) food would run out before (I/we) got money to buy more. Never true [employer] Medical Equipment Procedure Code Equipment Code Equipment Origin al Text Equipment Identifier Dates fluorescein ophthalmic strip 1 mg [id number] Start: 06-21-2022 End: 06-21-2022 Clinical Notes 02-07-2019 to 02-11-2024 Kathrine Carrington - 02/11/2024 2:00 PM Ankur Martinez MD - 02/09/2024 1:45 PM Kathrine Whitmore - 02/02/2024 2:45 PM Fernando Panchal DO - 01/17/2024 1:30 PM ESTDischarge Instructions Note Date & Type Note Facility 02-11-2024 History of Present illness Narrative Occupational Therapy [facility] Date: 02/11/2024 Patient Name: Izzy Silverio : 1955 Patient no call/no show Kathrine Carrington Date: 02/11/2024 documented in this encounter [facility] 02-09-2024 History of Present illness Narrative Assessment/Plan [...] laser capsulotomy, 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 documented in this encounter [facility] 02-02-2024 History of Present illness Narrative Occupational Therapy [facility] Date: 02/02/2024 Patient Name: Izzy Silverio : 1955 Patient called to cancel today's appt. Due to having to take her nephew to get his hair cut. Kathrine Carrington Date: 02/02/2024 documented in this encounter [facility] 01-17-2024 History of Present illness Narrative Chief [...] the findings were discussed at length. Continue patient care technician and start Vitamin E oil massage, exercises twice daily for the next few weeks. Etiology of pillar pain reviewed and will lessen over the next couple months. Target Network Analyst strength and return expectations reviewed, with improvement up to 3-6 months.. OT was offered and discussed. F/U will be in 1 months, prn if doing well. All questions answered. documented in this encounter [facility] 12-22-2023 History of Present illness Narrative Images [...] Phalen's. She does have the hypertrophic change management expert the basilar thumb carpometacarpal joint bilaterally. Examination [...] 7:44 AM EST documented in this encounter [facility] 12-16-2023 History of Present illness Narrative Images from the original note were not included. Reason for Appointment: EMG Patient: Izzy Silverio : 1955 EMG Computer: Zocere Referring Physician: Dr. Hina Panchal EMG: EMPERATRIZ fiberglass laminator: Ralph Ayala RT(R) Office Location: [place] Reason for EMG: c/o numbness/tingling in right hand/fingers. No hx of DM. Not on blood thinners. Comments: Procedure was explained to the patient who expressed understanding. Patient appeared to have tolerated the test well despite some discomfort due to the nature of the test. documented in this encounter [facility] 12-10-2023 History of Present illness Narrative Images [...] Depression: Not at risk (09/01/2023) Received from [facility] PHQ-2 PHQ-9 Total Score: 0 REVIEW [...] 11:42 AM EDT documented in this encounter [facility] 06-21-2022 Hospital Discharge instructions Elbert Ramos MD - 06/21/2022 7:46 AM EDT Use eye drops- 2 drops to both eyes 4 times a day for 4 days. Follow up with your career placement specialist if symptoms persist or worsen. Follow up with Dr. Calixto to have your blood pressure rechecked. The following attachments cannot be sent through Care Everywhere.Conjunctivitis (Moroccan)Hypertension (Moroccan)documented in this encounter [employer] Phone: 11-20-2021 Note CONSULTATION CONSULTATION DATE: 11/22/2021 [...] fusion was performed in 2019 at the [facility]. The patient presents very discouraged today and [...] care and all questions answered today. [facility] 08-19-2021 Note CONSULTATION PROCEDURE DATE: [...] will be followed up in the office. [facility] Signed and Approved by: DR ELOY DAVIDSON . 09/02/2021 07:55:00 [facility] 08-19-2021 Note CONSULTATION CONSULTATION DATE: 08/19/2021 CHIEF COMPLAINT: 1. Left leg motor weakness, left foot pain. 2. Right hip pain. HISTORY OF PRESENT ILLNESS: This is a 66-year-old female who has a complicated history. The patient had two lumbar surgeries subsequent to which the patient had significant pain in her left foot, residual pain. The patient had a decompressive surgery at [facility] and then a second diskectomy at the level of L5-S1 in [place]. The patient states, subsequent to that, she [...] the MRI disc to the surgeon in [place] where she has the confidence of the surgeon. The patient understands and would like to proceed. CC: Dr. Calixto [facility] Signed and Approved by: DR ELOY DAVIDSON . 09/02/2021 07:55:00 [facility] 06-26-2021 Note CONSULTATION CONSULTATION DATE: [...] present but decreased. She is consistently taking laay-cqm-mesidvm anti-inflammatories once to twice a day as needed. 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 Sitting and heat decreases [...] plan of care. All questions were answered. [facility] Signed and Approved by: ADELFO GARCIA . 07/02/2021 14:04:00 [facility] 06-18-2021 Note PROCEDURE: XR HIP RT [...] by: RAMÓN ACEVEDO Date: 2021-06-18 08:53 [facility] 06-18-2021 Note CONSULTATION CONSULTATION DATE: [...] with that and would like to proceed. [facility] Signed and Approved by: ADELFO GARCIA . 06/19/2021 09:41:00 [facility] 01-21-2021 Note PAIN MANAGEMENT DATE: 01-21-21 [...] get about her house. This was in [place]. The patient had undergone three epidurals, failed [...] DR ELOY DAVIDSON . 01/28/2021 08:59:00 [facility] 02-16-2019 History of Present illness Narrative [facility] Date: 02/16/2019 Patient Name: Izzy Silverio : 1955 Pt Cancelled Appt due to had out of town company, and cannot make it to this appointment. Kay Fitzgerald Date: 02/16/2019 documented in this encounter [employer] Phone: 02-09-2019 History of Present illness [facility] Date: 02/09/2019 Patient Name: Izzy Silverio : 1955 Pt Cancelled Appt due to in [place] with a flat tire. Le Leon Date: 02/09/2019 documented in this encounter [employer] Phone: 02-07-2019 History of Present illness [facility] Date: 02/07/2019 Patient Name: Izzy Silverio : 1955 Pt Cancelled Appt due to does not want to do dry needling. Le Hoover Carolyn Date: 02/07/2019 documented in this encounter [employer] Phone: Evaluation note Diagnosis Breast cancer screening by mammogram documented in this encounter [employer] Phone: evaluation note* Diagnosis Screening cholesterol level Screening for lipoid disorders documented in this encounter [employer] Phone: evaluation note* Diagnosis Acute bacterial conjunctivitis of both eyes- Primary documented in this encounter LISA MCCOLLUM [employer] Phone: evaluation note* Diagnosis Right hand pain- [...] Carpal tunnel syndrome, right upper limb Procedures IN NEEDLE EMG EA EXTREMTY W/PARASPINL AREA COMPLETE IN NERVE CONDUCTION STUDIES 9-10 STUDIES Hina Panchal DO [address] [place] [address] [place] [address] Phone: tel: fax: Joaquín JonaleonelDO [address] [place] [id number] Phone: tel: fax: Referral ID Status Reason Start Date Expiration Date V isits Requested Visits Authorized [id number] Closed Perform Procedure 12/14/2023 06/11/2024 1 1 [facility] History of Present Illness * Margot Mercado, PT - 01/24/2019 8:45 AM EST [facility] Outpatient Physical Therapy Daily Note Date: 01/24/2019 Patient Name: Izzy Silverio : 1955 (63 y.o.) Referring Practitioner: TERA Negro Referral Date : 11/22/18 Diagnosis: S/P lumbar disectomy Treatment Diagnosis: Back pain, left leg pain Onset Date: 11/22/18(Referral) PT Insurance Information: [facility] Total # of Visits Approved: 14 Per Physician Order Total # of Visits to Date: 4 Canceled Appointment: 2 Plan of Care/Certification Expiration Date: 12/30/18 Pre-Treatment Pain: 8/10 Assessment Assessment: Patient returned from being in [place] x one month visiting family. She c/o [...] body mechanics with lifting following back education-met [facility] Goals - Time Frame for [facility] goals : 14 [facility] goal 1: Gait WFL with even stride length [facility] goal 2: Improve functional mobility with score < 8/50 on Oswestry Disability [facility] goal 3: Decrease left foot pain 4/10 at worst x 3 days [facility] goal 4: Increase strength left ankle eversion 4/5 for improved stability Post Treatment Pain: 8/10 Time In: 8:45 Time Out : 9:30 Timed Code Treatment Minutes: 45 Minutes Total Treatment Time: 45 Minutes Margot Mercado PT Date: 01/24/2019 documented in this encounter* Kay Fitzgerald - 12/08/2018 9:07 AM EDT [facility] Date: 12/08/2018 Patient Name: Izzy Silverio : 1955 Pt Cancelled Appt due to left no reason for cancellation, rescheduled for next Wednesday12/16/18. Kay Fitzgerald Date: 12/08/2018 documented in this encounter* Le Stark - 12/21/2018 9:38 AM EDT [facility] Outpatient Physical Therapy Daily Note Date: 12/21/2018 Patient Name: Izzy Silverio : 1955 (63 y.o.) Referring Practitioner: TERA Negro Referral Date : 11/22/18 Diagnosis: S/P lumbar disectomy Treatment Diagnosis: Back pain, left leg pain Onset Date: 11/22/18(Referral) PT Insurance Information: [facility] Total # of Visits Approved: 6 Per [...] with score < 10/50 on Oswestry Disability Tugger Operator Goals - Time Frame for intermediate designer goals : NA- patient request only 2 wks of PT due to leaving for prolonged stay in [place] Post Treatment Pain: 04/03 Time In: 0900 Time Out : 09 Timed Code Treatment Minutes: 35 Minutes Total Treatment Time: 35 Minutes Le Stark PULLEY MAINTAINER Date: 12/21/2018 documented in this encounter* Hayley Orta PT - 01/26/2019 10:15 AM EST [facility] Outpatient Physical Therapy Daily Note Date: 01/26/2019 Patient Name: Izzy Silverio : 1955 (63 y.o.) Referring Practitioner: TERA Negro Referral Date : 11/22/18 Diagnosis: S/P lumbar disectomy Treatment Diagnosis: Back pain, left leg pain Onset Date: 11/22/18(Referral) PT Insurance Information: [facility] Total # of Visits Approved: 14 Per [...] body mechanics with lifting following back education-met Tugger Operator Goals - Time Frame for intermediate designer goals : 14 [facility] goal 1: Gait WFL with even stride length intermediate designer goal 2: Improve functional mobility with score < 8/50 on Oswestry Disability intermediate designer goal 3: Decrease left foot pain 4/10 at worst x 3 days [facility] goal 4: Increase strength left ankle eversion 4/5 for improved stability Post Treatment Pain: 0/10 Time In:1020 Time Out : 1100 Timed Code Treatment Minutes: 40 Minutes Total Treatment Time: 40 Minutes Hayley Orta, PT Date: 01/26/2019 documented in this encounter* Margot Mercado, PT - 12/16/2018 9:36 AM EDT [facility] Outpatient Physical Therapy Evaluation Date: 12/16/2018 Patient: Izzy Silverio : 1955 Referring Practitioner: TERA Negro Referral Date : 11/22/18 Diagnosis: S/P lumbar disectomy Treatment Diagnosis: Back pain, left leg pain Onset Date: 11/22/18(Referral) PT Insurance Information: [facility] Total # of Visits Approved: 6 Per [...] PT due toleaving for prolonged stay in [place]; focus on back education and HEP. Prognosis: [...] with score < 10/50 on Oswestry Disability [facility] goals Time Frame for [facility] goals : NA- patient request only 2 wks of PT due to leaving for prolonged stay in [place] Patient's Goal: Walk normal, without limp Timed Code Treatment Minutes: 20 Minutes Total Treatment Time: 50 Time In: 7:35 Time Out: 8:25 Margot Mercado, PT Date: 12/16/2018 documented in this encounter* CarolynDavonchuck Hoover - 12/02/2018 8:21 AM EDT [facility] Date: 12/02/2018 Patient Name: Izzy Silverio : 1955 Pt Cancelled Appt due to Illness Le Hoover Carolyn Date: 12/02/2018 documented in this encounter* Le Stark Nirmal - 12/19/2018 9:44 AM EDT [facility] Outpatient Physical Therapy Daily Note Date: 12/19/2018 Patient Name: Izzy Silverio : 1955 (63 y.o.) Referring Practitioner: TERA Negro Referral Date : 11/22/18 Diagnosis: S/P lumbar disectomy Treatment Diagnosis: Back pain, left leg pain Onset Date: 11/22/18(Referral) PT Insurance Information: [facility] Total # of Visits Approved: 6 Per [...] with score < 10/50 on Oswestry Disability Tugger Operator Goals - Time Frame for [facility] goals : NA- patient request only 2 wks of PT due to leaving for prolonged stay in [place] Post Treatment Pain: 0/10 Time In: 0900 Time Out : 0940 Timed and total 40 min Le Nirmal Stark PULLEY MAINTAINER Date: 12/19/2018 documented in this encounter Advance Directives No Advanced Directives Records FoundDocuments on File Type Date Recorded Patient Wind Tunnel Technician Expl anation Advance Directives and Living Will Power of Electric Locomotive Crane Operator Documents on File Type Date Recorded Patient Wind Tunnel Technician Expl anation ACP-Advance Directive ACP-Power of Electric Locomotive Crane Operator Documents on File Type Date Recorded Patient Wind Tunnel Technician Expl anation ACP-Advance Directive ACP-Power of Electric Locomotive Crane Operator Healthcare Agents on File Name Relationship Healthcare [...] states Procedures [place] [address] [address] [facility] [place] [address] Hayley Orta, PT Status Reason Specialty Diagnoses / Procedures Re ferred By Contact Referred To Contact Open Physical Therapy Diagnoses Other specified postprocedural states [place] [address] [address] [facility] [place] [address] Hayley Orta, PT Status Reason Specialty Diagnoses / Procedures Referred By Contact Referred To Contact Pending Review Specialty Services Required Physical Therapy Diagnoses Acute left-sided low back pain with left-sided sciatica Radiculopathy of lumbar region Paresthesia of left foot Procedures physical therapy Dolores Calixto MD [address] [place] [address] [facility] [address] [place] [phone] Status Reason Specialty Diagnoses / Procedures Referre d By Contact Referred To Contact Closed Radiology Diagnoses Breast cancer screening by mammogram Procedures RAMIRO CHRISTIANO DIGITAL SCREEN BILATERAL RAMIRO DIGITAL SCREEN W CAD BILATERAL Eddie Novoa, 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VENEER GRADER [address] [place] [address] Reason Comments Facial Swelling Left eye started Wed day to feel like something was in eye. Woke up this morning swollen and still feels like something in eye. Reason Comments Pain Reason Comments Eye Exam Blurred Vision INFORMATION SOURCE (unrecogn ized section and content) DATE CREATED AUTHOR 09/15/2019 [facility] DATE CREATED AUTHOR AUTHOR'S ORGANIZ ATION 01/16/2020 [facility] DATE CREATED AUTHOR AUTHOR'S ORGANIZ ATION 02/09/2020 [facility] DATE CREATED AUTHOR AUTHOR'S ORGANIZ ATION 05/12/2021 [facility] DATE CREATED AUTHOR AUTHOR'S ORGANIZ ATION 01/02/2022 [facility] DATE CREATED AUTHOR AUTHOR'S ORGANIZ ATION 10/20/[address] [facility] DATE CREATED AUTHOR AUTHOR'S ORGANIZ ATION 02/12/2024 [facility] DATE CREATED AUTHOR AUTHOR'S ORGANIZ ATION 02/15/2024 Delilah Daley [facility] Care Teams (unrecognized sec tion and content) Bookkeeper Assistant Relationship Specialty Start Date End Date Dolores Calixto MD [address] [place], [place] [phone] PCP - General Family Medicine 03/02/16 Bookkeeper Assistant Relationship Specialty Start Date End Date Dolores Calixto MD [address] [place] [address] PCP - General Family Medicine 03/02/16 Bookkeeper Assistant Relationship Specialty Start Date End Date Dolores Calixto MD [address] [place], [place] [phone] PCP - General Family Medicine 03/02/16 Bookkeeper Assistant Relationship Specialty Start Date End Date Dolores Calixto MD [address] [place] [address] PCP - General Family Medicine 12/01/23 Bookkeeper Assistant Relationship Specialty Start Date End Date Dolores Calixto MD [address] [place], [place] [phone] PCP - General Family Medicine 12/01/23 Bookkeeper Assistant Relationship Specialty Start Date End Date Dolores Calixto MD [address] [place] [address] PCP - General Family Medicine 12/01/23 Bookkeeper Assistant Relationship Specialty Start Date End Date Dolores Calixto MD [address] [place], [place] [phone] PCP - General Family Medicine 12/01/23 Bookkeeper Assistant Relationship Specialty Start Date End Date Dolores Calixto MD [address] [place] [id number] PCP - General Family Medicine 12/01/23 Bookkeeper Assistant Relationship Specialty Start Date End Date Dolores Calixto MD [address] [place] [address] PCP - General Family Medicine 12/01/23 Bookkeeper Assistant Relationship Specialty Start Date End Date Dolores Calixto MD [address] [place] [address] PCP - General Family Medicine 12/01/23 Bookkeeper Assistant Relationship Specialty Start Date End Date Dolores Calixto MD [address] [place] [address] PCP - General Family Medicine 03/02/16 Bookkeeper Assistant Relationship Specialty Start Date End Date Dolores Calixto MD [address] [place] [address] PCP - General Family Medicine 03/02/16 Bookkeeper Assistant Relationship Specialty Start Date End Date Dolores Calitxo MD [address] [place] [address] PCP - General Family Medicine 12/01/23 Bookkeeper Assistant Relationship Specialty Start Date End Date Dolores Calixto MD [address] [place] [address] PCP - General Family Medicine 03/02/16 Bookkeeper Assistant Relationship Specialty Start Date End Date Dolores Calixto MD [address] [place] [address] PCP - General Family Medicine 03/02/16 Scheduled [...] BE BASED ON THE PRIMARY CLINICAL RECORDS. [facility] [employer] [facility]. provides no warranty or guarantee of the accuracy or completeness of information in this document.
== END 2024-03-13 10:41 | disposition home or self-care (01) ==
LOC: PM 10:40
PROVIDERS: PCP Family Medicine; Visit Provider Anesthesiology
DX: M17.11 Unilateral primary osteoarthritis, right knee (principal); M54.2 Cervicalgia; M54.12 Radiculopathy, cervical region
CPT/HCPCS: 20610; J0665; J1010

== ENCOUNTER 2024-08-24 12:48 | Outpatient (OUT) | payer OTHER, SELFPAY ==
--- OUTSIDE RECORDS SUMMARY | 2024-08-24 12:52 | XMS_ITS | Clinical Summary ---
Author Organization [facility] Address [address] [place] [address] Care Team Providers Care Billet Inspector Name Role Phone Betty Calixto MD Primary Care Provider [phone] Allergies No known active allergies Medications gabapentin (NEURONTIN) 100 MG capsule TAKE 1 CAPSULE IN THE MORNING, TAKE 1 CAPSULE in the afternoon then TAKE 2 CAPSULES BY MOUTH AT BEDTIME 4 Active Active Problems No known active problems Encounters Date Type Department Care Team Description 07/12/2024 Abstract [facility] [address] [place] [id number] Betty Calixto MD from Last 3 Months Immunizations Immunization Administration Dates Next Due COVID-19, MODERNA BLUE borde r, Primary or Immunocompromised, (age 12y+), IM, 100 mcg/0.5mL 04/24/2020,04/01/2020 COVID-19, MODERNA Booster BL UE border, (age 18y+), IM, 50mcg/0.25mL 01/28/2021 Influenza Virus Vaccine 12/10/2017 Influenza, FLUAD, (age 65 y+ ), IM, Quadv, 0.5mL 02/10/2023,12/15/2021,02/10/2021,2019 Influenza, FLUAD, (age 65 y+ ), IM, Trivalent PF, 0.5mL 12/13/2018 Influenza, FLUARIX, FLULAVAL , FLUZONE (age 6 mo+) and AFLURIA, (age 3 y+), Quadv PF, 0.5mL 12/10/2017 Influenza, FLUZONE High Dose , (age 65 y+), IM, Trivalent PF, 0.5mL 11/29/2019 Pneumococcal, PCV-13, PREVNA R 13, (age 6w+), IM, 0.5mL 11/29/2019 Family History Medical History Relation Name Comments Cancer Father prostate Breast Cancer Maternal Aunt COPD Mother Pacemaker Mother Stroke Mother Relation Name Status Comments Father Maternal Aunt Mother Alive Social History Tobacco Use Types Packs/Day Years Used Date Smoking Tobacco: Former Cigarettes 1 5 - 2006 Smokeless Tobacco: Never Tobacco Cessation:Counseling Given: Not Answered Alcohol Use Standard Drinks/Week Comments Not Currently 0 (1 standard drink = 0.6 oz pur e alcohol) AUDIT-C Answer Date Recorded Q1: How often do you have a drink containing alc ohol? Monthly or less 09/01/2023 Q2: How many drinks containi ng alcohol do you have on a typical day when you are drinking? 1 or 2 09/01/2023 Q3: How often do you have si x or more drinks on one occasion? Never 09/01/2023 Overall Financial Resource Strain (CARDIA) Answe r Date Recorded How hard is it for you to pa y for the very basics like food, housing, medical care, and heating? Not very hard 09/23/2022 PHQ-2 Answer Date Recorded PHQ-9 Total Score 0 09/01/2023 Exercise Vital Sign Answer Date Recorde d On average, how many days pe r week do you engage in moderate to strenuous exercise (like a brisk walk)? 6 days 09/01/2023 On average, how many minutes do you engage in exercise at this level? 40 min 09/01/2023 Hunger Vital Sign Answer Date Recorded Within the past 12 months, y ou worried that your food would run out before you got the money to buy more. Never true 09/24/19 23 Within the past 12 months, t he food you bought just didn't last and you didn't have money to get more. Never true 09/23/2022 PRAPARE - Transportation Answer Date Re corded Lack of Transportation (Medical) Not on file 09/23/2022 In the past 12 months, has l ack of transportation kept you from meetings, work, or from getting things needed for daily living? No 09/23/2022 Housing Stability Vital Sign Answer Isaiah e Recorded Unable to Pay for Housing in the Last Year Not o n file 09/23/2022 Number of Places Lived in the Last Year Not on f ile 09/23/2022 In the last 12 months, was t here a time when you did not have a steady place to sleep or slept in a alf (including now)? No 09/23/2022 Food Insecurity Answer Date Recorded Within the past 12 months, y ou worried that your food would run out before you got the money to buy more. 1 09/23/2022 Within the past 12 months, t he food you bought just didn't last and you didn't have money to get more. 1 09/23/2022 Comments No Sex and Gender Information Value Date Recorded Sex Assigned at Not on file Legal Sex Female 7:53 PM EST Gender Identity Not on file Sexual Orientation Not on file Last Filed Vital Signs Vital Sign Reading Time Taken Comments Blood Pressure 136/78 09/01/2023 8:25 AM EDT Pulse 68 09/01/2023 8:25 AM EDT Temperature 36.8 C (98.2 F) 06/21/2022 6:48 AM EDT Respiratory Rate 20 06/21/2022 6:48 AM EDT Oxygen Saturation 98% 09/01/2023 8:25 AM EDT Inhaled Oxygen Concentration - - Weight 62.6 kg (138 lb) 09/01/2023 8:25 AM EDT Height 157.5 cm (5' 2 ) 09/01/2023 8:25 AM EDT Body Mass Index 25.24 09/01/2023 8:25 AM EDT Plan of Treatment Upcoming Encounters Date Type Department Care Team (Late st Contact Info) Description 09/05/2024 9:00 AM EDT Office Visit [facility] [address] [place] [phone] Betty Calixto MD [address] [place] [address] AWV Health Maintenance Due Date Last Done Comments Hepatitis C screen 1971 DTaP/Tdap/Td vaccine (1 - Tdap) 1972 Colonoscopy 1998 Fecal-DNA (Cologuard): Average risk 1998 Sigmoidoscopy/CT colonography 1998 Shingles vaccine (1 of 2) 2003 DEXA (modify frequency per FRAX score) 2008 Pneumococcal 50+ years Vaccine (2 of 2 - PPSV23) 11/28/2020 11/29/2019 COVID-19 Vaccine (4 - season) 2023 01/28/2021, 04/24/2020, 04/01/2020 Annual Wellness Visit (Medicare Advantage) 02/23/2024 09/01/2023, 03/24/2022, 01/28/2021 Depression Screen 08/31/2024 09/01/2023, 09/01/2023 Colorectal Cancer Screen 09/15/2024 FIT/FOBT: Average risk 09/15/2024 4, 04/03/2022, 02/11/2021, Additional history exists Flu vaccine (#1) 09/22/2024 02/10/2023, , 02/10/2021, Additional history exists Breast cancer screen 03/15/2025 03/15/2023, 09/09/2020, 03/16/2016 Lipids 02/11/2026 02/11/2021, 02/0 09/2018, 03/16/2016 Respiratory Syncytial Virus (RSV) or age 60 yrs+ Completed 02/10/2023 Hepatitis A vaccine Aged Out No longe r eligible based on patient's age to complete this topic Hepatitis B vaccine Aged Out No longe r eligible based on patient's age to complete this topic Hib vaccine Aged Out No longer eligi ble based on patient's age to complete this topic Meningococcal (ACWY) vaccine Aged Out No longer eligible based on patient's age to complete this topic Meningococcal B vaccine Aged Out No l onger eligible based on patient's age to complete this topic Polio vaccine Aged Out No longer elig ible based on patient's age to complete this topic Procedures Procedure Name Priority Date/Time Associated Diagnosis Comments POCT FECAL IMMUNOCHEMICAL TEST (FIT) Routine 09/16/2023 1:07 PM EDT Colon cancer screening RAMIRO CHRISTIANO DIGITAL SCREEN BILATERAL Routine 03/15/2023 9:58 AM EST Other screening mammogram LIPID PANEL Routine 02/11/2021 7:37 AM EST Screening cholesterol level from Last 3 Months or Most Recently Relevant to Health Maintenance Results * POCT Fecal Immunochemical Test (FIT) (09/16/2023 1:07 PM EDT) Fecal Blood Immunochemical Test negative Control valid STOOL SPECIMEN / Unknown 09/16/2023 1:07 PM EDT us Betty Calixto MD POINT OF CARE TEST ORDERABLES Final Result * RAMIRO CHRISTIANO DIGITAL SCREEN BILATERAL (03/15/2023 9:58 AM EST) Anatomical Region Laterality Modality Breast Bilateral Mammography 03/15/2023 9:58 AM EST Impressions 03/16/2023 12:39 PM EST OVERALL ASSESSMENT: BIRADS: 1 Negative, no evidence of malignancy. A letter of notification will be mailed to the patient. Narrative 03/16/2023 12:39 PM EST HISTORY: Screening. TECHNIQUE: Bilateral digital screening mammogram with CAD. Digital breast tomosynthesis imaging. FINDINGS: Two views of each breast show scattered areas of fibroglandular density. BREAST DENSITY CODE: S Scattered No change from prior studies, most recent of 09/09/2020. Suspicious calcifications: None. Suspicious mass: None. (If skin markers were applied, circles represent skin lesions and linear markers represent scars.) us Betty Calixto MD IMG MAMMOGRAPHY ORDERABLES Fi nal Result * (ABNORMAL) Lipid Panel (02/11/2021 7:37 AM EST) Cholesterol 215(H) <200 mg/dL 02/11/2021 7:37 AM EST [email or web address] Comment: Cholesterol Guidelines: <200 Desirable 200-240 Borderline >240 Undesirable HDL 48 >40 mg/dL 02/11/2021 7:37 AM EST [email or web address] Comment: HDL Guidelines: <40 Undesirable 40-59 Borderline >59 Desirable LDL Cholesterol 135(H) 0 - 130 mg/dL 02/11/2021 7:37 AM EST [email or web address] Comment: LDL Guidelines: <100 Desirable 100-129 Near to/above Desirable 130-159 Borderline >159 Undesirable Direct (measured) LDL and calculated LDL are not interchangeable tests. Chol/HDL Ratio 4.5 <5 02/11/2021 7:37 AM EST [email or web address] Comment: Triglycerides 161(H) <150 mg/dL 02/11/2021 7:37 AM EST [email or web address] Comment: Triglyceride Guidelines: <150 Desirable 150-199 Borderline 200-499 High >499 Very high Based on AHA Guidelines for fasting triglyceride, November 2011. VLDL NOT REPORTED( H) 1 - 30 mg/dL 02/11/2021 7:37 AM [employer] BLOOD SPECIMEN / Unknown 02/11/2021 7:37 AM EST 02/11/2021 7:38 AM EST us Betty Calixto MD CHEMISTRY ORDERABLES Final Re sult [facility] [address] [place] [address], [facility] [phone] [place] [address] [place] [address], [facility] [phone] from Last 3 Months or Most Recently Relevant to Health Maintenance Insurance [employer] Advance Directives Healthcare Agents on File Name Relationship Healthcare Agent Relationshi p Communication Sriram Roberson Spouse Primary Decision Maker Care Teams Billet Inspector Relationship Specialty Start Date End Date Betty Calixto MD [address] [place] [address] PCP - General Family Medicine 03/02/16
--- OUTSIDE RECORDS SUMMARY | 2024-08-24 12:52 | XMS_ITS | Clinical Summary ---
Author Organization [facility] Address [address] [place] [address] Care Team Providers Care 1St Grade Teacher Name Role Phone Betty Calixto MD Primary Care Provider [phone] Allergies No known active allergies Medications gabapentin (NEURONTIN) 300 mg capsule 600 mg TID, please increase dose by 300 mg every 5 days (star by increasing evening dose) 180 capsule 3 9 Active Additional Information Patient taking differently: 300 mg DAILY, 600 mg TID, please increase dose by 300 mg every 5 days (star by increasing evening dose)Patient taking 2 capsules either in morning or at night, Reason: Dosage Adjustment, Reported on 08/23/2018 pregabalin (LYRICA) 50 mg capsuleIndicatio ns:S/P lumbar laminectomy Take 1 capsule by mouth twice daily for 30 days. 60 capsule 9 Active pregabalin (LYRICA) 50 mg capsuleIndicatio ns:S/P lumbar laminectomy Take 1 capsule by mouth twice daily for 90 days. 60 capsule 2 9 Active Additional Information Patient not taking.Reported on 03/09/2019 gabapentin (NEURONTIN) 300 mg capsule Take 1 capsule by mouth three times daily for 30 days. 90 capsule 0 Active gabapentin (NEURONTIN) 300 mg capsule Take 1 capsule by mouth three times daily for 30 days. 90 capsule 0 Active Active Problems Problem Noted Date Diagnosed Date Lumbar stenosis 10/05/2019 Family History Relation Status Comments Mother Alive Social History Tobacco Use Types Packs/Day Years Used Date Smoking Tobacco: Former Cigarettes Q uit: 02/22/2005 Smokeless Tobacco: Never Alcohol Use Standard Drinks/Week Comments Yes 0 (1 standard drink = 0.6 oz pur e alcohol) 1-2 drinks once a week PHQ-2 Answer Date Recorded PHQ-2 score 0 09/15/2019 Area Deprivation Index Answer Date Corwin rded National Score (1-100), lower number is lower ri sk Not on file 01/30/2020 State Score (1-10), lower number is lower risk N ot on file 01/30/2020 Data from: https://www.neighborhoodatlas.medicine.[facility]/. Last address used for calculation Not on file 01/30/2020 Comments No Sex and Gender Information Value Date Recorded Sex Assigned at Not on file Legal Sex Female 7:45 AM EST Gender Identity Not on file Sexual Orientation Not on file Last Filed Vital Signs Vital Sign Reading Time Taken Comments Blood Pressure 139/88 10/05/2019 2:11 PM EDT Pulse 84 10/05/2019 2:11 PM EDT Temperature 36.7 C (98 F) 10/05/2019 1:32 PM EDT Respiratory Rate 16 10/05/2019 2:11 PM EDT Oxygen Saturation 95% 10/05/2019 2:11 PM EDT Inhaled Oxygen Concentration - - Weight 61.2 kg (135 lb) 10/05/2019 1:32 PM EDT Height 157.5 cm (5' 2 ) 10/05/2019 1:32 PM EDT Body Mass Index 24.69 10/05/2019 1:32 PM EDT Plan of Treatment Health Maintenance Due Date Last Done Comments Anxiety Screening 1971 Depression Screening 1971 Hepatitis C Screening 1971 DTaP,Tdap,Td Vaccine (1 - Tdap) [address] Colonography 1998 Cologuard (FIT-DNA) 1998 Colonoscopy 1998 Colorectal Cancer Screening 1998 Fecal Occult Blood 1998 Sigmoidoscopy 1998 Shingrix Vaccine (1 of 2) 2003 Bone Density Screening 2018 Pneumococcal Vaccine: 50+ (2 of 2 - PPSV23) 11/28/2020 11/29/2019 Diabetes Screening 08/31/2021 08/31/2018 Lipid Screening 04/01/2023 04/01/2018 Covid-19 Vaccine ( season) 2023 Advance Directive Discussion 02/23/2024 Influenza Vaccine (Season Ended) 2024 11/29/2019, 12/13/2018, 12/10/2017 RSV Vaccine (1 - 1-dose 75+ series) 2028 Procedures Procedure Name Priority Date/Time Associated Diagnosis Comments BASIC METABOLIC PANEL Routine 08/31/2018 12:02 PM EDT Degeneration, intervertebral disc, lumbar from Last 3 Months or Most Recently Relevant to Health Maintenance Results * BASIC METABOLIC PNL (08/31/2018 12:02 PM EDT) Glucose 99 74 - 99 mg/dL 08/31/2018 9:42 PM EDT [facility] Comment: The [place] Diabetes Association (ADA) provides guidance for cutoff values for fasting glucose and random glucose. The ADA defines fasting as no caloric intake for at least 8 hours. Fasting plasma glucose results between 100 to 125 mg/dL indicate increased risk for diabetes (prediabetes). Fasting plasma glucose results greater than or equal to 126 mg/dL meet the criteria for diagnosis of diabetes. In the absence of unequivocal hyperglycemia, results should be confirmed by repeat testing. In a patient with classic symptoms of hyperglycemia or hyperglycemic crisis, random plasma glucose results greater than or equal to 200 mg/dL meet the criteria for diagnosis of diabetes. Reference: Standards of Medical Care in Diabetes 2016, [place] Diabetes Association. Diabetes Care. 2016.39(Suppl 1). BUN 11 7 - 21 mg/dL 08/31/2018 9:42 PM EDT [facility] Creatinine 0.66 0.58 - 0.96 mg/dL 08/31/2018 9:42 PM EDT [facility] Sodium 140 136 - 144 mmol/L 08/31/2018 9:42 PM EDT [facility] Potassium 3.8 3.7 - 5.1 mmol/L 08/31/2018 9:42 PM EDT [facility] Chloride 101 97 - 105 mmol/L 08/31/2018 9:42 PM EDT [facility] CO2 26 22 - 30 mmol/L 08/31/2018 9:42 PM EDT [facility] Anion Gap 13 9 - 18 mmol/L 08/31/2018 9:42 PM EDT [facility] Calcium 9.9 8.5 - 10.2 mg/dL 08/31/2018 9:42 PM EDT [facility] eGFR- >60 08/31/2018 9:42 PM EDT [facility] eGFR-All Other Races >60 . 08/31/2018 9:42 PM EDT [facility] Comment: eGFR (Estimated GFR) Units of measure: mL/min/1.73 meters squared eGFR is derived from the reexpressed MDRD Study equation using the following parameters: serum creatinine, age, gender and race. The creatinine assay has been calibrated to be traceable to IDMS. An eGFR <60 mL/min/1.73m2 for >3 months is consistent with chronic kidney disease. Refer to KDOQI guidelines for clinical interpretation. In patients with unstable renal function, e.g. those with acute kidney injury, the eGFR may not accurately reflect actual GFR. Blood specimen (specimen) BLOOD SPECIMEN / Unknown 08/31/2018 12:02 PM EDT 08/31/2018 12:09 PM EDT us Nadia Thomas SALES RECRUITMENT SPECIALIST.BUFFING AND SUEDING MACHINE OPERATOR LABORATORY Final Res ult [facility] [address] [place] [address] [facility] [address] [place] [address] from Last 3 Months or Most Recently Relevant to Health Maintenance Insurance MEDICARE Member Subscriber Plan / Payer (Ef fective 2018-Present) Name:Rica Roberson Member ID:[id number] Relation to Subscriber:Self Name:Rica Roberson Subscriber ID:[id number] Payer ID:Not on file Group ID:Not on file Type:Medicare Address: [facility] [place] [phone] [employer] SUPPLEMENT Care Teams 1St Grade Teacher Relationship Specialty Start Date End Date Betty Calixto MD [address] [place] [id number] PCP - General Family Medicine 01/07/18
--- OUTSIDE RECORDS SUMMARY | 2024-08-24 12:52 | XMS_ITS | Clinical Summary ---
Author Organization [facility] Address [address] [place] [address] Care Team Providers Care Toy Assembly Supervisor Name Role Phone Betty Calixto MD Primary Care Provider [phone] Allergies No known active allergies Medications gabapentin (Neurontin) 100 MG capsule 08/05/2023 Active Active Problems No known active problems Family History Medical History Relation Name Comments Hypertension Mother Stroke Mother Relation Name Status Comments Mother Social History Tobacco Use Types Packs/Day Years Used Date Smoking Tobacco: Former Cigarettes 0.5 15 Smokeless Tobacco: Never Tobacco Cessation:Counseling Given: Not Answered Alcohol Use Standard Drinks/Week Comments Yes 0 (1 standard drink = 0.6 oz pur e alcohol) One or two on weekends Comments Unknown Sex and Gender Information Value Date Recorded Sex Assigned at Not on file Legal Sex Female 8:33 PM EDT Gender Identity Not on file Sexual Orientation Not on file Last Filed Vital Signs Vital Sign Reading Time Taken Comments Blood Pressure - - Pulse - - Temperature 36.2 C (97.1 F) 01/17/2024 1:29 PM EST Respiratory Rate - - Oxygen Saturation - - Inhaled Oxygen Concentration - - Weight 62.1 kg (137 lb) 01/17/2024 1:29 PM EST Height 156.2 cm (5' 1.5 ) 01/17/2024 1:29 PM EST Body Mass Index 25.47 01/17/2024 1:29 PM EST Plan of Treatment Health Maintenance Due Date Last Done Comments CT Colonography 1953 Colonoscopy 1953 FIT-DNA 1953 Sigmoidoscopy 1953 Pneumococcal Vaccine: 65+ Ye ars (2 of 2 - PPSV23) 11/28/2020 11/29/2019 Mammogram 03/15/2024 03/15/2023, 02/23, 09/09/2020, Additional history exists Colorectal Cancer Screening 09/15/2024 FIT 09/15/2024 09/16/2023 FOBT 09/15/2024 09/16/2023 Influenza Vaccine (Season Ended) 2024 02/10/2023, 12/15/2021, 02/10/2021, Additional history exists Insurance Care Teams Toy Assembly Supervisor Relationship Specialty Start Date End Date Betty Calixto MD [address] [place] [address] PCP - General Family Medicine 12/01/23
--- OUTSIDE RECORDS SUMMARY | 2024-08-24 12:52 | XMS_ITS | Encounter Summary ---
Author Organization [facility] Address [address] [place] [address] Care Team Providers Care Pens And Pencils Repairer Name Role Phone Betty Calixto MD Primary Care Provider [phone] Source Comments In the event this information is protected by the Federal Confidentiality of Alcohol and Drug AbusePatient Records regulations: The Federal rules restrict any use of the information to criminally investigate or prosecute any alcohol or drug abuse patient.[facility] Encounter Details Date Type Department Care Team (Late st Contact Info) Description 05/29/2019 Get Medical Advice [facility] [place] [address] [place], [place] [phone] [place] [address] [place], [place] [id number] RE: Non-Urgent Medical Question Social History Tobacco Use Types Packs/Day Years Used Date Smoking Tobacco: Former Cigarettes Q uit: 02/22/2005 Smokeless Tobacco: Never Alcohol Use Standard Drinks/Week Comments Yes 0 (1 standard drink = 0.6 oz pur e alcohol) 1-2 drinks once a week PHQ-2 Answer Date Recorded PHQ-2 Score 0 01/16/2019 Comments No Sex and Gender Information Value Date Recorded Sex Assigned at Not on file Legal Sex Female 7:45 AM EST Gender Identity Not on file Sexual Orientation Not on file documented as of this encounter Functional Status * Are you deaf or do you have serious difficulty hearing? Answer Date of Assessment Author No 09/02/2018 10:45 AM Rojas Nam (Rn), RN * Are you blind or do you have serious difficulty seeing, even when wearing glasses? Answer Date of Assessment Author No 09/02/2018 10:45 AM Rojas Nam (Rn), RN * Do you have serious difficulty walking or climbing stairs? Answer Date of Assessment Author No 09/02/2018 10:45 AM Rojas Nam (Rn) RN * Do you have difficulty dressing or bathing? Answer Date of Assessment Author No 09/02/2018 10:45 AM Rojas Nam (Rn), RN * Because of a physical, mental, or emotional condition, do you have difficulty doing errands alone such as visiting a doctor's office or shopping? Answer Date of Assessment Author No 09/02/2018 10:45 AM Rojas Nam (Rn), RN documented as of this encounter Mental Status * Because of a physical, mental, or emotional condition, do you have serious difficulty concentrating, remembering, or making decisions? Answer Entry Date Author No 09/02/2018 10:45 AM Rojas Nam (Rn), RN documented in this encounter Plan of Treatment Not on file documented as of this encounter Visit Diagnoses Not on filedocumented in this encounter Care Teams Pens And Pencils Repairer Relationship Specialty Start Date End Date Betty Calixto MD [address] [place] [address] PCP - General Family Medicine 01/07/18 documented as of this encounter
--- OUTSIDE RECORDS SUMMARY | 2024-08-24 12:52 | XMS_ITS | Encounter Summary ---
Author Organization [facility] Address [address] [place] [address] Care Team Providers Care Cooperative Extension Agent Name Role Phone Betty Calixto MD Primary Care Provider [phone] Source Comments In the event this information is protected by the Federal Confidentiality of Alcohol and Drug AbusePatient Records regulations: The Federal rules restrict any use of the information to criminally investigate or prosecute any alcohol or drug abuse patient.[facility] Encounter Details Date Type Department Care Team (Late st Contact Info) Description 02/25/2018 Abstract Neurology [address] [place], [place] [phone] (Historical), Unknown Social History Tobacco Use Types Packs/Day Years Used Date Smoking Tobacco: Former Smokeless Tobacco: Never Alcohol Use Standard Drinks/Week Comments Yes 0 (1 standard drink = 0.6 oz pur e alcohol) once in awhile Comments No Sex and Gender Information Value Date Recorded Sex Assigned at Not on file Legal Sex Female 7:45 AM EST Gender Identity Not on file Sexual Orientation Not on file documented as of this encounter Plan of Treatment Not on file documented as of this encounter Visit Diagnoses Not on filedocumented in this encounter Care Teams Cooperative Extension Agent Relationship Specialty Start Date End Date Betty Calixto MD [address] [place] [address] PCP - General Family Medicine 01/07/18 documented as of this encounter
--- OUTSIDE RECORDS SUMMARY | 2024-08-24 12:52 | XMS_ITS | Encounter Summary ---
Author Organization [facility] Address [address] [place] [address] Care Team Providers Care Neuropsychology Division Chief Name Role Phone Betty Calixto MD Primary Care Provider [phone] Source Comments In the event this information is protected by the Federal Confidentiality of Alcohol and Drug AbusePatient Records regulations: The Federal rules restrict any use of the information to criminally investigate or prosecute any alcohol or drug abuse patient.[facility] Encounter Details Date Type Department Care Team (Late st Contact Info) Description 05/25/2019 Get Medical Advice Pain Management [address] [phone] [place] [address] [place], [place] [phone] RE: Non-Urgent Medical Question Social History Tobacco [...] Nam (Rn) RN * Do you have serious difficulty walking or climbing stairs? Answer Date of Assessment Author No 09/02/2018 10:45 AM Rojas Nam (Rn) RN * Do you have difficulty dressing or bathing? Answer Date of Assessment Author No 09/02/2018 10:45 AM Rojas Nam) RN * Because of a physical, mental, or emotional condition, do you have difficulty doing errands alone such as visiting a doctor's office or shopping? Answer Date of Assessment Author No 09/02/2018 10:45 AM Rojas Nam (Rn) RN documented as of this encounter Mental Status * Because of a physical, mental, or emotional condition, do you have serious difficulty concentrating, remembering, or making decisions? Answer Entry Date Author No 09/02/2018 10:45 AM Rojas Nam) RN documented in this encounter Plan of Treatment Not on file documented as of this encounter Visit Diagnoses Not on filedocumented in this encounter Care Teams Neuropsychology Division Chief Relationship Specialty Start Date End Date Betty Calixto MD [address] [place] [address] PCP - General Family Medicine 01/07/18 documented as of this encounter
--- NOTE | 2024-08-24 13:23 | PM.CN ---
Consult Note: HPI Data of Consult Patient: known to practice within the last 3 years Consult date: 08/24/24 Requesting Physician: Martha Arvizu NP Primary Care Provider: Betty Calixto MD Consult Narrative Reason for consult: right knee pain, left foot pain Narrative: 68yof who presents for assessment. uses gabapentin 200mg BID with mild relief. not finding benefit to ibuprofen. noting increased right knee pain from OA, prior injection provided at least 50% improvement for 3 months but has since worn off. pt not interested in scs trial for left foot pain. cc:: CC: Martha Arvizu NP [facility] Medical History Former smoker �Z87.891 - Personal history of nicotine dependence (ICD-10) High cholesterol �E78.00 - Pure hypercholesterolemia, unspecified (ICD-10) Surgical History H/O lumbosacral spine surgery �Z98.890 - Other specified postprocedural states (ICD-10) H/O lumbar discectomy �Z98.890 - Other specified postprocedural states (ICD-10) H/O: hysterectomy �Z90.710 - Acquired absence of both cervix and uterus (ICD-10) Meds Home Medications and Allergies Home Medications �Medication �Instructions �Recorded �Confirmed �Type ibuprofen 200 mg tablet (Advil) 200 mg PO QDAY PRN pain 11/16/22 01/18/23 History diazepam 2 mg tablet (Valium) 1 mg PO DAILY PRN anxiety 12/07/22 01/18/23 History gabapentin 100 mg capsule 200 mg PO TID 10/04/23 10/04/23 History gabapentin 100 mg capsule 200 mg (2 x 100 mg) PO TID #540 03/02/24 Rx caps Allergies Allergy/AdvReac Type Severity Reaction Status Date / Time No Known Drug Allergies Allergy Verified 01/18/23 07:22 Exam Constitutional Documenting provider has reviewed patient's vital signs: yes Common normals: no apparent distress, oriented x3, healthy appearing, alert and well nourished General appearance: cooperative HENMT Common normals: normocephalic, hearing grossly normal bilaterally and moist oral mucous membranes Head and scalp: normocephalic Eye Common normals: PERRL Pupil: PERRL Neck & C-Spine Common normals: full ROM General: normal visual inspection Chest Common normals: inspection of chest normal Respiratory Common normals: normal respiratory effort, no retractions and no use of accessory muscles Back & Pelvis Lumbar spine/lower back: normal to inspection, lumbar ROM normal and straight leg raise positive left Other: swelling discoloration altered sensation of left foot/LLE decreased sensation strength 4/5 Extremity Right lower extremity: knee joint Other: right knee no edema, mild crepitus, no pain with medial and lateral stress testing Neuro Common normals: oriented x3 Sensorium/orientation: alert Motor exam: strength 5/5 throughout and no movement abnormalities noted Psych Common normals: mental status grossly normal, thought process normal, cooperative, affect normal, speech normal and activity/motor behavior normal Speech: normal speech Thought process: normal thought process Results Additional Findings Additional findings: If on a controlled substance or opioids, I have checked an [place]AR[place] report on this patient and there are no aberrancies noted in the prescribing history.��If on a controlled substance or opioid a drug screen was completed and reviewed within the last year, and if there has not been a drug screen completed we ordered one today to monitor higher risk, state monitored pain medication use. As part of providing excellent, safe, comprehensive care, the following was completed at our patient's visit: 1. A medication reconciliation and review to ensure accurate knowledge of current/active medications, including asking our patients to inform us about any [id number] medications or herbal remedies/nutritional supplements/alternative remedies. 2. A review to specifically ensure our patients have had annual screening for screening for depression, screening for tobacco use, and screening for unhealthy alcohol use. For concerning screenings had a discussion with the patient, provided patient education, and recommended follow-up with primary care provider when appropriate. If patient noted with a risk of falling, they received education on strength, gait, and balance training to prevent future risk of falling. Portions of this note may have been carried over from the previous visit and updated as appropriate. Please note this office utilizes paper charting in addition to the electronic medical record. A list of current medications, vitals, and PMH is available there as the clinical staff outside of myself do not have access to [employer] charting during the clinic day operations. As part of providing quality comprehensive care the current medications, vitals, and PMH were reviewed in the paper chart. Assessment and Plan Assessment and Plan (1) Osteoarthritis of right knee: Qualifiers: Osteoarthritis type: primary Qualified Code(s): M17.11 - Unilateral primary osteoarthritis, right knee (2) Chronic pain in left foot: (3) Lumbar postlaminectomy syndrome: Assessment and Plan: declining scs Plan repeat right knee injection for OA with Dr Garcias dc otc nsaids, start mobic 15mg daily with food can utilize tylenol otc continue HEP as tolerated encouraged regular use of gabapentin 200mg BID f/u after injection
== END 2024-08-24 12:49 | disposition home or self-care (01) ==
PROVIDERS: PCP Family Medicine; Visit Provider Nurse Practitioner
DX: M17.11 Unilateral primary osteoarthritis, right knee (principal); M79.672 Pain in left foot; M96.1 Postlaminectomy syndrome, not elsewhere classified
CPT/HCPCS: G0463

== ENCOUNTER 2024-09-04 14:14 | Outpatient (OUT) | payer OTHER, SELFPAY ==
--- OUTSIDE RECORDS SUMMARY | 2024-09-04 14:15 | XMS_ITS | Clinical Summary ---
Author Organization [facility] Address [address] [place] [address] Care Team Providers Care Librarian Helper Name Role Phone Betty Calixto MD Primary Care Provider [phone] Allergies No known active allergies Medications gabapentin [...] N ot on file 01/30/2020 Data from: https://www.neighborhoodatlas.medicine.[facility]/. Last address used for calculation Not on [...] 2023 Advance Directive Discussion 02/23/2024 Influenza Vaccine (#1) 2024 0, 12/13/2018, 12/10/2017 RSV Vaccine (1 - 1-dose 75+ series) 2028 Procedures Procedure Name Priority Date/Time Associated Diagnosis Comments BASIC METABOLIC PANEL Routine 08/31/2018 12:02 PM EDT Degeneration, intervertebral disc, lumbar from Last 3 Months or Most Recently Relevant to Health Maintenance Results * BASIC METABOLIC PNL (08/31/2018 12:02 PM EDT) Glucose 99 74 - 99 mg/dL 08/31/2018 9:42 PM EDT [facility] Comment: The [place] Diabetes Association (ADA) provides guidance for cutoff [...] Standards of Medical Care in Diabetes 2016, [place] Diabetes Association. Diabetes Care. 2016.39(Suppl 1). BUN 11 7 - 21 mg/dL 08/31/2018 9:42 PM EDT [facility] Creatinine 0.66 0.58 - 0.96 mg/dL 08/31/2018 9:42 PM EDT [facility] Sodium 140 136 - 144 mmol/L 08/31/2018 9:42 PM EDT [facility] Potassium 3.8 3.7 - 5.1 mmol/L 08/31/2018 9:42 PM EDT [facility] Chloride 101 97 - 105 mmol/L 08/31/2018 9:42 PM EDT [facility] CO2 26 22 - 30 mmol/L 08/31/2018 9:42 PM EDT [facility] Anion Gap 13 9 - 18 mmol/L 08/31/2018 9:42 PM EDT [facility] Calcium 9.9 8.5 - 10.2 mg/dL 08/31/2018 9:42 PM EDT [facility] eGFR- >60 08/31/2018 9:42 PM EDT [facility] eGFR-All Other Races >60 . 08/31/2018 9:42 PM EDT [facility] Comment: eGFR (Estimated GFR) Units of measure: [...] 08/31/2018 12:09 PM EDT us Nadia Thomas APRN.[facility] Final Res ult [facility] [address] [place] [address] [facility] [address] [place] [address] from Last 3 Months or Most Recently Relevant to Health Maintenance Insurance MEDICARE [employer] SUPPLEMENT Care Teams Librarian Helper Relationship Specialty Start Date End Date Betty Calixto MD [address] [place] [id number] PCP - General Family Medicine 01/07/18
--- OUTSIDE RECORDS SUMMARY | 2024-09-04 14:15 | XMS_ITS | Encounter Summary ---
Author Organization [facility] Address [address] [place] [address] Care Team Providers Care Sample Cutter Name Role Phone Betty Calixto MD Primary Care Provider [phone] Source Comments In the event this information is protected by the Federal Confidentiality of Alcohol and Drug AbusePatient Records regulations: The Federal rules restrict any use of the information to criminally investigate or prosecute any alcohol or drug abuse patient.[facility] Encounter Details Date Type Department Care Team (Late st Contact Info) Description 05/29/2019 Get Medical Advice Spine [place] [address] [place], [place] [phone] [place] [address] [place], [place] [phone] RE: Non-Urgent Medical Question Social History Tobacco [...] on filedocumented in this encounter Care Teams Sample Cutter Relationship Specialty Start Date End Date Betty Calixto MD [address] [place] [address] PCP - General Family Medicine 01/07/18 documented as of this encounter
--- OUTSIDE RECORDS SUMMARY | 2024-09-04 14:15 | XMS_ITS | Encounter Summary ---
Author Organization [facility] Address [address] [place] [address] Care Team Providers Care Bell Ringer Name Role Phone Betty Calixto MD Primary Care Provider [phone] Source Comments In the event this information is protected by the Federal Confidentiality of Alcohol and Drug AbusePatient Records regulations: The Federal rules restrict any use of the information to criminally investigate or prosecute any alcohol or drug abuse patient.[facility] Encounter Details Date Type Department Care Team (Late st Contact Info) Description 02/25/2018 Abstract Neurology [address] [place], [place] [phone] (Historical), Unknown Social History Tobacco Use Types [...] on filedocumented in this encounter Care Teams Bell Ringer Relationship Specialty Start Date End Date Betty Calixto MD [address] [place] [address] PCP - General Family Medicine 01/07/18 documented as of this encounter
--- OUTSIDE RECORDS SUMMARY | 2024-09-04 14:15 | XMS_ITS | Encounter Summary ---
Author Organization [facility] Address [address] [place] [address] Care Team Providers Care Blending Machine Feeder Name Role Phone Betty Calixto MD Primary Care Provider [phone] Source Comments In the event this information is protected by the Federal Confidentiality of Alcohol and Drug AbusePatient Records regulations: The Federal rules restrict any use of the information to criminally investigate or prosecute any alcohol or drug abuse patient.[facility] Encounter Details Date Type Department Care Team (Late st Contact Info) Description 05/25/2019 Get Medical Advice Pain Management [address] [phone] [place] [address] [place], [place] [phone] RE: Non-Urgent Medical Question Social History Tobacco [...] on filedocumented in this encounter Care Teams Blending Machine Feeder Relationship Specialty Start Date End Date Betty Calixto MD [address] [place] [address] PCP - General Family Medicine 01/07/18 documented as of this encounter
--- OUTSIDE RECORDS SUMMARY | 2024-09-04 14:15 | XMS_ITS | Clinical Summary ---
Author Organization [facility] Address [address] [place] [address] Care Team Providers Care Mutuel Cashier Name Role Phone Betty Calixto MD Primary Care Provider [phone] Allergies No known active allergies Medications gabapentin [...] 09/15/2024 09/16/2023 FOBT 09/15/2024 09/16/2023 Influenza Vaccine (#1) 2024 , 12/15/2021, 02/10/2021, Additional history exists Insurance [facility] Care Teams Mutuel Cashier Relationship Specialty Start Date End Date Betty Calixto MD [address] [place] [address] PCP - General Family Medicine 12/01/23
--- NOTE | 2024-09-04 15:44 | PM.CN ---
Consult Note: HPI Data of Consult Patient: known to practice within the last 3 years Consult date: 09/04/24 Requesting Physician: Parish Garcias MD Primary Care Provider: Betty Calixto MD Consult Narrative Reason for consult: right knee pain Narrative: 69yof who presents for assessment. states that recently increased her gabapentin and started mobic, which has helped her knee pain. does not have much knee pain at this time. cc:: CC: Parish Garcias MD Review of Systems ROS Status of ROS 10 or more systems reviewed and unremarkable except as noted in history and below [facility] Medical History Former smoker ?Z87.891 - Personal history of nicotine dependence (ICD-10) High cholesterol ?E78.00 - Pure hypercholesterolemia, unspecified (ICD-10) Surgical History H/O lumbosacral spine surgery ?Z98.890 - Other specified postprocedural states (ICD-10) H/O lumbar discectomy ?Z98.890 - Other specified postprocedural states (ICD-10) H/O: hysterectomy ?Z90.710 - Acquired absence of both cervix and uterus (ICD-10) Meds Home Medications and Allergies Home Medications ?Medication ?Instructions ?Recorded ?Confirmed ?Type ibuprofen 200 mg tablet (Advil) 200 mg PO QDAY PRN pain 11/16/22 01/18/23 History diazepam 2 mg tablet (Valium) 1 mg PO DAILY PRN anxiety 12/07/22 01/18/23 History gabapentin 100 mg capsule 200 mg PO TID 10/04/23 08/24/24 History gabapentin 100 mg capsule 200 mg (2 x 100 mg) PO TID #540 03/02/24 Rx caps Allergies Allergy/AdvReac Type Severity Reaction Status Date / Time No Known Drug Allergies Allergy Verified 01/18/23 07:22 Exam Narrative Exam Narrative: Psych-alert and oriented x 3.? Attentive and appropriate, constitutionally normal, displays normal mood and affect per situation.? There are no obvious deficits in memory, reasoning, or intellect. Extremities-lower extremities are warm with minimal edema and palpable pulses. Knee-examination of the right knee reveals tenderness to palpation over the superior, inferior, lateral, and medial aspect of the knee.? Some swelling is noted without erythema. Pain is elicited with flexion and extension of the knee both actively and passively.? Some grinding is noted with these motions.? There is no notable ligamental laxity or instability.? Coordination remains intact.? Gait remains antalgic. Assessment and Plan Assessment and Plan (1) Osteoarthritis of right knee: Qualifiers: Osteoarthritis type: primary Qualified Code(s): M17.11 - Unilateral primary osteoarthritis, right knee Plan 69yof who presents for assessment. discussed that pain has improved with recent increase in gabapentin and starting mobic. advised that it would be prudent to hold off on knee injection today if she was doing well. she is in agreement. meds reviewed, no changes. will follow up as needed.
== END 2024-09-04 14:15 | disposition home or self-care (01) ==
PROVIDERS: PCP Family Medicine; Visit Provider Anesthesiology
DX: M17.11 Unilateral primary osteoarthritis, right knee (principal)
CPT/HCPCS: G0463

== ENCOUNTER 2024-10-02 09:24 | Outpatient (OUT) | payer OTHER, SELFPAY ==
--- OUTSIDE RECORDS SUMMARY | 2024-10-02 09:28 | XMS_ITS | Clinical Summary ---
Author Organization [facility] Address [address] [place] [address] Care Team Providers Care Corn Sheller Operator Name Role Phone Betty Calixto MD Primary Care Provider [phone] Allergies No known active allergies Medications gabapentin [...] N ot on file 01/30/2020 Data from: https://www.neighborhoodatlas.medicine.[facility]/. Last address used for calculation Not [...] Screening 08/31/2021 08/31/2018 Lipid Screening 04/01/2023 04/01/2018 Advance Directive Discussion 02/23/2024 Influenza Vaccine (#1) 2024 0, 12/13/2018, 12/10/2017 RSV Vaccine (1 - 1-dose 75+ series) 2028 Procedures Procedure Name Priority Date/Time Associated Diagnosis Comments BASIC METABOLIC PANEL Routine 08/31/2018 12:02 PM EDT Degeneration, intervertebral disc, lumbar from Last 3 Months or Most Recently Relevant to Health Maintenance Results * BASIC METABOLIC PNL (08/31/2018 12:02 PM EDT) Pathologist [facility] Glucose 99 74 - 99 mg/dL 08/31/2018 9:42 PM EDT [facility] Comment: The [place] Diabetes Association (ADA) provides guidance for cutoff [...] Standards of Medical Care in Diabetes 2016, [place] [employer]. Diabetes Care. 2016.39(Suppl 1). BUN 11 7 - 21 mg/dL 08/31/2018 9:42 PM EDT [facility] Creatinine 0.66 0.58 - 0.96 mg/dL 08/31/2018 9:42 PM EDT [facility] Sodium 140 136 - 144 mmol/L 08/31/2018 9:42 PM EDT [facility] Potassium 3.8 3.7 - 5.1 mmol/L 08/31/2018 9:42 PM EDT [facility] Chloride 101 97 - 105 mmol/L 08/31/2018 9:42 PM EDT [facility] CO2 26 22 - 30 mmol/L 08/31/2018 9:42 PM EDT [facility] Anion Gap 13 9 - 18 mmol/L 08/31/2018 9:42 PM EDT [facility] Calcium 9.9 8.5 - 10.2 mg/dL 08/31/2018 9:42 PM EDT [facility] eGFR- >60 08/31/2018 9:42 PM EDT [facility] eGFR-All Other Races >60 . 08/31/2018 9:42 PM EDT [facility] Comment: eGFR (Estimated GFR) Units of measure: [...] 08/31/2018 12:09 PM EDT us Nadia Thomas LIVESTOCK BREEDER.[employer] [facility] [employer] [facility] Final Res ult [facility] [address] [place] [address] [facility] [address] [place] [address] from Last 3 Months or Most Recently Relevant to Health Maintenance Insurance MEDICARE A[employer] SUPPLEMENT Care Teams Corn Sheller Operator Relationship Specialty Start Date End Date Betty Calixto MD [address] [place] [address] PCP - General Family Medicine 01/07/18
--- OUTSIDE RECORDS SUMMARY | 2024-10-02 09:28 | XMS_ITS | Encounter Summary ---
Author Organization [facility] Address [address] [place] [address] Care Team Providers Care Sr. Pricing Analyst Name Role Phone Betty Calixto MD Primary Care Provider [phone] Source Comments In the event this information is protected by the Federal Confidentiality of Alcohol and Drug AbusePatient Records regulations: The Federal rules restrict any use of the information to criminally investigate or prosecute any alcohol or drug abuse patient.[facility] Encounter Details Date Type Department Care Team (Late st Contact Info) Description 05/29/2019 Get Medical Advice Spine [place] [address] [place], [place] [phone] [place] [address] [address] [place], [place] [phone] RE: Non-Urgent Medical Question Social History Tobacco [...] of Assessment Author No 09/02/2018 10:45 AM Roajs Nam (Rn), RN documented as of this [...] on filedocumented in this encounter Care Teams Sr. Pricing Analyst Relationship Specialty Start Date End Date Betty Calixto MD [address] [place] [address] PCP - General Family Medicine 01/07/18 documented as of this encounter
--- OUTSIDE RECORDS SUMMARY | 2024-10-02 09:28 | XMS_ITS | Encounter Summary ---
Author Organization [facility] Address [address] [place] [address] Care Team Providers Care Irish Moss Gatherer Name Role Phone Betty Calixto MD Primary Care Provider [phone] Source Comments In the event this information is protected by the Federal Confidentiality of Alcohol and Drug AbusePatient Records regulations: The Federal rules restrict any use of the information to criminally investigate or prosecute any alcohol or drug abuse patient.[facility] Encounter Details Date Type Department Care Team (Late st Contact Info) Description 05/25/2019 Get Medical Advice Pain Management [address] [phone] [place] [address] [place], [place] [phone] RE: Non-Urgent Medical Question Social History Tobacco [...] on filedocumented in this encounter Care Teams Irish Moss Gatherer Relationship Specialty Start Date End Date Betty Calixto MD [address] [place] [address] PCP - General Family Medicine 01/07/18 documented as of this encounter
--- OUTSIDE RECORDS SUMMARY | 2024-10-02 09:28 | XMS_ITS | Encounter Summary ---
Author Organization [facility] Address [address] [place] [address] Care Team Providers Care Territory Business Manager Name Role Phone Betty Calixto MD Primary Care Provider [phone] Source Comments In the event this information is protected by the Federal Confidentiality of Alcohol and Drug AbusePatient Records regulations: The Federal rules restrict any use of the information to criminally investigate or prosecute any alcohol or drug abuse patient.[facility] Encounter Details Date Type Department Care Team (Late st Contact Info) Description 02/25/2018 Abstract Neurology [address] [place], [place] [phone] (Historical), Unknown Social History Tobacco Use Types [...] on filedocumented in this encounter Care Teams Territory Business Manager Relationship Specialty Start Date End Date Betty Calixto MD [address] [place] [address] PCP - General Family Medicine 01/07/18 documented as of this encounter
--- NOTE | 2024-10-02 13:29 | P.CN_ITS ---
Consult Note: HPI Data of Consult Patient: known to practice within the last 3 years Consult date: 10/02/24 Requesting Physician: Parish Garcias MD Primary Care Provider: Betty Calixto MD Consult Narrative Reason for consult: right knee pain Narrative: 69yof who presents for in office injection. continues to have right knee pain, would like to repeat right knee injection. cc:: CC: Parish Garcias MD Review of Systems ROS Status of ROS 10 or more systems reviewed and unremark able except as noted in history and below PFSH PFSH Medical History Former smoker ?Z87.891 - Personal history of nicotine dependence (ICD-10) High cholesterol ?E78.00 - Pure hypercholesterolemia, unspecified (ICD-10) Surgical History H/O lumbosacral spine surgery ?Z98.890 - Other specified postprocedural states (ICD-10) H/O lumbar discectomy ?Z98.890 - Other specified postprocedural states (ICD-10) H/O: hysterectomy ?Z90.710 - Acquired absence of both cervix and uterus (ICD-10) Meds Home Medications and Allergies Home Medications ?Medication ?Instructions ?Recorded ?Confirmed ?Type ibuprofen 200 mg tablet (Advil) 200 mg PO QDAY PRN ade n 11/16/22 01/18/23 History diazepam 2 mg tablet (Valium) 1 mg PO DAILY PRN anxiet y 12/07/22 01/18/23 History gabapentin 100 mg capsule 200 mg PO TID 10/04/2308/24 History gabapentin 100 mg capsule 200 mg (2 x 100 mg) PO TID # 540 03/02/24 Rx caps Allergies Allergy/AdvReac Type Severity Reaction Status Date / Time No Known Drug Allergies Allergy Verified 01/18/23 07:22 Exam Narrative Exam Narrative: Psych-alert and oriented x 3.? Attentive and appropriate, constitutionally normal, displays normal mood and affect per situation.? There are no obvious deficits in memory, reasoning, or intellect. Extremities-lower extremities are warm with minimal edema and palpable pulses. Knee-examination of the right knee reveals tenderness to palpation over the superior, inferior, lateral, and medial aspect of the knee.? Some swelling is noted without erythema. Pain is elicited with flexion and extension of the knee both actively and passively.? Some grinding is noted with these motions.? There is no notable ligamental laxity or instability.? Coordination remains intact.? Gait remains antalgic. Assessment and Plan Assessment and Plan (1) Osteoarthritis of right knee: Qualifiers: Osteoarthritis type: primary Qualified Code(s): M17.11 - Unilateral primary osteoarthritis, right knee Plan 69yof who presents for right knee injection. continues to have right knee pain, so will proceed with injection. follow up in 3 months. procedure: right knee injection medications: bupivacaine 0.25% 4cc, depomedrol 40mg I explained the details of the procedure to the patient including the risks, benefits and alternatives. We had an informed discussion and the patient verbalized understanding and signed the consent form. All questions were answered appropriately.? A time out was performed.? After obtaining a comfortable seated position, the right knee was prepped with alcohol x3. A syringe containing the above medicati on was attached to a 25 gauge, 1.5 inch needle under strict aseptic technique. The lateral tibial plateau was palpated.? The needle was then advanced through the subcutaneous tissue in a medial and superior direction towards the joint space.? The contents of the syringe were gently injected without any resistance. The needle was removed and pressure was applied to the injection site to decrease the incidence of ecchymosis and hematoma formation.? A sterile bandage was applied.
== END 2024-10-02 09:25 | disposition home or self-care (01) ==
PROVIDERS: PCP Family Medicine; Visit Provider Anesthesiology
DX: M17.11 Unilateral primary osteoarthritis, right knee (principal)
CPT/HCPCS: 20610; J0665; J3301